=== PATIENT | female | born 1950 | race Caucasian/White ===

== ENCOUNTER 2017-03-08 02:03 | Inpatient (IN) | payer MEDICARE ==
[2017-03-08] VITALS (27 sets, daily range): BP systolic 107–183; BP diastolic 55–83; PULSE 0–78; RESP 15–24; TEMP 96.8–102.2; O2SAT 93–100
[~2017-03-08] VITALS: Ht 162.6 cm; Wt 115.4 kg
[2017-03-08] MEDS: RESP: ALBUTEROL 2.5 MG/IPRATROPIUM 0.5 MG NEB (SCH) INH ×6 (02:15→23:00)
--- NOTE | 2017-03-08 02:27 | PD ---
HPI . Respiratory distress Chief Complaint: Respiratory distress Time Seen by Provider: 02:15 Travel History International Travel<30 days: No Contact w/Intl Traveler<30days: No History of Present Illness HPI Patient presents to us via [facility] status post intubation for respiratory distress. She was brought to us from a hotel room. Very little history is available. She has reportedly been feeling poorly for a couple of days. She became acutely worse tonight and called 911. She reportedly has a history of COPD. PFSH Social History Tobacco Use: Yes Allergies-Medications (Allergen,Severity, Reaction): Coded Allergies: No Known Allergies (Unverified , 03/08/17) Reported Meds & Prescriptions Reported Meds & Active Scripts Active Reported Omeprazole 20 Mg Tab 20 Mg PO DAILY Lisinopril-Hctz 10-12.5 Mg Tab 1 Tab PO DAILY Sertraline (Sertraline HCl) 50 Mg Tab 50 Mg PO DAILY Lorazepam 0.5 Mg Tab 0.5 Mg PO Q8H PRN Gabapentin 300 Mg Cap 300 Mg PO TID Review of Systems ROS Limitations: Intubated Physical Exam Narrative GENERAL: Obese female who is currently intubated. SKIN: Warm and dry. HEAD: Atraumatic. Normocephalic. EYES: Pupils equal and round. ENT: No nasal bleeding or discharge. Mucous membranes pink and moist. NECK: Trachea midline. CARDIOVASCULAR: Regular rate and rhythm. Heart sounds were normal. RESPIRATORY: No accessory muscle use. Breath sounds are diminished. GASTROINTESTINAL: Abdomen soft, non-tender, nondistended. Obese. MUSCULOSKELETAL: No obvious deformities. No edema. NEUROLOGICAL: Patient presented to us sedated and intubated. EMS reports that she was moving all 4 extremities equally. PSYCHIATRIC: Unable to evaluate. Data Data Last Documented VS Vital Signs Date Time Temp Pulse Resp B/P Pulse Ox O2 Delivery O2 Flow Rate FiO2 03/08/17 03:56 70 18 183/83 99 Ventilator 100 03/08/17 02:34 96.8 Orders Complete Blood Count With Diff (03/08/17 02:16) Comprehensive Metabolic Panel (03/08/17 02:16) B-Type Natriuretic Peptide (03/08/17 02:16) D-Dimer (03/08/17 02:16) Act Partial Throm Time (Ptt) (03/08/17 02:16) Prothrombin Time / Inr (Pt) (03/08/17 02:16) Magnesium (Mg) (03/08/17 02:16) Ckmb (Isoenzyme) Profile (03/08/17 02:16) Troponin I (03/08/17 02:16) Arterial Blood Gas (Abg) (03/08/17 02:45) Urinalysis - C+S If Indicated (03/08/17 02:16) Iv Access Insert/Monitor (03/08/17 02:16) Electrocardiogram (03/08/17 02:16) Ecg Monitoring (03/08/17 02:16) Oximetry (03/08/17 02:16) Oxygen Administration (03/08/17 02:16) Chest, Single Ap (03/08/17 02:16) Urinary Catheter Insert/Apply (03/08/17 02:16) Sodium Chloride 0.9% Flush (Ns Flush) (03/08/17 02:30) Methylprednisolone So Succ Inj (Solumedr (03/08/17 02:30) Albuterol-Ipratropium Neb (Duoneb Neb) (03/08/17 02:30) Propofol 1000 Mg/100 Ml Inj (Diprivan 10 (03/08/17 02:30) Restraints Non-Violent JAZLYN.Q3H (03/08/17 02:16) Resp Request For Service (03/08/17 ) Drug Screen, Random Urine (03/08/17 02:49) Ct Pulmonary Angiogram (03/08/17 03:59) Iohexol 350 Inj (Omnipaque 350 Inj) (03/08/17 04:29) Admit Order (Ed Use Only) (03/08/17 04:34) Labs Laboratory Tests Test 03/08/17 03/08/17 03/08/17 02:20 02:30 02:45 Urine Color YELLOW Urine Turbidity CLEAR Urine pH 5.0 Urine Specific [place] 1.012 Urine Protein NEG mg/dL Urine Glucose (UA) NEG mg/dL Urine Ketones NEG mg/dL Urine Occult Blood NEG Urine Nitrite NEG Urine Bilirubin NEG Urine Urobilinogen LESS THAN 2.0 MG/DL Urine Leukocyte Esterase NEG Urine RBC LESS THAN 1 /hpf Urine WBC 1 /hpf Urine Squamous Epithelial <1 /hpf Cells Microscopic Urinalysis Comment CULT NOT INDICATED Urine Opiates Screen NEG Urine Barbiturates Screen NEG Urine Amphetamines Screen NEG Urine Benzodiazepines Screen NEG Urine Cocaine Screen NEG Urine Cannabinoids Screen NEG White Blood Count 5.4 TH/MM3 Red Blood Count 4.02 MIL/MM3 Hemoglobin 12.7 GM/DL Hematocrit 37.7 % Mean Corpuscular Volume 93.9 FL Mean Corpuscular Hemoglobin 31.5 PG Mean Corpuscular Hemoglobin 33.5 % Concent Red Cell Distribution Width 15.1 % Platelet Count 146 TH/MM3 Mean Platelet Volume 8.3 FL Neutrophils (%) (Auto) 83.0 % Lymphocytes (%) (Auto) 10.6 % Monocytes (%) (Auto) 5.2 % Eosinophils (%) (Auto) 0.9 % Basophils (%) (Auto) 0.3 % Neutrophils # (Auto) 4.5 TH/MM3 Lymphocytes # (Auto) 0.6 TH/MM3 Monocytes # (Auto) 0.3 TH/MM3 Eosinophils # (Auto) 0.1 TH/MM3 Basophils # (Auto) 0.0 TH/MM3 CBC Comment DIFF FINAL Differential Comment Prothrombin Time 10.9 SEC Prothromb Time International 1.0 RATIO Ratio Activated Partial 20.5 SEC Thromboplast Time D-Dimer Quantitative (PE/DVT) 1.64 MG/L FEU Sodium Level 141 MEQ/L Potassium Level 3.1 MEQ/L Chloride Level 106 MEQ/L Carbon Dioxide Level 26.5 MEQ/L Anion Gap 9 MEQ/L Blood Urea Nitrogen 20 MG/DL Creatinine 1.00 MG/DL Estimat Glomerular Filtration 48 ML/MIN Rate Random Glucose 155 MG/DL Calcium Level 8.3 MG/DL Magnesium Level 1.9 MG/DL Total Bilirubin 0.2 MG/DL Aspartate Amino Transf 18 U/L (AST/SGOT) Alanine Aminotransferase 20 U/L (ALT/SGPT) Alkaline Phosphatase 73 U/L Total Creatine Kinase 66 U/L Troponin I LESS THAN 0.02 NG/ML B-Type Natriuretic Peptide 19 PG/ML Total Protein 7.0 GM/DL Albumin 3.4 GM/DL Blood Gas Puncture Site RT RADIAL Blood Gas Patient Temperature 98.6 Blood Gas HCO3 26 mmol/L Blood Gas Base Excess -0.1 mmol/L Blood Gas Oxygen Saturation 88 % Arterial Blood pH 7.29 Arterial Blood Partial 55 mmHg Pressure CO2 Arterial Blood Partial 68 mmHG Pressure O2 Arterial Blood Oxygen Content 15.2 Vol % Arterial Blood 3.5 % Carboxyhemoglobin Arterial Blood Methemoglobin 0.5 % Blood Gas Hemoglobin 12.4 G/DL Oxygen Delivery Device VENTILATOR Blood Gas Inspired Oxygen 100 % MDM Medical Decision Making Medical Screen Exam Complete: Yes Emergency Medical Condition: Yes Interpretation(s) EKG shows a sinus rhythm. No ST segment elevation or depression. She has an intraventricular conduction delay. Differential Diagnosis Differential diagnosis of dyspnea includes but is not limited to congestive heart failure, pneumonia, wheezing, pneumothorax, pulmonary embolism Narrative Course Patient presented to us that his post intubation by EMS. They report a history of COPD. No further history was obtainable. Her family is now here and available for interview. They report a history of COPD and lymphoma. They state that she's had a cold for the last couple days. They state that they are here in town for a early left her nebulizer machine at home. She did use another person's nebulizer machine yesterday took some [id number] Mucinex. However, her symptoms worsen rather than improve. She developed nausea, vomiting and diarrhea shortly prior to presentation. She became acutely worse from respiratory standpoint. They state that she became very disoriented. EMS was then called. They state that she does not use oxygen at home. CBC & BMP Diagram 03/08/17 02:30 Last Impressions Chest X-Ray 03/08/17 0216 Signed Impressions: Service Date/Time: Wednesday, March 08, 2017 02:24 - CONCLUSION: 1. Endotracheal tube in the right mainstem bronchus. This should be retracted 3-4 cm. Stepan Albarado MD The chest x-ray was independently viewed by me. The ET tube is being adjusted by respiratory therapy. Blood gas was done about a half an hour after her arrival. pH 7.29, pCO2 55, pO2 68. D-dimer is 1.64. CT for PE has subsequently been ordered. UA is negative. Tox screen is negative. Critical Care Narrative Aggregate critical care time was 45 minutes. Time to perform other separately billable procedures was not included in the critical care time. My time did not include minutes spent treating any other patients simultaneously or on activities that did not directly contribute to the patient's treatment. The services I provided to this patient were to treat and/or prevent clinically significant deterioration due to respiratory distress/failure I provided critical care services requiring my management, as noted below: Chart data review, documentation time, medication orders and management, vital sign assessments/reviewing monitor data, ordering and reviewing lab tests, ordering and interpreting/reviewing x-rays and diagnostic studies, care of the patient and discussion of the patient with the admitting physicians Physician Communication Physician Communication Dr. Espino will admit Diagnosis Primary Impression: Respiratory failure Qualified Code: J96.02 - Acute respiratory failure with hypercapnia Admitting Information Admitting Physician Requests: Admit Condition: Montse Howard MD Mar 08, 2017 02:27
[2017-03-08] MEDS ORDERED: PROPOFOL 1000 MG/100 ML BTL IV PRN (02:30)
[2017-03-08] MEDS ORDERED: SODIUM CHLORIDE 0.9% FLUSH 10 ML FLUSH IVF PRN (02:30)
[2017-03-08] MEDS ORDERED: methylPREDNISolone SOD SUCC 125 MG/2 ML VIAL IVP ONE (02:30)
[2017-03-08] MEDS ORDERED: OMEP20TA PO (02:43)
[2017-03-08] MEDS ORDERED: LISI10TA PO (02:43)
[2017-03-08] MEDS ORDERED: GABA300C5 PO (02:43)
[2017-03-08] MEDS ORDERED: SERT-132 PO (02:43)
[2017-03-08] MEDS ORDERED: LORA-373 PO (02:43)
[2017-03-08 02:51] LABS: AUTOMATED NEUTROPHIL # 4.5 TH/MM3 (1.8-7.7); BASOPHIL % 0.3 % (0.0-2.0); EOSINOPHIL # 0.1 TH/MM3 (0-0.4); EOSINOPHIL % 0.9 % (0.0-4.0); HEMATOCRIT 37.7 % (35.0-46.0); HEMO FLAGS DIFF FINAL; LYMPH % 10.6 % (9.0-44.0); LYMPHOCYTE # 0.6 TH/MM3 (1.0-4.8); MEAN CELL VOLUME 93.9 FL (80.0-100.0); MEAN CORPUSCULAR HEMOGLOBIN 31.5 PG (27.0-34.0); MEAN CORPUSCULAR HGB CONC 33.5 % (32.0-36.0); MONO % 5.2 % (0.0-8.0); PLATELET COUNT 146 TH/MM3 (150-450); RED BLOOD COUNT 4.02 MIL/MM3 (4.00-5.30); RED CELL DISTRIBUTION WIDTH 15.1 % (11.6-17.2); WHITE BLOOD COUNT 5.4 TH/MM3 (4.0-11.0)
[2017-03-08 02:54] LABS: BLOOD GAS BASE EXCESS -0.1 mmol/L (-2-2); BLOOD GAS CARBOXYHEMOGLOBIN 3.5 % (0-4); BLOOD GAS HCO3 26 mmol/L (22-26); BLOOD GAS METHEMOGLOBIN 0.5 % (0-2); BLOOD GAS O2 HGB SATURATION 88 % (90-100); BLOOD GAS OXYGEN CONTENT 15.2 Vol % (12.0-20.0); BLOOD GAS PCO2 55 mmHg (38-42); BLOOD GAS PO2 68 mmHG (61-120); BLOOD GAS TOTAL HGB 12.4 G/DL (12.0-16.0); CRITICAL VALUE YES; DRAW SITE RT RADIAL; FIO2 100 %; NUMBER OF ARTERIAL PUNCTURES 1; OXYGEN DEVICE VENTILATOR; STAT YES; TEMP CORR TO 98.6; ULNAR PULSE PRESENT
[2017-03-08 02:57] LABS: BLOOD, URINE NEG (NEG); COMMENT (UR) CULT NOT INDICATED; CULTURE IF INDICATED CULT NOT INDICATED; GLUCOSE,URINE NEG (NEG); KETONE, URINE NEG (NEG); NITRITE,URINE NEG (NEG); SQUAMOUS EPITHELIAL CELL URINE <1 /hpf (0-5); URINE COLOR YELLOW (YELLW/STRAW)
[2017-03-08 03:08] LABS: ALT (GPT) 20 U/L (10-53); ANION GAP 9 MEQ/L (5-15); AST (GOT) 18 U/L (15-37); BICARBONATE 26.5 MEQ/L (21.0-32.0); BLOOD UREA NITROGEN 20 MG/DL (7-18); CHLORIDE 106 MEQ/L (98-107); GLOMERULAR FILTRATION RATE 48 ML/MIN (>89); MAGNESIUM 1.9 MG/DL (1.5-2.5); POTASSIUM 3.1 MEQ/L (3.5-5.1); SODIUM (NA) 141 MEQ/L (136-145)
--- NOTE | 2017-03-08 03:11 | RADRPT ---
EXAM DATE/TIME: 03/08/2017 02:24 [facility] COMPARISON: No previous studies available for comparison. INDICATIONS : E-T tube placement. MEDICAL HISTORY : None. SURGICAL HISTORY : None. ENCOUNTER: Initial ACUITY: 1 day PAIN SCORE: Non-responsive. LOCATION: Bilateral chest FINDINGS: The cardiac silhouette is enlarged in transverse diameter. Endotracheal tube is in the right mainstem bronchus and should be pulled back 3-4 cm. There is subsegmental atelectasis in the left base. There is no evidence of pneumothorax. CONCLUSION: 1. Endotracheal tube in the right mainstem bronchus. This should be retracted 3-4 cm. Stepan Albarado MD on March 08, 2017 at 3:08 Board Certified Radiologist. This report was verified electronically.
[2017-03-08 03:13] LABS: ALKALINE PHOSPHATASE 73 U/L (45-117); TOTAL BILIRUBIN ADULT 0.2 MG/DL (0.2-1.0)
[2017-03-08 03:16] LABS: AMPHETAMINE, URINE NEG (NEG); BARBITURATES, URINE NEG (NEG); COCAINE, URINE NEG (NEG)
[2017-03-08 03:16] LABS: APTT (PATIENT) 20.5 SEC (24.3-30.1); PROTHROMBIN TIME - PATIENT 10.9 SEC (9.8-11.6)
[2017-03-08 03:23] LABS: CREATINE KINASE 66 U/L (26-192)
[2017-03-08] MEDS ORDERED: IOHEXOL 350 MG/ML 10 ML VIAL (for RAD DIAG) IV ONE (04:29)
--- NOTE | 2017-03-08 04:41 | HHI.HP ---
[facility] Service Critical Care Medicine Primary Care Physician Unknown Admission Diagnosis respiratory failure Diagnosis: Chief Complaint: shortness of breath Travel History International Travel<30 Days: No Contact w/Intl Traveler <30 Da: No Traveled to Known Affected Are: No History of Present Illness This is a 69-year-old female who is traveling from [place] for her brother 's which is planned for tomorrow. She has a history of COPD which is relatively well-controlled at baseline. She still smokes daily. Her family reports that even before leaving for [place], she had significantly increased shortness of breath and sputum production. The family noted that it was very difficult for her to ambulate through the airport due to her dyspnea. She is been here for approximately 2 days with worsening shortness of breath and dyspnea. She is been using a family members nebulizer treatments. She has not seeked medical attention for this. In the middle night tonight she apparently awoke complaining of acute shortness of breath. She vomited 1. EMS was called and found her in severe respiratory distress and intubated her. The family states that she has not complained of chest pain, fever, chills. Until the single time that she vomited before calling 911, there were no complaints of nausea, vomiting, diarrhea. Unfortunately, the patient is intubated, sedated, and cannot provide any additional history. Critical-care medicine is consulted to evaluate and her acute hypoxic hypercarbic respiratory failure. Review of Systems ROS Limitations: Clinical Condition, Intubated, Altered Mental Status, Unresponsive Past Family Social History Allergies: Coded Allergies: No Known Allergies (Unverified , 03/08/17) Past Medical History per the patient's family, they know she has COPD and some type of lymphoma, but they do not know anything else about the patient's past medical history. Past Surgical History Patient's family does not know anything about her past surgical history. Due to the patient's clinical condition she cannot provide additional information. Reported Medications Per the patient's family, her home medications include: Omeprazole 20 Mg Tab 20 Mg PO DAILY Lisinopril-Hctz 10-12.5 Mg Tab 1 Tab PO DAILY Sertraline (Sertraline HCl) 50 Mg Tab 50 Mg PO DAILY Lorazepam 0.5 Mg Tab 0.5 Mg PO Q8H PRN Gabapentin 300 Mg Cap 300 Mg PO TID copd exacerbation Active Ordered Medications See MAR Family History unobtainable secondary to the clinical condition of the patient. Social History per the patient's family, she smokes daily. drinks 1-2 drinks/year. Physical Exam Vital Signs Vital Signs Date Time Temp Pulse Resp B/P Pulse Ox O2 Delivery O2 Flow Rate FiO2 03/08/17 03:56 70 18 183/83 99 Ventilator 100 03/08/17 03:03 60 15 111/55 97 Ventilator 100 03/08/17 02:58 59 15 95 Ventilator 100 03/08/17 02:48 99 100 03/08/17 02:38 99 Ventilator 100 03/08/17 02:38 99 Ventilator 100 03/08/17 02:34 96.8 69 24 123/58 99 03/08/17 02:10 96 100 03/08/17 02:05 100 Physical Exam GENERAL: Obese middle-aged female, lying in bed, intubated, sedated, critically ill HEENT: Normocephalic. Atraumatic. Pupils equal, round, reactive, conjugate. Mucous membranes are moist. NECK: Obese neck prevents accurate assessment of JVD. Trachea is midline. CHEST: Equal chest rise. Positive extra wheeze. ACV 15/500/5/80% CARDIOVASCULAR: Normal rate, regular rhythm. No appreciable murmurs. ABDOMEN: Obese, soft, nontender, nondistended. No guarding. MUSCULOSKELETAL: no Peripheral edema. Distal pulses 2+ NEUROLOGICAL: RASS -3. Withdrawals all 4 extremities. Does not follow commands. Intubated and sedated. Laboratory Laboratory Tests Test 03/08/17 03/08/17 03/08/17 02:20 02:30 02:45 Urine Color YELLOW Urine Turbidity CLEAR Urine pH 5.0 Urine Specific Gordon 1.012 Urine Protein NEG Urine Glucose (UA) NEG Urine Ketones NEG Urine Occult Blood NEG Urine Nitrite NEG Urine Bilirubin NEG Urine Urobilinogen LESS THAN 2.0 Urine Leukocyte Esterase NEG Urine RBC LESS THAN 1 Urine WBC 1 Urine Squamous Epithelial <1 Cells Microscopic Urinalysis Comment CULT NOT INDICATED Urine Opiates Screen NEG Urine Barbiturates Screen NEG Urine Amphetamines Screen NEG Urine Benzodiazepines Screen NEG Urine Cocaine Screen NEG Urine Cannabinoids Screen NEG White Blood Count 5.4 Red Blood Count 4.02 Hemoglobin 12.7 Hematocrit 37.7 Mean Corpuscular Volume 93.9 Mean Corpuscular Hemoglobin 31.5 Mean Corpuscular Hemoglobin 33.5 Concent Red Cell Distribution Width 15.1 Platelet Count 146 Mean Platelet Volume 8.3 Neutrophils (%) (Auto) 83.0 Lymphocytes (%) (Auto) 10.6 Monocytes (%) (Auto) 5.2 Eosinophils (%) (Auto) 0.9 Basophils (%) (Auto) 0.3 Neutrophils # (Auto) 4.5 Lymphocytes # (Auto) 0.6 Monocytes # (Auto) 0.3 Eosinophils # (Auto) 0.1 Basophils # (Auto) 0.0 CBC Comment DIFF FINAL Differential Comment Prothrombin Time 10.9 Prothromb Time International 1.0 Ratio Activated Partial 20.5 Thromboplast Time D-Dimer Quantitative (PE/DVT) 1.64 Sodium Level 141 Potassium Level 3.1 Chloride Level 106 Carbon Dioxide Level 26.5 Anion Gap 9 Blood Urea Nitrogen 20 Creatinine 1.00 Estimat Glomerular Filtration 48 Rate Random Glucose 155 Calcium Level 8.3 Magnesium Level 1.9 Total Bilirubin 0.2 Aspartate Amino Transf 18 (AST/SGOT) Alanine Aminotransferase 20 (ALT/SGPT) Alkaline Phosphatase 73 Total Creatine Kinase 66 Troponin I LESS THAN 0.02 B-Type Natriuretic Peptide 19 Total Protein 7.0 Albumin 3.4 Blood Gas Puncture Site RT RADIAL Blood Gas Patient Temperature 98.6 Blood Gas HCO3 26 Blood Gas Base Excess -0.1 Blood Gas Oxygen Saturation 88 Arterial Blood pH 7.29 Arterial Blood Partial 55 Pressure CO2 Arterial Blood Partial 68 Pressure O2 Arterial Blood Oxygen Content 15.2 Arterial Blood 3.5 Carboxyhemoglobin Arterial Blood Methemoglobin 0.5 Blood Gas Hemoglobin 12.4 Oxygen Delivery Device VENTILATOR Blood Gas Inspired Oxygen 100 Result Diagram: 03/08/1722903/08/[address] Angiography 03/08/17 0359 Signed Impressions: Service Date/Time: Wednesday, March 08, 2017 04:26 - CONCLUSION: 1. No evidence of pulmonary embolism 2. Mild splenomegaly Stepan Albarado MD Chest X-Ray 03/08/17 0216 Signed Impressions: Service Date/Time: Wednesday, March 08, 2017 02:24 - CONCLUSION: 1. Endotracheal tube in the right mainstem bronchus. This should be retracted 3-4 cm. Stepan Albarado MD Assessment and Plan Assessment and Plan Assessment: This is a 69-year-old female with history of COPD and few days of worsening productive sputum, cough, and likely COPD exacerbation with delay in presentation. She is very critically ill at this time, and her delay in presentation has significantly worsened her overall medical condition. We will work towards treating her COPD exacerbation and covering her empirically with Levaquin given the severity of her exacerbation and the clinical history suggestive of infectious etiology. Plan: 1. Acute hypoxic and Hypercarbic respiratory failure -- secondary to COPD exacerbation -- wean fio2 for goal spo2 > 88% -- abg now and in the AM -- does not meet sbt criteria today given her acute hypoxemia overnight -- vent bundle -- HOB at 30 degrees 2. COPD Exacerbation -- steroids -- levaquin -- nebs q4h and q2h prn -- cxr in the AM -- will test for flu -- sputum culture -- CTA 03/08 negative for PE SQH, SCDs, PPI for prophylaxis. Of note: patient is but still legally to her who is in [place]. Her son who is at bedside states that he thinks he has paperwork to be the medical decision maker but this is in [place] as well. I told the son that unless we had that paperwork, by [place] law, her would still be the legal medical decision maker. The son is going to fly back to [place] after the to attempt to find the appropriate paperwork and provide that to us. Dispo: admit to the ICU. This patient remains critically ill with one or more organ systems which are or may become a threat to life. I have spent in excess of 47 minutes discontinuously in the care and management of this patient. This time is exclusive of procedures, and includes, but is not limited to, evaluation of the patient, review of the medical record, discussions with family, consultants, nursing staff, or respiratory therapy, and documentation in the medical record. Code Status Full Code Discussed Condition With Er physician, bedside RN, sister and son at bedside. Mario Espino MD Mar 08, 2017 04:41
[2017-03-08] MEDS ORDERED: SODIUM PHOSPHATE INJ 30 MMOL in SODIUM CHLOR 0.9% 250 ML INJ 240 ML IV PRN (04:45)
[2017-03-08] MEDS ORDERED: MAGNESIUM SULFATE INJ 4 GM in SODIUM CHLORIDE 0.9% INJ 92 ML IV PRN (04:45)
[2017-03-08] MEDS ORDERED: MAGNESIUM SULFATE INJ 2 GM in SODIUM CHLORIDE 0.9% INJ 96 ML IV PRN (04:45)
[2017-03-08] MEDS ORDERED: POTASSIUM PHOSPHATE INJ 30 MMOL in SODIUM CHLOR 0.9% 250 ML INJ 250 ML IV PRN (04:45)
[2017-03-08] MEDS ORDERED: POTASSIUM CHLOR 20 MEQ PREMIX 100 ML IV PRN (04:45)
[2017-03-08] MEDS ORDERED: MAGNESIUM OXIDE 400 MG TAB PO PRN (04:45)
[2017-03-08] MEDS ORDERED: POTASSIUM CHLOR 40 MEQ PREMIX 100 ML IV PRN ×2 (04:45)
[2017-03-08] MEDS ORDERED: ONDANSETRON HCL 4 MG/2 ML VIAL IV PRN (04:45)
[2017-03-08] MEDS ORDERED: POTASSIUM PHOSPHATE MONOBASIC 500 MG TAB PO PRN (04:45)
[2017-03-08] MEDS ORDERED: DEXTROSE 50% IN WATER 50 ML VIAL(D50) IV PUSH PRN (04:45)
[2017-03-08] MEDS ORDERED: CHLORHEXIDINE GLUCONATE 2 % 1 PACK (2 CLOTHS) TOP PRN (04:45)
[2017-03-08] MEDS ORDERED: MISCELLANEOUS NURSING INFORMATION XX SCH (04:45)
[2017-03-08] MEDS ORDERED: SODIUM CHLORIDE 0.9% FLUSH 10 ML FLUSH IV FLUSH PRN (04:45)
[2017-03-08] MEDS ORDERED: POTASSIUM PHOSPHATE MONOBASIC 500 MG TAB PO/TUBE PRN (04:45)
[2017-03-08] MEDS: fentaNYL DRIP 250 ML ONE ×2 (04:57→05:28)
[2017-03-08] MEDS: SODIUM CHLOR 0.9% 1000 ML INJ 1,000 ML IV SCH ×2 (05:13→16:27)
[2017-03-08] MEDS: POTASSIUM CHLOR 20 MEQ PREMIX 100 ML IV PRN ×2 (05:13→06:47)
--- NOTE | 2017-03-08 05:22 | RADRPT ---
EXAM DATE/TIME: 03/08/2017 04:26 [facility] COMPARISON: No previous studies available for comparison. INDICATIONS : Respiratory failure. IV CONTRAST: 75 cc Omnipaque 350 (iohexol) IV RADIATION DOSE: 23.11 CTDIvol (mGy) MEDICAL HISTORY : Non-responsive. SURGICAL HISTORY : Non-responsive. ENCOUNTER: Initial ACUITY: 1 day PAIN SCALE: Non-responsive LOCATION: chest TECHNIQUE: Volumetric scanning of the chest was performed using a pulmonary embolism protocol MIP images were re constructed. Using automated exposure control and adjustment of the mA and/or kV according to patien t size, radiation dose was kept as low as reasonably achievable to obtain optimal diagnostic quality images. FINDINGS: Examination of the pulmonary vasculature demonstrates good filling of the main, lobar and segmental b ranches. There are no filling defects to suggest pulmonary embolism. Multiplanar reconstructions are also unremarkable. Bibasilar atelectasis is present. No pulmonary nodules are identified. No pleural effusions are ident ified. Examination of the mediastinum demonstrates no abnormally enlarged lymph nodes by CT criteria. No axi llary or hilar abnormalities are identified. Coronary artery calcifications are present. The spleen i s mildly enlarged. CONCLUSION: 1. No evidence of pulmonary embolism 2. Mild splenomegaly Stepan Albarado MD on March 08, 2017 at 5:19 Board Certified Radiologist. This report was verified electronically.
[2017-03-08] MEDS: fentaNYL DRIP 250 ML IV SCH ×2 (05:28→23:03)
[2017-03-08 05:38] LABS: BLOOD GAS CARBOXYHEMOGLOBIN 1.9 % (0-4); BLOOD GAS HCO3 27 mmol/L (22-26); BLOOD GAS METHEMOGLOBIN 0.6 % (0-2); BLOOD GAS O2 HGB SATURATION 95 % (90-100); BLOOD GAS OXYGEN CONTENT 17.3 Vol % (12.0-20.0); BLOOD GAS PCO2 55 mmHg (38-42); BLOOD GAS PO2 105 mmHG (61-120); BLOOD GAS TOTAL HGB 12.9 G/DL (12.0-16.0); CRITICAL VALUE YES; OXYGEN DEVICE VENTILATOR; TEMP CORR TO 98.6
[2017-03-08 05:39] LABS: DRAW SITE RT RADIAL; FIO2 80 %; NUMBER OF ARTERIAL PUNCTURES 1; STAT YES; ULNAR PULSE PRESENT; VENT SETTINGS AC/15/500/PEEP5
[2017-03-08] MEDS: INSULIN NovoLIN REGULAR SUPPLEMENTAL SCALE SQ SCH ×4 (05:45→23:22)
[2017-03-08] MEDS: LEVOFLOXACIN 750 MG PREMIX INJ 150 ML IV SCH (05:52)
[2017-03-08] MEDS: HEPARIN SODIUM - SQ 10,000 UNITS/ML VIAL SQ SCH ×3 (06:14→20:32)
[2017-03-08] MEDS: PROPOFOL 1000 MG/100 ML INJ 100 ML IV SCH ×3 (06:49→23:03)
[2017-03-08] MEDS: CHLORHEXIDINE 0.12% (ORAL KIT) 15 ML CUP MT SCH ×2 (08:00→20:00)
[2017-03-08] MEDS: SODIUM CHLORIDE 0.9% FLUSH 10 ML FLUSH IV FLUSH SCH ×2 (09:00→20:33)
[2017-03-08] MEDS: SERTRALINE HCL 50 MG TAB PO SCH (09:00)
[2017-03-08] MEDS: DOCUSATE SODIUM 50 MG/SENNA 8.6 MG TAB PO SCH ×3 (09:00→21:09)
[2017-03-08] MEDS: methylPREDNISolone SOD SUCC 125 MG/2 ML VIAL IV PUSH SCH ×2 (10:10→20:32)
[2017-03-08] MEDS: PANTOPRAZOLE SODIUM 40 MG VIAL IV SCH (10:10)
--- NOTE | 2017-03-08 14:13 | EKG ---
Date Performed: 03/08/2017 Time Performed: 02:21:44 PTAGE: 89 years EKG: SINUS BRADYCARDIA LOW QRS VOLTAGE IN PRECORDIAL LEADS BORDERLINE ECG NO PREVIOUS TRACING DOCTOR: Sameer Pastor Interpretating Date/Time 03/08/2017 14:12:33
--- NOTE | 2017-03-08 16:32 | HHI.CCPN ---
Subjective Remarks/Hospital Course This is a 69-year-old female who is traveling from [place] for her brother 's which is planned for tomorrow. She has a history of COPD which is relatively well-controlled at baseline. She still smokes daily. Her family reports that even before leaving for [place], she had significantly increased shortness of breath and sputum production. The family noted that it was very difficult for her to ambulate through the airport due to her dyspnea. She is been here for approximately 2 days with worsening shortness of breath and dyspnea. She is been using a family members nebulizer treatments. She has not seeked medical attention for this. In the middle night tonight she apparently awoke complaining of acute shortness of breath. She vomited 1. EMS was called and found her in severe respiratory distress and intubated her. The family states that she has not complained of chest pain, fever, chills. Until the single time that she vomited before calling 911, there were no complaints of nausea, vomiting, diarrhea. Unfortunately, the patient is intubated, sedated, and cannot provide any additional history. Critical-care medicine is consulted to evaluate and her acute hypoxic hypercarbic respiratory failure. 03/07 1600 hrs: A-aO2 gradient still much too high to tolerate extubation. Wheezing has improved. Her relative's is today. Objective Vital Signs Date Time Temp Pulse Resp B/P Pulse Ox O2 Delivery O2 Flow Rate FiO2 03/08/17 16:03 93 60 03/08/17 14:00 58 03/08/17 12:00 97.6 19 131/65 03/08/17 05:33 Ventilator Result Diagram: 03/08/17 0230 03/08/17 0230 Other Results Laboratory Tests Test 03/08/17 03/08/17 02:45 05:29 Blood Gas Puncture Site RT RADIAL RT RADIAL Blood Gas Patient Temperature 98.6 98.6 Blood Gas HCO3 26 mmol/L 27 mmol/L (22-26) (22-26) Blood Gas Base Excess -0.1 mmol/L 1.0 mmol/L (-2-2) (-2-2) Blood Gas Oxygen Saturation 88 % (90-100) 95 % (90-100) Arterial Blood pH 7.29 7.31 (7.380-7.420) (7.380-7.420) Arterial Blood Partial 55 mmHg (38-42) 55 mmHg (38-42) Pressure CO2 Arterial Blood Partial 68 mmHG 105 mmHG Pressure O2 (61-120) (61-120) Arterial Blood Oxygen Content 15.2 Vol % 17.3 Vol % (12.0-20.0) (12.0-20.0) Arterial Blood 3.5 % (0-4) 1.9 % (0-4) Carboxyhemoglobin Arterial Blood Methemoglobin 0.5 % (0-2) 0.6 % (0-2) Blood Gas Hemoglobin 12.4 G/DL 12.9 G/DL (12.0-16.0) (12.0-16.0) Oxygen Delivery Device VENTILATOR VENTILATOR Blood Gas Inspired Oxygen 100 % 80 % Blood Gas Ventilator Setting AC/15/500/PEEP5 Imaging Last Impressions CT Angiography 03/08/17 0352 Signed Impressions: Service Date/Time: Wednesday, March 08, 2017 04:26 - CONCLUSION: 1. No evidence of pulmonary embolism 2. Mild splenomegaly Stepan Albarado MD Chest X-Ray 03/08/17 0216 Signed Impressions: Service Date/Time: Wednesday, March 08, 2017 02:24 - CONCLUSION: 1. Endotracheal tube in the right mainstem bronchus. This should be retracted 3-4 cm. Stepan Albarado MD Objective Remarks GENERAL: Obese middle-aged female, lying in bed, intubated, sedated, critically ill HEENT: Normocephalic. Atraumatic. Pupils equal, round, reactive, conjugate. Mucous membranes are moist. NECK: JVD not accessible. Trachea is midline. Supple. CHEST: Equal chest rise. Positive extra wheeze. ACV 15/500/5/80% CARDIOVASCULAR: Normal rate, regular rhythm. No appreciable murmurs. NL S1S2 ABDOMEN: Obese, soft, nontender, nondistended. No guarding. BS active. MUSCULOSKELETAL: no Peripheral edema. Distal pulses 2+, warm, well perfused. NEUROLOGICAL: Withdrawals all 4 extremities. Does not follow commands. Intubated and sedated. Opens eyes to voice and tracks. A/P Assessment and Plan Assessment: This is a 69-year-old female with history of COPD and few days of worsening productive sputum, cough, and likely COPD exacerbation with delay in presentation. She is very critically ill at this time, and her delay in presentation has significantly worsened her overall medical condition. We will work towards treating her COPD exacerbation and covering her empirically with Levaquin given the severity of her exacerbation and the clinical history suggestive of infectious etiology. Plan: 1. Acute hypoxic and Hypercarbic respiratory failure -- secondary to COPD exacerbation -- wean fio2 for goal spo2 > 88% -- abg now and in the AM -- does not meet sbt criteria today given her acute hypoxemia overnight -- vent bundle -- HOB at 30 degrees 2. COPD Exacerbation -- steroids -- levaquin -- nebs q4h and q2h prn -- cxr in the AM -- will test for flu -- sputum culture -- CTA 03/08 negative for PE SQH, SCDs, PPI for prophylaxis. Of note: patient is but still legally to her who is in [place]. Her son who is at bedside states that he thinks he has paperwork to be the medical decision maker but this is in [place] as well. I told the son that unless we had that paperwork, by [place] law, her would still be the legal medical decision maker. The son is going to fly back to [place] after the to attempt to find the appropriate paperwork and provide that to us. Dispo: Remains in ICU Overall impression: Critically ill with severe bronchospasm and hypoxemia. Unable to wean from ventilator. Numerous pharmacological and ventilator changes required to improved ventilation. Critical care 48 mins Abdias Raza MD Mar 08, 2017 16:32
[2017-03-08] MEDS: ACETAMINOPHEN 325 MG TAB PO PRN (21:08)
[2017-03-09] VITALS (20 sets, daily range): BP systolic 90–114; BP diastolic 52–69; PULSE 72–100; RESP 14–22; TEMP 98.7–99.8; O2SAT 93–96
[2017-03-09] MEDS: PROPOFOL 1000 MG/100 ML INJ 100 ML IV SCH ×3 (00:03→21:24)
[2017-03-09] MEDS: RESP: ALBUTEROL 2.5 MG/IPRATROPIUM 0.5 MG NEB (PRN) INH ×2 (01:46→06:23)
[2017-03-09] MEDS: SODIUM CHLOR 0.9% 1000 ML INJ 1,000 ML IV SCH ×3 (03:22→20:50)
[2017-03-09] MEDS: CHLORHEXIDINE GLUCONATE 2 % 1 PACK (2 CLOTHS) TOP SCH (03:22)
[2017-03-09] MEDS: RESP: ALBUTEROL 2.5 MG/IPRATROPIUM 0.5 MG NEB (SCH) INH ×6 (04:00→23:58)
[2017-03-09 04:15] LABS: HEMATOCRIT 40.8 % (35.0-46.0); MEAN CELL VOLUME 95.6 FL (80.0-100.0); MEAN CORPUSCULAR HEMOGLOBIN 31.3 PG (27.0-34.0); MEAN CORPUSCULAR HGB CONC 32.8 % (32.0-36.0); PLATELET COUNT 183 TH/MM3 (150-450); RED BLOOD COUNT 4.27 MIL/MM3 (4.00-5.30); REVIEW FLAG FINAL; WHITE BLOOD COUNT 12.9 TH/MM3 (4.0-11.0)
[2017-03-09] MEDS: LEVOFLOXACIN 750 MG PREMIX INJ 150 ML IV SCH (04:28)
[2017-03-09 04:45] LABS: BICARBONATE 23.1 MEQ/L (21.0-32.0); POTASSIUM 4.3 MEQ/L (3.5-5.1)
[2017-03-09 05:31] LABS: BLOOD GAS CARBOXYHEMOGLOBIN 0.8 % (0-4); BLOOD GAS HCO3 22 mmol/L (22-26); BLOOD GAS METHEMOGLOBIN 0.9 % (0-2); BLOOD GAS O2 HGB SATURATION 92 % (90-100); BLOOD GAS OXYGEN CONTENT 17.1 Vol % (12.0-20.0); BLOOD GAS PCO2 57 mmHg (38-42); BLOOD GAS PO2 82 mmHg (61-120); BLOOD GAS TOTAL HGB 13.1 G/DL (12.0-16.0); CRITICAL VALUE YES; OXYGEN DEVICE VENTILATOR; TEMP CORR TO 98.6
[2017-03-09] MEDS: INSULIN NovoLIN REGULAR SUPPLEMENTAL SCALE SQ SCH ×3 (05:31→18:00)
[2017-03-09] MEDS: HEPARIN SODIUM - SQ 10,000 UNITS/ML VIAL SQ SCH ×3 (05:31→22:07)
[2017-03-09 05:32] LABS: DRAW SITE LT RADIAL; FIO2 50 %; NUMBER OF ARTERIAL PUNCTURES 1; STAT NO; ULNAR PULSE PRESENT; VENT SETTINGS PRVC/AC
--- NOTE | 2017-03-09 06:39 | RADRPT ---
EXAM DATE/TIME: 03/09/2017 05:09 [facility] COMPARISON: CHEST SINGLE AP, March 08, 2017, 2:24. INDICATIONS : Shortness of breath, possible pulmonary disease. MEDICAL HISTORY : None. SURGICAL HISTORY : None. ENCOUNTER: Subsequent ACUITY: 2 days PAIN SCORE: Non-responsive. LOCATION: Bilateral chest FINDINGS: The cardiac silhouette is enlarged in transverse diameter. Endotracheal tube is at the sravani and cou ld be retracted 2-3 cm. The lungs are free of acute parenchymal opacity. No effusions are identified. CONCLUSION: 1. Endotracheal tube at the sravani. This could be retracted 2-3 cm. Stepan Albarado MD on March 09, 2017 at 6:36 Board Certified Radiologist. This report was verified electronically.
[2017-03-09] MEDS: PANTOPRAZOLE SODIUM 40 MG VIAL IV SCH (09:43)
[2017-03-09] MEDS: SERTRALINE HCL 50 MG TAB PO SCH (09:44)
[2017-03-09] MEDS: DOCUSATE SODIUM 50 MG/SENNA 8.6 MG TAB PO SCH ×2 (09:44→20:25)
[2017-03-09] MEDS: methylPREDNISolone SOD SUCC 125 MG/2 ML VIAL IV PUSH SCH ×2 (09:44→18:38)
[2017-03-09] MEDS: SODIUM CHLORIDE 0.9% FLUSH 10 ML FLUSH IV FLUSH SCH ×2 (09:50→20:20)
[2017-03-09] MEDS: CHLORHEXIDINE 0.12% (ORAL KIT) 15 ML CUP MT SCH ×2 (10:12→20:25)
[2017-03-09] MEDS ORDERED: SODIUM BICARBONATE 8.4% INJ 50 MEQ/50 ML SYR IV PUSH ONE (12:30)
[2017-03-09] MEDS ORDERED: SODIUM CHLORID 0.9% 500 ML INJ 500 ML IV ONE (12:30)
--- NOTE | 2017-03-09 12:44 | HHI.CCPN ---
Subjective Remarks/Hospital Course This is a 69-year-old female who is traveling from [place] for her brother 's which is planned for tomorrow. She has a history of COPD which is relatively well-controlled at baseline. She still smokes daily. Her family reports that even before leaving for [place], she had significantly increased shortness of breath and sputum production. The family noted that it was very difficult for her to ambulate through the airport due to her dyspnea. She is been here for approximately 2 days with worsening shortness of breath and dyspnea. She is been using a family members nebulizer treatments. She has not seeked medical attention for this. In the middle night tonight she apparently awoke complaining of acute shortness of breath. She vomited 1. EMS was called and found her in severe respiratory distress and intubated her. The family states that she has not complained of chest pain, fever, chills. Until the single time that she vomited before calling 911, there were no complaints of nausea, vomiting, diarrhea. Unfortunately, the patient is intubated, sedated, and cannot provide any additional history. Critical-care medicine is consulted to evaluate and her acute hypoxic hypercarbic respiratory failure. 03/07 1600 hrs: A-aO2 gradient still much too high to tolerate extubation. Wheezing has improved. Her relative's is today. 03/08: Remains intubated sedated and ABG shows combined metabolic and resp acidosis. Creat increased to 2. Will attempt fluid challenge. Still has significant Devan wheezing Objective Vital Signs Date Time Temp Pulse Resp B/P Pulse Ox O2 Delivery O2 Flow Rate FiO2 03/09/17 11:59 95 50 03/09/17 10:00 86 03/09/17 08:00 99.1 17 100/55 03/09/17 07:00 Mechanical Ventilator Intake and Output 03/08/17 03/08/17 03/09/17 08:00 16:00 00:00 Intake Total 816 ml 730 ml Output Total 500 ml 250 ml Balance 316 ml 480 ml Result Diagram: 03/09/17 0340 03/09/17 0340 Other Results Laboratory Tests Test 03/09/17 05:25 Blood Gas Puncture Site LT RADIAL Blood Gas Patient Temperature 98.6 Blood Gas HCO3 22 mmol/L (22-26) Blood Gas Base Excess -5.0 mmol/L (-2-2) Blood Gas Oxygen Saturation 92 % (90-100) Arterial Blood pH 7.21 (7.380-7.420) Arterial Blood Partial 57 mmHg (38-42) Pressure CO2 Arterial Blood Partial 82 mmHg Pressure O2 (61-120) Arterial Blood Oxygen Content 17.1 Vol % (12.0-20.0) Arterial Blood 0.8 % (0-4) Carboxyhemoglobin Arterial Blood Methemoglobin 0.9 % (0-2) Blood Gas Hemoglobin 13.1 G/DL (12.0-16.0) Oxygen Delivery Device VENTILATOR Blood Gas Ventilator Setting PRVC/AC Blood Gas Inspired Oxygen 50 % Imaging Last Impressions CT Angiography 03/08/17 0351 Signed Impressions: Service Date/Time: Wednesday, March 08, 2017 04:26 - CONCLUSION: 1. No evidence of pulmonary embolism 2. Mild splenomegaly Stepan Albarado MD Chest X-Ray 03/08/17 0216 Signed Impressions: Service Date/Time: Wednesday, March 08, 2017 02:24 - CONCLUSION: 1. Endotracheal tube in the right mainstem bronchus. This should be retracted 3-4 cm. Stepan Albarado MD Objective Remarks GENERAL: Obese middle-aged female, lying in bed, intubated, sedated, critically ill HEENT: Normocephalic. Atraumatic. Pupils equal, round, reactive, conjugate. Mucous membranes are moist. NECK: JVD not accessible. Trachea is midline. Supple. CHEST: Equal chest rise. Positive expiratory wheeze. ACV 16/600/5/50% CARDIOVASCULAR: Normal rate, regular rhythm. No appreciable murmurs. NL S1S2 ABDOMEN: Obese, soft, nontender, nondistended. No guarding. BS active. MUSCULOSKELETAL: no Peripheral edema. Distal pulses 2+, warm, well perfused. NEUROLOGICAL: Withdrawals all 4 extremities. Follows command by squeezing hands. Intubated and sedated. Opens eyes to voice and tracks. Urinary Catheter: Yes Assessment to: Continue A/P Assessment and Plan Assessment: This is a 69-year-old female with history of COPD and few days of worsening productive sputum, cough, and likely COPD exacerbation with delay in presentation. She is very critically ill at this time, and her delay in presentation has significantly worsened her overall medical condition. We will work towards treating her COPD exacerbation and covering her empirically with Levaquin given the severity of her exacerbation and the clinical history suggestive of infectious etiology. Plan: NEURO: -- Sedation with propofol and fentanyl -- Sedation vacation only after furhter improvement in COPD exac, patient still asynchronous with vent Resp: Acute hypoxic and Hypercarbic respiratory failure COPD Exacerbation -- secondary to COPD exacerbation -- wean fio2 for goal spo2 > 88% -- abg shows combined acidosis, Min ventilation increased. Repeat ABG in 1 hour -- Does not meet sbt criteria today given her hypoxemia and acidosis -- vent bundle -- HOB at 30 degrees -- steroids-increase solumedrol to 60 q6 -- levaquin -- nebs q4h and q2h prn -- cxr in the AM -- sputum culture -- CTA 03/08 negative for PE CVS: -- Monitor HR and BP closeley -- IVF NS at 125 ml per hour and 500 ml bolus GI: -- Start tube feeds with Nepro -- IV Protonix, Colace : Acute kidney injury -- Most likely secodnary to ATN and contrast for PE study -- NS bolus 500 ml and 125 ml per hour ID: -- Continue empiric Levaquin. Follow up cultures HEME -- Monitor cbc, coags ENDO: -- Hyperglycemia stress related PROPH: --SQH, SCDs, PPI for prophylaxis. Of note: patient is but still legally to her who is in [place]. Her son who is at bedside states that he thinks he has paperwork to be the medical decision maker but this is in [place] as well. I told the son that unless we had that paperwork, by [place] law, her would still be the legal medical decision maker. The son is going to fly back to [place] after the to attempt to find the appropriate paperwork and provide that to us. Dispo: Remains in ICU Overall impression: Critically ill with severe bronchospasm and hypoxemia. Unable to wean from ventilator. Numerous pharmacological and ventilator changes required to improved ventilation. Critical care 35 mins Sarah Cruz MD Mar 09, 2017 12:44
[2017-03-09 13:25] LABS: BLOOD GAS BASE EXCESS -2.5 mmol/L (-2-2); BLOOD GAS CARBOXYHEMOGLOBIN 1.1 % (0-4); BLOOD GAS HCO3 23 mmol/L (22-26); BLOOD GAS METHEMOGLOBIN 0.9 % (0-2); BLOOD GAS O2 HGB SATURATION 93 % (90-100); BLOOD GAS OXYGEN CONTENT 16.2 Vol % (12.0-20.0); BLOOD GAS PCO2 44 mmHg (38-42); BLOOD GAS PO2 79 mmHg (61-120); BLOOD GAS TOTAL HGB 12.3 G/DL (12.0-16.0); TEMP CORR TO 98.6
[2017-03-09 13:26] LABS: CRITICAL VALUE NO
[2017-03-09 13:27] LABS: OXYGEN DEVICE VENTILATOR
[2017-03-09 13:28] LABS: DRAW SITE RT RADIAL; FIO2 50 %; NUMBER OF ARTERIAL PUNCTURES 1; STAT NO; ULNAR PULSE PRESENT
[2017-03-09] MEDS: BENEPROTEIN POWDER 1 PACK G-TUBE SCH ×2 (15:58→18:00)
[2017-03-10] VITALS (18 sets, daily range): BP systolic 92–145; BP diastolic 50–89; PULSE 71–96; RESP 16–28; TEMP 98.2–99.1; O2SAT 90–97
[2017-03-10] MEDS: methylPREDNISolone SOD SUCC 125 MG/2 ML VIAL IV PUSH SCH ×4 (01:13→18:02)
[2017-03-10] MEDS: fentaNYL DRIP 250 ML IV SCH (01:14)
[2017-03-10] MEDS: PROPOFOL 1000 MG/100 ML INJ 100 ML IV SCH ×2 (01:16→08:51)
[2017-03-10] MEDS: SODIUM CHLOR 0.9% 1000 ML INJ 1,000 ML IV SCH (01:24)
[2017-03-10] MEDS: RESP: ALBUTEROL 2.5 MG/IPRATROPIUM 0.5 MG NEB (SCH) INH ×6 (02:41→23:42)
[2017-03-10] MEDS: CHLORHEXIDINE GLUCONATE 2 % 1 PACK (2 CLOTHS) TOP SCH (04:00)
[2017-03-10 05:02] LABS: HEMATOCRIT 34.2 % (35.0-46.0); MEAN CORPUSCULAR HEMOGLOBIN 31.8 PG (27.0-34.0); MEAN CORPUSCULAR HGB CONC 33.8 % (32.0-36.0); PLATELET COUNT 171 TH/MM3 (150-450); RED BLOOD COUNT 3.64 MIL/MM3 (4.00-5.30); RED CELL DISTRIBUTION WIDTH 16.1 % (11.6-17.2); REVIEW FLAG FINAL; WHITE BLOOD COUNT 8.6 TH/MM3 (4.0-11.0)
[2017-03-10 05:23] LABS: BICARBONATE 21.7 MEQ/L (21.0-32.0); POTASSIUM 3.6 MEQ/L (3.5-5.1)
[2017-03-10] MEDS: INSULIN NovoLIN REGULAR SUPPLEMENTAL SCALE SQ SCH ×4 (06:00→18:00)
[2017-03-10] MEDS ORDERED: BUMETANIDE INJ 1 MG/4 ML VIAL IV PUSH STA (06:56)
[2017-03-10] MEDS ORDERED: ALBUMIN HUMAN 25% 25 GM/100 ML BAGP IV ONE (07:00)
--- NOTE | 2017-03-10 07:10 | HHI.CCPN ---
Subjective Remarks/Hospital Course This is a 69-year-old female who is traveling from [place] for her brother 's which is planned for tomorrow. She has a history of COPD which is relatively well-controlled at baseline. She still smokes daily. Her family reports that even before leaving for [place], she had significantly increased shortness of breath and sputum production. The family noted that it was very difficult for her to ambulate through the airport due to her dyspnea. She is been here for approximately 2 days with worsening shortness of breath and dyspnea. She is been using a family members nebulizer treatments. She has not seeked medical attention for this. In the middle night tonight she apparently awoke complaining of acute shortness of breath. She vomited 1. EMS was called and found her in severe respiratory distress and intubated her. The family states that she has not complained of chest pain, fever, chills. Until the single time that she vomited before calling 911, there were no complaints of nausea, vomiting, diarrhea. Unfortunately, the patient is intubated, sedated, and cannot provide any additional history. Critical-care medicine is consulted to evaluate and her acute hypoxic hypercarbic respiratory failure. 03/07 1600 hrs: A-aO2 gradient still much too high to tolerate extubation. Wheezing has improved. Her relative's is today. 03/09: Remains intubated sedated and ABG shows combined metabolic and resp acidosis. Creat increased to 2. Will attempt fluid challenge. Still has significant Devan wheezing 03/10: Improved wheezing, but worsening renal function. UO 325 ml. creat 2.4. CXR pending. Patient is oliguric with weight gain. Attempt forced diuresis, consult nephrology Objective Vital Signs Date Time Temp Pulse Resp B/P Pulse Ox O2 Delivery O2 Flow Rate FiO2 03/10/17 04:22 95 50 03/10/17 02:00 72 03/10/17 00:00 99.1 26 92/50 03/09/17 19:00 Mechanical Ventilator Intake and Output 03/09/17 03/09/17 03/10/17 08:00 16:00 00:00 Intake Total 1100 ml 1723 ml 1290 ml Output Total 150 ml 75 ml 250 ml Balance 950 ml 1648 ml 1040 ml Result Diagram: 03/10/17 0430 03/10/17 0430 Other Results Laboratory Tests Test 03/09/17 13:07 Blood Gas Puncture Site RT RADIAL Blood Gas Patient Temperature 98.6 Blood Gas HCO3 23 mmol/L (22-26) Blood Gas Base Excess -2.5 mmol/L (-2-2) Blood Gas Oxygen Saturation 93 % (90-100) Arterial Blood pH 7.33 (7.380-7.420) Arterial Blood Partial 44 mmHg (38-42) Pressure CO2 Arterial Blood Partial 79 mmHg Pressure O2 (61-120) Arterial Blood Oxygen Content 16.2 Vol % (12.0-20.0) Arterial Blood 1.1 % (0-4) Carboxyhemoglobin Arterial Blood Methemoglobin 0.9 % (0-2) Blood Gas Hemoglobin 12.3 G/DL (12.0-16.0) Oxygen Delivery Device VENTILATOR Blood Gas Ventilator Setting Blood Gas Inspired Oxygen 50 % Imaging Last Impressions CT Angiography 03/08/17 0359 Signed Impressions: Service Date/Time: Wednesday, March 08, 2017 04:26 - CONCLUSION: 1. No evidence of pulmonary embolism 2. Mild splenomegaly Stepan Albarado MD Chest X-Ray 03/08/17215 Signed Impressions: Service Date/Time: Wednesday, March 08, 2017 02:24 - CONCLUSION: 1. Endotracheal tube in the right mainstem bronchus. This should be retracted 3-4 cm. Stepan Albarado MD Objective Remarks GENERAL: Obese middle-aged female, lying in bed, intubated, sedated, critically ill HEENT: Normocephalic. Atraumatic. Pupils equal, round, reactive, conjugate. Mucous membranes are moist. NECK: JVD not accessible. Trachea is midline. Supple. CHEST: Equal chest rise. Positive expiratory wheeze, but improved. ACV 16/600/ 5/40% CARDIOVASCULAR: Normal rate, regular rhythm. No appreciable murmurs. NL S1S2 ABDOMEN: Obese, soft, nontender, nondistended. No guarding. BS active. MUSCULOSKELETAL: no Peripheral edema. Distal pulses 2+, warm, well perfused. NEUROLOGICAL: Withdrawals all 4 extremities. Follows command by squeezing hands. Intubated and sedated. Opens eyes to voice and tracks. Urinary Catheter: Yes Assessment to: Continue A/P Assessment and Plan Assessment: This is a 69-year-old female with history of COPD and few days of worsening productive sputum, cough, and likely acute COPD exacerbation with delay in presentation. She is very critically ill at this time, and her delay in presentation has significantly worsened her overall medical condition. We are treating her COPD exacerbation and covering her empirically with Levaquin given the severity of her exacerbation and the clinical history suggestive of infectious etiology. Worsening renal function is concerning. Plan: NEURO: -- Sedation with propofol and fentanyl -- Start daily Sedation vacation Resp: Acute hypoxic and Hypercarbic respiratory failure COPD Exacerbation -- secondary to COPD exacerbation -- wean fio2 for goal spo2 > 88% -- abg shows combined acidosis, Min ventilation increased 03/09. -- Start weaning trials today, may not be ready for extubation due ARF and fluid overload -- vent bundle, HOB at 30 degrees -- solumedrol to 60 q6 -- levaquin -- nebs q4h and q2h prn -- cxr in the AM -- sputum culture neg to date -- CTA 03/08 negative for PE CVS: -- Monitor HR and BP closeley -- IVF NS at 125 ml per hour -DC and start Bumex 2m x1 and 1 mg q12 due to oliguria and fluid overload GI: -- Tube feeds with Nepro -- IV Protonix, Colace : Acute kidney injury -- Most likely secondary to ATN, IV contrast for PE study -- DC IVF and start Bumex 2m x1 and 1 mg q12 due to oliguria and fluid overload -- Nephrology consulted, UA ID: -- Continue empiric Levaquin renally adjusted. Follow up cultures HEME -- Monitor cbc, coags ENDO: -- Hyperglycemia stress related PROPH: --SQH, SCDs, PPI for prophylaxis. Of note: patient is but still legally to her who is in [place]. Her son who is at bedside states that he thinks he has paperwork to be the medical decision maker but this is in [place] as well. I told the son that unless we had that paperwork, by [place] law, her would still be the legal medical decision maker. The son is going to fly back to [place] after the to attempt to find the appropriate paperwork and provide that to us. Dispo: Remains in ICU Overall impression: Critically ill with severe bronchospasm and hypoxemia, now with acute renal failure and fluid overload. Unable to wean from ventilator. Numerous pharmacological and ventilator changes required to improved ventilation. Critical care 35 mins Sarah Cruz MD Mar 10, 2017 07:10
[2017-03-10] MEDS: HEPARIN SODIUM - SQ 10,000 UNITS/ML VIAL SQ SCH ×3 (07:13→21:57)
--- NOTE | 2017-03-10 07:44 | RADRPT ---
EXAM DATE/TIME: 03/10/2017 07:07 [facility] COMPARISON: CHEST SINGLE AP, March 09, 2017, 5:09. INDICATIONS : Short of breath MEDICAL HISTORY : None. SURGICAL HISTORY : None. ENCOUNTER: Subsequent ACUITY: 3 days PAIN SCORE: Non-responsive. LOCATION: Bilateral chest FINDINGS: The support devices remain in place. No pneumothorax. There is some mild atelectasis in the left lung base. Otherwise, the lungs are grossly clear. There is some mild prominence of the pulmonary vascula ture. CONCLUSION: 1. Left lower lung atelectasis. 2. Mild pulmonary venous congestion. Charles Zamora MD on March 10, 2017 at 7:42 Board Certified Radiologist. This report was verified electronically.
[2017-03-10] MEDS: PANTOPRAZOLE SODIUM 40 MG VIAL IV SCH (08:51)
[2017-03-10] MEDS: DOCUSATE SODIUM 50 MG/SENNA 8.6 MG TAB PO SCH ×2 (08:51→20:07)
[2017-03-10] MEDS: SERTRALINE HCL 50 MG TAB PO SCH (08:51)
[2017-03-10] MEDS: BENEPROTEIN POWDER 1 PACK G-TUBE SCH ×3 (08:53→17:49)
[2017-03-10] MEDS: SODIUM CHLORIDE 0.9% FLUSH 10 ML FLUSH IV FLUSH SCH ×2 (08:53→20:08)
[2017-03-10] MEDS: FLUCONAZOLE 100 MG TAB PO SCH (08:54)
[2017-03-10] MEDS: CHLORHEXIDINE 0.12% (ORAL KIT) 15 ML CUP MT SCH ×2 (08:54→19:00)
--- NOTE | 2017-03-10 11:36 | RADRPT ---
EXAM DATE/TIME: 03/10/2017 09:43 [facility] COMPARISON: No previous studies available for comparison. INDICATIONS : Renal failure. MEDICAL HISTORY : Chronic obstructive pulmonary disease. Lymphoma. Substance use. Depression. SURGICAL HISTORY : Appendectomy. Knee replacement. ENCOUNTER: Initial ACUITY: 1 day PAIN SCORE: Nonresponsive. LOCATION: Bilateral flank MEASUREMENTS: RIGHT KIDNEY: 11.4 x 6.2 x 6.8 cm LEFT KIDNEY: 11.7 x 6.1 x 5.8 cm FINDINGS: RIGHT KIDNEY: Renal cortex is normal in thickness and echotexture. No hydronephrosis, stone, or mass. LEFT KIDNEY: Renal cortex is normal in thickness and echotexture. No hydronephrosis, stone, or m ass. BLADDER: Decompressed with a Dimas catheter. CONCLUSION: 1. Urinary bladder decompressed with Dimas catheter. 2. Otherwise negative. Both kidneys are sonographically intact. Blaine Pelayo MD on March 10, 2017 at 11:25 Board Certified Radiologist. This report was verified electronically.
[2017-03-10 12:01] LABS: BLOOD GAS BASE EXCESS -4.2 mmol/L (-2-2); BLOOD GAS CARBOXYHEMOGLOBIN 0.7 % (0-4); BLOOD GAS HCO3 22 mmol/L (22-26); BLOOD GAS METHEMOGLOBIN 0.9 % (0-2); BLOOD GAS O2 HGB SATURATION 96 % (90-100); BLOOD GAS OXYGEN CONTENT 15.4 Vol % (12.0-20.0); BLOOD GAS PCO2 49 mmHg (38-42); BLOOD GAS PO2 111 mmHg (61-120); BLOOD GAS TOTAL HGB 11.3 G/DL (12.0-16.0); TEMP CORR TO 98.6
[2017-03-10 12:02] LABS: CRITICAL VALUE YES; DRAW SITE RT RADIAL; FIO2 50 %; NUMBER OF ARTERIAL PUNCTURES 1; OXYGEN DEVICE VENTILATOR; STAT NO; ULNAR PULSE PRESENT
[2017-03-10] MEDS ORDERED: SODIUM BICARBONATE 8.4% INJ 50 MEQ/50 ML SYR IV PUSH ONE ×2 (12:30→14:00)
[2017-03-10 14:08] LABS: BLOOD GAS BASE EXCESS 1.2 mmol/L (-2-2); BLOOD GAS CARBOXYHEMOGLOBIN 1.1 % (0-4); BLOOD GAS HCO3 26 mmol/L (22-26); BLOOD GAS METHEMOGLOBIN 0.8 % (0-2); BLOOD GAS O2 HGB SATURATION 93 % (90-100); BLOOD GAS OXYGEN CONTENT 14.3 Vol % (12.0-20.0); BLOOD GAS PCO2 47 mmHg (38-42); BLOOD GAS PO2 78 mmHg (61-120); BLOOD GAS TOTAL HGB 10.9 G/DL (12.0-16.0); CRITICAL VALUE NO; DRAW SITE RT RADIAL; FIO2 40 %; NUMBER OF ARTERIAL PUNCTURES 1; OXYGEN DEVICE VENTILATOR; STAT NO; TEMP CORR TO 98.6; ULNAR PULSE PRESENT
[2017-03-10] MEDS ORDERED: BUMETANIDE INJ 1 MG/4 ML VIAL IV PUSH ONE (14:45)
[2017-03-10] MEDS ORDERED: RESP: BUDESONIDE 0.5 MG/2 ML NEB NEB ONE (14:45)
[2017-03-10] MEDS ORDERED: CHLORHEXIDINE GLUCONATE 2 % 1 PACK (2 CLOTHS)(extra cloths) TOPICAL PRN (15:00)
[2017-03-10] MEDS: BUMETANIDE INJ 1 MG/4 ML VIAL IV PUSH SCH (18:00)
[2017-03-10] MEDS: RESP: BUDESONIDE 0.5 MG/2 ML NEB NEB SCH (19:37)
[2017-03-10] MEDS: POTASSIUM CHLORIDE 20 MEQ CONTROLLED RELEASE TAB PO SCH (20:07)
[2017-03-10] MEDS: MUPIROCIN 2% OINT 1 APPLIC/GM SYR NASAL SCH (21:00)
[2017-03-10] MEDS ORDERED: ZOLO100T PO (22:44)
[2017-03-11] VITALS (11 sets, daily range): BP systolic 139–160; BP diastolic 67–96; PULSE 64–88; RESP 18–28; TEMP 97.4–98.6; O2SAT 93–98
[2017-03-11] MEDS: methylPREDNISolone SOD SUCC 125 MG/2 ML VIAL IV PUSH SCH ×4 (00:09→23:07)
[2017-03-11] MEDS: POTASSIUM CHLORIDE 20 MEQ CONTROLLED RELEASE TAB PO SCH ×2 (00:10→04:16)
[2017-03-11] MEDS: BUMETANIDE INJ 1 MG/4 ML VIAL IV PUSH SCH ×2 (00:12→10:05)
[2017-03-11] MEDS: CHLORHEXIDINE GLUCONATE 2 % 1 PACK (2 CLOTHS)(taper/protocol) TOPICAL SCH (04:00)
[2017-03-11 04:23] LABS: AUTOMATED NEUTROPHIL # 7.4 TH/MM3 (1.8-7.7); BASOPHIL % 0.1 % (0.0-2.0); HEMATOCRIT 32.2 % (35.0-46.0); HEMO FLAGS DIFF FINAL; LYMPH % 2.5 % (9.0-44.0); LYMPHOCYTE # 0.2 TH/MM3 (1.0-4.8); MEAN CELL VOLUME 91.8 FL (80.0-100.0); MEAN CORPUSCULAR HEMOGLOBIN 31.7 PG (27.0-34.0); MEAN CORPUSCULAR HGB CONC 34.6 % (32.0-36.0); MONO % 2.6 % (0.0-8.0); NEUT % 94.8 % (16.0-70.0); PLATELET COUNT 172 TH/MM3 (150-450); RED BLOOD COUNT 3.51 MIL/MM3 (4.00-5.30); RED CELL DISTRIBUTION WIDTH 15.8 % (11.6-17.2); WHITE BLOOD COUNT 7.8 TH/MM3 (4.0-11.0)
[2017-03-11 04:57] LABS: ALKALINE PHOSPHATASE 53 U/L (45-117); ALT (GPT) 24 U/L (10-53); ANION GAP 11 MEQ/L (5-15); AST (GOT) 43 U/L (15-37); BLOOD UREA NITROGEN 59 MG/DL (7-18); CHLORIDE 110 MEQ/L (98-107); GLOMERULAR FILTRATION RATE 32 ML/MIN (>89); POTASSIUM 3.5 MEQ/L (3.5-5.1); SODIUM (NA) 148 MEQ/L (136-145); TOTAL BILIRUBIN ADULT 0.2 MG/DL (0.2-1.0)
[2017-03-11] MEDS: INSULIN NovoLIN REGULAR SUPPLEMENTAL SCALE SQ SCH ×2 (06:00)
[2017-03-11] MEDS: HEPARIN SODIUM - SQ 10,000 UNITS/ML VIAL SQ SCH ×3 (06:25→23:10)
[2017-03-11] MEDS: LEVOFLOXACIN 750 MG PREMIX INJ 150 ML IV SCH (06:25)
[2017-03-11] MEDS: RESP: ALBUTEROL 2.5 MG/IPRATROPIUM 0.5 MG NEB (SCH) INH ×5 (06:36→20:44)
--- NOTE | 2017-03-11 07:03 | RADRPT ---
EXAM DATE/TIME: 03/11/2017 06:08 [facility] COMPARISON: CHEST SINGLE AP, March 10, 2017, 7:07. INDICATIONS : Respiratory distress. MEDICAL HISTORY : Chronic obstructive pulmonary disease. Lymphoma. Substance use. SURGICAL HISTORY : None. ENCOUNTER: Subsequent ACUITY: 4 - 6 days PAIN SCORE: Non-responsive. LOCATION: Bilateral chest FINDINGS: The endotracheal tube and NG tube have been removed. There is some right basilar atelectasis. Otherwi se, the lungs are grossly clear. No definite pneumothorax. The heart size is stable. There are no ple ural effusions. The bony structures are stable. CONCLUSION: Bibasilar atelectasis. Charles Zamora MD on March 11, 2017 at 7:01 Board Certified Radiologist. This report was verified electronically.
--- NOTE | 2017-03-11 07:31 | MB ---
cc: RICHY DAVIS MD DATE OF CONSULTATION 03/10/2017 REASON FOR CONSULTATION Elevated BUN and creatinine for evaluation. HISTORY OF PRESENT ILLNESS This is a 69-year-old female who is visiting here from [place], was admitted because of worsening shortness of breath. I was called to see the patient because of elevated BUN and creatinine. The patient had creatinine of 1.0 on admission which has been gradually going up and now it is 2.39. The patient had respiratory failure and she was intubated. She has a history of chronic obstructive pulmonary disease and in the last few days before the admission she was feeling weak and had gradual worsening of shortness of breath and there was no associated chest pain. No nausea or vomiting. In the hospital the patient was found to be in respiratory failure and she was intubated and she had a high CO2 at that time. Her urine output was low this morning and she was given some diuretics and since then she has been passing more urine. Her blood pressure was normal on the higher side except a few readings of lower blood pressure. The systolic was in the 90s and diastolic was in the 50s. PAST MEDICAL HISTORY Chronic obstructive pulmonary disease. History of lymphoma. PAST SURGICAL HISTORY Not known. REVIEW OF SYSTEMS The patient still has shortness of breath but it is better than before. Denies any headache or dizziness. She has cough which is mainly dry. No chest pain, no palpitations. No nausea, vomiting. No abdominal pain. No history of diarrhea. She has history of taking ibuprofen about 900 mg per day for a long time, mainly for her back pain. SOCIAL HISTORY Chronic smoker. Smokes about one pack per day and drinks 1-2 drinks per year. FAMILY HISTORY Noncontributory. ALLERGIES She has no known drug allergies. CURRENT MEDICATIONS 1. Marce-Colace 2 tablets b.i.d. 2. Bumex 1 mg b.i.d. 3. Protonix 40 mg daily. 4. Zoloft 50 mg daily. 5. Diflucan 100 mg daily. 6. DuoNeb nebulizer. 7. Pulmicort 0.5 mg q. 12 hours. 8. Levaquin 750 mg q.48 hours. 9. Prednisone 60 mg q.6 hours. 10. Regular insulin per sliding scale. 11. Potassium chloride 40 mEq q. 4 hours. 12. Fentanyl and propofol as needed. 13. Zofran as needed. PHYSICAL EXAMINATION GENERAL: The patient is awake. She is not in acute distress. VITAL SIGNS: Her last blood pressure is 128/62, temperature is 98.9, oxygen saturation 5 liters nasal cannula, is 97%. HEENT: Pupils equally reacting to light. Nonicteric sclerae, conjunctivae pale. NECK: Supple. JVD is slightly elevated. LUNGS: The patient has bilateral decreased air entry with scattered wheezing. HEART: S1, S2. Regular rhythm. ABDOMEN: Obese, soft, lax. There is no tenderness. EXTREMITIES: She has mild edema. INVESTIGATIONS WBC count 8.6, hemoglobin 11.5, platelet count 171, sodium 144, potassium 3.6, chloride 112, bicarb 21.7, BUN 57, creatinine 2.39, glucose 142, calcium 8.0. INR 1.0. Urinalysis showing that there is no proteinuria. Toxicology screen was negative. MRSA nasal was positive. IMAGING STUDIES The patient has chest x-ray done and it shows left lower lung atelectasis, mild pulmonary condition. Ultrasound of the kidneys was done and it shows both kidneys are normal in size. The bladder is decompressed with the Dimas catheter. CT angiogram of the chest was done on the and it was negative for pulmonary embolism. It shows mild splenomegaly. ASSESSMENT AND PLAN 1. Acute kidney injury. 2. COPD with respiratory failure. 3. Pneumonia. 4. Chronic back pain. The patient has worsening creatinine. She has no proteinuria. Most likely the patient has acute kidney injury because of the contrast nephropathy. Her creatinine was 1 on presentation. She has been nonoliguric and the potassium is on the lower side which indicates some tubular injury. Follow the urine output and the BUN and creatinine, potassium level and replace the potassium as needed. Diuretic as needed. Avoid any nephrotoxins. Thank you for the consultation. I will follow the patient while she is in the hospital. MD KAYLEY Alanis/AYESHA /8:27 PM /7:16 AM
[2017-03-11] MEDS: RESP: BUDESONIDE 0.5 MG/2 ML NEB NEB SCH ×2 (07:51→20:44)
[2017-03-11] MEDS: CHLORHEXIDINE 0.12% (ORAL KIT) 15 ML CUP MT SCH ×2 (08:00→20:00)
--- NOTE | 2017-03-11 08:23 | HHI.CCPN ---
Subjective Remarks/Hospital Course This is a 69-year-old female who is traveling from [place] for her brother 's which is planned for tomorrow. She has a history of COPD which is relatively well-controlled at baseline. She still smokes daily. Her family reports that even before leaving for [place], she had significantly increased shortness of breath and sputum production. The family noted that it was very difficult for her to ambulate through the airport due to her dyspnea. She is been here for approximately 2 days with worsening shortness of breath and dyspnea. She is been using a family members nebulizer treatments. She has not seeked medical attention for this. In the middle night tonight she apparently awoke complaining of acute shortness of breath. She vomited 1. EMS was called and found her in severe respiratory distress and intubated her. The family states that she has not complained of chest pain, fever, chills. Until the single time that she vomited before calling 911, there were no complaints of nausea, vomiting, diarrhea. Unfortunately, the patient is intubated, sedated, and cannot provide any additional history. Critical-care medicine is consulted to evaluate and her acute hypoxic hypercarbic respiratory failure. 03/07 1600 hrs: A-aO2 gradient still much too high to tolerate extubation. Wheezing has improved. Her relative's is today. 03/09: Remains intubated sedated and ABG shows combined metabolic and resp acidosis. Creat increased to 2. Will attempt fluid challenge. Still has significant Devan wheezing 03/10: Improved wheezing, but worsening renal function. UO 325 ml. creat 2.4. CXR pending. Patient is oliguric with weight gain. Attempt forced diuresis, consult nephrology 03/11: Extubated yesterday, tolerating well. UO 2.5 L in 24 hours. INR 2.7 today. Creat improved from 2.4 to 1.4. Sputum cx Haemophilus influenza and staph aureus both sensitive to Levaquin Objective Vital Signs Date Time Temp Pulse Resp B/P Pulse Ox O2 Delivery O2 Flow Rate FiO2 03/11/17 07:52 93 Nasal Cannula 4.00 03/11/17 04:10 40 03/11/17 00:00 98.1 72 28 152/67 Intake and Output 03/10/17 03/10/17 03/11/17 08:00 16:00 00:00 Intake Total 1552 ml 1552 ml Output Total 350 ml 2150 ml 350 ml Balance 1202 ml -2150 ml 1202 ml Result Diagram: 03/11/17 0341 03/11/17 0341 Other Results Laboratory Tests Test 03/10/17 03/10/17 11:50 13:59 Blood Gas Puncture Site RT RADIAL RT RADIAL Blood Gas Patient Temperature 98.6 98.6 Blood Gas HCO3 22 mmol/L 26 mmol/L (22-26) (22-26) Blood Gas Base Excess -4.2 mmol/L 1.2 mmol/L (-2-2) (-2-2) Blood Gas Oxygen Saturation 96 % (90-100) 93 % (90-100) Arterial Blood pH 7.27 7.36 (7.380-7.420) (7.380-7.420) Arterial Blood Partial 49 mmHg (38-42) 47 mmHg (38-42) Pressure CO2 Arterial Blood Partial 111 mmHg 78 mmHg Pressure O2 (61-120) (61-120) Arterial Blood Oxygen Content 15.4 Vol % 14.3 Vol % (12.0-20.0) (12.0-20.0) Arterial Blood 0.7 % (0-4) 1.1 % (0-4) Carboxyhemoglobin Arterial Blood Methemoglobin 0.9 % (0-2) 0.8 % (0-2) Blood Gas Hemoglobin 11.3 G/DL 10.9 G/DL (12.0-16.0) (12.0-16.0) Oxygen Delivery Device VENTILATOR VENTILATOR Blood Gas Ventilator Setting CPAP,PEEP5,PS5 CPAP,PEEP5,PS7 Blood Gas Inspired Oxygen 50 % 40 % Imaging Last Impressions CT Angiography 03/08/17 0359 Signed Impressions: Service Date/Time: Wednesday, March 08, 2017 04:26 - CONCLUSION: 1. No evidence of pulmonary embolism 2. Mild splenomegaly Stepan Albarado MD Chest X-Ray 03/08/17 0216 Signed Impressions: Service Date/Time: Wednesday, March 08, 2017 02:24 - CONCLUSION: 1. Endotracheal tube in the right mainstem bronchus. This should be retracted 3-4 cm. Stepan Albarado MD Objective Remarks GENERAL: Obese middle-aged female, lying in bed, on 4L oxygen HEENT: Normocephalic. Atraumatic. Pupils equal, round, reactive, conjugate. Mucous membranes are moist. NECK: JVD not accessible. Trachea is midline. Supple. CHEST: Equal chest rise. Mild expiratory wheeze CARDIOVASCULAR: Normal rate, regular rhythm. No appreciable murmurs. NL S1S2 ABDOMEN: Obese, soft, nontender, nondistended. No guarding. BS active. MUSCULOSKELETAL: no Peripheral edema. Distal pulses 2+, warm, well perfused. NEUROLOGICAL: Alert awake oriented x3. No FND A/P Assessment and Plan Assessment: This is a 69-year-old female with history of COPD and few days of worsening productive sputum, cough, and likely acute COPD exacerbation with delay in presentation. We are treating her COPD exacerbation and covering her empirically with Levaquin given the severity of her exacerbation and the clinical history suggestive of infectious etiology. Worsening renal function is concerning. Plan: NEURO: -- Minimize sedation Resp: Acute hypoxic and Hypercarbic respiratory failure COPD Exacerbation Probable pneumonia -- COPD exacerbation improving -- wean fio2 for goal spo2 > 88% -- Extubated yesterday tolerating well -- solumedrol to 60 q6 -- levaquin -- nebs q4h and q2h prn. Started on Pulmicort yesterday. Start Spiriva today -- sputum culture MSSA and Haemophilus influenza -- CTA 03/08 negative for PE CVS: -- Monitor HR and BP closeley --Bumex 1 mg q12 until 03/12 GI: -- Start regular diet as renal function is improving -- IV Protonix, Colace : Acute kidney injury -- Most likely secondary to ATN, contrast nephropathy for PE study -- Bumex 1 mg q12 for fluid overload, DC 03/12 and use PRN -- Nephrology consulted, UA. Dr. Lockett ID: Probable pneumonia -- Continue Levaquin renally adjusted. 03/08 sputum culture MSSA and Haemophilus influenza HEME -- Monitor cbc, coags ENDO: -- Hyperglycemia stress related PROPH: --SQH, SCDs, PPI for prophylaxis. Of note: patient is but still legally to her who is in [place]. Her son who is at bedside states that he thinks he has paperwork to be the medical decision maker but this is in [place] as well. I told the son that unless we had that paperwork, by [place] law, her would still be the legal medical decision maker. The son is going to fly back to [place] after the to attempt to find the appropriate paperwork and provide that to us. Dispo: Remains in ICU Overall impression: Critically ill with severe bronchospasm and hypoxemia, now with acute renal failure and fluid overload. Unable to wean from ventilator. Numerous pharmacological and ventilator changes required to improved ventilation. Level PT OOB, start regular diet Sarah Cruz MD Mar 11, 2017 08:23
[2017-03-11] MEDS: TIOTROPIUM BROMIDE 18 MCG INH INH SCH (09:00)
[2017-03-11] MEDS: BENEPROTEIN POWDER 1 PACK G-TUBE SCH ×3 (09:00→18:00)
[2017-03-11] MEDS: DOCUSATE SODIUM 50 MG/SENNA 8.6 MG TAB PO SCH ×2 (09:00→21:00)
[2017-03-11] MEDS: SERTRALINE HCL 50 MG TAB PO SCH (10:04)
[2017-03-11] MEDS: FLUCONAZOLE 100 MG TAB PO SCH (10:05)
[2017-03-11] MEDS: MUPIROCIN 2% OINT 1 APPLIC/GM SYR NASAL SCH ×2 (10:05→23:07)
[2017-03-11] MEDS: PANTOPRAZOLE SODIUM 40 MG VIAL IV SCH (10:05)
[2017-03-11] MEDS: SODIUM CHLORIDE 0.9% FLUSH 10 ML FLUSH IV FLUSH SCH ×2 (10:15→23:12)
[2017-03-11] MEDS: CHLORHEXIDINE GLUCONATE 2 % 1 PACK (2 CLOTHS) TOP SCH (23:13)
[2017-03-12] VITALS (10 sets, daily range): BP systolic 150–183; BP diastolic 60–80; PULSE 58–81; RESP 18–22; TEMP 97.6–98.5; O2SAT 92–98
[2017-03-12] MEDS: CHLORHEXIDINE GLUCONATE 2 % 1 PACK (2 CLOTHS)(taper/protocol) TOPICAL SCH (04:00)
[2017-03-12] MEDS: RESP: ALBUTEROL 2.5 MG/IPRATROPIUM 0.5 MG NEB (SCH) INH ×5 (04:41→21:09)
[2017-03-12] MEDS: HEPARIN SODIUM - SQ 10,000 UNITS/ML VIAL SQ SCH ×3 (07:03→22:32)
[2017-03-12] MEDS: methylPREDNISolone SOD SUCC 125 MG/2 ML VIAL IV PUSH SCH ×3 (07:04→22:32)
[2017-03-12 07:31] LABS: HEMATOCRIT 35.5 % (35.0-46.0); MEAN CELL VOLUME 93.2 FL (80.0-100.0); MEAN CORPUSCULAR HEMOGLOBIN 31.4 PG (27.0-34.0); MEAN CORPUSCULAR HGB CONC 33.7 % (32.0-36.0); PLATELET COUNT 197 TH/MM3 (150-450); RED CELL DISTRIBUTION WIDTH 15.6 % (11.6-17.2); REVIEW FLAG FINAL; WHITE BLOOD COUNT 8.6 TH/MM3 (4.0-11.0)
[2017-03-12 07:48] LABS: BICARBONATE 27.2 MEQ/L (21.0-32.0); POTASSIUM 4.5 MEQ/L (3.5-5.1)
[2017-03-12] MEDS: CHLORHEXIDINE 0.12% (ORAL KIT) 15 ML CUP MT SCH ×2 (08:00→20:00)
[2017-03-12] MEDS: BENEPROTEIN POWDER 1 PACK G-TUBE SCH ×3 (09:00→17:57)
[2017-03-12] MEDS: DOCUSATE SODIUM 50 MG/SENNA 8.6 MG TAB PO SCH ×2 (09:00→21:00)
[2017-03-12] MEDS: RESP: BUDESONIDE 0.5 MG/2 ML NEB NEB SCH ×2 (09:04→21:09)
[2017-03-12] MEDS: PANTOPRAZOLE SODIUM 40 MG VIAL IV SCH (09:05)
[2017-03-12] MEDS: FLUCONAZOLE 100 MG TAB PO SCH (09:06)
[2017-03-12] MEDS: SERTRALINE HCL 50 MG TAB PO SCH (09:06)
[2017-03-12] MEDS: MUPIROCIN 2% OINT 1 APPLIC/GM SYR NASAL SCH ×2 (09:06→22:31)
[2017-03-12] MEDS: BUMETANIDE INJ 1 MG/4 ML VIAL IV PUSH SCH (09:06)
[2017-03-12] MEDS: SODIUM CHLORIDE 0.9% FLUSH 10 ML FLUSH IV FLUSH SCH ×2 (09:07→22:31)
[2017-03-12] MEDS: TIOTROPIUM BROMIDE 18 MCG INH INH SCH (09:57)
--- NOTE | 2017-03-12 11:33 | HHI.NPPN ---
Subjective General Problems: Hypertension Renal Failure: Acute History of Present Illness 69-year-old female who is visiting here from [place], was admitted because of worsening shortness of breath. I was called to see the patient because of elevated BUN and creatinine. Additional Remarks This is a late entry, note for 03/11/17. Patient is alert, feeling better, just moved out of ISC. Review of Systems General Constitutional: Fatigue Respiratory Lungs: SOB Cardiovascular Cardiac: [place] Objective Data Data 03/11/17 03/12/17 19:00 07:00 Intake Total 1052 ml 960 ml Output Total 1300 ml 1000 ml Balance -248 ml -40 ml Intake Oral 952 ml 960 ml IV Total 100 ml Output Urine Total 1300 ml 1000 ml # Bowel Movements 2 0 Vital Signs Date Time Temp Pulse Resp B/P Pulse Ox O2 Delivery O2 Flow Rate FiO2 03/12/17 09:04 94 Nasal Cannula 4.00 03/12/17 08:00 97.7 58 20 169/74 96 03/12/17 04:00 97.6 60 18 173/80 94 03/12/17 00:48 98 40 03/12/17 00:00 98.5 65 18 152/70 96 03/11/17 20:44 96 Nasal Cannula 4.00 03/11/17 20:00 96 Nasal Cannula 4.00 03/11/17 20:00 98.5 68 18 146/68 96 03/11/17 18:35 98.6 67 24 160/73 97 03/11/17 16:00 97.6 64 26 151/72 96 03/11/17 16:00 64 03/11/17 12:00 97.4 65 26 158/74 95 03/11/17 12:00 65 -: 03/12/17 0639 03/12/17 0639 Physical Exam General Appearance: No Acute Distress, Comfortable Eyes Eye Exam: Pupils Equal Throat Throat Exam: Oral Mucosa [place] & Moist Neck Neck Exam: Neck Supple Pulmonary Resp Exam: Breath Sounds Equal, No Distress, Decreased Bases Cardiology CV Exam: Regular, Normal Sinus Rhythm Gastrointestinal/Abdomen GI Exam: Soft, Non-Tender, Bowel Sounds Present Extremeties Extremities Exam: No Edema Neurologic Neuro Exam: Alert, Awake, Oriented Psychiatric Psych Exam: Appropriate Responses Assessment/Plan Assessment Summary: MAX/Acute Renal Failure Problem List: (1) Respiratory failure (2) Acute kidney injury (3) Pneumonia (4) COPD exacerbation Plan Patient has been non oliguric, Creatinine is improving. The BP is stable. Most likely has Contrast Nephropathy. Avoid Nephrotoxins. Continue diuretics. Follow th urine out put and BMP. Problem Qualifiers (1) Respiratory failure: Qualified Code: J96.02 - Acute respiratory failure with hypercapnia Dereck Lockett MD Mar 12, 2017 11:33
--- NOTE | 2017-03-12 16:58 | HHI.PR ---
Subjective Remarks Follow-up for acute respiratory failure due to COPD exacerbation Patient stated that breathing is improving. She still emotional due to the recent of her brother. Patient very anxious to go back home. She stated at home she was on oxygen intermittently. Patient stated that when she was in oxygen her O2 saturation was at 95%. Continues to have a cough. She remains afebrile. Patient stated that she is grieving but denied any suicidal or homicidal ideations. She stated that she is going to take better care of herself. Objective Vitals Vital Signs Date Time Temp Pulse Resp B/P Pulse Ox O2 Delivery O2 Flow Rate FiO2 03/12/17 16:03 94 Nasal Cannula 3.00 03/12/17 09:04 94 Nasal Cannula 4.00 03/12/17 08:00 97.7 58 20 169/74 96 03/12/17 04:00 97.6 60 18 173/80 94 03/12/17 00:48 98 40 03/12/17 00:00 98.5 65 18 152/70 96 03/11/17 20:44 96 Nasal Cannula 4.00 03/11/17 20:00 96 Nasal Cannula 4.00 03/11/17 20:00 98.5 68 18 146/68 96 03/11/17 18:35 98.6 67 24 160/73 97 I/O 03/11/17 03/11/17 03/11/17 03/12/17 03/12/17 03/12/17 07:00 15:00 23:00 07:00 15:00 23:00 Intake Total 400 ml 1052 ml 480 ml 480 ml Output Total 1150 ml 1300 ml 550 ml 450 ml Balance -750 ml -248 ml -70 ml 30 ml Intake Oral 400 ml 952 ml 480 ml 480 ml IV Total 100 ml Output Urine Total 1150 ml 1300 ml 550 ml 450 ml # Bowel Movements 2 0 0 Result Diagram: 03/12/17 0639 03/12/17 0639 Objective Remarks GENERAL: in NAD but is tearful. NECK: Supple, trachea midline. No JVD or lymphadenopathy. CARDIOVASCULAR: Regular rate and rhythm without murmurs, gallops, or rubs. RESPIRATORY: Bilateral diffuse expiratory wheezing. No accessory muscle use. GASTROINTESTINAL: Abdomen soft, non-tender, nondistended. MUSCULOSKELETAL: No cyanosis, or edema. BACK: Nontender without obvious deformity. No CVA tenderness. Medications and IVs Current Medications Sodium Chloride (NS Flush) 2 ml UNSCH PRN IVF FLUSH AFTER USING IV ACCESS; Start 03/08/17 at 02:30 Methylprednisolone Sodium Succinate (SoluMEDROL INJ) 125 mg ONCE ONCE IVP Last administered on 03/08/17 02:56; Start 03/08/17 at 02:30; Stop 03/08/17 at 02:31; Status DC Albuterol/ Ipratropium (Duoneb Neb) 1 ampule Q15M INH Last administered on 03/08 02:15; Start 03/08/17 at 02:30; Stop 03/08/17 at 03:01; Status DC Propofol (Diprivan 1000 Mg/100ml Inj) search Sets for Drip. TITRATE PRN IV agitation Last administered on 03/08/17 02:57; Start 03/08/17 at 02:30; Stop at 04:40; Status DC Iohexol (Omnipaque 350 Inj) 75 ml STK-MED ONCE IV Last administered on 04:29; Start 03/08/17 at 04:29; Stop 03/08/17 at 04:30; Status DC Methylprednisolone Sodium Succinate (SoluMEDROL INJ) 60 mg Q12HR IV PUSH Last administered on 03/09/17 09:44; Start 03/08/17 at 09:00; Stop 03/09/17 at 12:29 ; Status DC Albuterol/ Ipratropium (Duoneb Neb) 1 ampule Q2HR NEB PRN INH WHEEZING Last administered on 03/09/17 06:23; Start 03/08/17 at 04:45 Albuterol/ Ipratropium 1 ampule 1 ampule Q4HR NEB INH Last administered on 07:51; Start 03/08/17 at 08:00; Stop 03/11/17 at 08:22; Status DC Fentanyl Citrate 250 ml @ 0 mls/hr TITRATE IV Last administered on 03/10/17 01 :14; Start 03/08/17 at 04:45; Stop 03/11/17 at 08:14; Status DC Propofol (Diprivan 1000 Mg/100ml Inj) 100 ml @ 0 mls/hr TITRATE IV Last administered on 03/10/17 08:51; Start 03/08/17 at 04:45; Stop 03/11/17 at 08:14 ; Status DC Magnesium Oxide 800 mg 800 mg UNSCH PRN PO For Magnesium 1.2 - 1.6 mg/dL; Start 03/08/17 at 04:45; Stop 03/09/17 at 08:32; Status DC Magnesium Sulfate 4 gm/Sodium Chloride 100 ml @ 50 mls/hr UNSCH PRN IV For Magnesium 0.9 - 1.1 mg/dL; Start 03/08/17 at 04:45; Stop 03/09/17 at 08:32; Status DC Magnesium Sulfate 2 gm/Sodium Chloride 100 ml @ 50 mls/hr UNSCH PRN IV For Magnesium 1.2 - 1.6 mg/dL Last administered on 03/08/17 23:03; Start 03/08/17 at 04:45; Stop 03/09/17 at 08:32; Status DC Potassium Chloride 100 ml @ 50 mls/hr Q2H PRN IV For Potassium 2.8 - 3.2 mEq/ L Last administered on 03/08/17 06:47; Start 03/08/17 at 04:45; Stop 03/09/17 at 08:32; Status DC Potassium Chloride 100 ml @ 50 mls/hr Q2H PRN IV For Potassium 3.3 - 3.5 mEq/L ; Start 03/08/17 at 04:45; Stop 03/09/17 at 08:32; Status DC Potassium Chloride 100 ml @ 50 mls/hr Q2H PRN IV For Potassium 2.8 - 3.2 mEq/L ; Start 03/08/17 at 04:45; Stop 03/09/17 at 08:32; Status DC Potassium Chloride (KCl 40 Meq Premix Inj) 100 ml @ 25 mls/hr UNSCH PRN IV For Potassium 3.3 - 3.5 mEq/L; Start 03/08/17 at 04:45; Stop 03/09/17 at 08:32; Status DC Potassium Phosphate (K-Phos) 2,000 mg Q4H PRN PO For Phosphorus < 2.5 mg/dL; Start 03/08/17 at 04:45; Stop 03/09/17 at 08:32; Status DC Potassium Phosphate 2000 mg 2,000 mg UNSCH PRN PO/TUBE SEE LABEL COMMENTS; Start 03/08/17 at 04:45; Stop 03/09/17 at 08:32; Status DC Potassium Phosphate 30 mmol/ Sodium Chloride 260 ml @ 42 mls/hr UNSCH PRN IV SEE LABEL COMMENTS; Start 03/08/17 at 04:45; Stop 03/09/17 at 08:32; Status DC Sodium Phosphate/ Sodium Chloride (Sodium Phosphate Inj/NS 250 ml Inj) 250 ml @ 42 mls/hr UNSCH PRN IV For Phosphorus < 2.5 mg/dL; Start 03/08/17 at 04:45; Stop 03/09/17 at 08:32; Status DC Chlorhexidine Gluconate (Peridex 0.12% Liq) 15 ml BID@08,20 MT Last administered on 03/10/17 08:54; Start 03/08/17 at 08:00 Dextrose (D50w (Vial) Inj) 25 ml UNSCH PRN IV PUSH HYPOGLYCEMIA-SEE COMMENTS; Start 03/08/17 at 04:45; Stop 03/11/17 at 11:42; Status DC Insulin Human Regular 1 1 Q6HR SQ Last administered on 03/10/17 00:00; Start 03/08/17 at 06:00; Stop 03/11/17 at 11:42; Status DC Sodium Chloride (NS 1000 ml Inj) 1,000 ml @ 125 mls/hr Q8H IV Last administered on 03/10/17 01:24; Start 03/08/17 at 04:32; Stop 03/10/17 at 07:01 ; Status DC Sodium Chloride (NS Flush) 2 ml UNSCH PRN IV FLUSH FLUSH AFTER USING IV ACCESS ; Start 03/08/17 at 04:45 Sodium Chloride (NS Flush) 2 ml BID IV FLUSH Last administered on 03/12/17 09: 07; Start 03/08/17 at 09:00 Acetaminophen (Tylenol) 650 mg Q6H PRN PO PAIN 1-10 AND/OR FEVER >101F Last administered on 03/08/17 21:08; Start 03/08/17 at 04:45 Pantoprazole Sodium (Protonix Inj) 40 mg DAILY IV Last administered on 09:05; Start 03/08/17 at 09:00 Ondansetron HCl (Zofran Inj) 4 mg Q6H PRN IV NAUSEA OR VOMITING; Start at 04:45 Senna/Docusate Sodium (Marce-Colace) 2 tab BID PO Last administered on 20:07; Start 03/08/17 at 09:00 Miscellaneous Information 1 Q361D XX ; Start 03/08/17 at 04:45 Chlorhexidine Gluconate (Chlorhexidine 2% Cloth) 3 pack Taper DAILY@04 TOP Last administered on 03/10/17 04:00; Start 03/09/17 at 04:00; Stop 03/05/18 at 03:59 Chlorhexidine Gluconate (Chlorhexidine 2% Cloth) 3 pack UNSCH PRN TOP HYGIENIC CARE; Start 03/08/17 at 04:45 Sertraline HCl 50 mg 50 mg DAILY PO Last administered on 03/12/17 09:06; Start 03/08/17 at 09:00 Fentanyl Citrate (fentaNYL DRIP) 250 ml @ As Directed STK-MED ONCE .ROUTE ; Start 03/08/17 at 04:57; Stop 03/08/17 at 04:58; Status DC Heparin Sodium (Porcine) 5000 units 5,000 units Q8HR SQ Last administered on 14:07; Start 03/08/17 at 06:00 Levofloxacin/ Dextrose 150 ml @ 100 mls/hr Q24H IV Last administered on 04:28; Start 03/08/17 at 05:30; Stop 03/09/17 at 12:07; Status DC Levofloxacin/ Dextrose (Levaquin 750 Mg Premix Inj) 150 ml @ 100 mls/hr Q48H IV Last administered on 03/11/17 06:25; Start 03/11/17 at 06:00 Methylprednisolone Sodium Succinate 60 mg 60 mg Q6HR IV PUSH Last administered on 03/11/17 06:26; Start 03/09/17 at 18:00; Stop 03/11/17 at 08:22; Status DC Sodium Chloride (NS 500 ml Inj) 500 ml @ 500 mls/hr BOLUS ONCE IV Last administered on 03/09/17 12:48; Start 03/09/17 at 12:30; Stop 03/09/17 at 13:29 ; Status DC Sodium Bicarbonate (Sodium Bicarbonate 8.4% Inj) 50 meq ONCE ONCE IV PUSH Last administered on 03/09/17 12:48; Start 03/09/17 at 12:30; Stop 03/09/17 at 12:32; Status DC Protein (Beneprotein Powder) 1 pack TID G-TUBE Last administered on 03/10/17 08:53; Start 03/09/17 at 13:00 Albumin Human (Albumin 25% Inj) 25 gm ONCE ONCE IV Last administered on 08:52; Start 03/10/17 at 07:00; Stop 03/10/17 at 07:01; Status DC Bumetanide (Bumex Inj) 2 mg ONCE STAT IV PUSH Last administered on 03/10/17 08:51; Start 03/10/17 at 06:56; Stop 03/10/17 at 06:57; Status DC Fluconazole (Diflucan) 100 mg DAILY PO Last administered on 03/12/17 09:06; Start 03/10/17 at 09:00; Stop 03/19/17 at 08:59 Sodium Bicarbonate (Sodium Bicarbonate 8.4% Inj) 50 meq ONCE ONCE IV PUSH Last administered on 03/10/17 13:20; Start 03/10/17 at 12:30; Stop 03/10/17 at 12:31; Status DC Sodium Bicarbonate (Sodium Bicarbonate 8.4% Inj) 50 meq ONCE ONCE IV PUSH Last administered on 03/10/17 13:26; Start 03/10/17 at 14:00; Stop 03/10/17 at 14:01; Status DC Bumetanide (Bumex Inj) 1 mg ONCE ONCE IV PUSH Last administered on 03/10/17 15:01; Start 03/10/17 at 14:45; Stop 03/10/17 at 14:58; Status DC Bumetanide (Bumex Inj) 1 mg BID@ IV PUSH Last administered on 03/12/17 09 :06; Start 03/10/17 at 18:00; Stop 03/12/17 at 17:59 Budesonide (Pulmicort Respule Neb) 0.5 mg ONCE ONCE NEB Last administered on 15:20; Start 03/10/17 at 14:45; Stop 03/10/17 at 14:58; Status DC Budesonide (Pulmicort Respule Neb) 0.5 mg Q12HR NEB NEB Last administered on 09:04; Start 03/10/17 at 20:00 Miscellaneous Information Patient in critical care unit? Ass... Q361D .XX Last administered on 03/10/17 15:00; Start 03/10/17 at 15:00 Mupirocin (Bactroban Nasal 2% Oint) 1 applic BID NASAL Last administered on 09:06; Start 03/10/17 at 21:00 Chlorhexidine Gluconate (Chlorhexidine 2% Cloth) 3 pack DAILY@04 TOPICAL ; Start 03/11/17 at 04:00; Stop 03/15/17 at 04:01 Chlorhexidine Gluconate (Chlorhexidine 2% Cloth) 3 pack UNSCH PRN TOPICAL HYGIENIC CARE; Start 03/10/17 at 15:00; Stop 03/15/17 at 14:57 Potassium Chloride (KCl) 40 meq Q4H PO Last administered on 03/11/17 04:16; Start 03/10/17 at 20:00; Stop 03/11/17 at 04:01; Status DC Tiotropium [place] (Spiriva Inh) 18 mcg DAILY INH Last administered on 09:57; Start 03/11/17 at 09:00 Albuterol/ Ipratropium (Duoneb Neb) 1 ampule Q6HR NEB INH Last administered on 03/12/17 16:03; Start 03/11/17 at 10:00 Methylprednisolone Sodium Succinate (SoluMEDROL INJ) 60 mg Q8HR IV PUSH Last administered on 03/12/17 14:07; Start 03/11/17 at 14:00 A/P Assessment and Plan This is a 69-year-old female with history of COPD who presented with shortness of breathing and cough Acute respiratory failure with hypoxia -Secondary to COPD exacerbation -Status post intubated and extubated on 03/11/17. -Currently doing well on nasal cannula. COPD exacerbation, severe -Patient was put on Solu-Medrol, Levaquin, nebulizer. She was also start Pulmicort and Spiriva. -Continue her current regimen. Community-acquired pneumonia -Chest x-ray shows bibasilar atelectasis. -CTA 03/08 negative for PE --sputum culture MSSA and Haemophilus influenza incidental Levaquin. Continue with Levaquin. Acute kidney failure -Most likely secondary contrast nephropathy for PE study -Bumex 1 mg q12 for fluid overload, DC 03/12 and use PRN -Nephrology consulted, UA. Dr. Lockett -Improving. -Avoid nephrotoxins. -Continue to monitor creatinine and strict ins and outs. DVT prophylaxis -SCDs Discharge Planning Patient will require at least a couple more days of hospitalization due to the severity her COPD. Chloe Franco MD Mar 12, 2017 16:58
--- NOTE | 2017-03-12 19:08 | HHI.NPPN ---
Subjective General Problems: Hypertension Renal Failure: Acute History of Present Illness 69-year-old female who is visiting here from [place], was admitted because of worsening shortness of breath. I was called to see the patient because of elevated BUN and creatinine. Additional Remarks Patient is alert, has lower abd. pain, no nausea, no SOB. Review of Systems General Constitutional: Fatigue Respiratory Lungs: SOB Cardiovascular Cardiac: [place] Objective Data Data 03/11/17 03/12/17 19:00 07:00 Intake Total 1052 ml 960 ml Output Total 1300 ml 1000 ml Balance -248 ml -40 ml Intake Oral 952 ml 960 ml IV Total 100 ml Output Urine Total 1300 ml 1000 ml # Bowel Movements 2 0 Vital Signs Date Time Temp Pulse Resp B/P Pulse Ox O2 Delivery O2 Flow Rate FiO2 03/12/17 16:03 94 Nasal Cannula 3.00 03/12/17 16:00 98.4 81 22 151/79 92 03/12/17 12:00 98.4 65 20 158/73 94 03/12/17 09:04 94 Nasal Cannula 4.00 03/12/17 08:00 Nasal Cannula 3.00 03/12/17 08:00 97.7 58 20 169/74 96 03/12/17 08:00 60 03/12/17 04:00 97.6 60 18 173/80 94 03/12/17 00:48 98 40 03/12/17 00:00 98.5 65 18 152/70 96 03/11/17 20:44 96 Nasal Cannula 4.00 03/11/17 20:00 96 Nasal Cannula 4.00 03/11/17 20:00 98.5 68 18 146/68 96 -: 03/12/17 0639 03/12/17 0639 Physical Exam General Appearance: No Acute Distress, Comfortable Eyes Eye Exam: Pupils Equal Throat Throat Exam: Oral Mucosa [place] & Moist Neck Neck Exam: Neck Supple Pulmonary Resp Exam: Breath Sounds Equal, No Distress, Decreased Bases Cardiology CV Exam: Regular, Normal Sinus Rhythm Gastrointestinal/Abdomen GI Exam: Soft, Non-Tender, Bowel Sounds Present Extremeties Extremities Exam: No Edema Neurologic Neuro Exam: Alert, Awake, Oriented Psychiatric Psych Exam: Appropriate Responses Assessment/Plan Assessment Summary: MAX/Acute Renal Failure Problem List: (1) Respiratory failure (2) Acute kidney injury (3) Pneumonia (4) COPD exacerbation Plan Patient has been non oliguric, Creatinine is improving. The BP is stable. Most likely has Contrast Nephropathy. Avoid Nephrotoxins. Bumex is stopped. Urine out put is good. Problem Qualifiers (1) Respiratory failure: Qualified Code: J96.02 - Acute respiratory failure with hypercapnia Dereck Lockett MD Mar 12, 2017 19:08
[2017-03-12] MEDS: ACETAMINOPHEN 325 MG TAB PO PRN (22:36)
[2017-03-13] VITALS (10 sets, daily range): BP systolic 146–169; BP diastolic 68–79; PULSE 56–86; RESP 16–20; TEMP 96–98.4; O2SAT 95–97
[2017-03-13] MEDS: RESP: ALBUTEROL 2.5 MG/IPRATROPIUM 0.5 MG NEB (SCH) INH ×4 (03:22→21:15)
[2017-03-13] MEDS: CHLORHEXIDINE GLUCONATE 2 % 1 PACK (2 CLOTHS)(taper/protocol) TOPICAL SCH (04:00)
[2017-03-13] MEDS: CHLORHEXIDINE GLUCONATE 2 % 1 PACK (2 CLOTHS) TOP SCH (04:00)
[2017-03-13] MEDS: LEVOFLOXACIN 750 MG PREMIX INJ 150 ML IV SCH (06:25)
[2017-03-13] MEDS: HEPARIN SODIUM - SQ 10,000 UNITS/ML VIAL SQ SCH ×3 (06:25→21:33)
[2017-03-13] MEDS: methylPREDNISolone SOD SUCC 125 MG/2 ML VIAL IV PUSH SCH ×3 (06:25→21:32)
[2017-03-13] MEDS: CHLORHEXIDINE 0.12% (ORAL KIT) 15 ML CUP MT SCH ×2 (08:00→20:00)
[2017-03-13] MEDS: RESP: BUDESONIDE 0.5 MG/2 ML NEB NEB SCH ×2 (08:00→20:00)
--- NOTE | 2017-03-13 08:16 | HHI.PR ---
Subjective Remarks in no acute distress. but still with some sob; now on three liters of oxygen via [place]. d/w the RN; reportedly had some skin reaction with erythema and itching over the site of levaquin extravasation from the previous IV line. Objective Vitals Vital Signs Date Time Temp Pulse Resp B/P Pulse Ox O2 Delivery O2 Flow Rate FiO2 03/13/17 04:00 97.9 56 16 160/75 96 03/13/17 03:25 97 Nasal Cannula 3.00 03/13/17 00:00 Nasal Cannula 3.00 03/13/17 00:00 98.4 63 16 148/68 96 Manual Cuff/Auscultation 03/12/17 22:30 150/60 Automatic Cuff 03/12/17 20:00 98.2 66 18 183/78 93 03/12/17 16:03 94 Nasal Cannula 3.00 03/12/17 16:00 98.4 81 22 151/79 92 03/12/17 12:00 98.4 65 20 158/73 94 03/12/17 09:04 94 Nasal Cannula 4.00 I/O 03/12/17 03/12/17 03/12/17 03/13/17 03/13/17 03/13/17 07:00 15:00 23:00 07:00 15:00 23:00 Intake Total 480 ml 360 ml 480 ml 0 ml Output Total 450 ml 1950 ml 350 ml 225 ml Balance 30 ml -1590 ml 130 ml -225 ml Intake Oral 480 ml 360 ml 480 ml 0 ml Output Urine Total 450 ml 1950 ml 350 ml 225 ml # Bowel Movements 0 2 0 0 Result Diagram: 03/12/1739 03/12/17 0639 Imaging Last Impressions Chest X-Ray 03/11/17 0600 Signed Impressions: Service Date/Time: Saturday, March 11, 2017 06:08 - CONCLUSION: Bibasilar atelectasis. Charles Zamora MD Renal Ultrasound 03/10/17 0000 Signed Impressions: Service Date/Time: Friday, March 10, 2017 09:43 - CONCLUSION: 1. Urinary bladder decompressed with Gambino catheter. 2. Otherwise negative. Both kidneys are sonographically intact. Blaine Pelayo MD CT Angiography 03/08/17 0359 Signed Impressions: Service Date/Time: Wednesday, March 08, 2017 04:26 - CONCLUSION: 1. No evidence of pulmonary embolism 2. Mild splenomegaly Stepan Albarado MD Objective Remarks GENERAL: This is a well-nourished, well-developed patient, in no apparent distress. CARDIOVASCULAR: Regular rate and regular rhythm without murmurs, gallops, or rubs. RESPIRATORY: bilateral mild wheezing GASTROINTESTINAL: Abdomen soft, non-tender, nondistended. Normal, active bowel sounds MUSCULOSKELETAL: Extremities without clubbing, cyanosis, or edema. NEURO: Alert & Oriented x4 to person, place, time, situation. Moves all ext x4 skin; erythema and mild swelling of the left forearm over the site of previous IV line Procedures endotracheal intubation Medications and IVs Current Medications Sodium Chloride (NS Flush) 2 ml UNSCH PRN IVF FLUSH AFTER USING IV ACCESS; Start 03/08/17 at 02:30 Methylprednisolone Sodium Succinate (SoluMEDROL INJ) 125 mg ONCE ONCE IVP Last administered on 03/08/17 02:56; Start 03/08/17 at 02:30; Stop 03/08/17 at 02:31; Status DC Albuterol/ Ipratropium (Duoneb Neb) 1 ampule Q15M INH Last administered on 03/08 02:15; Start 03/08/17 at 02:30; Stop 03/08/17 at 03:01; Status DC Propofol (Diprivan 1000 Mg/100ml Inj) search Sets for Drip. TITRATE PRN IV agitation Last administered on 03/08/17 02:57; Start 03/08/17 at 02:30; Stop at 04:40; Status DC Iohexol (Omnipaque 350 Inj) 75 ml STK-MED ONCE IV Last administered on 04:29; Start 03/08/17 at 04:29; Stop 03/08/17 at 04:30; Status DC Methylprednisolone Sodium Succinate (SoluMEDROL INJ) 60 mg Q12HR IV PUSH Last administered on 03/09/17 09:44; Start 03/08/17 at 09:00; Stop 03/09/17 at 12:29 ; Status DC Albuterol/ Ipratropium (Duoneb Neb) 1 ampule Q2HR NEB PRN INH WHEEZING Last administered on 03/09/17 06:23; Start 03/08/17 at 04:45 Albuterol/ Ipratropium 1 ampule 1 ampule Q4HR NEB INH Last administered on 07:51; Start 03/08/17 at 08:00; Stop 03/11/17 at 08:22; Status DC Fentanyl Citrate 250 ml @ 0 mls/hr TITRATE IV Last administered on 03/10/17 01 :14; Start 03/08/17 at 04:45; Stop 03/11/17 at 08:14; Status DC Propofol (Diprivan 1000 Mg/100ml Inj) 100 ml @ 0 mls/hr TITRATE IV Last administered on 03/10/17 08:51; Start 03/08/17 at 04:45; Stop 03/11/17 at 08:14 ; Status DC Magnesium Oxide 800 mg 800 mg UNSCH PRN PO For Magnesium 1.2 - 1.6 mg/dL; Start 03/08/17 at 04:45; Stop 03/09/17 at 08:32; Status DC Magnesium Sulfate 4 gm/Sodium Chloride 100 ml @ 50 mls/hr UNSCH PRN IV For Magnesium 0.9 - 1.1 mg/dL; Start 03/08/17 at 04:45; Stop 03/09/17 at 08:32; Status DC Magnesium Sulfate 2 gm/Sodium Chloride 100 ml @ 50 mls/hr UNSCH PRN IV For Magnesium 1.2 - 1.6 mg/dL Last administered on 03/08/17 23:03; Start 03/08/17 at 04:45; Stop 03/09/17 at 08:32; Status DC Potassium Chloride 100 ml @ 50 mls/hr Q2H PRN IV For Potassium 2.8 - 3.2 mEq/ L Last administered on 03/08/17 06:47; Start 03/08/17 at 04:45; Stop 03/09/17 at 08:32; Status DC Potassium Chloride 100 ml @ 50 mls/hr Q2H PRN IV For Potassium 3.3 - 3.5 mEq/L ; Start 03/08/17 at 04:45; Stop 03/09/17 at 08:32; Status DC Potassium Chloride 100 ml @ 50 mls/hr Q2H PRN IV For Potassium 2.8 - 3.2 mEq/L ; Start 03/08/17 at 04:45; Stop 03/09/17 at 08:32; Status DC Potassium Chloride (KCl 40 Meq Premix Inj) 100 ml @ 25 mls/hr UNSCH PRN IV For Potassium 3.3 - 3.5 mEq/L; Start 03/08/17 at 04:45; Stop 03/09/17 at 08:32; Status DC Potassium Phosphate (K-Phos) 2,000 mg Q4H PRN PO For Phosphorus < 2.5 mg/dL; Start 03/08/17 at 04:45; Stop 03/09/17 at 08:32; Status DC Potassium Phosphate 2000 mg 2,000 mg UNSCH PRN PO/TUBE SEE LABEL COMMENTS; Start 03/08/17 at 04:45; Stop 03/09/17 at 08:32; Status DC Potassium Phosphate 30 mmol/ Sodium Chloride 260 ml @ 42 mls/hr UNSCH PRN IV SEE LABEL COMMENTS; Start 03/08/17 at 04:45; Stop 03/09/17 at 08:32; Status DC Sodium Phosphate/ Sodium Chloride (Sodium Phosphate Inj/NS 250 ml Inj) 250 ml @ 42 mls/hr UNSCH PRN IV For Phosphorus < 2.5 mg/dL; Start 03/08/17 at 04:45; Stop 03/09/17 at 08:32; Status DC Chlorhexidine Gluconate (Peridex 0.12% Liq) 15 ml BID@08,20 MT Last administered on 03/10/17 08:54; Start 03/08/17 at 08:00 Dextrose (D50w (Vial) Inj) 25 ml UNSCH PRN IV PUSH HYPOGLYCEMIA-SEE COMMENTS; Start 03/08/17 at 04:45; Stop 03/11/17 at 11:42; Status DC Insulin Human Regular 1 1 Q6HR SQ Last administered on 03/10/17 00:00; Start 03/08/17 at 06:00; Stop 03/11/17 at 11:42; Status DC Sodium Chloride (NS 1000 ml Inj) 1,000 ml @ 125 mls/hr Q8H IV Last administered on 03/10/17 01:24; Start 03/08/17 at 04:32; Stop 03/10/17 at 07:01 ; Status DC Sodium Chloride (NS Flush) 2 ml UNSCH PRN IV FLUSH FLUSH AFTER USING IV ACCESS ; Start 03/08/17 at 04:45 Sodium Chloride (NS Flush) 2 ml BID IV FLUSH Last administered on 03/12/17 22: 31; Start 03/08/17 at 09:00 Acetaminophen (Tylenol) 650 mg Q6H PRN PO PAIN 1-10 AND/OR FEVER >101F Last administered on 03/12/17 22:36; Start 03/08/17 at 04:45 Pantoprazole Sodium (Protonix Inj) 40 mg DAILY IV Last administered on 09:05; Start 03/08/17 at 09:00; Stop 03/12/17 at 16:59; Status DC Ondansetron HCl (Zofran Inj) 4 mg Q6H PRN IV NAUSEA OR VOMITING; Start at 04:45 Senna/Docusate Sodium (Marce-Colace) 2 tab BID PO Last administered on 20:07; Start 03/08/17 at 09:00 Miscellaneous Information 1 Q361D XX ; Start 03/08/17 at 04:45 Chlorhexidine Gluconate (Chlorhexidine 2% Cloth) 3 pack Taper DAILY@04 TOP Last administered on 03/13/17 04:00; Start 03/09/17 at 04:00; Stop 03/05/18 at 03:59 Chlorhexidine Gluconate (Chlorhexidine 2% Cloth) 3 pack UNSCH PRN TOP HYGIENIC CARE; Start 03/08/17 at 04:45 Sertraline HCl 50 mg 50 mg DAILY PO Last administered on 03/12/17 09:06; Start 03/08/17 at 09:00 Fentanyl Citrate (fentaNYL DRIP) 250 ml @ As Directed STK-MED ONCE .ROUTE ; Start 03/08/17 at 04:57; Stop 03/08/17 at 04:58; Status DC Heparin Sodium (Porcine) 5000 units 5,000 units Q8HR SQ Last administered on 06:25; Start 03/08/17 at 06:00 Levofloxacin/ Dextrose 150 ml @ 100 mls/hr Q24H IV Last administered on 04:28; Start 03/08/17 at 05:30; Stop 03/09/17 at 12:07; Status DC Levofloxacin/ Dextrose (Levaquin 750 Mg Premix Inj) 150 ml @ 100 mls/hr Q48H IV Last administered on 03/13/17 06:25; Start 03/11/17 at 06:00 Methylprednisolone Sodium Succinate 60 mg 60 mg Q6HR IV PUSH Last administered on 03/11/17 06:26; Start 03/09/17 at 18:00; Stop 03/11/17 at 08:22; Status DC Sodium Chloride (NS 500 ml Inj) 500 ml @ 500 mls/hr BOLUS ONCE IV Last administered on 03/09/17 12:48; Start 03/09/17 at 12:30; Stop 03/09/17 at 13:29 ; Status DC Sodium Bicarbonate (Sodium Bicarbonate 8.4% Inj) 50 meq ONCE ONCE IV PUSH Last administered on 03/09/17 12:48; Start 03/09/17 at 12:30; Stop 03/09/17 at 12:32; Status DC Protein (Beneprotein Powder) 1 pack TID G-TUBE Last administered on 03/10/17 08:53; Start 03/09/17 at 13:00 Albumin Human (Albumin 25% Inj) 25 gm ONCE ONCE IV Last administered on 08:52; Start 03/10/17 at 07:00; Stop 03/10/17 at 07:01; Status DC Bumetanide (Bumex Inj) 2 mg ONCE STAT IV PUSH Last administered on 03/10/17 08:51; Start 03/10/17 at 06:56; Stop 03/10/17 at 06:57; Status DC Fluconazole (Diflucan) 100 mg DAILY PO Last administered on 03/12/17 09:06; Start 03/10/17 at 09:00; Stop 03/19/17 at 08:59 Sodium Bicarbonate (Sodium Bicarbonate 8.4% Inj) 50 meq ONCE ONCE IV PUSH Last administered on 03/10/17 13:20; Start 03/10/17 at 12:30; Stop 03/10/17 at 12:31; Status DC Sodium Bicarbonate (Sodium Bicarbonate 8.4% Inj) 50 meq ONCE ONCE IV PUSH Last administered on 03/10/17 13:26; Start 03/10/17 at 14:00; Stop 03/10/17 at 14:01; Status DC Bumetanide (Bumex Inj) 1 mg ONCE ONCE IV PUSH Last administered on 03/10/17 15:01; Start 03/10/17 at 14:45; Stop 03/10/17 at 14:58; Status DC Bumetanide (Bumex Inj) 1 mg BID@,18 IV PUSH Last administered on 03/12/17 09 :06; Start 03/10/17 at 18:00; Stop 03/12/17 at 17:59; Status DC Budesonide (Pulmicort Respule Neb) 0.5 mg ONCE ONCE NEB Last administered on 15:20; Start 03/10/17 at 14:45; Stop 03/10/17 at 14:58; Status DC Budesonide (Pulmicort Respule Neb) 0.5 mg Q12HR NEB NEB Last administered on 21:09; Start 03/10/17 at 20:00 Miscellaneous Information Patient in critical care unit? Ass... Q361D .XX Last administered on 03/10/17 15:00; Start 03/10/17 at 15:00 Mupirocin (Bactroban Nasal 2% Oint) 1 applic BID NASAL Last administered on 22:31; Start 03/10/17 at 21:00 Chlorhexidine Gluconate (Chlorhexidine 2% Cloth) 3 pack DAILY@04 TOPICAL Last administered on 03/13/17 04:00; Start 03/11/17 at 04:00; Stop 03/15/17 at 04:01 Chlorhexidine Gluconate (Chlorhexidine 2% Cloth) 3 pack UNSCH PRN TOPICAL HYGIENIC CARE; Start 03/10/17 at 15:00; Stop 03/15/17 at 14:57 Potassium Chloride (KCl) 40 meq Q4H PO Last administered on 03/11/17 04:16; Start 03/10/17 at 20:00; Stop 03/11/17 at 04:01; Status DC Tiotropium Elsa (Spiriva Inh) 18 mcg DAILY INH Last administered on 09:57; Start 03/11/17 at 09:00 Albuterol/ Ipratropium (Duoneb Neb) 1 ampule Q6HR NEB INH Last administered on 03/13/17 03:22; Start 03/11/17 at 10:00 Methylprednisolone Sodium Succinate (SoluMEDROL INJ) 60 mg Q8HR IV PUSH Last administered on 03/13/17 06:25; Start 03/11/17 at 14:00 A/P Assessment and Plan A/P Acute on chronic respiratory failure with hypoxia -Secondary to COPD exacerbation -Status post intubated and extubated on 03/11/17. -Currently doing well on nasal cannula. -patient is oxygen dependent. COPD exacerbation, severe -Patient was put on Solu-Medrol, Levaquin, nebulizer. She was also started on Pulmicort and Spiriva. -Continue her current regimen. Community-acquired pneumonia -Chest x-ray shows bibasilar atelectasis. -CTA 03/08 negative for PE --sputum culture MSSA and Haemophilus influenza. Continue with Levaquin. Acute kidney failure-improving. -Most likely secondary to contrast nephropathy for PE study -Bumex 1 mg q12 for fluid overload, DC 03/12 and use PRN -Nephrology consulted. Dr. Lockett -Improving. -Avoid nephrotoxins. -Continue to monitor creatinine and strict ins and outs. hypertension - lisinopril/ HCTZ on hold due to renal insufficiency - will start norvasc and continue to monitor. -adjust the regimen as needed. questionable skin reaction to levaquin extravasation from the previous IV line - IV line has been replaced. - start Benadryl as needed and will monitor PT assessment noted. will dc gambino cath. DVT prophylaxis -Alonzo Jiang MD Mar 13, 2017 08:16
[2017-03-13 08:25] LABS: HEMATOCRIT 34.8 % (35.0-46.0); MEAN CELL VOLUME 91.5 FL (80.0-100.0); MEAN CORPUSCULAR HGB CONC 33.9 % (32.0-36.0); PLATELET COUNT 206 TH/MM3 (150-450); RED BLOOD COUNT 3.81 MIL/MM3 (4.00-5.30); RED CELL DISTRIBUTION WIDTH 15.4 % (11.6-17.2); REVIEW FLAG FINAL; WHITE BLOOD COUNT 7.4 TH/MM3 (4.0-11.0)
[2017-03-13] MEDS ORDERED: diphenhydrAMINE HCL 25 MG CAP PO PRN (08:30)
[2017-03-13] MEDS: amLODIPine BESYLATE 5 MG TAB PO SCH (08:36)
[2017-03-13] MEDS: SERTRALINE HCL 50 MG TAB PO SCH (08:36)
[2017-03-13] MEDS: FLUCONAZOLE 100 MG TAB PO SCH (08:36)
[2017-03-13] MEDS: DOCUSATE SODIUM 50 MG/SENNA 8.6 MG TAB PO SCH ×2 (08:36→21:00)
[2017-03-13] MEDS: BENEPROTEIN POWDER 1 PACK G-TUBE SCH ×3 (09:00→16:11)
[2017-03-13] MEDS: TIOTROPIUM BROMIDE 18 MCG INH INH SCH (09:00)
[2017-03-13 09:02] LABS: BICARBONATE 30.8 MEQ/L (21.0-32.0); POTASSIUM 4.8 MEQ/L (3.5-5.1)
[2017-03-13] MEDS: ACETAMINOPHEN 325 MG TAB PO PRN (17:24)
--- NOTE | 2017-03-13 18:43 | HHI.NPPN ---
Subjective General Problems: Hypertension Renal Failure: Acute History of Present Illness 69-year-old female who is visiting here from [place], was admitted because of worsening shortness of breath. I was called to see the patient because of elevated BUN and creatinine. Additional Remarks Patient is alert, has lower abd. pain, no nausea, no SOB. Review of Systems General Constitutional: Fatigue Respiratory Lungs: SOB Cardiovascular Cardiac: [place] Objective Data Data 03/12/17 03/13/17 19:00 07:00 Intake Total 360 ml 630 ml Output Total 1950 ml 575 ml Balance -1590 ml 55 ml Intake Oral 360 ml 480 ml IV Total 150 ml Output Urine Total 1950 ml 575 ml # Bowel Movements 2 0 Vital Signs Date Time Temp Pulse Resp B/P Pulse Ox O2 Delivery O2 Flow Rate FiO2 03/13/17 16:00 97.5 64 18 146/68 95 03/13/17 12:00 97.9 57 18 169/78 95 03/13/17 08:18 96 Nasal Cannula 3.00 03/13/17 08:00 96.0 61 20 164/74 95 03/13/17 04:00 97.9 56 16 160/75 96 03/13/17 03:25 97 Nasal Cannula 3.00 03/13/17 00:00 Nasal Cannula 3.00 03/13/17 00:00 98.4 63 16 148/68 96 Manual Cuff/Auscultation 03/12/17 22:30 150/60 Automatic Cuff 03/12/17 20:00 98.2 66 18 183/78 93 -: 03/13/17 0746 03/13/17 0745 Physical Exam General Appearance: No Acute Distress, Comfortable Eyes Eye Exam: Pupils Equal Throat Throat Exam: Oral Mucosa [place] & Moist Neck Neck Exam: Neck Supple Pulmonary Resp Exam: Breath Sounds Equal, No Distress, Decreased Bases Cardiology CV Exam: Regular, Normal Sinus Rhythm Gastrointestinal/Abdomen GI Exam: Soft, Non-Tender, Bowel Sounds Present Extremeties Extremities Exam: No Edema Neurologic Neuro Exam: Alert, Awake, Oriented Psychiatric Psych Exam: Appropriate Responses Assessment/Plan Assessment Summary: MAX/Acute Renal Failure Problem List: (1) Respiratory failure (2) Acute kidney injury (3) Pneumonia (4) COPD exacerbation Plan Patient has been non oliguric, Creatinine is improving. The BP is stable. Most likely has Contrast Nephropathy. Avoid Nephrotoxins. Bumex is stopped. Urine out put is good. Problem Qualifiers (1) Respiratory failure: Qualified Code: J96.02 - Acute respiratory failure with hypercapnia Dereck Lockett MD Mar 13, 2017 18:43
[2017-03-13] MEDS: MUPIROCIN 2% OINT 1 APPLIC/GM SYR NASAL SCH (21:00)
[2017-03-13] MEDS: SODIUM CHLORIDE 0.9% FLUSH 10 ML FLUSH IV FLUSH SCH (21:00)
[2017-03-13 21:11] LABS: ANION GAP 10 MEQ/L (5-15); AST (GOT) 25 U/L (15-37); BLOOD UREA NITROGEN 43 MG/DL (7-18); CHLORIDE 104 MEQ/L (98-107); GLOMERULAR FILTRATION RATE 52 ML/MIN (>89); POTASSIUM 4.1 MEQ/L (3.5-5.1); SODIUM (NA) 142 MEQ/L (136-145)
[2017-03-13 21:15] LABS: ALKALINE PHOSPHATASE 59 U/L (45-117); ALT (GPT) 46 U/L (10-53); TOTAL BILIRUBIN ADULT 0.2 MG/DL (0.2-1.0)
[2017-03-13] MEDS: ALPRAZolam 0.25 MG TAB PO PRN (23:05)
[2017-03-14] VITALS (9 sets, daily range): BP systolic 140–169; BP diastolic 66–73; PULSE 53–74; RESP 18–22; TEMP 97.3–98.1; O2SAT 93–97
[2017-03-14] MEDS: GABAPENTIN 300 MG CAP PO SCH ×4 (00:22→17:50)
[2017-03-14] MEDS: RESP: ALBUTEROL 2.5 MG/IPRATROPIUM 0.5 MG NEB (SCH) INH ×3 (03:16→15:55)
[2017-03-14] MEDS: CHLORHEXIDINE GLUCONATE 2 % 1 PACK (2 CLOTHS)(taper/protocol) TOPICAL SCH (04:00)
[2017-03-14 04:54] LABS: HEMATOCRIT 36.9 % (35.0-46.0); MEAN CELL VOLUME 92.6 FL (80.0-100.0); MEAN CORPUSCULAR HEMOGLOBIN 31.3 PG (27.0-34.0); MEAN CORPUSCULAR HGB CONC 33.8 % (32.0-36.0); PLATELET COUNT 213 TH/MM3 (150-450); RED BLOOD COUNT 3.98 MIL/MM3 (4.00-5.30); RED CELL DISTRIBUTION WIDTH 15.1 % (11.6-17.2); REVIEW FLAG FINAL; WHITE BLOOD COUNT 8.2 TH/MM3 (4.0-11.0)
[2017-03-14 05:22] LABS: BICARBONATE 30.7 MEQ/L (21.0-32.0); POTASSIUM 4.2 MEQ/L (3.5-5.1)
[2017-03-14] MEDS: methylPREDNISolone SOD SUCC 125 MG/2 ML VIAL IV PUSH SCH (05:34)
[2017-03-14] MEDS: HEPARIN SODIUM - SQ 10,000 UNITS/ML VIAL SQ SCH ×3 (05:35→21:07)
[2017-03-14] MEDS ORDERED: GABAPENTIN 300 MG CAP PO SCH (09:00)
[2017-03-14] MEDS: RESP: BUDESONIDE 0.5 MG/2 ML NEB NEB SCH ×2 (09:35→19:50)
[2017-03-14] MEDS: DOCUSATE SODIUM 50 MG/SENNA 8.6 MG TAB PO SCH ×2 (09:45→21:00)
[2017-03-14] MEDS: amLODIPine BESYLATE 5 MG TAB PO SCH (09:45)
[2017-03-14] MEDS: SERTRALINE HCL 50 MG TAB PO SCH (09:45)
[2017-03-14] MEDS: FLUCONAZOLE 100 MG TAB PO SCH (09:45)
[2017-03-14] MEDS: TIOTROPIUM BROMIDE 18 MCG INH INH SCH (09:46)
--- NOTE | 2017-03-14 10:56 | HHI.PR ---
Subjective Remarks in no acute distress. has mild wheezing but sob has improved overall. d/w the RN and no acute issues over night. Objective Vitals Vital Signs Date Time Temp Pulse Resp B/P Pulse Ox O2 Delivery O2 Flow Rate FiO2 03/14/17 09:38 96 Nasal Cannula 3.00 03/14/17 08:00 97.7 53 18 169/73 96 03/14/17 04:00 97.5 58 20 162/69 97 03/14/17 00:00 97.3 64 20 153/67 95 03/13/17 23:30 Nasal Cannula 3.00 03/13/17 21:16 96 Nasal Cannula 3.00 03/13/17 20:00 98.4 61 20 166/79 96 03/13/17 20:00 Nasal Cannula 3.00 03/13/17 19:45 57 03/13/17 16:00 97.5 64 18 146/68 95 03/13/17 12:00 97.9 57 18 169/78 95 I/O 03/13/17 03/13/17 03/13/17 03/14/17 03/14/17 03/14/17 07:00 15:00 23:00 07:00 15:00 23:00 Intake Total 150 ml 480 ml 220 ml 360 ml Output Total 225 ml 500 ml Balance -75 ml -20 ml 220 ml 360 ml Intake Oral 0 ml 480 ml 220 ml 360 ml IV Total 150 ml Output Urine Total 225 ml 500 ml # Voids 1 3 2 # Bowel Movements 0 1 0 0 Result Diagram: 03/14/17 0424 03/14/17 0424 Imaging Last Impressions Chest X-Ray 03/11/17 0600 Signed Impressions: Service Date/Time: Saturday, March 11, 2017 06:08 - CONCLUSION: Bibasilar atelectasis. Charles Zamora MD Renal Ultrasound 03/10/17 0000 Signed Impressions: Service Date/Time: Friday, March 10, 2017 09:43 - CONCLUSION: 1. Urinary bladder decompressed with Dimas catheter. 2. Otherwise negative. Both kidneys are sonographically intact. Blaine Pelayo MD CT Angiography 03/08/17 0359 Signed Impressions: Service Date/Time: Wednesday, March 08, 2017 04:26 - CONCLUSION: 1. No evidence of pulmonary embolism 2. Mild splenomegaly Stepan Albarado MD Objective Remarks GENERAL: This is a well-nourished, well-developed patient, in no apparent distress. CARDIOVASCULAR: Regular rate and regular rhythm without murmurs, gallops, or rubs. RESPIRATORY: bilateral mild wheezing GASTROINTESTINAL: Abdomen soft, non-tender, nondistended. Normal, active bowel sounds MUSCULOSKELETAL: Extremities without clubbing, cyanosis, or edema. NEURO: Alert & Oriented x4 to person, place, time, situation. Moves all ext x4 skin; erythema and mild swelling of the left forearm over the site of previous IV line Procedures endotracheal intubation Medications and IVs Current Medications Sodium Chloride (NS Flush) 2 ml UNSCH PRN IVF FLUSH AFTER USING IV ACCESS; Start 03/08/17 at 02:30 Methylprednisolone Sodium Succinate (SoluMEDROL INJ) 125 mg ONCE ONCE IVP Last administered on 03/08/17 02:56; Start 03/08/17 at 02:30; Stop 03/08/17 at 02:31; Status DC Albuterol/ Ipratropium (Duoneb Neb) 1 ampule Q15M INH Last administered on 03/08 02:15; Start 03/08/17 at 02:30; Stop 03/08/17 at 03:01; Status DC Propofol (Diprivan 1000 Mg/100ml Inj) search Sets for Drip. TITRATE PRN IV agitation Last administered on 03/08/17 02:57; Start 03/08/17 at 02:30; Stop at 04:40; Status DC Iohexol (Omnipaque 350 Inj) 75 ml STK-MED ONCE IV Last administered on 04:29; Start 03/08/17 at 04:29; Stop 03/08/17 at 04:30; Status DC Methylprednisolone Sodium Succinate (SoluMEDROL INJ) 60 mg Q12HR IV PUSH Last administered on 03/09/17 09:44; Start 03/08/17 at 09:00; Stop 03/09/17 at 12:29 ; Status DC Albuterol/ Ipratropium (Duoneb Neb) 1 ampule Q2HR NEB PRN INH WHEEZING Last administered on 03/09/17 06:23; Start 03/08/17 at 04:45 Albuterol/ Ipratropium 1 ampule 1 ampule Q4HR NEB INH Last administered on 07:51; Start 03/08/17 at 08:00; Stop 03/11/17 at 08:22; Status DC Fentanyl Citrate 250 ml @ 0 mls/hr TITRATE IV Last administered on 03/10/17 01 :14; Start 03/08/17 at 04:45; Stop 03/11/17 at 08:14; Status DC Propofol (Diprivan 1000 Mg/100ml Inj) 100 ml @ 0 mls/hr TITRATE IV Last administered on 03/10/17 08:51; Start 03/08/17 at 04:45; Stop 03/11/17 at 08:14 ; Status DC Magnesium Oxide 800 mg 800 mg UNSCH PRN PO For Magnesium 1.2 - 1.6 mg/dL; Start 03/08/17 at 04:45; Stop 03/09/17 at 08:32; Status DC Magnesium Sulfate 4 gm/Sodium Chloride 100 ml @ 50 mls/hr UNSCH PRN IV For Magnesium 0.9 - 1.1 mg/dL; Start 03/08/17 at 04:45; Stop 03/09/17 at 08:32; Status DC Magnesium Sulfate 2 gm/Sodium Chloride 100 ml @ 50 mls/hr UNSCH PRN IV For Magnesium 1.2 - 1.6 mg/dL Last administered on 03/08/17 23:03; Start 03/08/17 at 04:45; Stop 03/09/17 at 08:32; Status DC Potassium Chloride 100 ml @ 50 mls/hr Q2H PRN IV For Potassium 2.8 - 3.2 mEq/ L Last administered on 03/08/17 06:47; Start 03/08/17 at 04:45; Stop 03/09/17 at 08:32; Status DC Potassium Chloride 100 ml @ 50 mls/hr Q2H PRN IV For Potassium 3.3 - 3.5 mEq/L ; Start 03/08/17 at 04:45; Stop 03/09/17 at 08:32; Status DC Potassium Chloride 100 ml @ 50 mls/hr Q2H PRN IV For Potassium 2.8 - 3.2 mEq/L ; Start 03/08/17 at 04:45; Stop 03/09/17 at 08:32; Status DC Potassium Chloride (KCl 40 Meq Premix Inj) 100 ml @ 25 mls/hr UNSCH PRN IV For Potassium 3.3 - 3.5 mEq/L; Start 03/08/17 at 04:45; Stop 03/09/17 at 08:32; Status DC Potassium Phosphate (K-Phos) 2,000 mg Q4H PRN PO For Phosphorus < 2.5 mg/dL; Start 03/08/17 at 04:45; Stop 03/09/17 at 08:32; Status DC Potassium Phosphate 2000 mg 2,000 mg UNSCH PRN PO/TUBE SEE LABEL COMMENTS; Start 03/08/17 at 04:45; Stop 03/09/17 at 08:32; Status DC Potassium Phosphate 30 mmol/ Sodium Chloride 260 ml @ 42 mls/hr UNSCH PRN IV SEE LABEL COMMENTS; Start 03/08/17 at 04:45; Stop 03/09/17 at 08:32; Status DC Sodium Phosphate/ Sodium Chloride (Sodium Phosphate Inj/NS 250 ml Inj) 250 ml @ 42 mls/hr UNSCH PRN IV For Phosphorus < 2.5 mg/dL; Start 03/08/17 at 04:45; Stop 03/09/17 at 08:32; Status DC Chlorhexidine Gluconate (Peridex 0.12% Liq) 15 ml BID@08,20 MT Last administered on 03/10/17 08:54; Start 03/08/17 at 08:00 Dextrose (D50w (Vial) Inj) 25 ml UNSCH PRN IV PUSH HYPOGLYCEMIA-SEE COMMENTS; Start 03/08/17 at 04:45; Stop 03/11/17 at 11:42; Status DC Insulin Human Regular 1 1 Q6HR SQ Last administered on 03/10/17 00:00; Start 03/08/17 at 06:00; Stop 03/11/17 at 11:42; Status DC Sodium Chloride (NS 1000 ml Inj) 1,000 ml @ 125 mls/hr Q8H IV Last administered on 03/10/17 01:24; Start 03/08/17 at 04:32; Stop 03/10/17 at 07:01 ; Status DC Sodium Chloride (NS Flush) 2 ml UNSCH PRN IV FLUSH FLUSH AFTER USING IV ACCESS ; Start 03/08/17 at 04:45 Sodium Chloride (NS Flush) 2 ml BID IV FLUSH Last administered on 03/13/17 21: 00; Start 03/08/17 at 09:00 Acetaminophen (Tylenol) 650 mg Q6H PRN PO PAIN 1-10 AND/OR FEVER >101F Last administered on 03/13/17 17:24; Start 03/08/17 at 04:45 Pantoprazole Sodium (Protonix Inj) 40 mg DAILY IV Last administered on 09:05; Start 03/08/17 at 09:00; Stop 03/12/17 at 16:59; Status DC Ondansetron HCl (Zofran Inj) 4 mg Q6H PRN IV NAUSEA OR VOMITING; Start at 04:45 Senna/Docusate Sodium (Marce-Colace) 2 tab BID PO Last administered on 09:45; Start 03/08/17 at 09:00 Miscellaneous Information 1 Q361D XX ; Start 03/08/17 at 04:45; Stop 03/13/17 at 22:48; Status DC Chlorhexidine Gluconate (Chlorhexidine 2% Cloth) 3 pack Taper DAILY@04 TOP Last administered on 03/13/17 04:00; Start 03/09/17 at 04:00; Stop 03/13/17 at 22:48; Status DC Chlorhexidine Gluconate (Chlorhexidine 2% Cloth) 3 pack UNSCH PRN TOP HYGIENIC CARE; Start 03/08/17 at 04:45; Stop 03/13/17 at 22:48; Status DC Sertraline HCl 50 mg 50 mg DAILY PO Last administered on 03/14/17 09:45; Start 03/08/17 at 09:00 Fentanyl Citrate (fentaNYL DRIP) 250 ml @ As Directed STK-MED ONCE .ROUTE ; Start 03/08/17 at 04:57; Stop 03/08/17 at 04:58; Status DC Heparin Sodium (Porcine) 5000 units 5,000 units Q8HR SQ Last administered on 05:35; Start 03/08/17 at 06:00 Levofloxacin/ Dextrose 150 ml @ 100 mls/hr Q24H IV Last administered on 04:28; Start 03/08/17 at 05:30; Stop 03/09/17 at 12:07; Status DC Levofloxacin/ Dextrose (Levaquin 750 Mg Premix Inj) 150 ml @ 100 mls/hr Q48H IV Last administered on 03/13/17 06:25; Start 03/11/17 at 06:00 Methylprednisolone Sodium Succinate 60 mg 60 mg Q6HR IV PUSH Last administered on 03/11/17 06:26; Start 03/09/17 at 18:00; Stop 03/11/17 at 08:22; Status DC Sodium Chloride (NS 500 ml Inj) 500 ml @ 500 mls/hr BOLUS ONCE IV Last administered on 03/09/17 12:48; Start 03/09/17 at 12:30; Stop 03/09/17 at 13:29 ; Status DC Sodium Bicarbonate (Sodium Bicarbonate 8.4% Inj) 50 meq ONCE ONCE IV PUSH Last administered on 03/09/17 12:48; Start 03/09/17 at 12:30; Stop 03/09/17 at 12:32; Status DC Protein (Beneprotein Powder) 1 pack TID G-TUBE Last administered on 03/10/17 08:53; Start 03/09/17 at 13:00 Albumin Human (Albumin 25% Inj) 25 gm ONCE ONCE IV Last administered on 08:52; Start 03/10/17 at 07:00; Stop 03/10/17 at 07:01; Status DC Bumetanide (Bumex Inj) 2 mg ONCE STAT IV PUSH Last administered on 03/10/17 08:51; Start 03/10/17 at 06:56; Stop 03/10/17 at 06:57; Status DC Fluconazole (Diflucan) 100 mg DAILY PO Last administered on 03/14/17 09:45; Start 03/10/17 at 09:00; Stop 03/19/17 at 08:59 Sodium Bicarbonate (Sodium Bicarbonate 8.4% Inj) 50 meq ONCE ONCE IV PUSH Last administered on 03/10/17 13:20; Start 03/10/17 at 12:30; Stop 03/10/17 at 12:31; Status DC Sodium Bicarbonate (Sodium Bicarbonate 8.4% Inj) 50 meq ONCE ONCE IV PUSH Last administered on 03/10/17 13:26; Start 03/10/17 at 14:00; Stop 03/10/17 at 14:01; Status DC Bumetanide (Bumex Inj) 1 mg ONCE ONCE IV PUSH Last administered on 03/10/17 15:01; Start 03/10/17 at 14:45; Stop 03/10/17 at 14:58; Status DC Bumetanide (Bumex Inj) 1 mg BID@,18 IV PUSH Last administered on 03/12/17 09 :06; Start 03/10/17 at 18:00; Stop 03/12/17 at 17:59; Status DC Budesonide (Pulmicort Respule Neb) 0.5 mg ONCE ONCE NEB Last administered on 15:20; Start 03/10/17 at 14:45; Stop 03/10/17 at 14:58; Status DC Budesonide (Pulmicort Respule Neb) 0.5 mg Q12HR NEB NEB Last administered on 09:35; Start 03/10/17 at 20:00 Miscellaneous Information Patient in critical care unit? Ass... Q361D .XX Last administered on 03/10/17 15:00; Start 03/10/17 at 15:00 Mupirocin (Bactroban Nasal 2% Oint) 1 applic BID NASAL Last administered on 21:00; Start 03/10/17 at 21:00 Chlorhexidine Gluconate (Chlorhexidine 2% Cloth) 3 pack DAILY@04 TOPICAL Last administered on 03/14/17 04:00; Start 03/11/17 at 04:00; Stop 03/15/17 at 04:01 Chlorhexidine Gluconate (Chlorhexidine 2% Cloth) 3 pack UNSCH PRN TOPICAL HYGIENIC CARE; Start 03/10/17 at 15:00; Stop 03/15/17 at 14:57 Potassium Chloride (KCl) 40 meq Q4H PO Last administered on 03/11/17 04:16; Start 03/10/17 at 20:00; Stop 03/11/17 at 04:01; Status DC Tiotropium Loami (Spiriva Inh) 18 mcg DAILY INH Last administered on 09:46; Start 03/11/17 at 09:00 Albuterol/ Ipratropium (Duoneb Neb) 1 ampule Q6HR NEB INH Last administered on 03/14/17 09:35; Start 03/11/17 at 10:00 Methylprednisolone Sodium Succinate (SoluMEDROL INJ) 60 mg Q8HR IV PUSH Last administered on 03/14/17 05:34; Start 03/11/17 at 14:00 Diphenhydramine HCl (Benadryl) 25 mg Q6H PRN PO ITCHING Last administered on 08:36; Start 03/13/17 at 08:30 Amlodipine Besylate (Norvasc) 5 mg DAILY PO Last administered on 03/14/17 09: 45; Start 03/13/17 at 09:00 Gabapentin (Neurontin) 300 mg TID PO ; Start 03/14/17 at 09:00; Stop 03/14/17 at 09:00; Status DC Alprazolam (Xanax) 0.25 mg Q8H PRN PO ANXIETY Last administered on 03/13/17 23 :05; Start 03/13/17 at 23:00 Gabapentin (Neurontin) 300 mg TID PO Last administered on 03/14/17 09:45; Start 03/13/17 at 23:00 A/P Assessment and Plan A/P Acute on chronic respiratory failure with hypoxia- improving slowly. -Secondary to COPD exacerbation -Status post intubated and extubated on 03/11/17. -Currently doing well on nasal cannula. -will do walk test. -patient uses oxygen as needed. COPD exacerbation, severe -Patient was put on Solu-Medrol, Levaquin, nebulizer. She was also started on Pulmicort and Spiriva. -Continue her current regimen. Community-acquired pneumonia -Chest x-ray shows bibasilar atelectasis. -CTA 03/08 negative for PE --sputum culture MSSA and Haemophilus influenza. Continue with Levaquin. Acute kidney failure-improving. -Most likely secondary to contrast nephropathy for PE study -Bumex 1 mg q12 for fluid overload, DC 03/12 and use PRN -Nephrology consulted. Dr. Lockett -Improving. -Avoid nephrotoxins. -Continue to monitor creatinine and strict ins and outs. hypertension - lisinopril/ HCTZ on hold due to renal insufficiency - continue norvasc and continue to monitor. -adjust the regimen as needed. questionable skin reaction to levaquin extravasation from the previous IV line - IV line has been replaced. - started Benadryl as needed and will monitor PT assessment noted. DVT prophylaxis -SCDs Alonzo Castillo MD Mar 14, 2017 10:56
[2017-03-14] MEDS: methylPREDNISolone SOD SUCC 40 MG/1 ML VIAL IV PUSH SCH ×2 (13:21→21:07)
[2017-03-14] MEDS: ALPRAZolam 0.25 MG TAB PO PRN ×2 (13:26→21:07)
[2017-03-14] MEDS ORDERED: OXYGENTANK NAS.CANULA (14:19)
[2017-03-14] MEDS: MUPIROCIN 2% OINT 1 APPLIC/GM SYR NASAL SCH (21:00)
[2017-03-14] MEDS: SODIUM CHLORIDE 0.9% FLUSH 10 ML FLUSH IV FLUSH SCH (21:00)
[2017-03-15] VITALS (11 sets, daily range): BP systolic 137–164; BP diastolic 62–94; PULSE 51–61; RESP 17–20; TEMP 97.4–98.7; O2SAT 93–98
[2017-03-15] MEDS: RESP: ALBUTEROL 2.5 MG/IPRATROPIUM 0.5 MG NEB (SCH) INH ×2 (03:46→08:01)
[2017-03-15] MEDS: CHLORHEXIDINE GLUCONATE 2 % 1 PACK (2 CLOTHS)(taper/protocol) TOPICAL SCH (04:00)
[2017-03-15] MEDS: LEVOFLOXACIN 750 MG PREMIX INJ 150 ML IV SCH (05:27)
[2017-03-15] MEDS: HEPARIN SODIUM - SQ 10,000 UNITS/ML VIAL SQ SCH ×3 (05:27→21:22)
[2017-03-15] MEDS: methylPREDNISolone SOD SUCC 40 MG/1 ML VIAL IV PUSH SCH ×2 (05:27→20:20)
[2017-03-15 07:25] LABS: HEMATOCRIT 36.3 % (35.0-46.0); MEAN CORPUSCULAR HEMOGLOBIN 31.8 PG (27.0-34.0); MEAN CORPUSCULAR HGB CONC 34.5 % (32.0-36.0); PLATELET COUNT 192 TH/MM3 (150-450); RED BLOOD COUNT 3.94 MIL/MM3 (4.00-5.30); REVIEW FLAG FINAL; WHITE BLOOD COUNT 9.4 TH/MM3 (4.0-11.0)
[2017-03-15] MEDS: CHLORHEXIDINE 0.12% (ORAL KIT) 15 ML CUP MT SCH ×2 (08:00→20:00)
[2017-03-15] MEDS: RESP: BUDESONIDE 0.5 MG/2 ML NEB NEB SCH ×2 (08:01→20:58)
[2017-03-15 08:10] LABS: BICARBONATE 30.2 MEQ/L (21.0-32.0); POTASSIUM 4.4 MEQ/L (3.5-5.1)
[2017-03-15] MEDS: BENEPROTEIN POWDER 1 PACK G-TUBE SCH ×3 (09:00→17:01)
[2017-03-15] MEDS: DOCUSATE SODIUM 50 MG/SENNA 8.6 MG TAB PO SCH ×2 (09:00→20:19)
[2017-03-15] MEDS: MUPIROCIN 2% OINT 1 APPLIC/GM SYR NASAL SCH ×2 (09:02→20:19)
[2017-03-15] MEDS: amLODIPine BESYLATE 5 MG TAB PO SCH (09:02)
[2017-03-15] MEDS: FLUCONAZOLE 100 MG TAB PO SCH (09:02)
[2017-03-15] MEDS: SERTRALINE HCL 50 MG TAB PO SCH (09:02)
[2017-03-15] MEDS: GABAPENTIN 300 MG CAP PO SCH ×3 (09:02→17:01)
[2017-03-15] MEDS: SODIUM CHLORIDE 0.9% FLUSH 10 ML FLUSH IV FLUSH SCH ×2 (09:03→20:19)
[2017-03-15] MEDS: TIOTROPIUM BROMIDE 18 MCG INH INH SCH (09:05)
--- NOTE | 2017-03-15 12:46 | HHI.PR ---
Subjective Remarks in no acute distress. denies pain. no fever. no new complaints. Objective Vitals Vital Signs Date Time Temp Pulse Resp B/P Pulse Ox O2 Delivery O2 Flow Rate FiO2 03/15/17 08:04 51 03/15/17 08:03 96 Nasal Cannula 3.00 03/15/17 08:00 98.6 54 17 164/76 97 03/15/17 07:45 Nasal Cannula 3.00 03/15/17 04:00 98.7 59 20 148/70 97 03/15/17 03:48 96 Nasal Cannula 3.00 03/15/17 00:00 97.4 57 20 145/62 98 03/14/17 20:19 66 03/14/17 20:00 97.7 59 20 164/69 95 03/14/17 20:00 Nasal Cannula 3.00 03/14/17 19:52 93 Nasal Cannula 3.00 03/14/17 16:00 98.1 69 20 140/66 93 03/14/17 12:44 3.00 I/O 03/14/17 03/14/17 03/14/17 03/15/17 03/15/17 03/15/17 07:00 15:00 23:00 07:00 15:00 23:00 Intake Total 360 ml 720 ml 480 ml 470 ml Output Total 450 ml 800 ml Balance 360 ml 270 ml 480 ml -330 ml Intake Oral 360 ml 720 ml 480 ml 320 ml IV Total 150 ml Output Urine Total 450 ml 800 ml # Voids 2 2 2 # Bowel Movements 0 1 1 1 Result Diagram: 03/15/1722 03/15/17 0622 Imaging Last Impressions Chest X-Ray 03/11/17 06 Signed Impressions: Service Date/Time: Saturday, March 11, 2017 06:08 - CONCLUSION: Bibasilar atelectasis. Charles Zamora MD Renal Ultrasound 03/10/17 0000 Signed Impressions: Service Date/Time: Friday, March 10, 2017 09:43 - CONCLUSION: 1. Urinary bladder decompressed with Dimas catheter. 2. Otherwise negative. Both kidneys are sonographically intact. Blaine Pelayo MD CT Angiography 03/08/17 0359 Signed Impressions: Service Date/Time: Wednesday, March 08, 2017 04:26 - CONCLUSION: 1. No evidence of pulmonary embolism 2. Mild splenomegaly Stepan Albarado MD Objective Remarks GENERAL: This is a well-nourished, well-developed patient, in no apparent distress. CARDIOVASCULAR: Regular rate and regular rhythm without murmurs, gallops, or rubs. RESPIRATORY: bilateral minimal wheezing GASTROINTESTINAL: Abdomen soft, non-tender, nondistended. Normal, active bowel sounds MUSCULOSKELETAL: Extremities without clubbing, cyanosis, or edema. NEURO: Alert & Oriented x4 to person, place, time, situation. Moves all ext x4 skin; erythema and mild swelling of the left forearm over the site of previous IV line-has much improved. Procedures endotracheal intubation Medications and IVs Current Medications Sodium Chloride (NS Flush) 2 ml UNSCH PRN IVF FLUSH AFTER USING IV ACCESS; Start 03/08/17 at 02:30 Methylprednisolone Sodium Succinate (SoluMEDROL INJ) 125 mg ONCE ONCE IVP Last administered on 03/08/17 02:56; Start 03/08/17 at 02:30; Stop 03/08/17 at 02:31; Status DC Albuterol/ Ipratropium (Duoneb Neb) 1 ampule Q15M INH Last administered on 03/08 02:15; Start 03/08/17 at 02:30; Stop 03/08/17 at 03:01; Status DC Propofol (Diprivan 1000 Mg/100ml Inj) search Sets for Drip. TITRATE PRN IV agitation Last administered on 03/08/17 02:57; Start 03/08/17 at 02:30; Stop at 04:40; Status DC Iohexol (Omnipaque 350 Inj) 75 ml STK-MED ONCE IV Last administered on 04:29; Start 03/08/17 at 04:29; Stop 03/08/17 at 04:30; Status DC Methylprednisolone Sodium Succinate (SoluMEDROL INJ) 60 mg Q12HR IV PUSH Last administered on 03/09/17 09:44; Start 03/08/17 at 09:00; Stop 03/09/17 at 12:29 ; Status DC Albuterol/ Ipratropium (Duoneb Neb) 1 ampule Q2HR NEB PRN INH WHEEZING Last administered on 03/09/17 06:23; Start 03/08/17 at 04:45 Albuterol/ Ipratropium 1 ampule 1 ampule Q4HR NEB INH Last administered on 07:51; Start 03/08/17 at 08:00; Stop 03/11/17 at 08:22; Status DC Fentanyl Citrate 250 ml @ 0 mls/hr TITRATE IV Last administered on 03/10/17 01 :14; Start 03/08/17 at 04:45; Stop 03/11/17 at 08:14; Status DC Propofol (Diprivan 1000 Mg/100ml Inj) 100 ml @ 0 mls/hr TITRATE IV Last administered on 03/10/17 08:51; Start 03/08/17 at 04:45; Stop 03/11/17 at 08:14 ; Status DC Magnesium Oxide 800 mg 800 mg UNSCH PRN PO For Magnesium 1.2 - 1.6 mg/dL; Start 03/08/17 at 04:45; Stop 03/09/17 at 08:32; Status DC Magnesium Sulfate 4 gm/Sodium Chloride 100 ml @ 50 mls/hr UNSCH PRN IV For Magnesium 0.9 - 1.1 mg/dL; Start 03/08/17 at 04:45; Stop 03/09/17 at 08:32; Status DC Magnesium Sulfate 2 gm/Sodium Chloride 100 ml @ 50 mls/hr UNSCH PRN IV For Magnesium 1.2 - 1.6 mg/dL Last administered on 03/08/17 23:03; Start 03/08/17 at 04:45; Stop 03/09/17 at 08:32; Status DC Potassium Chloride 100 ml @ 50 mls/hr Q2H PRN IV For Potassium 2.8 - 3.2 mEq/ L Last administered on 03/08/17 06:47; Start 03/08/17 at 04:45; Stop 03/09/17 at 08:32; Status DC Potassium Chloride 100 ml @ 50 mls/hr Q2H PRN IV For Potassium 3.3 - 3.5 mEq/L ; Start 03/08/17 at 04:45; Stop 03/09/17 at 08:32; Status DC Potassium Chloride 100 ml @ 50 mls/hr Q2H PRN IV For Potassium 2.8 - 3.2 mEq/L ; Start 03/08/17 at 04:45; Stop 03/09/17 at 08:32; Status DC Potassium Chloride (KCl 40 Meq Premix Inj) 100 ml @ 25 mls/hr UNSCH PRN IV For Potassium 3.3 - 3.5 mEq/L; Start 03/08/17 at 04:45; Stop 03/09/17 at 08:32; Status DC Potassium Phosphate (K-Phos) 2,000 mg Q4H PRN PO For Phosphorus < 2.5 mg/dL; Start 03/08/17 at 04:45; Stop 03/09/17 at 08:32; Status DC Potassium Phosphate 2000 mg 2,000 mg UNSCH PRN PO/TUBE SEE LABEL COMMENTS; Start 03/08/17 at 04:45; Stop 03/09/17 at 08:32; Status DC Potassium Phosphate 30 mmol/ Sodium Chloride 260 ml @ 42 mls/hr UNSCH PRN IV SEE LABEL COMMENTS; Start 03/08/17 at 04:45; Stop 03/09/17 at 08:32; Status DC Sodium Phosphate/ Sodium Chloride (Sodium Phosphate Inj/NS 250 ml Inj) 250 ml @ 42 mls/hr UNSCH PRN IV For Phosphorus < 2.5 mg/dL; Start 03/08/17 at 04:45; Stop 03/09/17 at 08:32; Status DC Chlorhexidine Gluconate (Peridex 0.12% Liq) 15 ml BID@08,20 MT Last administered on 03/10/17 08:54; Start 03/08/17 at 08:00 Dextrose (D50w (Vial) Inj) 25 ml UNSCH PRN IV PUSH HYPOGLYCEMIA-SEE COMMENTS; Start 03/08/17 at 04:45; Stop 03/11/17 at 11:42; Status DC Insulin Human Regular 1 1 Q6HR SQ Last administered on 03/10/17 00:00; Start 03/08/17 at 06:00; Stop 03/11/17 at 11:42; Status DC Sodium Chloride (NS 1000 ml Inj) 1,000 ml @ 125 mls/hr Q8H IV Last administered on 03/10/17 01:24; Start 03/08/17 at 04:32; Stop 03/10/17 at 07:01 ; Status DC Sodium Chloride (NS Flush) 2 ml UNSCH PRN IV FLUSH FLUSH AFTER USING IV ACCESS ; Start 03/08/17 at 04:45 Sodium Chloride (NS Flush) 2 ml BID IV FLUSH Last administered on 03/15/17 09: 03; Start 03/08/17 at 09:00 Acetaminophen (Tylenol) 650 mg Q6H PRN PO PAIN 1-10 AND/OR FEVER >101F Last administered on 03/13/17 17:24; Start 03/08/17 at 04:45 Pantoprazole Sodium (Protonix Inj) 40 mg DAILY IV Last administered on 09:05; Start 03/08/17 at 09:00; Stop 03/12/17 at 16:59; Status DC Ondansetron HCl (Zofran Inj) 4 mg Q6H PRN IV NAUSEA OR VOMITING; Start at 04:45 Senna/Docusate Sodium (Marce-Colace) 2 tab BID PO Last administered on 09:45; Start 03/08/17 at 09:00 Miscellaneous Information 1 Q361D XX ; Start 03/08/17 at 04:45; Stop 03/13/17 at 22:48; Status DC Chlorhexidine Gluconate (Chlorhexidine 2% Cloth) 3 pack Taper DAILY@04 TOP Last administered on 03/13/17 04:00; Start 03/09/17 at 04:00; Stop 03/13/17 at 22:48; Status DC Chlorhexidine Gluconate (Chlorhexidine 2% Cloth) 3 pack UNSCH PRN TOP HYGIENIC CARE; Start 03/08/17 at 04:45; Stop 03/13/17 at 22:48; Status DC Sertraline HCl 50 mg 50 mg DAILY PO Last administered on 03/15/17 09:02; Start 03/08/17 at 09:00 Fentanyl Citrate (fentaNYL DRIP) 250 ml @ As Directed STK-MED ONCE .ROUTE ; Start 03/08/17 at 04:57; Stop 03/08/17 at 04:58; Status DC Heparin Sodium (Porcine) 5000 units 5,000 units Q8HR SQ Last administered on 05:27; Start 03/08/17 at 06:00 Levofloxacin/ Dextrose 150 ml @ 100 mls/hr Q24H IV Last administered on 04:28; Start 03/08/17 at 05:30; Stop 03/09/17 at 12:07; Status DC Levofloxacin/ Dextrose (Levaquin 750 Mg Premix Inj) 150 ml @ 100 mls/hr Q48H IV Last administered on 03/15/17 05:27; Start 03/11/17 at 06:00 Methylprednisolone Sodium Succinate 60 mg 60 mg Q6HR IV PUSH Last administered on 03/11/17 06:26; Start 03/09/17 at 18:00; Stop 03/11/17 at 08:22; Status DC Sodium Chloride (NS 500 ml Inj) 500 ml @ 500 mls/hr BOLUS ONCE IV Last administered on 03/09/17 12:48; Start 03/09/17 at 12:30; Stop 03/09/17 at 13:29 ; Status DC Sodium Bicarbonate (Sodium Bicarbonate 8.4% Inj) 50 meq ONCE ONCE IV PUSH Last administered on 03/09/17 12:48; Start 03/09/17 at 12:30; Stop 03/09/17 at 12:32; Status DC Protein (Beneprotein Powder) 1 pack TID G-TUBE Last administered on 03/10/17 08:53; Start 03/09/17 at 13:00 Albumin Human (Albumin 25% Inj) 25 gm ONCE ONCE IV Last administered on 08:52; Start 03/10/17 at 07:00; Stop 03/10/17 at 07:01; Status DC Bumetanide (Bumex Inj) 2 mg ONCE STAT IV PUSH Last administered on 03/10/17 08:51; Start 03/10/17 at 06:56; Stop 03/10/17 at 06:57; Status DC Fluconazole (Diflucan) 100 mg DAILY PO Last administered on 03/15/17 09:02; Start 03/10/17 at 09:00; Stop 03/19/17 at 08:59 Sodium Bicarbonate (Sodium Bicarbonate 8.4% Inj) 50 meq ONCE ONCE IV PUSH Last administered on 03/10/17 13:20; Start 03/10/17 at 12:30; Stop 03/10/17 at 12:31; Status DC Sodium Bicarbonate (Sodium Bicarbonate 8.4% Inj) 50 meq ONCE ONCE IV PUSH Last administered on 03/10/17 13:26; Start 03/10/17 at 14:00; Stop 03/10/17 at 14:01; Status DC Bumetanide (Bumex Inj) 1 mg ONCE ONCE IV PUSH Last administered on 03/10/17 15:01; Start 03/10/17 at 14:45; Stop 03/10/17 at 14:58; Status DC Bumetanide (Bumex Inj) 1 mg BID@18 IV PUSH Last administered on 03/12/17 09 :06; Start 03/10/17 at 18:00; Stop 03/12/17 at 17:59; Status DC Budesonide (Pulmicort Respule Neb) 0.5 mg ONCE ONCE NEB Last administered on 15:20; Start 03/10/17 at 14:45; Stop 03/10/17 at 14:58; Status DC Budesonide (Pulmicort Respule Neb) 0.5 mg Q12HR NEB NEB Last administered on 08:01; Start 03/10/17 at 20:00 Miscellaneous Information Patient in critical care unit? Ass... Q361D .XX Last administered on 03/10/17 15:00; Start 03/10/17 at 15:00 Mupirocin (Bactroban Nasal 2% Oint) 1 applic BID NASAL Last administered on 09:02; Start 03/10/17 at 21:00 Chlorhexidine Gluconate (Chlorhexidine 2% Cloth) 3 pack DAILY@04 TOPICAL Last administered on 03/15/17 04:00; Start 03/11/17 at 04:00; Stop 03/15/17 at 04:01 ; Status DC Chlorhexidine Gluconate (Chlorhexidine 2% Cloth) 3 pack UNSCH PRN TOPICAL HYGIENIC CARE; Start 03/10/17 at 15:00; Stop 03/15/17 at 14:57 Potassium Chloride (KCl) 40 meq Q4H PO Last administered on 03/11/17 04:16; Start 03/10/17 at 20:00; Stop 03/11/17 at 04:01; Status DC Tiotropium [place] (Spiriva Inh) 18 mcg DAILY INH Last administered on 09:05; Start 03/11/17 at 09:00 Albuterol/ Ipratropium (Duoneb Neb) 1 ampule Q6HR NEB INH Last administered on 03/15/17 08:01; Start 03/11/17 at 10:00; Stop 03/15/17 at 10:00; Status DC Methylprednisolone Sodium Succinate (SoluMEDROL INJ) 60 mg Q8HR IV PUSH Last administered on 03/14/17 05:34; Start 03/11/17 at 14:00; Stop 03/14/17 at 10:58 ; Status DC Diphenhydramine HCl (Benadryl) 25 mg Q6H PRN PO ITCHING Last administered on 08:36; Start 03/13/17 at 08:30 Amlodipine Besylate (Norvasc) 5 mg DAILY PO Last administered on 03/15/17 09: 02; Start 03/13/17 at 09:00 Gabapentin (Neurontin) 300 mg TID PO ; Start 03/14/17 at 09:00; Stop 03/14/17 at 09:00; Status DC Alprazolam (Xanax) 0.25 mg Q8H PRN PO ANXIETY Last administered on 03/14/17 21 :07; Start 03/13/17 at 23:00 Gabapentin (Neurontin) 300 mg TID PO Last administered on 03/15/17 09:02; Start 03/13/17 at 23:00 Methylprednisolone Sodium Succinate (SoluMEDROL INJ) 40 mg Q8HR IV PUSH Last administered on 03/15/17 05:27; Start 03/14/17 at 14:00 A/P Assessment and Plan A/P Acute on chronic respiratory failure with hypoxia- improving slowly. -Secondary to COPD exacerbation -Status post intubated and extubated on 03/11/17. -Currently doing well on nasal cannula. -walk test with hypoxemia on ambulation -patient uses oxygen as needed. COPD exacerbation, severe -Patient was put on Solu-Medrol, Levaquin, nebulizer. She was also started on Pulmicort and Spiriva. -will continue to taper down IV steroid- will switch to po prednisone soon. Community-acquired pneumonia -Chest x-ray shows bibasilar atelectasis. -CTA 03/08 negative for PE --sputum culture MSSA and Haemophilus influenza. Continue with Levaquin. Acute kidney failure-improving. -Most likely secondary to contrast nephropathy for PE study -Bumex 1 mg q12 for fluid overload, DC 03/12 and use PRN -Nephrology consulted. Dr. Lockett -Improving. -Avoid nephrotoxins. -Continue to monitor creatinine and strict ins and outs. hypertension - lisinopril/ HCTZ on hold due to renal insufficiency - continue norvasc and continue to monitor. -adjust the regimen as needed. questionable skin reaction to levaquin extravasation from the previous IV line- has improved. PT assessment noted. DVT prophylaxis -SCDs Discharge Planning possible dc home within the next 24-48 hrs if stable. needs home oxygen. d/w the case management. Alonzo Castillo MD Mar 15, 2017 12:46
[2017-03-15] MEDS: ALPRAZolam 0.25 MG TAB PO PRN ×2 (13:13→21:22)
--- NOTE | 2017-03-15 13:34 | EKG ---
Date Performed: 03/13/2017 Time Performed: 20:19:06 PTAGE: 66 years EKG: Sinus bradycardia Low QRS voltages in precordial leads Borderline ECG Compared to prior tra cing no significant change PREVIOUS TRACING : 03/08/2017 02.21 DOCTOR: Todd Willard Interpretating Date/Time 03/15/2017 13:32:22
[2017-03-16] VITALS: BP 155/70; PULSE 66; RESP 20; TEMP 97.6; O2SAT 94
[2017-03-16 04:00] VITALS: BP 167/71; PULSE 57; RESP 20; TEMP 97.8; O2SAT 96
[2017-03-16] MEDS: HEPARIN SODIUM - SQ 10,000 UNITS/ML VIAL SQ SCH ×2 (05:32→13:06)
[2017-03-16] MEDS ORDERED: LEVOFLOXACIN 750 MG PREMIX INJ 150 ML IV SCH (06:00)
[2017-03-16] MEDS: RESP: BUDESONIDE 0.5 MG/2 ML NEB NEB SCH (07:41)
[2017-03-16 07:44] VITALS: O2SAT 95
[2017-03-16 08:00] VITALS: BP 135/70; PULSE 54; RESP 20; TEMP 97.7; O2SAT 96
[2017-03-16] MEDS: CHLORHEXIDINE 0.12% (ORAL KIT) 15 ML CUP MT SCH (08:00)
[2017-03-16 08:51] VITALS: PULSE 61
[2017-03-16] MEDS: MUPIROCIN 2% OINT 1 APPLIC/GM SYR NASAL SCH (08:56)
[2017-03-16] MEDS: BENEPROTEIN POWDER 1 PACK G-TUBE SCH ×2 (08:56→13:00)
[2017-03-16] MEDS: DOCUSATE SODIUM 50 MG/SENNA 8.6 MG TAB PO SCH (09:00)
[2017-03-16] MEDS: TIOTROPIUM BROMIDE 18 MCG INH INH SCH (09:01)
[2017-03-16] MEDS: SERTRALINE HCL 50 MG TAB PO SCH (09:02)
[2017-03-16] MEDS: amLODIPine BESYLATE 5 MG TAB PO SCH (09:02)
[2017-03-16] MEDS: FLUCONAZOLE 100 MG TAB PO SCH (09:02)
[2017-03-16] MEDS: GABAPENTIN 300 MG CAP PO SCH ×2 (09:02→13:06)
[2017-03-16] MEDS: methylPREDNISolone SOD SUCC 40 MG/1 ML VIAL IV PUSH SCH (09:02)
[2017-03-16] MEDS: SODIUM CHLORIDE 0.9% FLUSH 10 ML FLUSH IV FLUSH SCH (09:02)
[2017-03-16] MEDS: ALPRAZolam 0.25 MG TAB PO PRN (09:05)
--- NOTE | 2017-03-16 10:26 | HHI.PR ---
Subjective Remarks resting comfortably with no distress. says that had a good night. no fever. no new complaints. d/w the RN and no acute issues over night. Objective Vitals Vital Signs Date Time Temp Pulse Resp B/P Pulse Ox O2 Delivery O2 Flow Rate FiO2 03/16/17 08:00 97.7 54 20 135/70 96 03/16/17 07:44 95 Nasal Cannula 2.00 03/16/17 04:00 97.8 57 20 167/71 96 03/16/17 00:00 97.6 66 20 155/70 94 03/15/17 20:59 94 Nasal Cannula 2.00 03/15/17 20:19 Nasal Cannula 3.00 03/15/17 20:07 61 03/15/17 20:00 97.8 61 20 138/65 96 03/15/17 16:00 98.2 61 18 140/64 94 03/15/17 12:00 97.6 61 18 152/66 93 I/O 03/15/17 03/15/17 03/15/17 03/16/17 03/16/17 03/16/17 07:00 15:00 23:00 07:00 15:00 23:00 Intake Total 470 ml 340 ml 2010 ml Output Total 800 ml 400 ml Balance -330 ml 340 ml 1610 ml Intake Oral 320 ml 340 ml 680 ml IV Total 150 ml 1330 ml Output Urine Total 800 ml 400 ml # Bowel Movements 1 Result Diagram: 03/15/17 0622 03/15/17 0622 Imaging Last Impressions Chest X-Ray 03/11/17 0600 Signed Impressions: Service Date/Time: Saturday, March 11, 2017 06:08 - CONCLUSION: Bibasilar atelectasis. Charles Zamora MD Renal Ultrasound 03/10/17 0000 Signed Impressions: Service Date/Time: Friday, March 10, 2017 09:43 - CONCLUSION: 1. Urinary bladder decompressed with Dimas catheter. 2. Otherwise negative. Both kidneys are sonographically intact. Blaine Pelayo MD CT Angiography 03/08/17 0359 Signed Impressions: Service Date/Time: Wednesday, March 08, 2017 04:26 - CONCLUSION: 1. No evidence of pulmonary embolism 2. Mild splenomegaly Stepan Albarado MD Objective Remarks GENERAL: This is a well-nourished, well-developed patient, in no apparent distress. CARDIOVASCULAR: Regular rate and regular rhythm without murmurs, gallops, or rubs. RESPIRATORY: wheezing has almost resolved. GASTROINTESTINAL: Abdomen soft, non-tender, nondistended. Normal, active bowel sounds MUSCULOSKELETAL: Extremities without clubbing, cyanosis, or edema. NEURO: Alert & Oriented x4 to person, place, time, situation. Moves all ext x4 skin; erythema and mild swelling of the left forearm over the site of previous IV line-has much improved. Procedures endotracheal intubation Medications and IVs Current Medications Sodium Chloride (NS Flush) 2 ml UNSCH PRN IVF FLUSH AFTER USING IV ACCESS; Start 03/08/17 at 02:30; Stop 03/15/17 at 15:10; Status DC Methylprednisolone Sodium Succinate (SoluMEDROL INJ) 125 mg ONCE ONCE IVP Last administered on 03/08/17 02:56; Start 03/08/17 at 02:30; Stop 03/08/17 at 02:31; Status DC Albuterol/ Ipratropium (Duoneb Neb) 1 ampule Q15M INH Last administered on 03/08 02:15; Start 03/08/17 at 02:30; Stop 03/08/17 at 03:01; Status DC Propofol (Diprivan 1000 Mg/100ml Inj) search Sets for Drip. TITRATE PRN IV agitation Last administered on 03/08/17 02:57; Start 03/08/17 at 02:30; Stop at 04:40; Status DC Iohexol (Omnipaque 350 Inj) 75 ml STK-MED ONCE IV Last administered on 04:29; Start 03/08/17 at 04:29; Stop 03/08/17 at 04:30; Status DC Methylprednisolone Sodium Succinate (SoluMEDROL INJ) 60 mg Q12HR IV PUSH Last administered on 03/09/17 09:44; Start 03/08/17 at 09:00; Stop 03/09/17 at 12:29 ; Status DC Albuterol/ Ipratropium (Duoneb Neb) 1 ampule Q2HR NEB PRN INH WHEEZING Last administered on 03/09/17 06:23; Start 03/08/17 at 04:45 Albuterol/ Ipratropium 1 ampule 1 ampule Q4HR NEB INH Last administered on 07:51; Start 03/08/17 at 08:00; Stop 03/11/17 at 08:22; Status DC Fentanyl Citrate 250 ml @ 0 mls/hr TITRATE IV Last administered on 03/10/17 01 :14; Start 03/08/17 at 04:45; Stop 03/11/17 at 08:14; Status DC Propofol (Diprivan 1000 Mg/100ml Inj) 100 ml @ 0 mls/hr TITRATE IV Last administered on 03/10/17 08:51; Start 03/08/17 at 04:45; Stop 03/11/17 at 08:14 ; Status DC Magnesium Oxide 800 mg 800 mg UNSCH PRN PO For Magnesium 1.2 - 1.6 mg/dL; Start 03/08/17 at 04:45; Stop 03/09/17 at 08:32; Status DC Magnesium Sulfate 4 gm/Sodium Chloride 100 ml @ 50 mls/hr UNSCH PRN IV For Magnesium 0.9 - 1.1 mg/dL; Start 03/08/17 at 04:45; Stop 03/09/17 at 08:32; Status DC Magnesium Sulfate 2 gm/Sodium Chloride 100 ml @ 50 mls/hr UNSCH PRN IV For Magnesium 1.2 - 1.6 mg/dL Last administered on 03/08/17 23:03; Start 03/08/17 at 04:45; Stop 03/09/17 at 08:32; Status DC Potassium Chloride 100 ml @ 50 mls/hr Q2H PRN IV For Potassium 2.8 - 3.2 mEq/ L Last administered on 03/08/17 06:47; Start 03/08/17 at 04:45; Stop 03/09/17 at 08:32; Status DC Potassium Chloride 100 ml @ 50 mls/hr Q2H PRN IV For Potassium 3.3 - 3.5 mEq/L ; Start 03/08/17 at 04:45; Stop 03/09/17 at 08:32; Status DC Potassium Chloride 100 ml @ 50 mls/hr Q2H PRN IV For Potassium 2.8 - 3.2 mEq/L ; Start 03/08/17 at 04:45; Stop 03/09/17 at 08:32; Status DC Potassium Chloride (KCl 40 Meq Premix Inj) 100 ml @ 25 mls/hr UNSCH PRN IV For Potassium 3.3 - 3.5 mEq/L; Start 03/08/17 at 04:45; Stop 03/09/17 at 08:32; Status DC Potassium Phosphate (K-Phos) 2,000 mg Q4H PRN PO For Phosphorus < 2.5 mg/dL; Start 03/08/17 at 04:45; Stop 03/09/17 at 08:32; Status DC Potassium Phosphate 2000 mg 2,000 mg UNSCH PRN PO/TUBE SEE LABEL COMMENTS; Start 03/08/17 at 04:45; Stop 03/09/17 at 08:32; Status DC Potassium Phosphate 30 mmol/ Sodium Chloride 260 ml @ 42 mls/hr UNSCH PRN IV SEE LABEL COMMENTS; Start 03/08/17 at 04:45; Stop 03/09/17 at 08:32; Status DC Sodium Phosphate/ Sodium Chloride (Sodium Phosphate Inj/NS 250 ml Inj) 250 ml @ 42 mls/hr UNSCH PRN IV For Phosphorus < 2.5 mg/dL; Start 03/08/17 at 04:45; Stop 03/09/17 at 08:32; Status DC Chlorhexidine Gluconate (Peridex 0.12% Liq) 15 ml BID@08,20 MT Last administered on 03/15/17 20:00; Start 03/08/17 at 08:00 Dextrose (D50w (Vial) Inj) 25 ml UNSCH PRN IV PUSH HYPOGLYCEMIA-SEE COMMENTS; Start 03/08/17 at 04:45; Stop 03/11/17 at 11:42; Status DC Insulin Human Regular 1 1 Q6HR SQ Last administered on 03/10/17 00:00; Start 03/08/17 at 06:00; Stop 03/11/17 at 11:42; Status DC Sodium Chloride (NS 1000 ml Inj) 1,000 ml @ 125 mls/hr Q8H IV Last administered on 03/10/17 01:24; Start 03/08/17 at 04:32; Stop 03/10/17 at 07:01 ; Status DC Sodium Chloride (NS Flush) 2 ml UNSCH PRN IV FLUSH FLUSH AFTER USING IV ACCESS ; Start 03/08/17 at 04:45 Sodium Chloride (NS Flush) 2 ml BID IV FLUSH Last administered on 03/16/17 09: 02; Start 03/08/17 at 09:00 Acetaminophen (Tylenol) 650 mg Q6H PRN PO PAIN 1-10 AND/OR FEVER >101F Last administered on 03/13/17 17:24; Start 03/08/17 at 04:45 Pantoprazole Sodium (Protonix Inj) 40 mg DAILY IV Last administered on 09:05; Start 03/08/17 at 09:00; Stop 03/12/17 at 16:59; Status DC Ondansetron HCl (Zofran Inj) 4 mg Q6H PRN IV NAUSEA OR VOMITING; Start at 04:45 Senna/Docusate Sodium (Marce-Colace) 2 tab BID PO Last administered on 20:19; Start 03/08/17 at 09:00 Miscellaneous Information 1 Q361D XX ; Start 03/08/17 at 04:45; Stop 03/13/17 at 22:48; Status DC Chlorhexidine Gluconate (Chlorhexidine 2% Cloth) 3 pack Taper DAILY@04 TOP Last administered on 03/13/17 04:00; Start 03/09/17 at 04:00; Stop 03/13/17 at 22:48; Status DC Chlorhexidine Gluconate (Chlorhexidine 2% Cloth) 3 pack UNSCH PRN TOP HYGIENIC CARE; Start 03/08/17 at 04:45; Stop 03/13/17 at 22:48; Status DC Sertraline HCl 50 mg 50 mg DAILY PO Last administered on 03/16/17 09:02; Start 03/08/17 at 09:00 Fentanyl Citrate (fentaNYL DRIP) 250 ml @ As Directed STK-MED ONCE .ROUTE ; Start 03/08/17 at 04:57; Stop 03/08/17 at 04:58; Status DC Heparin Sodium (Porcine) 5000 units 5,000 units Q8HR SQ Last administered on 05:32; Start 03/08/17 at 06:00 Levofloxacin/ Dextrose 150 ml @ 100 mls/hr Q24H IV Last administered on 04:28; Start 03/08/17 at 05:30; Stop 03/09/17 at 12:07; Status DC Levofloxacin/ Dextrose (Levaquin 750 Mg Premix Inj) 150 ml @ 100 mls/hr Q48H IV Last administered on 03/15/17 05:27; Start 03/11/17 at 06:00; Stop at 14:56; Status DC Methylprednisolone Sodium Succinate 60 mg 60 mg Q6HR IV PUSH Last administered on 03/11/17 06:26; Start 03/09/17 at 18:00; Stop 03/11/17 at 08:22; Status DC Sodium Chloride (NS 500 ml Inj) 500 ml @ 500 mls/hr BOLUS ONCE IV Last administered on 03/09/17 12:48; Start 03/09/17 at 12:30; Stop 03/09/17 at 13:29 ; Status DC Sodium Bicarbonate (Sodium Bicarbonate 8.4% Inj) 50 meq ONCE ONCE IV PUSH Last administered on 03/09/17 12:48; Start 03/09/17 at 12:30; Stop 03/09/17 at 12:32; Status DC Protein (Beneprotein Powder) 1 pack TID G-TUBE Last administered on 03/10/17 08:53; Start 03/09/17 at 13:00 Albumin Human (Albumin 25% Inj) 25 gm ONCE ONCE IV Last administered on 08:52; Start 03/10/17 at 07:00; Stop 03/10/17 at 07:01; Status DC Bumetanide (Bumex Inj) 2 mg ONCE STAT IV PUSH Last administered on 03/10/17 08:51; Start 03/10/17 at 06:56; Stop 03/10/17 at 06:57; Status DC Fluconazole (Diflucan) 100 mg DAILY PO Last administered on 03/16/17 09:02; Start 03/10/17 at 09:00; Stop 03/19/17 at 08:59 Sodium Bicarbonate (Sodium Bicarbonate 8.4% Inj) 50 meq ONCE ONCE IV PUSH Last administered on 03/10/17 13:20; Start 03/10/17 at 12:30; Stop 03/10/17 at 12:31; Status DC Sodium Bicarbonate (Sodium Bicarbonate 8.4% Inj) 50 meq ONCE ONCE IV PUSH Last administered on 03/10/17 13:26; Start 03/10/17 at 14:00; Stop 03/10/17 at 14:01; Status DC Bumetanide (Bumex Inj) 1 mg ONCE ONCE IV PUSH Last administered on 03/10/17 15:01; Start 03/10/17 at 14:45; Stop 03/10/17 at 14:58; Status DC Bumetanide (Bumex Inj) 1 mg BID@,18 IV PUSH Last administered on 03/12/17 09 :06; Start 03/10/17 at 18:00; Stop 03/12/17 at 17:59; Status DC Budesonide (Pulmicort Respule Neb) 0.5 mg ONCE ONCE NEB Last administered on 15:20; Start 03/10/17 at 14:45; Stop 03/10/17 at 14:58; Status DC Budesonide (Pulmicort Respule Neb) 0.5 mg Q12HR NEB NEB Last administered on 07:41; Start 03/10/17 at 20:00 Miscellaneous Information Patient in critical care unit? Ass... Q361D .XX Last administered on 03/10/17 15:00; Start 03/10/17 at 15:00 Mupirocin (Bactroban Nasal 2% Oint) 1 applic BID NASAL Last administered on 20:19; Start 03/10/17 at 21:00 Chlorhexidine Gluconate (Chlorhexidine 2% Cloth) 3 pack DAILY@04 TOPICAL Last administered on 03/15/17 04:00; Start 03/11/17 at 04:00; Stop 03/15/17 at 04:01 ; Status DC Chlorhexidine Gluconate (Chlorhexidine 2% Cloth) 3 pack UNSCH PRN TOPICAL HYGIENIC CARE; Start 03/10/17 at 15:00; Stop 03/15/17 at 14:57; Status DC Potassium Chloride (KCl) 40 meq Q4H PO Last administered on 03/11/17 04:16; Start 03/10/17 at 20:00; Stop 03/11/17 at 04:01; Status DC Tiotropium [place] (Spiriva Inh) 18 mcg DAILY INH Last administered on 09:01; Start 03/11/17 at 09:00 Albuterol/ Ipratropium (Duoneb Neb) 1 ampule Q6HR NEB INH Last administered on 03/15/17 08:01; Start 03/11/17 at 10:00; Stop 03/15/17 at 10:00; Status DC Methylprednisolone Sodium Succinate (SoluMEDROL INJ) 60 mg Q8HR IV PUSH Last administered on 03/14/17 05:34; Start 03/11/17 at 14:00; Stop 03/14/17 at 10:58 ; Status DC Diphenhydramine HCl (Benadryl) 25 mg Q6H PRN PO ITCHING Last administered on 08:36; Start 03/13/17 at 08:30 Amlodipine Besylate (Norvasc) 5 mg DAILY PO Last administered on 03/16/17 09: 02; Start 03/13/17 at 09:00 Gabapentin (Neurontin) 300 mg TID PO ; Start 03/14/17 at 09:00; Stop 03/14/17 at 09:00; Status DC Alprazolam (Xanax) 0.25 mg Q8H PRN PO ANXIETY Last administered on 03/16/17 09 :05; Start 03/13/17 at 23:00 Gabapentin (Neurontin) 300 mg TID PO Last administered on 03/16/17 09:02; Start 03/13/17 at 23:00 Methylprednisolone Sodium Succinate (SoluMEDROL INJ) 40 mg Q8HR IV PUSH Last administered on 03/15/17 05:27; Start 03/14/17 at 14:00; Stop 03/15/17 at 12:43 ; Status DC Methylprednisolone Sodium Succinate 40 mg 40 mg Q12HR IV PUSH Last administered on 03/16/17 09:02; Start 03/15/17 at 21:00 Levofloxacin/ Dextrose (Levaquin 750 Mg Premix Inj) 150 ml @ 100 mls/hr Q24H IV Last administered on 03/16/17 05:32; Start 03/16/17 at 06:00 A/P Assessment and Plan A/P Acute on chronic respiratory failure with hypoxia- improved. -Secondary to COPD exacerbation -Status post intubated and extubated on 03/11/17. -Currently doing well on nasal cannula. -walk test with hypoxemia on ambulation -patient uses oxygen as needed. COPD exacerbation, severe -Patient was put on Solu-Medrol, Levaquin, nebulizer. She was also started on Pulmicort and Spiriva. - will switch to po prednisone . Community-acquired pneumonia -Chest x-ray shows bibasilar atelectasis. -CTA 03/08 negative for PE --sputum culture MSSA and Haemophilus influenza. Continue with Levaquin. Acute kidney failure-improved. -Most likely secondary to contrast nephropathy for PE study -Bumex 1 mg q12 for fluid overload, DC 03/12 and use PRN -Nephrology consulted. Dr. Lockett -Avoid nephrotoxins. -Continue to monitor creatinine and strict ins and outs. hypertension - lisinopril/ HCTZ on hold due to renal insufficiency - continue norvasc and continue to monitor. -adjust the regimen as needed. questionable skin reaction to levaquin extravasation from the previous IV line- has improved. PT assessment noted. DVT prophylaxis -SCDs Discharge Planning dc home when oxygen is available. f/u by pcp. see med list. d/w the patient and RN. time spent 35 min. Alonzo Castillo MD Mar 16, 2017 10:26
[2017-03-16] MEDS ORDERED: SPIRCAP INH (10:30)
[2017-03-16] MEDS ORDERED: ALBU6.7H INH (10:30)
[2017-03-16] MEDS ORDERED: LEVA500T PO (10:30)
[2017-03-16] MEDS ORDERED: AMLO5 PO (10:30)
[2017-03-16] MEDS ORDERED: PRED5TAB PO (10:30)
--- NOTE | 2017-03-16 10:30 | HHI.DCPOC ---
Discharge Care Plan Diagnosis: (1) COPD exacerbation Your Health Problems Are: Cough Shortness of Breath Goals to Promote Your Health * To prevent worsening of your condition and complications * To maintain your health at the optimal level Directions to Meet Your Goals Take your medications as prescribed Follow your dietary instruction Follow activity as directed Keep your appointments as scheduled Take your immunizations and boosters as scheduled If your symptoms worsen call your PCP, if no PCP go to Urgent Care Center or Emergency Room Smoking is Dangerous to Your Health. Avoid second hand smoke Call the 24-hour hour crisis hotline for domestic abuse at Alonzo Castillo MD Mar 16, 2017 10:30
--- NOTE | 2017-03-16 10:35 | HHI.DS ---
Discharge Summary Admission Date Mar 08, 2017 at 04:35 Discharge Date: Mar 16, 2017 Admitting Diagnosis respiratory failure (1) COPD exacerbation ICD Code: J44.1 Diagnosis: Principal (2) Acute kidney injury ICD Code: N17.9 Diagnosis: Principal (3) Respiratory failure ICD Code: J96.90 Diagnosis: Principal Procedures endotracheal intubation Brief History - From Admission This is a 69-year-old female who is traveling from [place] for her brother 's which is planned for tomorrow. She has a history of COPD which is relatively well-controlled at baseline. She still smokes daily. Her family reports that even before leaving for [place], she had significantly increased shortness of breath and sputum production. The family noted that it was very difficult for her to ambulate through the airport due to her dyspnea. She is been here for approximately 2 days with worsening shortness of breath and dyspnea. She is been using a family members nebulizer treatments. She has not seeked medical attention for this. In the middle night tonight she apparently awoke complaining of acute shortness of breath. She vomited 1. EMS was called and found her in severe respiratory distress and intubated her. The family states that she has not complained of chest pain, fever, chills. Until the single time that she vomited before calling 911, there were no complaints of nausea, vomiting, diarrhea. Unfortunately, the patient is intubated, sedated, and cannot provide any additional history. Critical-care medicine is consulted to evaluate and her acute hypoxic hypercarbic respiratory failure. CBC/BMP: 03/15/17 0622 03/15/17 0622 Significant Findings Laboratory Tests Test 03/13/17 03/14/17 03/15/17 20:40 04:24 06:22 Blood Urea Nitrogen 43 MG/DL (7-18) 41 MG/DL (7-18) 37 MG/DL (7-18) Creatinine 1.05 MG/DL (0.50-1.00) Estimat Glomerular Filtration 52 ML/MIN (>89) 61 ML/MIN (>89) 72 ML/MIN (>89) Rate Random Glucose 155 MG/DL 131 MG/DL 140 MG/DL (74-106) (74-106) (74-106) Troponin I LESS THAN 0.02 NG/ML (0.02-0.05) Albumin 2.5 GM/DL (3.4-5.0) Red Blood Count 3.98 MIL/MM3 3.94 MIL/MM3 (4.00-5.30) (4.00-5.30) Calcium Level 8.2 MG/DL (8.5-10.1) Imaging Last Impressions Chest X-Ray 03/11/17 0600 Signed Impressions: Service Date/Time: Saturday, March 11, 2017 06:08 - CONCLUSION: Bibasilar atelectasis. Charles Zamora MD Renal Ultrasound 03/10/17 0000 Signed Impressions: Service Date/Time: Friday, March 10, 2017 09:43 - CONCLUSION: 1. Urinary bladder decompressed with Dimas catheter. 2. Otherwise negative. Both kidneys are sonographically intact. Blaine Pelayo MD CT Angiography 03/08/17 0359 Signed Impressions: Service Date/Time: Wednesday, March 08, 2017 04:26 - CONCLUSION: 1. No evidence of pulmonary embolism 2. Mild splenomegaly Stepan Albarado MD PE at Discharge GENERAL: This is a well-nourished, well-developed patient, in no apparent distress. CARDIOVASCULAR: Regular rate and regular rhythm without murmurs, gallops, or rubs. RESPIRATORY: wheezing has almost resolved. GASTROINTESTINAL: Abdomen soft, non-tender, nondistended. Normal, active bowel sounds MUSCULOSKELETAL: Extremities without clubbing, cyanosis, or edema. NEURO: Alert & Oriented x4 to person, place, time, situation. Moves all ext x4 skin; erythema and mild swelling of the left forearm over the site of previous IV line-has much improved. Hospital Course Acute on chronic respiratory failure with hypoxia- improved. -Secondary to COPD exacerbation -Status post intubated and extubated on 03/11/17. -Currently doing well on nasal cannula. -walk test with hypoxemia on ambulation -patient uses oxygen as needed. COPD exacerbation, severe -Patient was put on Solu-Medrol, Levaquin, nebulizer. She was also started on Pulmicort and Spiriva. - will switch to po prednisone . Community-acquired pneumonia -Chest x-ray shows bibasilar atelectasis. -CTA 03/08 negative for PE --sputum culture MSSA and Haemophilus influenza. Continue with Levaquin. Acute kidney failure-improved. -Most likely secondary to contrast nephropathy for PE study -Bumex 1 mg q12 for fluid overload, DC 03/12 and use PRN -Nephrology consulted. Dr. Lockett -Avoid nephrotoxins. -Continue to monitor creatinine and strict ins and outs. hypertension - lisinopril/ HCTZ on hold due to renal insufficiency - continue norvasc and continue to monitor. -adjust the regimen as needed. questionable skin reaction to levaquin extravasation from the previous IV line- has improved. PT assessment noted. DVT prophylaxis -SCDs Pt Condition on Discharge: Fair Discharge Disposition: Discharge Home Discharge Time: > 30 minutes Discharge Instructions DIET: Follow Instructions for: Heart Healthy Diet Activities you can perform: Regular-No Restrictions Follow up Referrals: PCP Follow-up New Medications: Albuterol 6.7 GM Inh (Proventil Hfa 6.7 GM Inh) 90 Mcg/Act Aer 2 PUFF INH Q6H PRN SHORTNESS OF BREATH #1 Ref 0 INHALER Levofloxacin (Levaquin) 500 Mg Tab 500 MG PO DAILY Infection Days 3 Ref 0 TAB Oxygen tank (Oxygen tank) 1 Ea Tank 2 LITER [employer] CONTINUOUS Oxygen Concentrator Portable Gaseous 2 L/min via Nasal Cannula Continuous For 99 months HYPOXEMIA PREVENTION #3 CYLINDER Prednisone (Prednisone) 5 Mg Tab 5 MG PO DIRECTED 40 mg po daily for two days then 30 mg po daily for two days then 20 mg po daily for two days then 10 mg po daily for two days then 5 mg po daily for two days then stop. copd Days 10 Ref 0 TAB Amlodipine (Norvasc) 5 Mg Tab 5 MG PO DAILY hypertension Days 30 Ref 0 TAB Tiotropium Inh (Spiriva Handihaler) 18 Mcg Cap 18 MCG INH DAILY copd #1 Ref 0 CAP Continued Medications: Gabapentin (Gabapentin) 300 Mg Cap 300 MG PO TID #90 Ref 0 CAP Lorazepam (Lorazepam) 0.5 Mg Tab 0.5 MG PO Q8H PRN ANXIETY Ref 0 TAB Omeprazole (Omeprazole) 20 Mg Tab 20 MG PO DAILY #30 Ref 0 TAB Sertraline (Sertraline) 50 Mg Tab 50 MG PO DAILY #30 Ref 0 TAB Sertraline (Zoloft) 100 Mg Tab 100 MG PO DAILY #30 Ref 0 TAB Discontinued Medications: Lisinopril-Hctz (Lisinopril-Hctz) 10-12.5 Mg Tab 1 TAB PO DAILY Blood Pressure Management #30 Ref 0 TAB Alonzo Castillo MD Mar 16, 2017 10:35
[2017-03-16 12:00] VITALS: BP 135/65; PULSE 55; RESP 22; TEMP 97.9; O2SAT 97
[2017-03-16] MEDS: ACETAMINOPHEN 325 MG TAB PO PRN (13:06)
[2017-03-17] MEDS ORDERED: methylPREDNISolone SOD SUCC 40 MG/1 ML VIAL IV PUSH SCH (09:00)
== END 2017-03-16 15:35 | disposition home or self-care (01) | DRG 208 ==
LOC: NEPE 02:03 → EDBD 04:35 → NEDA 04:35 → N03A 06:19 → N04B 03-11 18:30 → N04A 03-12 20:48
PROVIDERS: ADMIT Internal Medicine; ATTEND Internal Medicine
PROC: 5A1945Z Respiratory Ventilation, 24-96 Consecutive Hours (ICD-10-PCS; principal; 2017-03-08)
DX: J96.21 Acute and chronic respiratory failure with hypoxia (principal); N17.9 Acute kidney failure, unspecified; J44.1 Chronic obstructive pulmonary disease with (acute) exacerbation; J44.0 Chronic obstructive pulmonary disease with (acute) lower respiratory infection; J18.9 Pneumonia, unspecified organism; E87.4 Mixed disorder of acid-base balance; Z68.41 Body mass index [BMI] 40.0-44.9, adult; E66.9 Obesity, unspecified; N14.1 Nephropathy induced by other drugs, medicaments and biological substances; T50.8X5A Adverse effect of diagnostic agents, initial encounter; T80.89XA Other complications following infusion, transfusion and therapeutic injection, initial encounter; F17.210 Nicotine dependence, cigarettes, uncomplicated; I10 Essential (primary) hypertension; R73.9 Hyperglycemia, unspecified; Z85.72 Personal history of non-Hodgkin lymphomas
CPT/HCPCS: 31500; 36600; 51702; 71010; 71275; 76775; 80048; 80053; 80307; 81001; 82550; 82805; 82948; 83735; 83880; 84132; 84484; 85025; 85027; 85379; 85610; 85730; 86403; 87040; 87070; 87077; 87184; 87185; 87186; 87205; 87641; 93005; 94002; 94003; 94620; 94640; 94664; 94667; 94668; 96365; 96366; 96374; C9113; J1644; J1956; J2920; J2930; J3010; J3475; J3480; J7030; J7040; J7626; P9047; Q9967

== ENCOUNTER 2017-03-17 04:36 | Inpatient (IN) | payer MEDICARE ==
[~2017-03-17] VITALS: Ht 160 cm; Wt 130.9 kg
[2017-03-17] VITALS (22 sets, daily range): BP systolic 70–115; BP diastolic 43–59; PULSE 59–78; RESP 20–35; TEMP 98–98.6; O2SAT 86–98
[~2017-03-17 04:36] MED LIST: ALBU6.7H INH; AMLO5 PO; GABA300C5 PO; LEVA500T PO; LORA-373 PO; OMEP20TA PO; OXYGENTANK NAS.CANULA; PRED5TAB PO; SERT-132 PO; SPIRCAP INH; ZOLO100T PO
[2017-03-17] MEDS ORDERED: SODIUM CHLOR 0.9% 1000 ML INJ 1,000 ML IV ONE ×3 (05:15→06:30)
[2017-03-17 05:31] LABS: AUTOMATED NEUTROPHIL # 16.9 TH/MM3 (1.8-7.7); BASOPHIL % 0.1 % (0.0-2.0); EOSINOPHIL % 0.1 % (0.0-4.0); LYMPHOCYTE # 1.1 TH/MM3 (1.0-4.8); MEAN CELL VOLUME 92.8 FL (80.0-100.0); MEAN CORPUSCULAR HEMOGLOBIN 30.1 PG (27.0-34.0); MEAN CORPUSCULAR HGB CONC 32.5 % (32.0-36.0); MONO % 1.1 % (0.0-8.0); NEUT % 92.7 % (16.0-70.0); PLATELET COUNT 344 TH/MM3 (150-450); RED BLOOD COUNT 5.28 MIL/MM3 (4.00-5.30); RED CELL DISTRIBUTION WIDTH 15.2 % (11.6-17.2); WHITE BLOOD COUNT 18.2 TH/MM3 (4.0-11.0)
[2017-03-17 05:32] LABS: HEMO FLAGS AUTO DIFF
[2017-03-17] MEDS ORDERED: SODIUM CHLORIDE 0.9% FLUSH 10 ML FLUSH IVF PRN (05:45)
[2017-03-17] MEDS ORDERED: fentaNYL CITRATE 250 MCG/5 ML AMP IV PUSH ONE ×2 (05:45→07:30)
[2017-03-17] MEDS ORDERED: ONDANSETRON HCL 4 MG/2 ML VIAL IV PUSH ONE (05:45)
[2017-03-17] MEDS ORDERED: methylPREDNISolone SOD SUCC 125 MG/2 ML VIAL IVP ONE (05:45)
[2017-03-17] MEDS ORDERED: PANTOPRAZOLE SODIUM 40 MG VIAL IV PUSH ONE (05:45)
[2017-03-17 05:48] LABS: ANION GAP 6 MEQ/L (5-15); AST (GOT) 18 U/L (15-37); BICARBONATE 33.3 MEQ/L (21.0-32.0); BLOOD UREA NITROGEN 35 MG/DL (7-18); CHLORIDE 102 MEQ/L (98-107); GLOMERULAR FILTRATION RATE 52 ML/MIN (>89); MAGNESIUM 1.6 MG/DL (1.5-2.5); SODIUM (NA) 141 MEQ/L (136-145)
[2017-03-17 05:52] LABS: ALKALINE PHOSPHATASE 66 U/L (45-117); ALT (GPT) 40 U/L (10-53); TOTAL BILIRUBIN ADULT 0.4 MG/DL (0.2-1.0)
[2017-03-17 06:01] LABS: PLATELET ESTIMATE SMEAR LOW (NORMAL); PLATELET MORPHOLOGY NORMAL (NORMAL); SCAN/DIFF AUTO DIFF CONFIRMED
--- NOTE | 2017-03-17 06:06 | RADRPT ---
EXAM DATE/TIME: 03/17/2017 05:24 [facility] COMPARISON: CHEST SINGLE AP, March 11, 2017, 6:08. INDICATIONS : Shortness of breath. MEDICAL HISTORY : Hypertension. Chronic obstructive pulmonary disease. Emphysema. SURGICAL HISTORY : None. ENCOUNTER: Initial ACUITY: 1 day PAIN SCORE: 0/10 LOCATION: Bilateral chest FINDINGS: There is some parenchymal consolidation the left lung base. The right lung is grossly clear. The hear t size is stable. No definite pleural effusions or pulmonary edema. There is no evidence of pneumotho rax. CONCLUSION: Left lower lung infiltrate. Charles Zamora MD on March 17, 2017 at 6:04 Board Certified Radiologist. This report was verified electronically.
--- NOTE | 2017-03-17 06:06 | PD ---
HPI Chief Complaint: Abnormal Results Time Seen by Provider: 04:38 Travel History International Travel<30 days: No Contact w/Intl Traveler<30days: No Traveled to known affect area: No History of Present Illness HPI The patient is a 66 year old female who presents to the [facility] emergency department with a history of abdominal pain that reportedly is been getting gradually worse since onset in the hospital. The patient was just recently admitted to the hospital on March 08 and discharged yesterday at 4:30 PM after developing a COPD exacerbation with acute hypoxic/hypercarbic respiratory failure requiring intubation. The patient reports that after she was extubated she had central abdominal pain. She reports that she was able to "rub it out", however over time it is getting worse. She reports that she was not able to sleep this evening related to the pain. The patient reports that the pain is now a 10 out of 10 in severity. She reports having nausea but no vomiting. She reports that during her hospitalization which she was having daily soft stools times one, however this evening she had 1 episode of copious amounts of diarrhea. She reports that she last had a nebulizer treatment while she was in the hospital prior to discharge. She did not administer any nebulizer treatments through the evening. She has not gotten her prescriptions filled. She was discharged home on a steroid and Levaquin. The patient denies any known fever since discharge, neck pain, chest pain, worsening shortness of breath, urinary symptoms, or neurologic symptoms. [facility] Past Medical History Narrative Medical The patient's past medical history is significant for COPD with a recent exacerbation and intubation while in the hospital from March 08 through March 16 , history of lymphoma diagnosed 2 years ago confirmed by biopsy of lymph nodes in her abdomen, history of hypertension, anxiety disorder, chronic pain. Arthritis: Yes Anxiety: Yes Depression: Yes Cancer: Yes (lymphoma) COPD: Yes Endocrine: No GERD: Yes Headaches: Yes Hypertension: Yes Psychiatric: Yes Respiratory: Yes Sickle Cell Disease: No : 2 Para: 2 Past Surgical History Narrative Surgical The patient's past surgical history is significant for bilateral knee replacement, benign lumpectomy of the breast, mass resection from the ovary that was benign, cervical spine surgery 2, lymphoma biopsy, , tonsillectomy. AICD: No Appendectomy: Yes Arteriovenous Shunt: No Gynecologic Surgery: Yes (c section x2) Insulin Pump: No Joint Replacement: Yes (knee) Pacemaker: No Other Surgery: Yes Social History Alcohol Use: Yes (socially) Tobacco Use: No (quit when she was admitted on March 08, 2017) Substance Use: No Allergies-Medications (Allergen,Severity, Reaction): Coded Allergies: Bactrim (Verified Allergy, Unknown, Hives, 03/17/17) Hives and Rash Oxycodone (Verified Allergy, Unknown, Rash, 03/17/17) Penicillin (Verified Allergy, Unknown, Rash, 03/17/17) Rocephin (Verified Allergy, Unknown, Rash, 03/17/17) Sulfa (Verified Allergy, Unknown, 03/17/17) *MDRO Multi-Drug Resistant Organism (Verified Adverse Reaction, Unknown, ) MRSA PCR Screen POSITIVE - 03/08/2017 Uncoded Allergies: Codiene (Allergy, Unknown, 03/10/17) Rash Reported Meds & Prescriptions Reported Meds & Active Scripts Active Levaquin (Levofloxacin) 500 Mg Tab 500 Mg PO DAILY 3 Days Proventil Hfa 6.7 GM Inh (Albuterol Sulfate) 90 Mcg/Act Aer 2 Puff INH Q6H PRN Prednisone 5 Mg Tab 5 Mg PO DIRECTED 10 Days 40 mg po daily for two days then 30 mg po daily for two days then 20 mg po daily for two days then 10 mg po daily for two days then 5 mg po daily for two days then stop. Spiriva Handihaler (Tiotropium Inh) 18 Mcg Cap 18 Mcg INH DAILY Norvasc (Amlodipine Besylate) 5 Mg Tab 5 Mg PO DAILY 30 Days Oxygen tank (Oxygen) 1 Ea Tank 2 Liter CHRISTINE.CANULA CONTINUOUS Oxygen Concentrator Portable Gaseous 2 L/min via Nasal Cannula Continuous For 99 months Reported Zoloft (Sertraline HCl) 100 Mg Tab 100 Mg PO DAILY Omeprazole 20 Mg Tab 20 Mg PO DAILY Sertraline (Sertraline HCl) 50 Mg Tab 50 Mg PO DAILY Lorazepam 0.5 Mg Tab 0.5 Mg PO Q8H PRN Gabapentin 300 Mg Cap 300 Mg PO TID Review of Systems Except as stated in HPI: all other systems reviewed are Neg General / Constitutional: No: Fever Eyes: No: Visual changes HENT: No: Headaches Cardiovascular: Positive: Dyspnea on exertion, No: Chest Pain or Discomfort Respiratory: Positive: Cough, Shortness of Breath, Wheezing Gastrointestinal: Positive: Nausea, Diarrhea, Abdominal Pain, Changes in Bowel Habits, Indigestion, No: Vomiting, Hematemesis, Hematochezia, Constipation, Loss of Appetite Genitourinary: No: Dysuria Musculoskeletal: No: Pain Skin: No Rash Neurologic: No: Weakness, Focal Abnormalities, Change in Mentation, Slurred Speech, Sensory Disturbance Psychiatric: No: Depression Endocrine: No: Polydipsia Hematologic/Lymphatic: No: Easy Bruising Physical Exam Narrative General: The patient is a well-developed well-nourished female, uncomfortable appearing on arrival, initial blood pressure systolic in the 100. Head and Neck exam: Head is normocephalic atraumatic. Eyes: EOMI, pupils are equal round and reactive to light. Nose: Midline septum with pink mucous membranes Mouth: Dentition unremarkable. Moist mucus membranes. Posterior oropharynx is not erythematous. No tonsillar hypertrophy. Uvula midline. Airway patent. Neck: No palpable lymphadenopathy. No nuchal rigidity. No thyromegaly. Cardiovascular: Regular rate and rhythm without murmurs, gallops, or rubs. Lungs: Expiratory wheezes audible bilaterally, some accessory muscle use is noted. No paroxysmal abdominal breathing, conversational dyspnea, or tripoding. Abdomen: Soft, diffuse abdominal tenderness on palpation that is demarcated in the bilateral upper quadrants of the abdomen, less so in bilateral lower quadrants of the abdomen. The patient has circular areas of ecchymosis on her abdomen related to Lovenox injections. No rebound or rigidity. The patient has some voluntary guarding of the upper quadrants noted. Extremities: No clubbing, cyanosis, or edema. 2+ pulses in all 4 extremities. No calf tenderness on palpation. Back: No costovertebral angle tenderness to palpation. Neurologic Exam: Grossly nonfocal. Data Data Last Documented VS Vital Signs Date Time Temp Pulse Resp B/P Pulse Ox O2 Delivery O2 Flow Rate FiO2 03/17/17 07:36 96 Nasal Cannula 2.00 03/17/17 07:03 20 03/17/17 06:59 68 115/57 03/17/17 04:38 98.0 Orders Electrocardiogram (03/17/17 05:01) Complete Blood Count With Diff (03/17/17 05:01) Comprehensive Metabolic Panel (03/17/17 05:01) Prothrombin Time / Inr (Pt) (03/17/17 05:01) Act Partial Throm Time (Ptt) (03/17/17 05:01) C-Reactive Protein (Crp) (03/17/17 05:01) Lipase (03/17/17 05:01) Urinalysis - C+S If Indicated (03/17/17 05:01) Magnesium (Mg) (03/17/17 05:01) Enteric Path (Stool) (03/17/17 05:01) C Diff Toxin Pcr (03/17/17 05:01) Chest, Single Ap (03/17/17 05:01) Ct Abd/Pel W Iv Contrast(Rout) (03/17/17 05:01) Iv Access Insert/Monitor (03/17/17 05:01) Ecg Monitoring (03/17/17 05:01) Oximetry (03/17/17 05:01) Stool Wbc (Leukocytes) (03/17/17 05:01) Lactic Acid Sepsis Protocol (03/17/17 05:01) Sodium Chlor 0.9% 1000 Ml Inj (Ns 1000 M (03/17/17 05:15) Fentanyl Inj (Fentanyl Inj) (03/17/17 05:45) Ondansetron Inj (Zofran Inj) (03/17/17 05:45) Pantoprazole Inj (Protonix Inj) (03/17/17 05:45) Methylprednisolone So Succ Inj (Solumedr (03/17/17 05:45) Sodium Chloride 0.9% Flush (Ns Flush) (03/17/17 05:45) Fentanyl Inj (Fentanyl Inj) (03/17/17 05:50) Sodium Chlor 0.9% 1000 Ml Inj (Ns 1000 M (03/17/17 06:15) Sodium Chlor 0.9% 1000 Ml Inj (Ns 1000 M (03/17/17 06:30) Vancomycin Inj (Vancomycin Inj) (03/17/17 06:30) Aztreonam Inj (Azactam Inj) (03/17/17 06:30) Metronidazole 500 Mg Inj (Flagyl 500 Mg (03/17/17 06:30) Iohexol 350 Inj (Omnipaque 350 Inj) (03/17/17 06:33) Fentanyl Inj (Fentanyl Inj) (03/17/17 07:30) Albuterol-Ipratropium Neb (Duoneb Neb) (03/17/17 07:30) Admit Order (Ed Use Only) (03/17/17 07:46) Labs Laboratory Tests Test 03/17/17 03/17/17 03/17/17 05:10 05:15 06:05 White Blood Count 18.2 TH/MM3 Red Blood Count 5.28 MIL/MM3 Hemoglobin 15.9 GM/DL Hematocrit 49.0 % Mean Corpuscular Volume 92.8 FL Mean Corpuscular Hemoglobin 30.1 PG Mean Corpuscular Hemoglobin 32.5 % Concent Red Cell Distribution Width 15.2 % Platelet Count 344 TH/MM3 Mean Platelet Volume 8.7 FL Neutrophils (%) (Auto) 92.7 % Lymphocytes (%) (Auto) 6.0 % Monocytes (%) (Auto) 1.1 % Eosinophils (%) (Auto) 0.1 % Basophils (%) (Auto) 0.1 % Neutrophils # (Auto) 16.9 TH/MM3 Lymphocytes # (Auto) 1.1 TH/MM3 Monocytes # (Auto) 0.2 TH/MM3 Eosinophils # (Auto) 0.0 TH/MM3 Basophils # (Auto) 0.0 TH/MM3 CBC Comment AUTO DIFF Differential Comment AUTO DIFF CONFIRMED Platelet Estimate LOW Platelet Morphology Comment NORMAL Stool C. difficile Toxin (PCR) NEGATIVE Stl C. difficile Toxin PRESUMPTIVE Epiderm 027 NEGATIVE Sodium Level 141 MEQ/L Potassium Level 4.0 MEQ/L Chloride Level 102 MEQ/L Carbon Dioxide Level 33.3 MEQ/L Anion Gap 6 MEQ/L Blood Urea Nitrogen 35 MG/DL Creatinine 1.05 MG/DL Estimat Glomerular Filtration 52 ML/MIN Rate Random Glucose 85 MG/DL Calcium Level 8.5 MG/DL Magnesium Level 1.6 MG/DL Total Bilirubin 0.4 MG/DL Aspartate Amino Transf 18 U/L (AST/SGOT) Alanine Aminotransferase 40 U/L (ALT/SGPT) Alkaline Phosphatase 66 U/L C-Reactive Protein 1.30 MG/DL Total Protein 6.3 GM/DL Albumin 2.7 GM/DL Lipase 155 U/L Lactic Acid Level 2.2 mmol/L Prothrombin Time 11.7 SEC Prothromb Time International 1.1 RATIO Ratio Activated Partial 22.6 SEC Thromboplast Time MDM Medical Decision Making Medical Screen Exam Complete: Yes Emergency Medical Condition: Yes Medical Record Reviewed: Yes Interpretation(s) Last Impressions Chest X-Ray 03/17/17500 Signed Impressions: Service Date/Time: Friday, March 17, 2017 05:24 - CONCLUSION: Left lower lung infiltrate. Charles Zamora MD Abdomen/Pelvis CT 03/17/17500 Signed Impressions: Service Date/Time: Friday, March 17, 2017 06:32 - CONCLUSION: 1. There are several small droplets of free air in the upper abdomen characteristic of free intraperitoneal air. There is also some free fluid seen in the pelvis and adjacent to the liver and spleen. Intestinal perforation is the primary consideration. The location is unknown. 2. Wedge-shaped area of decreased density in the spleen suggestive of a splenic infarct. 3. 2 cm left adrenal mass. This most likely an adrenal adenoma. 4. Tiny 2 mm nonobstructing stone lower pole right kidney. 5. A few nonspecific mildly prominent inguinal lymph nodes are seen bilaterally. Charles Zamora MD Differential Diagnosis Ischemic bowel, versus perforated ulcer, versus acute pancreatitis, versus acute cholecystitis, versus biliary colic, versus colitis Narrative Course During the course of the patients emergency department visit, the patients history, examination, and differential diagnosis were reviewed with the patient. The patient had IV access obtained and blood work sent for analysis. A CT scan of the abdomen and pelvis was ordered. The patient was placed on a ekg monitor with oximetry and blood pressure monitoring. Stool studies were ordered including C. difficile toxin. The patient had an EKG done on arrival that shows a sinus rhythm with a short OR interval, heart rate 66, no acute ST segment elevation or depression, T waves are inverted in V1. The patient was initially provided a 30 mL per KG IV fluid bolus. The patient' s white blood cell count came back elevated at 18,000 with a left shift, the patient was started on Azactam, Flagyl, and vancomycin given her allergy history. The patient was given Zofran for pain and nausea, fentanyl for pain was ordered if the patient's blood pressure would tolerate. The patients laboratory studies were reviewed and remarkable for a white count of 18.2, hemoglobin 15.9, platelets 344 with 92.7 neutrophils, CMP is remarkable for CO2 33.3, BUN 35, creatinine 1.05, lactic acid 2.2, C-reactive protein 1.30, albumin 2.7., PT 11.7, INR 1.1, PTT 22.6. Radiology studies were reviewed and remarkable for a chest x-ray that shows a left lower lobe infiltrate, CT scan of the abdomen and pelvis reveals several small droplets of free air in the upper abdomen characteristic of free intraperitoneal air, some free fluid in the pelvis and adjacent to the liver and spleen, intestinal perforation as a primary consideration, location is unknown. The patient is also noted to have a wedge area of decreased density in the spleen suggestive of a splenic infarct. The patient's case was discussed further with . The patient is seen in consultation by him. The patient's case is discussed with Dr. Cruz, the shelter supervisor who did agree to admit the patient to the intensive care unit. The patients results were discussed with the patient, including the plan of care. I explained that further testing and/ or monitoring is indicated based on the patients history, examination, and/ or laboratory findings. Therefore, I recommended admission for additional evaluation. The patient expressed understanding and was agreeable with this plan. The patient was admitted to the hospital in critical condition and sent to a bed under the care of the shelter supervisor. Critical Care Narrative Aggregate critical care time was 35 minutes. Time to perform other separately billable procedures was not included in the critical care time. My time did not include minutes spent treating any other patients simultaneously or on activities that did not directly contribute to the patient's treatment. The services I provided to this patient were to treat and/or prevent clinically significant deterioration that could result in: Cardiovascular collapse, respiratory failure I provided critical care services requiring my management, as noted below: Chart data review, documentation time, medication orders and management, vital sign assessments/reviewing monitor data, ordering and reviewing lab tests, ordering and interpreting/reviewing x-rays and diagnostic studies, care of the patient and discussion of the patient with the admitting physicians. Sepsis Criteria SIRS Criteria (2 or more): RR > 20 or PaCO2 < 32, WBC > 34495, < 4000 or > 10 % bands Sepsis Criteria (SIRS+source): Infect source susp/known Severe Sepsis (+one): Lactate >2 Criteria Outcome: Meets SIRS criteria, Meets sepsis criteria, Meets severe sepsis criteria Physician Communication Physician Communication The patient's case was discussed with Dr. Quiñonez at 7:10 AM. He will see the patient in consultation. A call was placed out to the shelter supervisor regarding this patient's case. I spoke to Dr. Gonzalez initially. He requested that I call Dr. Cruz who is covering [place] [facility] [place], as he reports that he is covering for the [facility] Cruz then called back and the patient's case was discussed with him. He did agree to admit the patient for further evaluation treatment at this time. Diagnosis Primary Impression: Abdominal pain Admitting Information Admitting Physician Requests: Admit Laure Ribeiro MD Mar 17, 2017 06:06
[2017-03-17 06:29] LABS: APTT (PATIENT) 22.6 SEC (24.3-30.1); INTERNATIONAL NORMALIZED RATIO 1.1 RATIO; PROTHROMBIN TIME - PATIENT 11.7 SEC (9.8-11.6)
[2017-03-17] MEDS ORDERED: AZTREONAM INJ 2,000 MG in SODIUM CHLORIDE 0.9% INJ 100 ML IV SCH (06:30)
[2017-03-17] MEDS ORDERED: VANCOMYCIN INJ 1,000 MG in SODIUM CHLOR 0.9% 250 ML INJ 250 ML IV SCH (06:30)
[2017-03-17] MEDS ORDERED: metroNIDAZOLE 500 MG INJ 100 ML IV SCH (06:30)
[2017-03-17] MEDS ORDERED: IOHEXOL 350 MG/ML 10 ML VIAL (for RAD DIAG) IV ONE (06:33)
--- NOTE | 2017-03-17 06:52 | RADRPT ---
EXAM DATE/TIME: 03/17/2017 06:32 [facility] COMPARISON: No previous studies available for comparison. INDICATIONS : Diffuse abdominal pain. IV CONTRAST: 65 cc Omnipaque 350 (iohexol) IV ORAL CONTRAST: No oral contrast ingested. RADIATION DOSE: 30.87 CTDIvol (mGy) MEDICAL HISTORY : Hypertension. Chronic obstructive pulmonary disease. Gastroesophageal reflux disease.Lymphoma. SURGICAL HISTORY : section. Appendectomy. ENCOUNTER: Initial ACUITY: 1 day PAIN SCALE: 8/10 LOCATION: Bilateral abdomen TECHNIQUE: Volumetric scanning of the abdomen and pelvis was performed. Using automated exposure control and ad justment of the mA and/or kV according to patient size, radiation dose was kept as low as reasonably achievable to obtain optimal diagnostic quality images. FINDINGS: LOWER LUNGS: There is atelectasis in the right middle lobe. Otherwise, the lung bases are clear. LIVER: Homogeneous density without lesion. There is no dilation of the biliary tree. No calcified gallston es. There is a trace of ascites adjacent to the liver. SPLEEN: Wedge-shaped decreased density in the spleen suggestive of an infarct. PANCREAS: Within normal limits. KIDNEYS: Normal in size and shape. There is no mass or hydronephrosis. Questionable tiny 2 mm stone lower shan e right kidney. ADRENAL GLANDS: There is a 2 cm x 1.5 cm left adrenal nodule. The right adrenal gland is unremarkable. VASCULAR: There is no aortic aneurysm. BOWEL/MESENTERY: There are multiple tiny air droplets in the peritoneal cavity in the upper abdomen indicating free in traperitoneal air. There is free fluid in the pelvis as well as a small amount of fluid around the li denise and spleen. No abnormal dilatation of large or small bowel is seen. There is stool in the colon. No definite inflammatory changes are demonstrated. ABDOMINAL WALL: Within normal limits. RETROPERITONEUM: There is no lymphadenopathy. BLADDER: No wall thickening or mass. REPRODUCTIVE: Within normal limits. INGUINAL: A few nonspecific lymph nodes are seen bilaterally. No evidence of inguinal hernia. MUSCULOSKELETAL: Within normal limits for patient age. Primary degenerative changes. CONCLUSION: 1. There are several small droplets of free air in the upper abdomen characteristic of free intraperi toneal air. There is also some free fluid seen in the pelvis and adjacent to the liver and spleen. In testinal perforation is the primary consideration. The location is unknown. 2. Wedge-shaped area of decreased density in the spleen suggestive of a splenic infarct. 3. 2 cm left adrenal mass. This most likely an adrenal adenoma. 4. Tiny 2 mm nonobstructing stone lower pole right kidney. 5. A few nonspecific mildly prominent inguinal lymph nodes are seen bilaterally. Charles Zamora MD on March 17, 2017 at 6:42 Board Certified Radiologist. This report was verified electronically.
[2017-03-17 07:24] LABS: LACTIC ACID GHOST NOT REPORTABLE
[2017-03-17] MEDS ORDERED: RESP: ALBUTEROL 2.5 MG/IPRATROPIUM 0.5 MG NEB (SCH) NEB ONE (07:30)
[2017-03-17] MEDS ORDERED: VANCOMYCIN INJ 1,000 MG in SODIUM CHLOR 0.9% 250 ML INJ 250 ML IV ONE (08:00)
[2017-03-17] MEDS ORDERED: MISCELLANEOUS NURSING INFORMATION XX SCH (08:00)
[2017-03-17] MEDS ORDERED: CHLORHEXIDINE GLUCONATE 2 % 1 PACK (2 CLOTHS) TOP PRN (08:00)
[2017-03-17] MEDS ORDERED: Vancomycin Consult Pharmacy 1 EA OTHER SCH (08:15)
[2017-03-17] MEDS: AZTREONAM INJ 2,000 MG in SODIUM CHLORIDE 0.9% INJ 100 ML IV SCH ×2 (09:05→15:55)
[2017-03-17] MEDS: SODIUM CHLOR 0.9% 1000 ML INJ 1,000 ML IV SCH ×2 (09:06→14:09)
--- NOTE | 2017-03-17 09:21 | HHI.HP ---
HPI Service Critical Care Medicine Primary Care Physician Unknown Admission Diagnosis Bowel Perforation, Sepsis Diagnosis: (1) Severe sepsis Diagnosis: Principal (2) Peritonitis Diagnosis: Principal (3) Perforated viscus Diagnosis: Principal (4) Abdominal pain Diagnosis: Principal (5) COPD exacerbation Diagnosis: Principal (6) Acute kidney injury Diagnosis: Principal (7) Pneumonia Diagnosis: Principal (8) Respiratory failure Chief Complaint: Abdominal pain nausea vomiting Viscus perforation Travel History International Travel<30 Days: No Contact w/Intl Traveler <30 Da: No Traveled to Known Affected Are: No Sepsis Criteria SIRS Criteria (2 or more): RR > 20 or PaCO2 < 32, WBC > 48346, < 4000 or > 10 % bands Sepsis Criteria (SIRS+source): Infect source susp/known Severe Sepsis (+one): Lactate >2 Criteria Outcome: Meets severe sepsis criteria History of Present Illness The patient is a 66 year old female with past medical history significant for COPD, anxiety disorder, chronic pain, hypertension was just recently discharged from hospital after admitted for almost a days for COPD exacerbation with pneumonia from emesis and H. influenzae. Patient was admitted from 03/08/17- . She presented today with a history of abdominal pain that reportedly is been getting gradually worse since onset (started while in the hospital). The patient reports that the pain was 10 out of 10 in severity, in the ER. She was discharged home yesterday on steroid and Levaquin. The patient was given 30 mL per KG IV fluid bolus. WBC count came back elevated at 18,200 with a left shift , the patient was started on Azactam, Flagyl, and vancomycin. CMP is remarkable for CO2 33.3, BUN 35, creatinine 1.05, lactic acid 2.2, Chest x-ray that shows a left lower lobe infiltrate, CT scan of the abdomen and pelvis revealed several small droplets of free air in the upper abdomen characteristic of free intraperitoneal air, some free fluid in the pelvis and adjacent to the liver and spleen, intestinal perforation as a primary consideration, location is unknown. The patient is also noted to have a wedge area of decreased density in the spleen suggestive of a splenic infarct. Critical care medicine was consulted for admission for acute peritonitis and severe sepsis. Additional history shows that patient was taking 800 mg Motrin several times a day for several years. This makes a perforated gastric ulcer possibility according to surgeon Dr. Garcia. Patient will be conservative management with IV hydration and broad-spectrum antibiotics. If any clinical deterioration patient will have to go for OR for laparotomy Review of Systems ROS Limitations: Other (as per HPI) Past Family Social History Allergies: Coded Allergies: Bactrim (Verified Allergy, Unknown, Hives, 03/17/17) Hives and Rash Oxycodone (Verified Allergy, Unknown, Rash, 03/17/17) Penicillin (Verified Allergy, Unknown, Rash, 03/17/17) Rocephin (Verified Allergy, Unknown, Rash, 03/17/17) Sulfa (Verified Allergy, Unknown, 03/17/17) *MDRO Multi-Drug Resistant Organism (Verified Adverse Reaction, Unknown, ) MRSA PCR Screen POSITIVE - 03/08/2017 Uncoded Allergies: Codiene (Allergy, Unknown, 03/10/17) Rash Past Medical History COPD with a recent exacerbation and intubation hospitalized from March 08 through March 16 History of lymphoma diagnosed 2 years ago Hypertension Anxiety disorder Chronic pain Past Surgical History Bilateral knee replacement Benign lumpectomy of the breast Mass resection from the ovary that was benign Cervical spine surgery 2, Biopsy for diagnosis of Lymphoma biopsy Tonsillectomy. Reported Medications Levaquin (Levofloxacin) 500 Mg Tab 500 Mg PO DAILY 3 Days Proventil Hfa 6.7 GM Inh (Albuterol Sulfate) 90 Mcg/Act Aer 2 Puff INH Q6H PRN Prednisone 5 Mg Tab 5 Mg PO DIRECTED 10 Days 40 mg po daily for two days then 30 mg po daily for two days then 20 mg po daily for two days then 10 mg po daily for two days then 5 mg po daily for two days then stop. Spiriva Handihaler (Tiotropium Inh) 18 Mcg Cap 18 Mcg INH DAILY Norvasc (Amlodipine Besylate) 5 Mg Tab 5 Mg PO DAILY 30 Days Oxygen tank (Oxygen) 1 Ea Tank 2 Liter CHRISTINE.CANSanovas CONTINUOUS Oxygen Concentrator Portable Gaseous 2 L/min via Nasal Cannula Continuous For 99 months Zoloft (Sertraline HCl) 100 Mg Tab 100 Mg PO DAILY Omeprazole 20 Mg Tab 20 Mg PO DAILY Sertraline (Sertraline HCl) 50 Mg Tab 50 Mg PO DAILY Lorazepam 0.5 Mg Tab 0.5 Mg PO Q8H PRN Gabapentin 300 Mg Cap 300 Mg PO TID Motrin 800-900 mg TID PRN for several years Active Ordered Medications Reviewed Family History Reviewed and noncontributory to this admission Social History Quit smoking 1 week ago Occasional alcohol Physical Exam Vital Signs Vital Signs Date Time Temp Pulse Resp B/P Pulse Ox O2 Delivery O2 Flow Rate FiO2 03/17/17 08:56 20 03/17/17 07:36 96 Nasal Cannula 2.00 03/17/17 07:03 20 03/17/17 06:59 68 22 115/57 96 Nasal Cannula 3 03/17/17 06:10 65 22 96/50 96 Nasal Cannula 3 03/17/17 06:05 65 20 70/43 96 Nasal Cannula 3 03/17/17 06:00 64 20 81/43 97 Nasal Cannula 3 03/17/17 05:44 64 20 98/50 97 Nasal Cannula 3 03/17/17 05:25 74 22 95/50 96 Nasal Cannula 3 03/17/17 04:55 70 22 102/58 96 Nasal Cannula 3 03/17/17 04:41 66 30 86 Nasal Cannula 2 03/17/17 04:38 98.0 66 35 91/51 86 Physical Exam General: The patient is a well-developed well-nourished female, mild distress from abdominal pain Head and Neck exam: Head is normocephalic atraumatic. Eyes: Pupils are equal round and reactive to light. Nose: Midline septum with dry mucous membranes Mouth: Uvula midline. Airway patent. Neck: No palpable lymphadenopathy. No nuchal rigidity. No thyromegaly. Cardiovascular: Regular rate and rhythm without murmurs, gallops, or rubs. Lungs: Expiratory wheezes bilaterally, some accessory muscle use is noted. Abdomen:Soft, diffuse severe abdominal tenderness on palpation. Multiple;e areas of ecchymosis from Lovenox injections. No guarding, rebound, or rigidity. Extremities: No clubbing, cyanosis, or edema. 2+ pulses in all 4 extremities. No calf tenderness on palpation. Neurologic Exam: Awake oriented. No focal deficits Laboratory Laboratory Tests Test 03/17/17 03/17/17 03/17/17 03/17/17 05:10 05:15 06:05 08:40 White Blood Count 18.2 Red Blood Count 5.28 Hemoglobin 15.9 Hematocrit 49.0 Mean Corpuscular Volume 92.8 Mean Corpuscular Hemoglobin 30.1 Mean Corpuscular Hemoglobin 32.5 Concent Red Cell Distribution Width 15.2 Platelet Count 344 Mean Platelet Volume 8.7 Neutrophils (%) (Auto) 92.7 Lymphocytes (%) (Auto) 6.0 Monocytes (%) (Auto) 1.1 Eosinophils (%) (Auto) 0.1 Basophils (%) (Auto) 0.1 Neutrophils # (Auto) 16.9 Lymphocytes # (Auto) 1.1 Monocytes # (Auto) 0.2 Eosinophils # (Auto) 0.0 Basophils # (Auto) 0.0 CBC Comment AUTO DIFF Differential Comment AUTO DIFF CONFIRMED Platelet Estimate LOW Platelet Morphology Comment NORMAL Sodium Level 141 Potassium Level 4.0 Chloride Level 102 Carbon Dioxide Level 33.3 Anion Gap 6 Blood Urea Nitrogen 35 Creatinine 1.05 Estimat Glomerular Filtration 52 Rate Random Glucose 85 Calcium Level 8.5 Magnesium Level 1.6 Total Bilirubin 0.4 Aspartate Amino Transf 18 (AST/SGOT) Alanine Aminotransferase 40 (ALT/SGPT) Alkaline Phosphatase 66 C-Reactive Protein 1.30 Total Protein 6.3 Albumin 2.7 Lipase 155 Lactic Acid Level 2.2 1.4 Prothrombin Time 11.7 Prothromb Time International 1.1 Ratio Activated Partial 22.6 Thromboplast Time Date/Time Procedure Status Source Growth 03/17/17 05:10 Stool Pus (RICHELLE) Received Stool Stool Pending 03/17/17 05:10 Received Stool Stool Pending Result Diagram: 03/17/17 0510 03/17/17 0510 Imaging Chest x-ray that shows a left lower lobe infiltrate CT scan of the abdomen and pelvis reveals several small droplets of free air in the upper abdomen characteristic of free intraperitoneal air, some free fluid in the pelvis and adjacent to the liver and spleen, intestinal perforation as a primary consideration, location is unknown. The patient is also noted to have a wedge area of decreased density in the spleen suggestive of a splenic infarct. Assessment and Plan Assessment and Plan Assessment: This is a 69-year-old female with history of COPD admitted to [place] 03/08-03/16 initially intubated for acute COPD exacerbation, now presenting with severe sepsis and probable intestinal perforation. She is very critically ill at this time, General surgery had been consulted, Dr. Quiñonez. We are treating her for peritonitis and sepsis from intestinal perforation Plan: NEURO: Anxiety Chronic pain -- Hold antidepressants while nothing by mouth, hold Neurontin -- IV morphine for pain control Resp: Acute COPD Exacerbation HCAP/LLL pneumonia -- Recently admitted for COPD exacerbation, and pneumonia with MSSA and Haemophilus influenza (03/08 to 03/16) -- Wean fio2 for goal spo2 > 88-90% -- Check ABG -- HOB at 30 degrees -- solumedrol 125 mg IV x 1 and 60 q8. Patient was on tapering dose of prednisone -- DuoNebs q4h and q2h prn -- CXR in the AM -- sputum culture repeat CVS: Transient hypotension Lactic acidosis Peritonitis secondary to perforated viscus -- Monitor HR and BP closely -- IVF NS 30 ml per kg bolus and 125 ml per hour -- Trend lactic acid GI: Probable gasrtic perforation with peritonitis Splenic infarct -- Nothing by mouth, IV Protonix 40 mg every 12 -- Gen. surgery consulted Dr. Garcia -- Broad-spectrum antibiotics -- Medical management and ex lap if not improving : Acute kidney insufficiency -- Most likely secondary to dehydration and sepsis -- IVF as above. Dimas for strict I/O ID: Severe sepsis Peritonitis secondary to perforated viscus Left lower lobe pneumonia/HCAP -- Check sputum and blood cultures -- Empirin antibiotics as active Flagyl and vancomycin started 03/17/17 -- Follow-up on cultures HEME -- Monitor cbc, coags -- Acidosis secondary to sepsis ENDO: -- Electrolyte replacement per protocol PROPH: --SCDs, PPI for prophylaxis. Hold off chemical DVT prophylaxis, until surgical plans are defined Overall impression: Critically ill with severe sepsis, intestinal perforation bronchospasm and COPD exacerbation Critical care 80 mins Code Status Full Discussed Condition With Clark Garcia and Dr. Ribeiro Problem Qualifiers (1) Abdominal pain: Qualified Code: R10.9 - Abdominal pain, unspecified location (2) Pneumonia: Qualified Code: J18.9 - Pneumonia due to infectious organism, unspecified laterality, unspecified part of lung Sarah Cruz MD Mar 17, 2017 09:21
[2017-03-17] MEDS: MORPHINE SULFATE 4 MG/ML INJ IV PRN ×3 (10:10→18:59)
[2017-03-17 10:28] LABS: BACTERIA, URINE FEW /hpf; BLOOD, URINE MOD (NEG); GLUCOSE,URINE NEG (NEG); HYALINE CAST, URINE 3 /lpf (RARE); KETONE, URINE NEG (NEG); MUCUS URINE FEW /lpf (OCC); NITRITE,URINE NEG (NEG); URINE COLOR YELLOW (YELLW/STRAW)
[2017-03-17] MEDS ORDERED: methylPREDNISolone SOD SUCC 125 MG/2 ML VIAL IV PUSH ONE (10:30)
[2017-03-17] MEDS: FLUCONAZOLE 400 MG PREMIX BAG 200 ML IV SCH (10:31)
[2017-03-17] MEDS: PANTOPRAZOLE SODIUM 40 MG VIAL IV SCH ×2 (10:31→20:20)
[2017-03-17 10:33] LABS: COMMENT (UR) CULTURE INDICATED; CULTURE IF INDICATED CULTURE INDICATED
[2017-03-17 10:50] LABS: BLOOD GAS BASE EXCESS 0.3 mmol/L (-2-2); BLOOD GAS CARBOXYHEMOGLOBIN 1.4 % (0-4); BLOOD GAS HCO3 25 mmol/L (22-26); BLOOD GAS METHEMOGLOBIN 0.6 % (0-2); BLOOD GAS O2 HGB SATURATION 89 % (90-100); BLOOD GAS OXYGEN CONTENT 15.9 Vol % (12.0-20.0); BLOOD GAS PCO2 46 mmHg (38-42); BLOOD GAS PO2 65 mmHG (61-120); BLOOD GAS TOTAL HGB 12.7 G/DL (12.0-16.0); TEMP CORR TO 98.6
[2017-03-17 10:51] LABS: CRITICAL VALUE YES; DRAW SITE RT RADIAL; LITER FLOW 3 L/M; NUMBER OF ARTERIAL PUNCTURES 1; OXYGEN DEVICE NASAL CANNULA; STAT YES; ULNAR PULSE PRESENT
[2017-03-17 12:59] LABS: C. DIFF EPI 027 PRESUMPTIVE NEGATIVE (NEGATIVE); C. DIFF TOXIN PCR NEGATIVE (NEGATIVE)
[2017-03-17] MEDS: methylPREDNISolone SOD SUCC 125 MG/2 ML VIAL IV PUSH SCH ×2 (14:08→20:20)
[2017-03-17] MEDS: metroNIDAZOLE 500 MG INJ 100 ML IV SCH ×2 (14:09→23:34)
--- NOTE | 2017-03-17 14:23 | EKG ---
Date Performed: 03/17/2017 Time Performed: 04:45:25 PTAGE: 66 years EKG: Sinus rhythm WITH SHORT SC INTERVAL POSSIBLE LEFT ATRIAL ENLARGEMENT PATTERN CONSISTENT WITH PULMONARY DISEASE PO SSIBLE RIGHT VENTRICULAR HYPERTROPHY Compared to prior tracing no significant change ABNORMAL ECG PREVIOUS TRACING : 03/13/2017 20.19 DOCTOR: Mike Delatorre Interpretating Date/Time 03/17/2017 14:21:41
[2017-03-17] MEDS ORDERED: DEXTROSE 50% IN WATER 50 ML VIAL(D50) IV PUSH PRN (15:15)
[2017-03-17] MEDS ORDERED: GLUCAGON 1 MG/ML VIAL OTHER PRN (15:15)
[2017-03-17] MEDS ORDERED: LOW DOSE INSULIN NOVOLOG SUPPLEMENTAL SCALE SQ SCH (16:00)
[2017-03-17] MEDS: RESP: ALBUTEROL 2.5 MG/IPRATROPIUM 0.5 MG NEB (SCH) NEB ×2 (16:00→21:36)
--- NOTE | 2017-03-17 17:52 | PD.CONS ---
cc: Ever Garcia MD [facility] Service CONSULTATION NOTE FOR SURGICAL ATTENDING, DR. EVER GARCIA General Surgery Consult Requested By Dr. Ribeiro Reason for Consult Abdominal pain; Free air visualized on CT scan Primary Care Physician Unknown History of Present Illness This is a 66-year-old female with a past medical history of COPD and hypertension. The patient was discharged from [facility] yesterday after an admission for exacerbation of COPD with intubation and mechanical ventilation. The patient states she's had abdominal pain "for a while" but if she "rubbed on her belly" it relieved the pain. She went home and had salad with potatoes for dinner. She also had a handful of M&Ms. Other people in the household had the same meal with no adverse effects. Around midnight she developed severe onset of abdominal pain. Rates the pain 10 out of 10. She does not get relief from "rubbing her belly". She was brought back to the emergency room for evaluation of increased and intensified abdominal pain. A CT scan was completed and showed small droplets of free air in the upper abdomen and pelvis. The CT scan also shows a wedge-shaped area of decreased density in the spleen which is suggestive of a splenic infarction. A General Surgery consultation has been requested for evaluation of abdominal pain with severe onset and CT scan results. On interview of the patient she admits to taking 900 mg several times daily for severe arthritis. Review of Systems Constitutional: DENIES: Chills, Dizziness Endocrine: DENIES: Polydipsia, Polyuria, Polyphagia Eyes: DENIES: Blurred vision, Diplopia Ears, nose, mouth, throat: DENIES: Tinnitus, Vertigo Respiratory: COMPLAINS OF: Cough, Wheezing, Shortness of breath Cardiovascular: DENIES: Chest pain, Palpitations, Syncope Gastrointestinal: COMPLAINS OF: Abdominal pain, Nausea Genitourinary: DENIES: Urinary frequency, Urinary incontinence Musculoskeletal: DENIES: Joint pain Integumentary: DENIES: Abnormal pigmentation Hematologic/lymphatic: DENIES: Bruising Immunologic/allergic: DENIES: Eczema Neurologic: DENIES: Abnormal gait Psychiatric: DENIES: Confusion, Mood changes, Depression Past Family Social History Past Medical History Hypertension COPD Severe arthritis Past Surgical History Possible laparoscopic appendectomy Tonsillectomy Reported Medications See chart Allergies: Coded Allergies: Bactrim (Verified Allergy, Unknown, Hives, 03/17/17) Hives and Rash Oxycodone (Verified Allergy, Unknown, Rash, 03/17/17) Penicillin (Verified Allergy, Unknown, Rash, 03/17/17) Rocephin (Verified Allergy, Unknown, Rash, 03/17/17) Sulfa (Verified Allergy, Unknown, 03/17/17) *MDRO Multi-Drug Resistant Organism (Verified Adverse Reaction, Unknown, ) MRSA PCR Screen POSITIVE - 03/08/2017 Uncoded Allergies: Codiene (Allergy, Unknown, 03/10/17) Rash Active Ordered Medications Current Medications Medications (Trade) Dose Ordered Sig/Laura Route Start Time Stop Time Status Last Admin Sodium Chloride 2 ml 2 ml UNSCH PRN IVF 03/17/17 05:45 (NS 1000 ml Inj) 1,000 ml @ 150 mls/hr Q6H40M IV 03/17/17 08:00 03/17/17 14:09 (Morphine Inj) 2 mg Q2H PRN IV 03/17/17 08:00 03/17/17 14:45 (Protonix Inj) 40 mg Q12H IV 03/17/17 09:00 03/17/17 10:31 Miscellaneous Information 1 Q361D XX 03/17/17 08:00 (Chlorhexidine 2% Cloth) 3 pack Taper DAILY@04 TOP 03/18/17 04:00 03/14/18 03:59 Chlorhexidine Gluconate 3 pack 3 pack UNSCH PRN TOP 03/17/17 08:00 Aztreonam 2000 mg/ Sodium Chloride 100 ml @ 200 mls/hr Q8H IV 03/17/17 08:00 03/17/17 15:55 Metronidazole 100 ml @ 100 mls/hr Q8H IV 03/17/17 15:00 03/17/17 14:09 Fluconazole/ Sodium Chloride 200 ml @ 100 mls/hr Q24H IV 03/17/17 09:00 03/17/17 10:31 (Vancomycin Consult Pharmacy) ml @ 0 mls/hr UNSCH OTHER 03/17/17 08:15 (Spiriva Inh) 18 mcg DAILY INH 03/18/17 09:00 Methylprednisolone Sodium Succinate 60 mg 60 mg Q8HR IV PUSH 03/17/17 14:00 03/17/17 14:08 (Vancomycin Inj/ NS 500 ml Inj) 515 ml @ 257.5 mls/ hr Q24H IV 03/18/17 00:00 Miscellaneous Information SPECIFIC LAB TO BE KOBI... ONCE ONCE .XX 03/20/17 23:45 03/20/17 23:46 (D50w (Vial) Inj) 25 ml UNSCH PRN IV PUSH 03/17/17 15:15 (Glucagon Inj) 1 mg UNSCH PRN OTHER 03/17/17 15:15 (NovoLOG SUPPLEMENTAL SCALE) 1 Q6HR SQ 03/17/17 18:00 Family History Noncontributory Social History Positive tobacco use prior to admission last week; last cigarette on March 08 Denies EtOH use Denies illicit drug use Physical Exam Vital Signs Vital Signs Date Time Temp Pulse Resp B/P Pulse Ox O2 Delivery O2 Flow Rate FiO2 03/17/17 16:00 62 4/24/17 16:00 98.6 64 25 102/54 91 03/17/17 14:00 66 03/17/17 13:30 89 Nasal Cannula 4.00 03/17/17 13:25 65 03/17/17 13:00 98.0 62 23 108/52 90 03/17/17 13:00 68 24 105/59 93 3 03/17/17 11:00 69 22 110/52 97 Nasal Cannula 3 03/17/17 10:56 89 Nasal Cannula 4.00 03/17/17 10:19 20 03/17/17 10:00 78 22 102/59 98 Nasal Cannula 3 03/17/17 09:00 74 24 112/55 98 Nasal Cannula 3 03/17/17 08:56 20 03/17/17 08:00 98.3 76 24 115/57 98 Nasal Cannula 3 03/17/17 07:36 96 Nasal Cannula 2.00 03/17/17 07:03 20 03/17/17 06:59 68 22 115/57 96 Nasal Cannula 3 03/17/17 06:10 65 22 96/50 96 Nasal Cannula 3 03/17/17 06:05 65 20 70/43 96 Nasal Cannula 3 03/17/17 06:00 64 20 81/43 97 Nasal Cannula 3 03/17/17 05:44 64 20 98/50 97 Nasal Cannula 3 03/17/17 05:25 74 22 95/50 96 Nasal Cannula 3 03/17/17 04:55 70 22 102/58 96 Nasal Cannula 3 03/17/17 04:41 66 30 86 Nasal Cannula 2 03/17/17 04:38 98.0 66 35 91/51 86 Physical Exam GENERAL: white female resting in bed with shortness of breath. SKIN: Warm and dry. HEAD: Atraumatic. Normocephalic. EYES: Pupils equal and round. No scleral icterus. No injection or drainage. ENT: No nasal bleeding or discharge. Mucous membranes pink and moist. NECK: Trachea midline. CARDIOVASCULAR: Regular rate and rhythm. RESPIRATORY: . Wheezing bilaterally. GASTROINTESTINAL: Abdomen distended; overall tender with and without palpation; multiple bruises on abdomen from Lovenox ; multiple healed scars on lower abdomen. MUSCULOSKELETAL: Extremities without clubbing, cyanosis, or edema. No obvious deformities. NEUROLOGICAL: Awake and alert. No obvious cranial nerve deficits. Motor grossly within normal limits. Five out of 5 muscle strength in the arms and legs. Normal speech. PSYCHIATRIC: Appropriate mood and affect; insight and judgment normal. Laboratory Laboratory Tests Test 03/17/17 03/17/17 03/17/17 03/17/17 05:10 05:15 06:05 08:40 White Blood Count 18.2 Red Blood Count 5.28 Hemoglobin 15.9 Hematocrit 49.0 Mean Corpuscular Volume 92.8 Mean Corpuscular Hemoglobin 30.1 Mean Corpuscular Hemoglobin 32.5 Concent Red Cell Distribution Width 15.2 Platelet Count 344 Mean Platelet Volume 8.7 Neutrophils (%) (Auto) 92.7 Lymphocytes (%) (Auto) 6.0 Monocytes (%) (Auto) 1.1 Eosinophils (%) (Auto) 0.1 Basophils (%) (Auto) 0.1 Neutrophils # (Auto) 16.9 Lymphocytes # (Auto) 1.1 Monocytes # (Auto) 0.2 Eosinophils # (Auto) 0.0 Basophils # (Auto) 0.0 CBC Comment AUTO DIFF Differential Comment AUTO DIFF CONFIRMED Platelet Estimate LOW Platelet Morphology Comment NORMAL Stool C. difficile Toxin (PCR) NEGATIVE Stl C. difficile Toxin PRESUMPTIVE Epiderm 027 NEGATIVE Sodium Level 141 Potassium Level 4.0 Chloride Level 102 Carbon Dioxide Level 33.3 Anion Gap 6 Blood Urea Nitrogen 35 Creatinine 1.05 Estimat Glomerular Filtration 52 Rate Random Glucose 85 Calcium Level 8.5 Magnesium Level 1.6 Total Bilirubin 0.4 Aspartate Amino Transf 18 (AST/SGOT) Alanine Aminotransferase 40 (ALT/SGPT) Alkaline Phosphatase 66 C-Reactive Protein 1.30 Total Protein 6.3 Albumin 2.7 Lipase 155 Lactic Acid Level 2.2 1.4 Prothrombin Time 11.7 Prothromb Time International 1.1 Ratio Activated Partial 22.6 Thromboplast Time Test 03/17/17 03/17/17 10:00 10:40 Urine Color YELLOW Urine Turbidity HAZY Urine pH 6.0 Urine Specific [place] GREATER THAN 1.050 Urine Protein 30 Urine Glucose (UA) NEG Urine Ketones NEG Urine Occult Blood MOD Urine Nitrite NEG Urine Bilirubin NEG Urine Urobilinogen LESS THAN 2.0 Urine Leukocyte Esterase MOD Urine RBC 156 Urine WBC 61 Urine WBC Clumps RARE Urine Bacteria FEW Urine Hyaline Casts 3 Urine Mucus FEW Microscopic Urinalysis Comment CULTURE INDICATED Blood Gas Puncture Site RT RADIAL Blood Gas Patient Temperature 98.6 Blood Gas HCO3 25 Blood Gas Base Excess 0.3 Blood Gas Oxygen Saturation 89 Arterial Blood pH 7.36 Arterial Blood Partial 46 Pressure CO2 Arterial Blood Partial 65 Pressure O2 Arterial Blood Oxygen Content 15.9 Arterial Blood 1.4 Carboxyhemoglobin Arterial Blood Methemoglobin 0.6 Blood Gas Hemoglobin 12.7 Oxygen Delivery Device NASAL CANNULA Blood Gas Liter Flow 3 Date/Time Procedure Status Source Growth 03/17/17 10:55 Aerobic Blood Culture Received Blood Peripheral Pending 03/17/17 10:55 Anaerobic Blood Culture Received Blood Peripheral Pending 03/17/17 10:00 Urine Culture Received Urine Clean Catch Pending 03/17/17 05:10 Stool Pus (RICHELLE) Received Stool Stool Pending 03/17/17 05:10 Received Stool Stool Pending Result Diagram: 03/17/17 0503/17/17509 Imaging Last 48 hours Impressions Chest X-Ray 03/17/17 0501 Signed Impressions: Service Date/Time: Friday, March 17, 2017 05:24 - CONCLUSION: Left lower lung infiltrate. Charles Zamora MD Abdomen/Pelvis CT 03/17/171 Signed Impressions: Service Date/Time: Friday, March 17, 2017 06:32 - CONCLUSION: 1. There are several small droplets of free air in the upper abdomen characteristic of free intraperitoneal air. There is also some free fluid seen in the pelvis and adjacent to the liver and spleen. Intestinal perforation is the primary consideration. The location is unknown. 2. Wedge-shaped area of decreased density in the spleen suggestive of a splenic infarct. 3. 2 cm left adrenal mass. This most likely an adrenal adenoma. 4. Tiny 2 mm nonobstructing stone lower pole right kidney. 5. A few nonspecific mildly prominent inguinal lymph nodes are seen bilaterally. Charles Zamora MD Assessment and Plan Problem List: (1) Elevated WBC count (2) Abdominal pain (3) Perforated ulcer (4) Ibuprofen adverse reaction (5) Peritonitis (6) Pneumonia (7) COPD exacerbation (8) Acute kidney injury (9) Respiratory failure Assessment and Plan 66-year-old female with abdominal pain; CT scan shows intraperitoneal air -NPO -Insert NG tube to low intermittent wall suction -Continue antibiotics-vancomycin, Flagyl, Diflucan -Continue IV fluids -Continue nebulizer treatments -KUB in the morning -Labs in the morning -Will follow exam, lab and imaging in the morning -Will attempt nonoperative treatment at this time as patient is not optimized for surgery due to respiratory status -Discussed with Dr. Garcia and Dr. Cruz of [facility] Code Status full Discussed Condition With Patient son Dr. Jose Cruz Attending Statement CONSULTATION NOTE FOR SURGICAL ATTENDING, DR. EVER GARCIA Patient seen in the emergency room Patient's son at bedside Patient says since being admitted to the hospital and IV fluids antibiotics she feels a little better Her breathing is improved Her abdominal pain is improved Discussed with Dr. Cruz civil engineering design draftsperson Plan admission NG tube antibiotics including antifungals reassess during the admission Patient was not too excited about undergoing surgical intervention she's trying to get back home. She and her son were in agreement with the approach of nonoperative therapy first and maximal medical therapy I agree with above assessment and plan. The exam, history, and the medical decision-making described in the above note were completed with the assistance of the mid-level provider. I reviewed and agree with the findings presented. I attest that I had a [id number] encounter with the patient on the same day, and personally performed and documented my assessment and findings in the medical record. The following services were provided during this hospital visit: Chart data review, vital sign assessments/reviewing monitor data Review of consultations notes if present. Medication orders/review and/or management Ordering and/or reviewing lab tests Ordering and/or interpreting/reviewing x-rays and/or diagnostic studies Care of the patient and discussion of the patient with the care team Documentation time To help prompt me to consider important information that might be impacting today's encounter and assessment, information from prior notes written by myself or my colleagues may have been "brought forward/copy and pasted" into today's note. Problem Qualifiers (1) Abdominal pain: Qualified Code: R10.9 - Abdominal pain, unspecified location (2) Pneumonia: Qualified Code: J18.9 - Pneumonia due to infectious organism, unspecified laterality, unspecified part of lung Rose Gray Mar 17, 2017 17:52 Ever Garcia MD Mar 18, 2017 10:39
[2017-03-17] MEDS: LOW DOSE INSULIN NOVOLOG SUPPLEMENTAL SCALE SQ SCH (18:00)
[2017-03-18] VITALS (14 sets, daily range): BP systolic 116–137; BP diastolic 56–66; PULSE 54–69; RESP 16–35; TEMP 97.6–98.4; O2SAT 91–99
[2017-03-18] MEDS: AZTREONAM INJ 2,000 MG in SODIUM CHLORIDE 0.9% INJ 100 ML IV SCH ×3 (00:16→16:46)
[2017-03-18] MEDS: VANCOMYCIN INJ 1,500 MG in SODIUM CHLORID 0.9% 500 ML INJ 500 ML IV SCH (00:30)
[2017-03-18] MEDS: SODIUM CHLOR 0.9% 1000 ML INJ 1,000 ML IV SCH ×4 (01:01→13:19)
[2017-03-18] MEDS: RESP: ALBUTEROL 2.5 MG/IPRATROPIUM 0.5 MG NEB (SCH) NEB ×4 (03:30→19:26)
[2017-03-18] MEDS: CHLORHEXIDINE GLUCONATE 2 % 1 PACK (2 CLOTHS) TOP SCH (04:07)
[2017-03-18 04:19] LABS: AUTOMATED NEUTROPHIL # 14.1 TH/MM3 (1.8-7.7); BASOPHIL % 0.3 % (0.0-2.0); HEMATOCRIT 35.9 % (35.0-46.0); HEMO FLAGS DIFF FINAL; LYMPH % 1.3 % (9.0-44.0); LYMPHOCYTE # 0.2 TH/MM3 (1.0-4.8); MEAN CELL VOLUME 94.6 FL (80.0-100.0); MEAN CORPUSCULAR HEMOGLOBIN 30.4 PG (27.0-34.0); MEAN CORPUSCULAR HGB CONC 32.1 % (32.0-36.0); MONO % 1.5 % (0.0-8.0); NEUT % 96.9 % (16.0-70.0); PLATELET COUNT 142 TH/MM3 (150-450); RED BLOOD COUNT 3.79 MIL/MM3 (4.00-5.30); RED CELL DISTRIBUTION WIDTH 15.9 % (11.6-17.2); WHITE BLOOD COUNT 14.5 TH/MM3 (4.0-11.0)
[2017-03-18] MEDS: MORPHINE SULFATE 4 MG/ML INJ IV PRN ×6 (04:28→21:07)
[2017-03-18 05:03] LABS: CALCIUM-PROTEIN CORRECTED 8.1 MG/DL (8.5-10.1); MAGNESIUM 1.8 MG/DL (1.5-2.5); POTASSIUM 4.5 MEQ/L (3.5-5.1); TOTAL BILIRUBIN ADULT 0.3 MG/DL (0.2-1.0)
[2017-03-18] MEDS: LOW DOSE INSULIN NOVOLOG SUPPLEMENTAL SCALE SQ SCH ×4 (05:19→18:00)
--- NOTE | 2017-03-18 06:08 | RADRPT ---
EXAM DATE/TIME: 03/18/2017 03:57 [facility] COMPARISON: CT ABDOMEN & PELVIS W CONTRAST, March 17, 2017, 6:32. INDICATIONS : Distention. MEDICAL HISTORY : Gastroesophageal reflux disease. Lymphoma. SURGICAL HISTORY : section. Appendectomy. ENCOUNTER: Subsequent ACUITY: 2 days PAIN SCORE: Non-responsive. LOCATION: abdomen, all quadrants. FINDINGS: Supine view of the abdomen was performed. There is an NG tube in the stomach. There is no significant dilatation of large or small bowel. There is some stool in the colon. There are degenerative changes of the lumbar spine and pelvis.. CONCLUSION: NG tube in the stomach. No significant dilatation of large or small bowel. Charles Zamora MD on March 18, 2017 at 6:03 Board Certified Radiologist. This report was verified electronically.
[2017-03-18] MEDS: methylPREDNISolone SOD SUCC 125 MG/2 ML VIAL IV PUSH SCH ×3 (06:09→20:58)
[2017-03-18] MEDS: metroNIDAZOLE 500 MG INJ 100 ML IV SCH ×3 (06:09→22:25)
[2017-03-18] MEDS: FLUCONAZOLE 400 MG PREMIX BAG 200 ML IV SCH (08:42)
[2017-03-18] MEDS: PANTOPRAZOLE SODIUM 40 MG VIAL IV SCH ×2 (08:44→20:57)
[2017-03-18] MEDS: TIOTROPIUM BROMIDE 18 MCG INH INH SCH (08:44)
--- NOTE | 2017-03-18 10:35 | HHI.CCPN ---
Subjective Remarks/Hospital Course The patient is a 66 year old female with past medical history significant for COPD, anxiety disorder, chronic pain, hypertension was just recently discharged from hospital after admitted for almost a days for COPD exacerbation with pneumonia from emesis and H. influenzae. Patient was admitted from 03/08/17- . She presented today with a history of abdominal pain that reportedly is been getting gradually worse since onset (started while in the hospital). The patient reports that the pain was 10 out of 10 in severity, in the ER. She was discharged home yesterday on steroid and Levaquin. The patient was given 30 mL per KG IV fluid bolus. WBC count came back elevated at 18,200 with a left shift , the patient was started on Azactam, Flagyl, and vancomycin. CMP is remarkable for CO2 33.3, BUN 35, creatinine 1.05, lactic acid 2.2, Chest x-ray that shows a left lower lobe infiltrate, CT scan of the abdomen and pelvis revealed several small droplets of free air in the upper abdomen characteristic of free intraperitoneal air, some free fluid in the pelvis and adjacent to the liver and spleen, intestinal perforation as a primary consideration, location is unknown. The patient is also noted to have a wedge area of decreased density in the spleen suggestive of a splenic infarct. Critical care medicine was consulted for admission for acute peritonitis and severe sepsis. Additional history shows that patient was taking 800 mg Motrin several times a day for several years. This makes a perforated gastric ulcer possibility according to surgeon Dr. Garcia. Patient will be conservative management with IV hydration and broad-spectrum antibiotics. If any clinical deterioration patient will have to go for OR for laparotomy 03/18/17: Clinically improving, some improvement in abdominal pain. KUB no free air. WBC 18.2 --> 14.5. Lactic acid has normalized. LLL infiltrate improved Objective Vital Signs Date Time Temp Pulse Resp B/P Pulse Ox O2 Delivery O2 Flow Rate FiO2 03/18/17 10:00 62 03/18/17 08:00 98.0 16 117/61 94 03/18/17 07:00 Nasal Cannula 5.00 40 Intake and Output 03/17/17 03/17/17 03/18/17 08:00 16:00 00:00 Intake Total 409 ml 778 ml Output Total 200 ml 700 ml Balance 209 ml 78 ml Result Diagram: 03/18/17 0323 03/18/17 0323 Other Results Microbiology Date/Time Procedure Status Source Growth 03/17/17 05:10 - Final Complete Stool Stool NO ENTERIC PATHOGENS DETECTED BY PCR... 03/17/17 05:10 Stool Pus (RICHELLE) - Final Complete Stool Stool NO WBC'S SEEN Laboratory Tests Test 03/17/17 10:40 Blood Gas Puncture Site RT RADIAL Blood Gas Patient Temperature 98.6 Blood Gas HCO3 25 mmol/L (22-26) Blood Gas Base Excess 0.3 mmol/L (-2-2) Blood Gas Oxygen Saturation 89 % (90-100) Arterial Blood pH 7.36 (7.380-7.420) Arterial Blood Partial 46 mmHg (38-42) Pressure CO2 Arterial Blood Partial 65 mmHG Pressure O2 (61-120) Arterial Blood Oxygen Content 15.9 Vol % (12.0-20.0) Arterial Blood 1.4 % (0-4) Carboxyhemoglobin Arterial Blood Methemoglobin 0.6 % (0-2) Blood Gas Hemoglobin 12.7 G/DL (12.0-16.0) Oxygen Delivery Device NASAL CANNULA Blood Gas Liter Flow 3 L/M Imaging Chest x-ray that shows a left lower lobe infiltrate CT scan of the abdomen and pelvis reveals several small droplets of free air in the upper abdomen characteristic of free intraperitoneal air, some free fluid in the pelvis and adjacent to the liver and spleen, intestinal perforation as a primary consideration, location is unknown. The patient is also noted to have a wedge area of decreased density in the spleen suggestive of a splenic infarct. Objective Remarks General: The patient is a well-developed well-nourished female, mild distress from abdominal pain Head and Neck exam: Head is normocephalic atraumatic. Eyes: Pupils are equal round and reactive to light. Nose: Midline septum with dry mucous membranes Mouth: Uvula midline. Airway patent. Neck: No palpable lymphadenopathy. No nuchal rigidity. No thyromegaly. Cardiovascular: Regular rate and rhythm without murmurs, gallops, or rubs. Lungs: Mild Expiratory wheezes bilaterally, some accessory muscle use is noted. Abdomen: Soft, diffuse severe abdominal tenderness on palpation. Multiple areas of ecchymosis from Lovenox injections. No guarding, rebound, or rigidity. Extremities: No clubbing, cyanosis, or edema. 2+ pulses in all 4 extremities. No calf tenderness on palpation. Neurologic Exam: Awake oriented. No focal deficits Urinary Catheter: Yes Assessment to: Continue A/P Assessment and Plan Assessment: This is a 69-year-old female with history of COPD admitted to [facility] 03/08-03/16 initially intubated for acute COPD exacerbation, now presenting with severe sepsis and probable intestinal perforation. She is very critically ill at this time, General surgery had been consulted, Dr. Garcia. Currently on broad-spectrum antibiotics and IV fluids for peritonitis from perforated viscus probably stomach Plan: NEURO: Anxiety Chronic pain -- Hold antidepressants while nothing by mouth, also hold Neurontin -- IV morphine for pain control Resp: Acute COPD Exacerbation HCAP/LLL pneumonia -- Recently admitted for COPD exacerbation, and pneumonia with MSSA and Haemophilus influenza (Admitted from 03/08 to 03/16) -- Wean FiO2 for goal spo2 > 88-90% -- HOB at 30 degrees -- solumedrol 125 mg IV x 1 03/17/17 and 60 q8 change to q12. Patient was on tapering dose of prednisone -- DuoNebs q4h and q2h prn -- CXR in the AM-no free air, improving LLL infiltrate CVS: Transient hypotension Lactic acidosis Peritonitis secondary to perforated viscus -- Monitor HR and BP closely -- IVF NS 30 ml per kg bolus on 03/17 and 125 ml per hour -- Trend lactic acid-normalized GI: Probable gastric perforation with peritonitis Splenic infarct -- Nothing by mouth, IV Protonix 40 mg every 12 -- Gen. surgery Dr. Garcia -- Broad-spectrum antibiotics -- Medical management and ex lap if not improving -- KUB today no free air. -- F/U CT of the abdomen pelvis defer timing Dr. Garcia : Acute kidney insufficiency -- Most likely secondary to dehydration and sepsis -- IVF as above. Dimas for strict I/O ID: Severe sepsis Peritonitis secondary to perforated viscus Left lower lobe pneumonia/HCAP -- F/U sputum and blood cultures -- Empiric antibiotics Azactam Flagyl and vancomycin started 03/17/17 -- Follow-up on cultures HEME -- Monitor cbc, coags -- Leukocytosis secondary to sepsis ENDO: -- Electrolyte replacement per protocol PROPH: --SCDs, PPI for prophylaxis. Start heparin 5000 units subcutaneous every 8 Overall impression: Critically ill with severe sepsis, intestinal perforation bronchospasm and COPD exacerbation Level 3 Sarah Cruz MD Mar 18, 2017 10:35
--- NOTE | 2017-03-18 10:42 | RADRPT ---
EXAM DATE/TIME: 03/18/2017 09:58 [facility] COMPARISON: CT ABDOMEN & PELVIS W CONTRAST, March 17, 2017, 6:32. CHEST SINGLE AP, March 17, 2017, 5:24. INDICATIONS : Free air on CT scan. MEDICAL HISTORY : None. SURGICAL HISTORY : None. ENCOUNTER: Subsequent ACUITY: 1 week PAIN SCORE: 7/10 LOCATION: Bilateral chest FINDINGS: Portable AP view of the chest demonstrates a normal size cardiac silhouette. Nasogastric tube courses beyond the GE junction. The lungs are underinflated and likely atelectasis at the bases. No pleural effusion or pneumothorax is identified. Bones and soft tissues demonstrate no acute finding. Clips ov erlie the right axilla and cervical spine hardware is present. No free air is visualized beneath the hemidiaphragms. CONCLUSION: 1. No free air is visualized beneath the hemidiaphragms on this semi-upright image. 2. Lungs are underinflated with subsegmental atelectasis at the lung bases. Otherwise, no acute findi ng is seen. Anthony Anderson MD on March 18, 2017 at 10:36 Board Certified Radiologist. This report was verified electronically.
--- NOTE | 2017-03-18 11:11 | HHI.PR ---
Subjective Subjective Notes DAILY PROGRESS NOTE FOR SURGICAL ATTENDING, DR. EVER GARCIA Patient states she feels better Breathing better Less abdominal pain Wants to know when she can eat Objective Vitals/I&O Vital Signs Date Time Temp Pulse Resp B/P Pulse Ox O2 Delivery O2 Flow Rate FiO2 03/18/17 10:55 95 Nasal Cannula 4.00 03/18/17 10:00 62 03/18/17 08:00 98.0 16 117/61 03/18/17 07:00 40 Labs Laboratory Tests Test 03/18/17 03:23 White Blood Count 14.5 Red Blood Count 3.79 Hemoglobin 11.5 Hematocrit 35.9 Mean Corpuscular Volume 94.6 Mean Corpuscular Hemoglobin 30.4 Mean Corpuscular Hemoglobin 32.1 Concent Red Cell Distribution Width 15.9 Platelet Count 142 Mean Platelet Volume 7.6 Neutrophils (%) (Auto) 96.9 Lymphocytes (%) (Auto) 1.3 Monocytes (%) (Auto) 1.5 Eosinophils (%) (Auto) 0.0 Basophils (%) (Auto) 0.3 Neutrophils # (Auto) 14.1 Lymphocytes # (Auto) 0.2 Monocytes # (Auto) 0.2 Eosinophils # (Auto) 0.0 Basophils # (Auto) 0.0 CBC Comment DIFF FINAL Differential Comment Sodium Level 143 Potassium Level 4.5 Chloride Level 109 Carbon Dioxide Level 27.0 Anion Gap 7 Blood Urea Nitrogen 39 Creatinine 1.06 Estimat Glomerular Filtration 52 Rate Random Glucose 126 Calcium Level 7.2 Protein Corrected Calcium 8.1 Magnesium Level 1.8 Total Bilirubin 0.3 Aspartate Amino Transf 41 (AST/SGOT) Alanine Aminotransferase 45 (ALT/SGPT) Alkaline Phosphatase 49 Total Protein 5.4 Albumin 2.0 Date/Time Procedure Status Source Growth 03/17/17 10:55 Aerobic Blood Culture Received Blood Peripheral Pending 03/17/17 10:55 Anaerobic Blood Culture Received Blood Peripheral Pending 03/17/17 10:00 Urine Culture Received Urine Clean Catch Pending 03/17/17 05:10 Stool Pus (RICHELLE) - Final Complete Stool Stool NO WBC'S SEEN 03/17/17 05:10 - Final Complete Stool Stool NO ENTERIC PATHOGENS DETECTED BY PCR... Radiology Last Impressions Abdomen X-Ray 03/18/17 0600 Signed Impressions: Service Date/Time: Saturday, March 18, 2017 03:57 - CONCLUSION: NG tube in the stomach. No significant dilatation of large or small bowel. Charles Zamora MD Chest X-Ray 03/18/17 0000 Signed Impressions: Service Date/Time: Saturday, March 18, 2017 09:58 - CONCLUSION: 1. No free air is visualized beneath the hemidiaphragms on this semi-upright image. 2. Lungs are underinflated with subsegmental atelectasis at the lung bases. Otherwise, no acute finding is seen. Anthony Anderson MD Abdomen/Pelvis CT 03/17/17 0501 Signed Impressions: Service Date/Time: Friday, March 17, 2017 06:32 - CONCLUSION: 1. There are several small droplets of free air in the upper abdomen characteristic of free intraperitoneal air. There is also some free fluid seen in the pelvis and adjacent to the liver and spleen. Intestinal perforation is the primary consideration. The location is unknown. 2. Wedge-shaped area of decreased density in the spleen suggestive of a splenic infarct. 3. 2 cm left adrenal mass. This most likely an adrenal adenoma. 4. Tiny 2 mm nonobstructing stone lower pole right kidney. 5. A few nonspecific mildly prominent inguinal lymph nodes are seen bilaterally. Charles Zamora MD Cardiovascular: Regular Lungs: Upper airway course sound, Wheezes (improved getting breathing treatments) Abdomen: Other (mild soreness Much less than yesterday appears localized to the right upper quadrant) Extremities: Perfused, SCD's on Narrative Exam Good urinary output A/P Problem List: (1) Elevated WBC count (2) Abdominal pain (3) Perforated ulcer (4) Ibuprofen adverse reaction (5) Peritonitis (6) Pneumonia (7) COPD exacerbation (8) Acute kidney injury (9) Respiratory failure Assessment and Plan 66 yo female who was recently admitted to the hospital for exacerbation of COPD. She then re-presented to the emergency room with abdominal pain and some free air thought to be a perforated ulcer from ibuprofen use and her steroids. Appears to be in progress with maximal medical therapy. Good urinary output Better breathing Decreased white count Improved clinical exam Continue antibiotics and antifungals Allow ice chips No free air seen on recent chest x-ray We'll get upper GI tomorrow depending on clinical condition Discussed with Dr. Cruz Attending Statement PROGRESS NOTE FOR SURGICAL ATTENDING, DR. EVER GARCIA I attest that I had a [id number] encounter with the patient on the same day, and personally performed and documented my assessment and findings in the medical record. The following services were provided during this hospital visit: Chart data review, vital sign assessments/reviewing monitor data Review of consultations notes if present. Medication orders/review and/or management Ordering and/or reviewing lab tests Ordering and/or interpreting/reviewing x-rays and/or diagnostic studies Care of the patient and discussion of the patient with the care team Documentation time To help prompt me to consider important information that might be impacting today's encounter and assessment, information from prior notes written by myself or my colleagues may have been "brought forward/copy and pasted" into today's note. Problem Qualifiers (1) Elevated WBC count: Qualified Code: D72.825 - Bandemia (2) Abdominal pain: Qualified Code: R10.12 - Left upper quadrant pain (3) Ibuprofen adverse reaction: Qualified Code: T39.315D - Ibuprofen adverse reaction, subsequent encounter (4) Pneumonia: Qualified Code: J18.1 - Pneumonia of left lower lobe due to infectious organism (5) Respiratory failure: Qualified Code: J96.11 - Chronic respiratory failure with hypoxia Ever Garcia MD Mar 18, 2017 11:11
[2017-03-18] MEDS: HEPARIN SODIUM - SQ 10,000 UNITS/ML VIAL SQ SCH ×2 (14:00→20:58)
[2017-03-19] VITALS (14 sets, daily range): BP systolic 134–170; BP diastolic 61–74; PULSE 55–87; RESP 13–21; TEMP 97.4–98.8; O2SAT 90–99
[2017-03-19] MEDS: AZTREONAM INJ 2,000 MG in SODIUM CHLORIDE 0.9% INJ 100 ML IV SCH ×3 (00:07→15:26)
[2017-03-19] MEDS: SODIUM CHLOR 0.9% 1000 ML INJ 1,000 ML IV SCH ×3 (00:12→20:25)
[2017-03-19] MEDS: VANCOMYCIN INJ 1,500 MG in SODIUM CHLORID 0.9% 500 ML INJ 500 ML IV SCH (00:43)
[2017-03-19] MEDS: MORPHINE SULFATE 4 MG/ML INJ IV PRN ×4 (03:53→21:08)
[2017-03-19] MEDS: RESP: ALBUTEROL 2.5 MG/IPRATROPIUM 0.5 MG NEB (SCH) NEB ×4 (04:01→20:12)
[2017-03-19] MEDS: CHLORHEXIDINE GLUCONATE 2 % 1 PACK (2 CLOTHS) TOP SCH (04:12)
[2017-03-19] MEDS: methylPREDNISolone SOD SUCC 125 MG/2 ML VIAL IV PUSH SCH ×2 (05:53→20:24)
[2017-03-19] MEDS: HEPARIN SODIUM - SQ 10,000 UNITS/ML VIAL SQ SCH ×3 (05:54→21:07)
[2017-03-19] MEDS: LOW DOSE INSULIN NOVOLOG SUPPLEMENTAL SCALE SQ SCH ×5 (06:00→20:30)
[2017-03-19] MEDS ORDERED: CHLORHEXIDINE GLUCONATE 2 % 1 PACK (2 CLOTHS)(extra cloths) TOPICAL PRN (07:45)
[2017-03-19] MEDS: FLUCONAZOLE 400 MG PREMIX BAG 200 ML IV SCH (08:31)
[2017-03-19] MEDS: metroNIDAZOLE 500 MG INJ 100 ML IV SCH ×3 (08:31→22:42)
[2017-03-19] MEDS: PANTOPRAZOLE SODIUM 40 MG VIAL IV SCH ×2 (08:32→20:24)
[2017-03-19] MEDS ORDERED: MUPIROCIN 2% OINT 1 APPLIC/GM SYR NASAL SCH (09:00)
[2017-03-19] MEDS: TIOTROPIUM BROMIDE 18 MCG INH INH SCH (09:38)
--- NOTE | 2017-03-19 10:26 | HHI.CCPN ---
Subjective Remarks/Hospital Course The patient is a 66 year old female with past medical history significant for COPD, anxiety disorder, chronic pain, hypertension was just recently discharged from hospital after admitted for almost a days for COPD exacerbation with pneumonia from emesis and H. influenzae. Patient was admitted from 03/08/17- . She presented today with a history of abdominal pain that reportedly is been getting gradually worse since onset (started while in the hospital). The patient reports that the pain was 10 out of 10 in severity, in the ER. She was discharged home yesterday on steroid and Levaquin. The patient was given 30 mL per KG IV fluid bolus. WBC count came back elevated at 18,200 with a left shift , the patient was started on Azactam, Flagyl, and vancomycin. CMP is remarkable for CO2 33.3, BUN 35, creatinine 1.05, lactic acid 2.2, Chest x-ray that shows a left lower lobe infiltrate, CT scan of the abdomen and pelvis revealed several small droplets of free air in the upper abdomen characteristic of free intraperitoneal air, some free fluid in the pelvis and adjacent to the liver and spleen, intestinal perforation as a primary consideration, location is unknown. The patient is also noted to have a wedge area of decreased density in the spleen suggestive of a splenic infarct. Critical care medicine was consulted for admission for acute peritonitis and severe sepsis. Additional history shows that patient was taking 800 mg Motrin several times a day for several years. This makes a perforated gastric ulcer possibility according to surgeon Dr. Garcia. Patient will be conservative management with IV hydration and broad-spectrum antibiotics. If any clinical deterioration patient will have to go for OR for laparotomy 03/18/17: Clinically improving, some improvement in abdominal pain. KUB no free air. WBC 18.2 --> 14.5. Lactic acid has normalized. LLL infiltrate improved 03/19/17: Continues to improve clinically. UGI series ordered by general surgery. Continue conservative management. Now on NRB, but saturation may be low due to poor probe contact. D/W RT and will wean O2 down. Objective Vital Signs Date Time Temp Pulse Resp B/P Pulse Ox O2 Delivery O2 Flow Rate FiO2 03/19/17 07:51 93 Nasal Cannula 4.00 03/19/17 06:00 64 03/19/17 04:00 97.4 21 134/61 03/18/17 07:00 40 Intake and Output 03/18/17 03/18/17 03/19/17 08:00 16:00 00:00 Intake Total 1547 ml 1050 ml 1952 ml Output Total 475 ml 550 ml 900 ml Balance 1072 ml 500 ml 1052 ml Result Diagram: 03/18/17 0323 03/18/17 0323 Other Results Microbiology Date/Time Procedure Status Source Growth 03/17/17 05:10 - Final Complete Stool Stool NO ENTERIC PATHOGENS DETECTED BY PCR... 03/17/17 05:10 Stool Pus (RICHELLE) - Final Complete Stool Stool NO WBC'S SEEN 03/17/17 10:00 Urine Culture - Final Complete Urine Clean Catch NO GROWTH IN 48 HOURS. Imaging Chest x-ray that shows a left lower lobe infiltrate CT scan of the abdomen and pelvis reveals several small droplets of free air in the upper abdomen characteristic of free intraperitoneal air, some free fluid in the pelvis and adjacent to the liver and spleen, intestinal perforation as a primary consideration, location is unknown. The patient is also noted to have a wedge area of decreased density in the spleen suggestive of a splenic infarct. Objective Remarks General: The patient is a well-developed well-nourished female, mild distress from abdominal pain Head and Neck exam: Head is normocephalic atraumatic. Eyes: Pupils are equal round and reactive to light. Nose: Midline septum with dry mucous membranes Mouth: Uvula midline. Airway patent. Neck: No palpable lymphadenopathy. No nuchal rigidity. No thyromegaly. Cardiovascular: Regular rate and rhythm without murmurs, gallops, or rubs. Lungs: Mild Expiratory wheezes bilaterally, some accessory muscle use is noted. Abdomen: Diffuse abdominal tenderness on palpation. Multiple areas of ecchymosis from Lovenox injections. No guarding, rebound, or rigidity. Extremities: No clubbing, cyanosis, or edema. 2+ pulses in all 4 extremities. No calf tenderness on palpation. Neurologic Exam: Awake oriented. No focal deficits Urinary Catheter: Yes Assessment to: Continue A/P Assessment and Plan Assessment: This is a 69-year-old female with history of COPD admitted to [place] 03/08-03/16 initially intubated for acute COPD exacerbation, now presenting with severe sepsis and probable viscus perforation. General surgery Dr. Garcia. Currently on broad-spectrum antibiotics and IV fluids for peritonitis from perforated viscus probably stomach Plan: NEURO: Anxiety Chronic pain -- Hold antidepressants while nothing by mouth, also hold Neurontin -- IV morphine for pain control Resp: Acute COPD Exacerbation HCAP/LLL pneumonia -- Recently admitted for COPD exacerbation, and pneumonia with MSSA and Haemophilus influenza (Admitted from 03/08 to 03/16) -- Wean FiO2 for goal spo2 > 88-90% -- HOB at 30 degrees -- solumedrol 60 q12. Patient was on tapering dose of prednisone -- DuoNebs q4h and q2h prn -- CXR in the AM-no free air, improving LLL infiltrate, repeat today CVS: Transient hypotension Lactic acidosis Peritonitis secondary to perforated viscus -- Monitor HR and BP closely -- IVF NS 30 ml per kg bolus on 03/17 and 125 ml per hour. reduce IVF to 50 ml per hour -- Trend lactic acid-normalized GI: Probable gastric perforation with peritonitis Splenic infarct -- Nothing by mouth, IV Protonix 40 mg every 12 -- UGI series ordered by general surgery -- Gen. surgery Dr. Garcia -- Broad-spectrum antibiotics -- Medical management and ex lap if not improving -- KUB today no free air. UGI series ordered for today 03/19/17 -- F/U CT of the abdomen pelvis defer timing Dr. Garcia : Acute kidney insufficiency -- Most likely secondary to dehydration and sepsis -- IVF as above. Dimas for strict I/O ID: Severe sepsis Peritonitis secondary to perforated viscus Left lower lobe pneumonia/HCAP -- F/U sputum and blood cultures -- Empiric antibiotics Azactam Flagyl and vancomycin started 03/17/17 -- Follow-up on cultures -- Clinically improving HEME -- Monitor cbc, coags -- Leukocytosis secondary to sepsis ENDO: -- Electrolyte replacement per protocol PROPH: --SCDs, PPI for prophylaxis. Heparin 5000 units subcutaneous every 8 Overall impression: Critically ill with severe sepsis, intestinal perforation bronchospasm and COPD exacerbation Level 2 Sarah Cruz MD Mar 19, 2017 10:26
--- NOTE | 2017-03-19 12:22 | RADRPT ---
EXAM DATE/TIME: 03/19/2017 11:38 [facility] COMPARISON: CHEST SINGLE AP, March 18, 2017, 9:58. INDICATIONS : Respiratory disease. Evaluate lung status. MEDICAL HISTORY : Hypertension. Chronic obstructive pulmonary disease. Gastroesophageal reflux disease.Lymphoma. SURGICAL HISTORY : section. Appendectomy ENCOUNTER: Subsequent ACUITY: 4 - 6 days PAIN SCORE: 0/10 LOCATION: Bilateral chest FINDINGS: The lungs are under aerated with mild compensated cardiomegaly. There is no overt congestive failure , pneumothorax or infiltrate. CONCLUSION: Underated without significant failure or infiltrate. Amador Macario MD FACR on March 19, 2017 at 12:20 Board Certified Radiologist. This report was verified electronically.
--- NOTE | 2017-03-19 12:30 | HHI.PR ---
Subjective Subjective Notes DAILY PROGRESS NOTE FOR SURGICAL ATTENDING, DR. EVER GARCIA Resting in bed Pain about the same as yesterday Objective Vitals/I&O Vital Signs Date Time Temp Pulse Resp B/P Pulse Ox O2 Delivery O2 Flow Rate FiO2 03/19/17 12:00 60 03/19/17 08:00 96 Nasal Cannula 4.00 03/19/17 08:00 98.1 14 166/72 03/18/17 07:00 40 Labs Date/Time Procedure Status Source Growth 03/17/17 10:55 Aerobic Blood Culture - Preliminary Resulted Blood Peripheral NO GROWTH IN 2 DAYS 03/17/17 10:55 Anaerobic Blood Culture - Preliminary Resulted Blood Peripheral NO GROWTH IN 2 DAYS 03/17/17 10:00 Urine Culture - Final Complete Urine Clean Catch NO GROWTH IN 48 HOURS. 03/17/17 05:10 Stool Pus (RICHELLE) - Final Complete Stool Stool NO WBC'S SEEN 03/17/17 05:10 - Final Complete Stool Stool NO ENTERIC PATHOGENS DETECTED BY PCR... Radiology Last Impressions Upper GI Series 03/19/17 0000 Signed Impressions: Service Date/Time: Sunday, March 19, 2017 11:40 - CONCLUSION: Limited upper GI series demonstrating no definite perforation. Luiz Guzman MD Chest X-Ray 03/19/17 0000 Signed Impressions: Service Date/Time: Sunday, March 19, 2017 11:38 - CONCLUSION: Underated without significant failure or infiltrate. Amador Macario MD FACR Abdomen X-Ray 03/18/17 0600 Signed Impressions: Service Date/Time: Saturday, March 18, 2017 03:57 - CONCLUSION: NG tube in the stomach. No significant dilatation of large or small bowel. Charles Zamora MD Abdomen/Pelvis CT 03/17/17 0501 Signed Impressions: Service Date/Time: Friday, March 17, 2017 06:32 - CONCLUSION: 1. There are several small droplets of free air in the upper abdomen characteristic of free intraperitoneal air. There is also some free fluid seen in the pelvis and adjacent to the liver and spleen. Intestinal perforation is the primary consideration. The location is unknown. 2. Wedge-shaped area of decreased density in the spleen suggestive of a splenic infarct. 3. 2 cm left adrenal mass. This most likely an adrenal adenoma. 4. Tiny 2 mm nonobstructing stone lower pole right kidney. 5. A few nonspecific mildly prominent inguinal lymph nodes are seen bilaterally. Charles Zamora MD Cardiovascular: Regular Lungs: Clear Abdomen: Other (Abdomen tender with palpation; distended but improved from yesterday's exam ) Extremities: No edema A/P Problem List: (1) Pneumonia (2) Ibuprofen adverse reaction (3) Elevated WBC count (4) Abdominal pain (5) Perforated ulcer (6) Peritonitis (7) COPD exacerbation (8) Acute kidney injury (9) Respiratory failure Assessment and Plan 66 year old female with COPD and free air visualized on CT scan -Labs pending -Upper GI today -Pulmonary status appears to be improving -NGT to LIWS -Will await results of Upper GI for further management -Continue non op treatment at this time NOTE FOR SURGICAL ATTENDING, DR. EVER GARCIA Patient seen in the intensive care unit Discussed with Dr. Cruz the hoist cylinder loader Reviewed images with Dr. Irving Hernandez the radiologist Abdominal pain improved Respiratory status improved. Kidney function improved Overall I think she is making progress We'll start by mouth intake as the upper GIs does not show any the extravasation at this point Continue antibiotic therapy I agree with above assessment and plan. The exam, history, and the medical decision-making described in the above note were completed with the assistance of the mid-level provider. I reviewed and agree with the findings presented. I attest that I had a [id number] encounter with the patient on the same day, and personally performed and documented my assessment and findings in the medical record. The following services were provided during this hospital visit: Chart data review, vital sign assessments/reviewing monitor data Review of consultations notes if present. Medication orders/review and/or management Ordering and/or reviewing lab tests Ordering and/or interpreting/reviewing x-rays and/or diagnostic studies Care of the patient and discussion of the patient with the care team Documentation time To help prompt me to consider important information that might be impacting today's encounter and assessment, information from prior notes written by myself or my colleagues may have been "brought forward/copy and pasted" into today's note. Problem Qualifiers (1) Pneumonia: Qualified Code: J18.1 - Pneumonia of left lower lobe due to infectious organism (2) Ibuprofen adverse reaction: Qualified Code: T39.315D - Ibuprofen adverse reaction, subsequent encounter (3) Elevated WBC count: Qualified Code: D72.825 - Bandemia (4) Abdominal pain: Qualified Code: R10.12 - Left upper quadrant pain (5) Respiratory failure: Qualified Code: J96.11 - Chronic respiratory failure with hypoxia Rose Gray Mar 19, 2017 12:30 Ever Garcia MD Mar 19, 2017 15:30
[2017-03-19 13:09] LABS: BASOPHIL # 0.1 TH/MM3 (0-0.2); BASOPHIL % 0.7 % (0.0-2.0); HEMATOCRIT 32.5 % (35.0-46.0); HEMO FLAGS DIFF FINAL; LYMPHOCYTE # 0.1 TH/MM3 (1.0-4.8); MEAN CELL VOLUME 92.7 FL (80.0-100.0); MEAN CORPUSCULAR HGB CONC 33.4 % (32.0-36.0); MONO % 1.5 % (0.0-8.0); NEUT % 96.8 % (16.0-70.0); PLATELET COUNT 170 TH/MM3 (150-450); RED BLOOD COUNT 3.51 MIL/MM3 (4.00-5.30); RED CELL DISTRIBUTION WIDTH 15.5 % (11.6-17.2); WHITE BLOOD COUNT 12.4 TH/MM3 (4.0-11.0)
[2017-03-19 13:28] LABS: ANION GAP 4 MEQ/L (5-15); AST (GOT) 25 U/L (15-37); BICARBONATE 27.7 MEQ/L (21.0-32.0); BLOOD UREA NITROGEN 33 MG/DL (7-18); CHLORIDE 114 MEQ/L (98-107); GLOMERULAR FILTRATION RATE 72 ML/MIN (>89); POTASSIUM 3.7 MEQ/L (3.5-5.1); SODIUM (NA) 146 MEQ/L (136-145)
[2017-03-19 13:31] LABS: ALKALINE PHOSPHATASE 55 U/L (45-117); ALT (GPT) 36 U/L (10-53); TOTAL BILIRUBIN ADULT 0.2 MG/DL (0.2-1.0)
--- NOTE | 2017-03-19 13:34 | RADRPT ---
EXAM DATE/TIME: 03/19/2017 11:40 [facility] COMPARISON: CT ABDOMEN & PELVIS W CONTRAST, March 17, 2017, 6:32. INDICATIONS : <Abdominal pain. Small collections of free air on abdomen CT. Evaluate for perforat ion.>> FLUORO TIME: 1.8 minutes IMAGE COUNT: 12 CONTRAST: 1. MD Chua MEDICAL HISTORY : Hypertension. Chronic obstructive pulmonary disease. Gastroesophageal re flux disease. Lymphoma. SURGICAL HISTORY : section. Appendectomy. ENCOUNTER: Subsequent ACUITY: 3 days PAIN SCORE: 5/10 LOCATION: Abdomen, upper quadrant. FINDINGS: A limited Gastrografin upper GI series was performed through the indwelling nasogastric tube. The sto mach is normal in size and shape with no evidence of obstruction or perforation. The C-sweep was well visualized and is unremarkable in appearance. The proximal small bowel appears unremarkable. Note is made that the contrast becomes more dilute in the small bowel limiting visualization. One hour delayed films were obtained and demonstrate contrast throughout the small bowel and in the p roximal colon. No definite leakage was identified. CONCLUSION: Limited upper GI series demonstrating no definite perforation. Luiz Guzman MD on March 19, 2017 at 13:28 Board Certified Radiologist. This report was verified electronically.
[2017-03-19] MEDS ORDERED: FUROSEMIDE 20 MG/2 ML VIAL IV PUSH ONE (14:30)
[2017-03-19] MEDS ORDERED: MORPHINE SULFATE 4 MG/ML INJ IV PUSH ONE (14:30)
[2017-03-19] MEDS: hydrALAZINE HCL 20 MG/ML VIAL IV PUSH PRN (17:37)
[2017-03-20] VITALS (11 sets, daily range): BP systolic 135–168; BP diastolic 54–76; PULSE 58–71; RESP 13–18; TEMP 97.3–98.1; O2SAT 93–96
[2017-03-20] MEDS: AZTREONAM INJ 2,000 MG in SODIUM CHLORIDE 0.9% INJ 100 ML IV SCH ×4 (00:34→23:30)
[2017-03-20] MEDS: VANCOMYCIN INJ 1,500 MG in SODIUM CHLORID 0.9% 500 ML INJ 500 ML IV SCH (01:06)
[2017-03-20] MEDS: hydrALAZINE HCL 20 MG/ML VIAL IV PUSH PRN ×4 (01:07→22:19)
[2017-03-20] MEDS: CHLORHEXIDINE GLUCONATE 2 % 1 PACK (2 CLOTHS) TOP SCH (03:32)
[2017-03-20] MEDS: RESP: ALBUTEROL 2.5 MG/IPRATROPIUM 0.5 MG NEB (SCH) NEB ×4 (03:57→21:02)
[2017-03-20] MEDS ORDERED: CHLORHEXIDINE GLUCONATE 2 % 1 PACK (2 CLOTHS)(taper/protocol) TOPICAL SCH (04:00)
[2017-03-20] MEDS: LOW DOSE INSULIN NOVOLOG SUPPLEMENTAL SCALE SQ SCH ×4 (04:58→17:50)
[2017-03-20] MEDS: HEPARIN SODIUM - SQ 10,000 UNITS/ML VIAL SQ SCH ×2 (05:11→14:26)
[2017-03-20] MEDS: MORPHINE SULFATE 4 MG/ML INJ IV PRN ×5 (05:13→20:55)
[2017-03-20] MEDS: metroNIDAZOLE 500 MG INJ 100 ML IV SCH ×3 (06:40→22:19)
[2017-03-20] MEDS: PANTOPRAZOLE SODIUM 40 MG VIAL IV SCH ×2 (08:15→20:28)
[2017-03-20] MEDS: methylPREDNISolone SOD SUCC 125 MG/2 ML VIAL IV PUSH SCH ×2 (08:15→20:28)
--- NOTE | 2017-03-20 09:18 | HHI.CCPN ---
Subjective Remarks/Hospital Course The patient is a 66 year old female with past medical history significant for COPD, anxiety disorder, chronic pain, hypertension was just recently discharged from hospital after admitted for almost a days for COPD exacerbation with pneumonia from emesis and H. influenzae. Patient was admitted from 03/08/17- . She presented today with a history of abdominal pain that reportedly is been getting gradually worse since onset (started while in the hospital). The patient reports that the pain was 10 out of 10 in severity, in the ER. She was discharged home yesterday on steroid and Levaquin. The patient was given 30 mL per KG IV fluid bolus. WBC count came back elevated at 18,200 with a left shift , the patient was started on Azactam, Flagyl, and vancomycin. CMP is remarkable for CO2 33.3, BUN 35, creatinine 1.05, lactic acid 2.2, Chest x-ray that shows a left lower lobe infiltrate, CT scan of the abdomen and pelvis revealed several small droplets of free air in the upper abdomen characteristic of free intraperitoneal air, some free fluid in the pelvis and adjacent to the liver and spleen, intestinal perforation as a primary consideration, location is unknown. The patient is also noted to have a wedge area of decreased density in the spleen suggestive of a splenic infarct. Critical care medicine was consulted for admission for acute peritonitis and severe sepsis. Additional history shows that patient was taking 800 mg Motrin several times a day for several years. This makes a perforated gastric ulcer possibility according to surgeon Dr. Garcia. Patient will be conservative management with IV hydration and broad-spectrum antibiotics. If any clinical deterioration patient will have to go for OR for laparotomy 03/18/17: Clinically improving, some improvement in abdominal pain. KUB no free air. WBC 18.2 --> 14.5. Lactic acid has normalized. LLL infiltrate improved 03/19/17: Continues to improve clinically. UGI series ordered by general surgery. Continue conservative management. Now on NRB, but saturation may be low due to poor probe contact. D/W RT and will wean O2 down. 03/20/17: Patient complaining of acute onset pain of left shoulder posteriorly, and right parotid region. Also increasing shortness of breath. Right parotid gland is swollen and tender. CT pulmonary angiogram with CT abdomen pelvis and CT of the neck ordered stat. Patient getting morphine for pain Objective Vital Signs Date Time Temp Pulse Resp B/P Pulse Ox O2 Delivery O2 Flow Rate FiO2 03/20/17 08:14 95 Nasal Cannula 4.50 03/20/17 06:00 62 03/20/17 05:18 16 03/20/17 04:00 98.1 140/60 03/18/17 07:00 40 Intake and Output 03/19/17 03/19/17 03/20/17 08:00 16:00 00:00 Intake Total 1310 ml 873 ml 757 ml Output Total 750 ml 675 ml 2500 ml Balance 560 ml 198 ml -1743 ml Result Diagram: 03/19/17 1241 03/20/17 0404 Other Results Microbiology Date/Time Procedure Status Source Growth 03/17/17 10:00 Urine Culture - Final Complete Urine Clean Catch NO GROWTH IN 48 HOURS. Imaging Chest x-ray that shows a left lower lobe infiltrate CT scan of the abdomen and pelvis reveals several small droplets of free air in the upper abdomen characteristic of free intraperitoneal air, some free fluid in the pelvis and adjacent to the liver and spleen, intestinal perforation as a primary consideration, location is unknown. The patient is also noted to have a wedge area of decreased density in the spleen suggestive of a splenic infarct. Objective Remarks General: The patient is a well-developed well-nourished female, moderate to severe distress from L shoulder pain, and R parotid tenderness Head and Neck exam: Head is normocephalic atraumatic. R parotid gland is swollen and tender Eyes: Pupils are equal round and reactive to light. Nose: Midline septum with dry mucous membranes Mouth: Uvula midline. Airway patent. Neck: No palpable lymphadenopathy. No nuchal rigidity. No thyromegaly. Chest: L posterior shoulder pain and tenderness Cardiovascular: Regular rate and rhythm without murmurs, gallops, or rubs. Lungs: Mild Expiratory wheezes bilaterally, some accessory muscle use is noted. Abdomen: Diffuse abdominal tenderness on palpation. Multiple areas of ecchymosis from Lovenox injections. No guarding, rebound, or rigidity. Extremities: No clubbing, cyanosis, or edema. 2+ pulses in all 4 extremities. No calf tenderness on palpation. Neurologic Exam: Awake oriented. No focal deficits. moderate to severe distress due to pain A/P Assessment and Plan Assessment: This is a 69-year-old female with history of COPD admitted to [facility] 03/08-03/16 initially intubated for acute COPD exacerbation, now presenting with severe sepsis and probable viscus perforation. General surgery Dr. Garcia. Currently on broad-spectrum antibiotics and IV fluids for peritonitis from perforated viscus probably stomach Plan: NEURO/HEENT: Anxiety Chronic pain Acute parotitis -- Hold antidepressants while nothing by mouth, also hold Neurontin -- IV morphine for pain control -- Acute tender parotid swelling started 03/20/17. ENT consult, stat neck CT. Continue broad spectrum ABX Vanc, cefepime and Flagyl Resp: Acute COPD Exacerbation HCAP/LLL pneumonia -- Recently admitted for COPD exacerbation, and pneumonia with MSSA and Haemophilus influenza (Admitted from 03/08 to 03/16) -- Wean FiO2 for goal spo2 > 88-90% -- HOB at 30 degrees -- solumedrol 60 q12. Patient was on tapering dose of prednisone -- DuoNebs q4h and q2h prn -- CXR in the AM-no free air, improving LLL infiltrate, repeat today -- Ct pulmonary angiogram ordered today due to acute onset left shoulder pain, with shortness of breath CVS: Transient hypotension Lactic acidosis Peritonitis secondary to perforated viscus -- Monitor HR and BP closely -- IVF NS 50 ml per hour -- Trend lactic acid-normalized GI: Probable gastric perforation with peritonitis Splenic infarct -- Keep Nothing by mouth, IV Protonix 40 mg every 12 -- UGI series ordered by general surgery. -- Gen. surgery Dr. Garcia -- Broad-spectrum antibiotics -- Medical management and ex lap if not improving -- UGI series 03/19/17-no evidence of perforation -- Stat CT abd pelvis today due to L shoulder pain ? radiating pain from diaphragmatic irritation : Acute kidney insufficiency -- Most likely secondary to dehydration and sepsis -- IVF as above. Dimas for strict I/O ID: Severe sepsis Peritonitis secondary to perforated viscus Left lower lobe pneumonia/HCAP Probable acute parotitis -- F/U urine and blood cultures negative to date -- Empiric antibiotics Azactam Flagyl and vancomycin started 03/17/17 -- Clinically improving HEME -- Monitor CBC, coags -- Leukocytosis secondary to sepsis ENDO: -- Electrolyte replacement per protocol PROPH: --SCDs, PPI for prophylaxis. Heparin 5000 units subcutaneous every 8 Overall impression: Critically ill with severe sepsis, intestinal perforation bronchospasm and COPD exacerbation, now with acute bronchitis and acute left shoulder pain and ? worsening peritonitis CCT 45 Sarah Cruz MD Mar 20, 2017 09:18
[2017-03-20] MEDS: FLUCONAZOLE 400 MG PREMIX BAG 200 ML IV SCH (10:00)
[2017-03-20 10:07] LABS: AUTOMATED NEUTROPHIL # 8.5 TH/MM3 (1.8-7.7); BASOPHIL % 0.2 % (0.0-2.0); HEMATOCRIT 32.1 % (35.0-46.0); HEMO FLAGS DIFF FINAL; LYMPHOCYTE # 0.1 TH/MM3 (1.0-4.8); MEAN CELL VOLUME 92.8 FL (80.0-100.0); MEAN CORPUSCULAR HEMOGLOBIN 31.1 PG (27.0-34.0); MEAN CORPUSCULAR HGB CONC 33.5 % (32.0-36.0); MONO % 1.4 % (0.0-8.0); NEUT % 97.4 % (16.0-70.0); PLATELET COUNT 175 TH/MM3 (150-450); RED BLOOD COUNT 3.46 MIL/MM3 (4.00-5.30); RED CELL DISTRIBUTION WIDTH 15.7 % (11.6-17.2); WHITE BLOOD COUNT 8.7 TH/MM3 (4.0-11.0)
--- NOTE | 2017-03-20 10:12 | RADRPT ---
EXAM DATE/TIME: 03/20/2017 09:50 [facility] COMPARISON: CT PULMONARY ANGIOGRAM, March 08, 2017, 4:26. INDICATIONS : Shortness of breath IV CONTRAST: 98 cc Omnipaque 350 (iohexol) IV ; Cumulative dose for multiple exams. RADIATION DOSE: 35.24 CTDIvol (mGy) MEDICAL HISTORY : Hypertension. Chronic obstructive pulmonary disease. Lymphoma. SURGICAL HISTORY : Appendectomy. section. ENCOUNTER: Initial ACUITY: 1 day PAIN SCALE: 3/10 LOCATION: Bilateral chest TECHNIQUE: Volumetric scanning of the chest was performed using a pulmonary embolism protocol MIP images were re constructed. Using automated exposure control and adjustment of the mA and/or kV according to patien t size, radiation dose was kept as low as reasonably achievable to obtain optimal diagnostic quality images. FINDINGS: PULMONARY ARTERIES: No filling defects are seen in the pulmonary arteries through the segmental level. LUNGS: There is no pneumothorax . There are new patchy groundglass opacities in the upper lobes, right middl e lobe and lingula. Patchy opacity in the right lower lobe as well. No concerning pulmonary nodule is visualized. PLEURAE: Normal bilateral effusions. MEDIASTINUM: There is good visualization of the great vessels of the middle mediastinum. No evidence of mediastin al or hilar adenopathy/mass. MUSCULOSKELETAL: Within normal limits for patient age. MISCELLANEOUS: There is a new low density mass in the upper central spleen measuring up to 6 x 5 cm. This was not pr esent on the prior study of 03/08/2017. CONCLUSION: 1. New low-density mass in the upper central spleen not present 12 days ago. Differential diagnosis i ncludes an area of infarction or hematoma. 2. New patchy groundglass opacities in both lungs which may be infectious or inflammatory. 3. Minimal effusions. 4. No evidence of pulmonary emboli. Luiz Guzman MD on March 20, 2017 at 10:05 Board Certified Radiologist. This report was verified electronically.
[2017-03-20] MEDS ORDERED: IOHEXOL 350 MG/ML 10 ML VIAL (for RAD DIAG) IV ONE (10:16)
--- NOTE | 2017-03-20 10:29 | RADRPT ---
EXAM DATE/TIME: 03/20/2017 09:53 [facility] COMPARISON: CT ABDOMEN & PELVIS W CONTRAST, March 17, 2017, 6:32. INDICATIONS : Abdominal pain; free air and splenic infarct. IV CONTRAST: 98 cc Omnipaque 350 (iohexol) IV ; Cumulative dose for multiple exams. ORAL CONTRAST: No oral contrast ingested. RADIATION DOSE: 24.85 CTDIvol (mGy) MEDICAL HISTORY : Hypertension. Chronic obstructive pulmonary disease. Lymphoma. SURGICAL HISTORY : Appendectomy. section. ENCOUNTER: Initial ACUITY: 1 day PAIN SCALE: 4/10 LOCATION: Bilateral abdomen TECHNIQUE: Volumetric scanning of the abdomen and pelvis was performed. Using automated exposure control and ad justment of the mA and/or kV according to patient size, radiation dose was kept as low as reasonably achievable to obtain optimal diagnostic quality images. FINDINGS: LOWER LUNGS: There are small bilateral pleural effusions with mild consolidation in the lung bases. LIVER: Homogeneous density without lesion. There is no dilation of the biliary tree. No calcified gallston es. SPLEEN: The central splenic infarct is more conspicuous and decreased in attenuation. PANCREAS: Within normal limits. KIDNEYS: Normal in size and shape. There is no mass, stone or hydronephrosis. ADRENAL GLANDS: Within normal limits. VASCULAR: There is no aortic aneurysm. BOWEL/MESENTERY: There is an interval increase in the amount of free air present especially in the anterior upper abdo men. Nasogastric tube is now noted with the tip in the mid stomach. Contrast is noted throughout the majority of the colon with no extravasated contrast identified. There are multiple diverticuli. There are multiple loops of nondilated air-containing small bowel with multiple small air-fluid levels. ABDOMINAL WALL: Within normal limits. Edema is noted in the subcutaneous fat lateral abdominal wall. RETROPERITONEUM: There is no lymphadenopathy. BLADDER: A Dimas catheter is now noted in the bladder which is decompressed. REPRODUCTIVE: Within normal limits. INGUINAL: There is no lymphadenopathy or hernia. MUSCULOSKELETAL: Within normal limits for patient age. CONCLUSION: 1. Interval increase in free air greatest in the upper anterior abdomen. A nonspecific bowel gas jerry vlad remains with oral contrast in the colon. There is no extravasated contrast. 2. Nonspecific bowel gas pattern most consistent with an ileus. 3. The splenic infarct is more conspicuous than on the prior study. 4. Minimal effusions are now noted. Luiz Guzman MD on March 20, 2017 at 10:21 Board Certified Radiologist. This report was verified electronically.
[2017-03-20 10:30] LABS: BICARBONATE 26.1 MEQ/L (21.0-32.0); CALCIUM-PROTEIN CORRECTED 8.3 MG/DL (8.5-10.1); MAGNESIUM 1.9 MG/DL (1.5-2.5); POTASSIUM 3.1 MEQ/L (3.5-5.1); TOTAL BILIRUBIN ADULT 0.2 MG/DL (0.2-1.0)
--- NOTE | 2017-03-20 11:10 | RADRPT ---
EXAM DATE/TIME: 03/20/2017 09:57 [facility] COMPARISON: No previous studies available for comparison. INDICATIONS : right parotid swelling RADIATION DOSE: 20.06 CTDIvol (mGy) MEDICAL HISTORY : Hypertension. Chronic obstructive pulmonary disease. Lymphoma. SURGICAL HISTORY : Appendectomy. section. ENCOUNTER: Initial ACUITY: 1 day PAIN SCORE: 4/10 LOCATION: Right facial TECHNIQUE: Volumetric scanning of the neck was performed. Using automated exposure control and adjustment of th e mA and/or kV according to patient size, radiation dose was kept as low as reasonably achievable to obtain optimal diagnostic quality images. FINDINGS: Examination of the skull base demonstrates no evidence of deep infiltrating mucosal lesion. The oroph arynx, hypopharynx, glottic and subglottic airway demonstrate no abnormality. There is benign-appeari ng mucosal disease in the left maxillary sinus. In the right parotid gland there is a 2.3 x 1.7 cm ma ss which is not well-defined by this examination. This may reflect pleomorphic adenoma or more aggres sive malignant processes. MRI with contrast is recommended for further evaluation if clinically indic ated. Note is made of sebaceous cyst in the submental space measuring 2 cm which should be of no clin ical significance. No abnormally enlarged lymph nodes are identified. There is patchy low disease in both upper lobes ch aracteristic of edema or pneumonia. The thyroid gland demonstrates no abnormality. Coronary artery ca lcifications are present. CONCLUSION: 1. Possible 2 cm mass in the superficial lobe of the right parotid in detail. MRI with contrast is re commended for further evaluation if clinically indicated. Stepan Albarado MD on March 20, 2017 at 11:04 Board Certified Radiologist. This report was verified electronically.
[2017-03-20] MEDS: LORazepam 2 MG/ML VIAL IV PUSH PRN ×2 (11:55→22:32)
[2017-03-20] MEDS: SODIUM CHLOR 0.9% 1000 ML INJ 1,000 ML IV SCH (13:48)
--- NOTE | 2017-03-20 14:10 | HHI.PR ---
Subjective Subjective Notes DAILY PROGRESS NOTE FOR SURGICAL ATTENDING, DR. EVER GARCIA Patient examined about 0900 Dr. Cruz and CATE Nava on bedside Patient c/o severe LEFT shoulder pain Objective Vitals/I&O Vital Signs Date Time Temp Pulse Resp B/P Pulse Ox O2 Delivery O2 Flow Rate FiO2 03/20/17 12:00 98.1 58 18 168/71 93 03/20/17 08:14 Nasal Cannula 4.50 03/18/17 07:00 40 Labs Laboratory Tests Test 03/20/17 03/20/17 04:04 09:31 Creatinine 0.68 0.76 Estimat Glomerular Filtration 87 76 Rate White Blood Count 8.7 Red Blood Count 3.46 Hemoglobin 10.7 Hematocrit 32.1 Mean Corpuscular Volume 92.8 Mean Corpuscular Hemoglobin 31.1 Mean Corpuscular Hemoglobin 33.5 Concent Red Cell Distribution Width 15.7 Platelet Count 175 Mean Platelet Volume 8.1 Neutrophils (%) (Auto) 97.4 Lymphocytes (%) (Auto) 1.0 Monocytes (%) (Auto) 1.4 Eosinophils (%) (Auto) 0.0 Basophils (%) (Auto) 0.2 Neutrophils # (Auto) 8.5 Lymphocytes # (Auto) 0.1 Monocytes # (Auto) 0.1 Eosinophils # (Auto) 0.0 Basophils # (Auto) 0.0 CBC Comment DIFF FINAL Differential Comment Sodium Level 145 Potassium Level 3.1 Chloride Level 112 Carbon Dioxide Level 26.1 Anion Gap 7 Blood Urea Nitrogen 33 Random Glucose 142 Lactic Acid Level 2.3 Calcium Level 7.4 Protein Corrected Calcium 8.3 Magnesium Level 1.9 Total Bilirubin 0.2 Aspartate Amino Transf 19 (AST/SGOT) Alanine Aminotransferase 32 (ALT/SGPT) Alkaline Phosphatase 52 Total Protein 5.5 Albumin 2.1 Lipase 86 Date/Time Procedure Status Source Growth 03/17/17 10:55 Aerobic Blood Culture - Preliminary Resulted Blood Peripheral NO GROWTH IN 3 DAYS 03/17/17 10:55 Anaerobic Blood Culture - Preliminary Resulted Blood Peripheral NO GROWTH IN 3 DAYS 03/17/17 10:00 Urine Culture - Final Complete Urine Clean Catch NO GROWTH IN 48 HOURS. 03/17/17 05:10 Stool Pus (RICHELLE) - Final Complete Stool Stool NO WBC'S SEEN 03/17/17 05:10 - Final Complete Stool Stool NO ENTERIC PATHOGENS DETECTED BY PCR... Radiology Last Impressions Neck CT 03/20/17 0000 Signed Impressions: Service Date/Time: February 09:57 - CONCLUSION: 1. Possible 2 cm mass in the superficial lobe of the right parotid in detail. MRI with contrast is recommended for further evaluation if clinically indicated. Stepan Albarado MD CT Angiography 03/20/17 0000 Signed Impressions: Service Date/Time: February 09:50 - CONCLUSION: 1. New low-density mass in the upper central spleen not present 12 days ago. Differential diagnosis includes an area of infarction or hematoma. 2. New patchy groundglass opacities in both lungs which may be infectious or inflammatory. 3. Minimal effusions. 4. No evidence of pulmonary emboli. Luiz Guzman MD Abdomen/Pelvis CT 03/20/17 0000 Signed Impressions: Service Date/Time: February 09:53 - CONCLUSION: 1. Interval increase in free air greatest in the upper anterior abdomen. A nonspecific bowel gas pattern remains with oral contrast in the colon. There is no extravasated contrast. 2. Nonspecific bowel gas pattern most consistent with an ileus. 3. The splenic infarct is more conspicuous than on the prior study. 4. Minimal effusions are now noted. Luiz Guzman MD Upper GI Series 03/19/17 0000 Signed Impressions: Service Date/Time: Sunday, March 19, 2017 11:40 - CONCLUSION: Limited upper GI series demonstrating no definite perforation. Luiz Guzman MD Chest X-Ray 03/19/17 0000 Signed Impressions: Service Date/Time: Sunday, March 19, 2017 11:38 - CONCLUSION: Underated without significant failure or infiltrate. Amador Macario MD FACR Abdomen X-Ray 03/18/17 0600 Signed Impressions: Service Date/Time: Saturday, March 18, 2017 03:57 - CONCLUSION: NG tube in the stomach. No significant dilatation of large or small bowel. Charles Zamora MD Cardiovascular: Regular Lungs: Clear Abdomen: Other (abdomen mildly distended; epigastric tenderness; LEFT shoulder pain; multiple healing bruises ) Extremities: No edema Narrative Exam Mild soreness in the abdomen much less than the last few days Bruising from Lovenox shots A/P Problem List: (1) Perforated ulcer (2) Acute parotitis (3) Splenic infarction (4) Ibuprofen adverse reaction (5) Abdominal pain (6) COPD exacerbation (7) Pneumonia (8) H/O parotitis Assessment and Plan 66 year old female with COPD and free air visualized on CT scan -Repeat CT abd/pelvis shows increase in free air and splenic infarct Upper GI showed no leak or extravasation -CT neck shows RIGHT parotiditis which is acute -WBC improved -PICC and TPN -Repeat labs in the AM -Pulmonary status appears to be improving -Continue NGT to LIWS -Continue non op treatment at this time -Discussed with Dr. Cruz about plan Attending Statement NOTE FOR SURGICAL ATTENDING, DR. EVER GARCIA Patient seen about 1:30 PM I have discussed the case with Mrs. Saige Gray earlier this morning and with Dr. Cruz She says she feels a lot better but still having some mild abdominal discomfort Her jaw pain is much improved since earlier this morning She's had problems with prostatitis in the past. She has a history of lymphoma in the past was told that she had on lymph node enlargement by her spleen. She has a increased changes on her spleen from her splenic infarct. Clinically she is much improved from Friday with a normal white count and normal renal function good urinary output respiratory status improved abdominal pain improved I suspect her shoulder pain was a result of the splenic infarct Since having her CT scan her swelling in her neck is improved Discussed with Dr. Cruz I feel comfortable and so does the patient about continuing nonoperative therapy for suspected perforated ulcer because of her improved clinical condition Will need parental nutrition I agree with above assessment and plan. The exam, history, and the medical decision-making described in the above note were completed with the assistance of the mid-level provider. I reviewed and agree with the findings presented. I attest that I had a [id number] encounter with the patient on the same day, and personally performed and documented my assessment and findings in the medical record. The following services were provided during this hospital visit: Chart data review, vital sign assessments/reviewing monitor data Review of consultations notes if present. Medication orders/review and/or management Ordering and/or reviewing lab tests Ordering and/or interpreting/reviewing x-rays and/or diagnostic studies Care of the patient and discussion of the patient with the care team Documentation time To help prompt me to consider important information that might be impacting today's encounter and assessment, information from prior notes written by myself or my colleagues may have been "brought forward/copy and pasted" into today's note. Problem Qualifiers (1) Ibuprofen adverse reaction: Qualified Code: T39.315D - Ibuprofen adverse reaction, subsequent encounter (2) Abdominal pain: Qualified Code: R10.12 - Left upper quadrant pain (3) Pneumonia: Qualified Code: J18.1 - Pneumonia of left lower lobe due to infectious organism Rose Gray Mar 20, 2017 14:10 Ever Garcia MD Mar 20, 2017 14:43
[2017-03-20] MEDS ORDERED: SODIUM CHLORIDE 0.9% FLUSH 10 ML FLUSH IV FLUSH PRN (17:45)
--- NOTE | 2017-03-20 18:04 | RADRPT ---
EXAM DATE/TIME: 03/20/2017 17:24 [facility] COMPARISON: CHEST SINGLE AP, March 19, 2017, 11:38. INDICATIONS : Evaluate for PICC line placement. MEDICAL HISTORY : Hypertension. Chronic obstructive pulmonary disease. Lymphoma. SURGICAL HISTORY : Appendectomy. section. ENCOUNTER: Subsequent ACUITY: 1 day PAIN SCORE: 0/10 LOCATION: Bilateral chest FINDINGS: A single view of the chest demonstrates the lungs to be symmetrically aerated without evidence of mas s, infiltrate or effusion. The cardiomediastinal contours are unremarkable. Osseous structures are intact. There is been interval placement of a right-sided PICC line with tip projected over the super ior vena cava. There is no pneumothorax. Nasogastric tube is seen coursing through the esophagus into the stomach. The patient is status post lower cervical fusion with screw-plate fixation device. CONCLUSION: 1. Interval placement of right-sided PICC line. 2. No acute cardiopulmonary disease. Luiz Guzman MD on March 20, 2017 at 18:02 Board Certified Radiologist. This report was verified electronically.
[2017-03-20] MEDS: FAT EMULSION 20% INJ 250 ML (Daily over 8 hours) IV-CENTRAL SCH (20:27)
[2017-03-20] MEDS: ENOXAPARIN SODIUM 40 MG/0.4 ML SYRINGE SQ SCH (20:27)
[2017-03-20] MEDS: CLINIMIX E 4.25/25 2000 mL- >42 mls/hr IV-CENTRAL SCH ×3 (20:32)
[2017-03-20] MEDS ORDERED: PHARMACY ORDERED LAB ONE (23:45)
[2017-03-21] VITALS (14 sets, daily range): BP systolic 137–176; BP diastolic 63–93; PULSE 55–71; RESP 13–22; TEMP 97.7–98; O2SAT 92–95
[2017-03-21] MEDS: VANCOMYCIN INJ 1,500 MG in SODIUM CHLORID 0.9% 500 ML INJ 500 ML IV SCH (00:06)
[2017-03-21 00:20] LABS: ALKALINE PHOSPHATASE 54 U/L (45-117); ALT (GPT) 31 U/L (10-53); ANION GAP 9 MEQ/L (5-15); AST (GOT) 21 U/L (15-37); BICARBONATE 26.3 MEQ/L (21.0-32.0); BLOOD UREA NITROGEN 33 MG/DL (7-18); CHLORIDE 110 MEQ/L (98-107); GLOMERULAR FILTRATION RATE 87 ML/MIN (>89); POTASSIUM 3.1 MEQ/L (3.5-5.1); SODIUM (NA) 145 MEQ/L (136-145); TOTAL BILIRUBIN ADULT 0.3 MG/DL (0.2-1.0); VANCOMYCIN TROUGH 7.3 MCG/ML (5.0-10.0)
[2017-03-21] MEDS: LOW DOSE INSULIN NOVOLOG SUPPLEMENTAL SCALE SQ SCH ×4 (01:04→17:12)
[2017-03-21] MEDS: MORPHINE SULFATE 4 MG/ML INJ IV PRN ×5 (01:04→16:35)
[2017-03-21] MEDS: RESP: ALBUTEROL 2.5 MG/IPRATROPIUM 0.5 MG NEB (SCH) NEB ×2 (03:01→09:17)
[2017-03-21] MEDS: LABETALOL HCL 100 MG/20 ML VIAL IV PUSH PRN ×4 (03:53→23:52)
[2017-03-21] MEDS: CHLORHEXIDINE GLUCONATE 2 % 1 PACK (2 CLOTHS) TOP SCH (04:25)
[2017-03-21] MEDS: hydrALAZINE HCL 20 MG/ML VIAL IV PUSH PRN ×2 (05:07→22:17)
--- NOTE | 2017-03-21 05:08 | RADRPT ---
EXAM DATE/TIME: 03/21/2017 03:08 [facility] COMPARISON: CHEST SINGLE AP, March 20, 2017, 17:24. INDICATIONS : Shortness of breath. MEDICAL HISTORY : Hypertension. Chronic obstructive pulmonary disease. Lymphoma. SURGICAL HISTORY : None. ENCOUNTER: Subsequent ACUITY: 4 - 6 days PAIN SCORE: Non-responsive. LOCATION: Bilateral chest FINDINGS: Mild bibasilar atelectasis noted, slightly worse. Probably a small left pleural effusion developing a s well. No pneumothorax. Heart size stable, upper limits of normal. There is a nasogastric tube coursing into the stomach. Right arm PICC with tip in the superior vena c kelli again noted. CONCLUSION: Small left pleural effusion and mild bibasilar atelectasis worsening/developing. Anthony Hernadez MD on March 21, 2017 at 5:05 Board Certified Radiologist. This report was verified electronically.
[2017-03-21] MEDS: metroNIDAZOLE 500 MG INJ 100 ML IV SCH ×3 (06:07→22:18)
[2017-03-21 06:11] LABS: AUTOMATED NEUTROPHIL # 6.9 TH/MM3 (1.8-7.7); BASOPHIL % 0.1 % (0.0-2.0); HEMATOCRIT 34.3 % (35.0-46.0); HEMO FLAGS DIFF FINAL; LYMPH % 1.3 % (9.0-44.0); LYMPHOCYTE # 0.1 TH/MM3 (1.0-4.8); MEAN CELL VOLUME 93.7 FL (80.0-100.0); MEAN CORPUSCULAR HEMOGLOBIN 30.3 PG (27.0-34.0); MEAN CORPUSCULAR HGB CONC 32.4 % (32.0-36.0); MONO % 3.6 % (0.0-8.0); PLATELET COUNT 197 TH/MM3 (150-450); RED BLOOD COUNT 3.66 MIL/MM3 (4.00-5.30); RED CELL DISTRIBUTION WIDTH 15.6 % (11.6-17.2); WHITE BLOOD COUNT 7.2 TH/MM3 (4.0-11.0)
[2017-03-21 06:25] LABS: POTASSIUM 3.1 MEQ/L (3.5-5.1)
--- NOTE | 2017-03-21 07:53 | MB ---
cc: PUJA SCHULTZ DATE OF CONSULTATION 03/20/2017 REASON FOR CONSULTATION History of low grade lymphoma with splenic infarct. PATIENT PROFILE The patient is 66-year white female. She is . She has two children both daughters. She was born in [place]. She lives in [place]. She came to this area for her brother's . She has been disabled since 2000 due to injury to the C5 and C6 area from herniated disks and has requires surgery on two occasions. She has smoked a pack of cigarettes per day for 50 years. She does not drink alcohol. HISTORY OF PRESENT ILLNESS The patient presented to the emergency room at [facility] on 03/08/2017 in respiratory distress after intubation. She has a history of COPD and a longstanding history of tobacco use. At the time of her presentation, she had a CT angiogram. There was no evidence of a PE. There were no enlarged lymph nodes in the mediastinum, chest, or axillary area. She did have mild splenomegaly. She was treated for pneumonia and an exacerbation of COPD and discharged from the hospital on March 16 with the understanding that she had a an exacerbation of COPD associated with pneumonia. She was treated with steroids and antibiotics in the hospital. She was readmitted to the hospital on the following day with abdominal pain. On 03/17/2017, a diagnosis of bowel perforation and sepsis was made, She had a CT scan of the abdomen and pelvis on 03/17 which showed several small droplets of free air in the upper abdomen characteristic of free intraperitoneal air. There was fluid seen in the pelvis as wll as adjacent to the liver and spleen. Intestinal perforation was a primary consideration. There was a wedge-shaped area of decreased density in the spleen suggestive of a splenic infarct. There was a 2 cm left adrenal mass felt to be an adrenal adenoma. There were a few nonspecific mildly prominent inguinal lymph nodes seen bilaterally. She has been managed conservatively. She has an NG tube. She is receiving antibiotics. Today she had increased pain. She had pain in the neck, pain in the shoulder area and a significant increase in the abdominal pain. The CT scan from today 03/20/2017 shows an interval increase in free air greatest in the upper anterior abdomen. There is a nonspecific bowel gas pattern consistent with an ileus. The splenic infarct is more conspicuous than on the prior study. A CT angiogram was likewise done on 03/20/2017 and this shows a low density mass in the upper central spleen which was not present on the film from 12 days ago. There were new patchy ground-glass opacities in both lungs felt to likely be infectious or inflammatory. There was no evidence of a pulmonary embolus. The patient indicates that approximately two years ago she was diagnosed with lymphoma. She states that she had a biopsy of a lymph node in the right axillary area and in the left neck or supraclavicular area. This showed a low grade lymphoma as per her history. She has not required any treatment and specifically she has received no chemotherapy or radiation. She was told that she had stage II disease and that observation was appropriate. LABORATORY STUDIES Hemoglobin 10.7, white count 8700, platelets 175,000 with 97% neutrophils. PT on 03/17 is 11.7, PTT is 22. BUN is 33, creatinine is 0.76, albumin is 2.1. Liver function tests are normal. Lactic acid is 2.3. PAST SURGICAL HISTORY 1. Cervical disk surgery x2 in [id number] with titanium placement to stabilize neck. 2. The patient's as two artificial knees. 3. 4. Cyst removed from ovaries. 5. Breast biopsy benign. 6. Approximately two years ago removal of lymph node from either the left neck of left supraclavicular area and a lymph node from the right axilla revealing a low grade lymphoma. She remembers being told that she had stage IIA disease. She has been undergoing observation. PAST MEDICAL HISTORY 1. Neuropathy with pain in the left leg. 2. Low grade lymphoma, stage II 3. COPD 4. Probable bowel perforation presently 5. Obesity 6. Osteoarthritis 7. Hypertension 8. Acid reflux 9. Depression 10. Anxiety CURRENT MEDICATIONS 1. Azactam 2. Flagyl 3. Diflucan 4. Protonix 5. Solu-Medrol 6. Vancomycin 7. Albuterol 8. Subcu heparin 5000 units q.8 h 9. TPN ALLERGIES BACTRIM, CODEINE, OXYCODEONE, PENICILLIN, ROCEPHIN AND SULFA. FAMILY HISTORY Noncontributory REVIEW OF SYSTEMS Notable for the recent events. There is no change in vision or hearing. She has no chest pain. She has pain in the shoulder. She has abdominal pain and distension. No melena or hematochezia, no dysuria or frequency. She has a Dimas catheter. PHYSICAL EXAM Physical exam reveals an acutely ill-appearing female. VITAL SIGNS: Blood pressure is 140/80, respiratory rate is 18, pulse 80, afebrile, O2 sat is 94%. HEAD: Normocephalic. EYES: Sclera and conjunctiva normal. EARS, NOSE, AND THROAT: Oropharynx unremarkable. I cannot detect any adenopathy with examination of the cervical, supraclavicular, axillary or inguinal areas. She is markedly obese and it difficult to examine these areas. HEART: Regular rhythm. LUNGS: A few rales at the bases. ABDOMEN: Extremely obese, distended upper abdominal with tenderness. EXTREMITIES: Trace edema. MUSCULOSKELETAL: No bone pain. NEUROLOGIC: No focal weakness. PSYCHIATRIC: She is frightened and she wants to know whether she is going to survive the hospitalization. ASSESSMENT - PROBLEMS #1 The patient has a history of a low grade lymphoma which according to her is stage II with disease identified in the left neck and right axilla. I believe that this does not play any immediate role in her current problem. Her spleen was noted to be enlarged. It is possible that lymphoma involves the spleen, but this would not in itself be problematic. Her CT scan of the thorax, abdomen and pelvis does not show any significant adenopathy or mass involving stomach or bowel. PROBLEM #2 She has an infarction in the spleen. I suspect that this is due to the fact that she is very he ill with peritonitis which may have worsened. She is receiving subcu heparin 5000 units q.8 h. This is reasonable prophylaxis, but in looking through her records, it appears that the infarct may have occurred when she was on the subcu heparin. She is clearly hypercoagulable because of her obesity, illness and bedridden state. At this point, I feel would be prudent to increase the anticoagulation. Will order lovenex 40 mg sub cut every 12 hours and stop the subcut heparin. If she develops infarcts in any other area or DVT, then she should be fully anticoagulated. The major question will be does she require surgery or can she be managed medically. Unfortunately, her current CT scan is worrisome for possible ongoing perforation/peritonitis. This question as to whether surgery is required belongs with the surgeon and other members of her team. MD JASON Maldonado/BRADLEY /7:37 PM /7:26 AM WENDY
[2017-03-21] MEDS: TIOTROPIUM BROMIDE 18 MCG INH INH SCH (09:00)
[2017-03-21] MEDS: SODIUM CHLORIDE 0.9% FLUSH 10 ML FLUSH IV FLUSH SCH (09:00)
[2017-03-21] MEDS: FLUCONAZOLE 400 MG PREMIX BAG 200 ML IV SCH (09:21)
[2017-03-21] MEDS: AZTREONAM INJ 2,000 MG in SODIUM CHLORIDE 0.9% INJ 100 ML IV SCH ×2 (09:21→16:23)
[2017-03-21] MEDS: PANTOPRAZOLE SODIUM 40 MG VIAL IV SCH ×2 (09:21→21:04)
[2017-03-21] MEDS: POTASSIUM CHLOR 20 MEQ PREMIX 100 ML IV SCH ×2 (09:21→09:23)
[2017-03-21] MEDS: ENOXAPARIN SODIUM 40 MG/0.4 ML SYRINGE SQ SCH ×2 (09:21→21:04)
[2017-03-21] MEDS: methylPREDNISolone SOD SUCC 125 MG/2 ML VIAL IV PUSH SCH (09:22)
[2017-03-21] MEDS: SODIUM CHLOR 0.9% 1000 ML INJ 1,000 ML IV SCH ×2 (09:25→10:23)
[2017-03-21] MEDS: LORazepam 2 MG/ML VIAL IV PUSH PRN ×2 (12:16→22:17)
--- NOTE | 2017-03-21 12:31 | HHI.CCPN ---
Subjective Remarks/Hospital Course The patient is a 66 year old female with past medical history significant for COPD, anxiety disorder, chronic pain, hypertension was just recently discharged from hospital after admitted for almost a days for COPD exacerbation with pneumonia from emesis and H. influenzae. Patient was admitted from 03/08/17- . She presented today with a history of abdominal pain that reportedly is been getting gradually worse since onset (started while in the hospital). The patient reports that the pain was 10 out of 10 in severity, in the ER. She was discharged home yesterday on steroid and Levaquin. The patient was given 30 mL per KG IV fluid bolus. WBC count came back elevated at 18,200 with a left shift , the patient was started on Azactam, Flagyl, and vancomycin. CMP is remarkable for CO2 33.3, BUN 35, creatinine 1.05, lactic acid 2.2, Chest x-ray that shows a left lower lobe infiltrate, CT scan of the abdomen and pelvis revealed several small droplets of free air in the upper abdomen characteristic of free intraperitoneal air, some free fluid in the pelvis and adjacent to the liver and spleen, intestinal perforation as a primary consideration, location is unknown. The patient is also noted to have a wedge area of decreased density in the spleen suggestive of a splenic infarct. Critical care medicine was consulted for admission for acute peritonitis and severe sepsis. Additional history shows that patient was taking 800 mg Motrin several times a day for several years. This makes a perforated gastric ulcer possibility according to surgeon Dr. Garcia. Patient will be conservative management with IV hydration and broad-spectrum antibiotics. If any clinical deterioration patient will have to go for OR for laparotomy 03/18/17: Clinically improving, some improvement in abdominal pain. KUB no free air. WBC 18.2 --> 14.5. Lactic acid has normalized. LLL infiltrate improved 03/19/17: Continues to improve clinically. UGI series ordered by general surgery. Continue conservative management. Now on NRB, but saturation may be low due to poor probe contact. D/W RT and will wean O2 down. 03/20/17: Patient complaining of acute onset pain of left shoulder posteriorly, and right parotid region. Also increasing shortness of breath. Right parotid gland is swollen and tender. CT pulmonary angiogram with CT abdomen pelvis and CT of the neck ordered stat. Patient getting morphine for pain 03/21/17: C/o persistent left shoulder and upper chest pain. On examination patient has mild subcutaneous emphysema extending from the left upper chest to the left shoulder. Abdominal exam has not changed. Dr. Garcia to re evaluate today, new finding of s/q emphysema L upper chest discussed with Dr. Garcia. Air most likely tracking up from intra abdominal free air Objective Vital Signs Date Time Temp Pulse Resp B/P Pulse Ox O2 Delivery O2 Flow Rate FiO2 03/21/17 09:19 95 Nasal Cannula 4.00 03/21/17 06:00 61 03/21/17 04:00 97.7 19 150/67 03/18/17 07:00 40 Intake and Output 03/20/17 03/20/17 03/21/17 08:00 16:00 00:00 Intake Total 1087 ml 1019 ml 485 ml Output Total 450 ml 475 ml 550 ml Balance 637 ml 544 ml -65 ml Result Diagram: 03/21/17 0515 03/21/17 0515 Imaging Chest x-ray that shows a left lower lobe infiltrate CT scan of the abdomen and pelvis reveals several small droplets of free air in the upper abdomen characteristic of free intraperitoneal air, some free fluid in the pelvis and adjacent to the liver and spleen, intestinal perforation as a primary consideration, location is unknown. The patient is also noted to have a wedge area of decreased density in the spleen suggestive of a splenic infarct. Objective Remarks General: The patient is a well-developed well-nourished female, moderate distress from L upper chest and shoulder pain. Head and Neck exam: Head is normocephalic atraumatic. R parotid gland is swollen and tender Eyes: Pupils are equal round and reactive to light. ENT: Right parotid gland is tender swollen. Neck: No palpable lymphadenopathy. No nuchal rigidity. No thyromegaly. Chest: L posterior shoulder pain and tenderness Cardiovascular: Regular rate and rhythm without murmurs, gallops, or rubs. Left upper chest, L shoulder with subcutaneous emphysema Lungs: Mild Expiratory wheezes bilaterally, some accessory muscle use is noted. Abdomen: Diffuse abdominal tenderness on palpation. Multiple areas of ecchymosis from Lovenox injections. No guarding, rebound, or rigidity. Extremities: No clubbing, cyanosis, or edema. 2+ pulses in all 4 extremities. No calf tenderness on palpation. Neurologic Exam: Awake oriented. No focal deficits. moderate to severe distress due to pain A/P Assessment and Plan Assessment: This is a 69-year-old female with history of COPD admitted to [facility] 03/08-03/16 initially intubated for acute COPD exacerbation, now presenting with severe sepsis and probable viscus perforation. General surgery Dr. Garcia. Currently on broad-spectrum antibiotics and IV fluids for peritonitis from perforated viscus probably stomach Plan: NEURO/HEENT: Anxiety Chronic pain Acute parotitis -- IV morphine for pain control -- Acute tender parotid swelling started 03/20/17. ENT consulted, neck CT- probable mass, clinically acute parotitis. Continue broad spectrum ABX Vanc, cefepime and Flagyl -- Hold antidepressants while nothing by mouth, also hold Neurontin Resp: Acute COPD Exacerbation HCAP/LLL pneumonia L upper chest s/q emphysema -- Recently admitted for COPD exacerbation, and pneumonia with MSSA and Haemophilus influenza (Admitted from 03/08 to 03/16) -- Wean FiO2 for goal spo2 > 88-90% -- HOB at 30 degrees -- Solu-Medrol 60 [id number] to 40 mg IV q12. Patient was on tapering dose of prednisone -- DuoNebs q4h and q2h prn. CXR in the AM-no free air, improving LLL infiltrate , repeat today -- CT pulmonary angiogram ordered today due to acute onset left shoulder pain, with shortness of breath-No PE, +ve splenic infarct CVS: Transient hypotension Lactic acidosis Peritonitis secondary to perforated viscus -- Monitor HR and BP closely -- IVF NS 50 ml per hour -- Trend lactic acid GI: Probable visceral perforation with peritonitis Splenic infarct L upper chest s/q emphysema probably air tracking from abdomen -- Keep Nothing by mouth, IV Protonix 40 mg every 12. TPN -- Gen. surgery Dr. Garcia following -- Broad-spectrum antibiotics -- Medical management and ex lap if not improving -- UGI series 03/19/17-no evidence of perforation -- Stat CT abd pelvis 03/20, increasing free air. Exam today with s/q air L upper chest concerning for worsening perforation -- D/W Dr. Garcia again today 03/21/17. : Acute kidney insufficiency -- Most likely secondary to peritonitis and sepsis -- IVF as above. Dimas for strict I/O ID: Severe sepsis Peritonitis secondary to perforated viscus Left lower lobe pneumonia/HCAP Probable acute parotitis -- F/U urine and blood cultures negative to date -- Empiric antibiotics Azactam Flagyl and vancomycin started 03/17/17 HEME -- Monitor CBC, coags -- Leukocytosis secondary to sepsis ENDO: -- Electrolyte replacement per protocol PROPH: --SCDs, PPI for prophylaxis. Heparin 5000 units subcutaneous every 8 Overall impression: Critically ill with severe sepsis, visceral perforation bronchospasm and COPD exacerbation, now with acute bronchitis and acute left shoulder pain and worsening intra abdominal free air Level 3 Sarah Cruz MD Mar 21, 2017 12:31 Sarah Curz MD Mar 21, 2017 12:31
[2017-03-21 13:38] LABS: BACTERIA, URINE RARE /hpf; BLOOD, URINE LARGE (NEG); COMMENT (UR) CATH-CULTURE IND; CULTURE IF INDICATED CATH CULTURE IND; GLUCOSE,URINE NEG (NEG); KETONE, URINE NEG (NEG); NITRITE,URINE NEG (NEG)
[2017-03-21 13:41] LABS: URINE COLOR RED (YELLW/STRAW)
--- NOTE | 2017-03-21 13:41 | HHI.PR ---
Subjective Subjective Notes DAILY PROGRESS NOTE FOR SURGICAL ATTENDING, DR. EVER GARCIA Resting in bed States on episode of LEFT shoulder pain Wants ice chips Objective Vitals/I&O Vital Signs Date Time Temp Pulse Resp B/P Pulse Ox O2 Delivery O2 Flow Rate FiO2 03/21/17 09:19 95 Nasal Cannula 4.00 03/21/17 06:00 61 03/21/17 04:00 97.7 19 150/67 03/18/17 07:00 40 Labs Laboratory Tests Test 03/20/17 03/21/17 03/21/17 23:45 05:15 12:30 Sodium Level 145 146 Potassium Level 3.1 3.1 Chloride Level 110 112 Carbon Dioxide Level 26.3 27.0 Anion Gap 9 7 Blood Urea Nitrogen 33 34 Creatinine 0.68 0.73 Estimat Glomerular Filtration 87 80 Rate Random Glucose 197 183 Calcium Level 7.9 8.0 Magnesium Level 2.0 Total Bilirubin 0.3 Aspartate Amino Transf 21 (AST/SGOT) Alanine Aminotransferase 31 (ALT/SGPT) Alkaline Phosphatase 54 Total Protein 5.8 Albumin 2.1 Vancomycin Level Trough 7.3 White Blood Count 7.2 Red Blood Count 3.66 Hemoglobin 11.1 Hematocrit 34.3 Mean Corpuscular Volume 93.7 Mean Corpuscular Hemoglobin 30.3 Mean Corpuscular Hemoglobin 32.4 Concent Red Cell Distribution Width 15.6 Platelet Count 197 Mean Platelet Volume 8.0 Neutrophils (%) (Auto) 95.0 Lymphocytes (%) (Auto) 1.3 Monocytes (%) (Auto) 3.6 Eosinophils (%) (Auto) 0.0 Basophils (%) (Auto) 0.1 Neutrophils # (Auto) 6.9 Lymphocytes # (Auto) 0.1 Monocytes # (Auto) 0.3 Eosinophils # (Auto) 0.0 Basophils # (Auto) 0.0 CBC Comment DIFF FINAL Differential Comment Lactic Acid Level 1.8 Date/Time Procedure Status Source Growth 03/17/17 10:55 Aerobic Blood Culture - Preliminary Resulted Blood Peripheral NO GROWTH IN 4 DAYS 03/17/17 10:55 Anaerobic Blood Culture - Preliminary Resulted Blood Peripheral NO GROWTH IN 4 DAYS 03/17/17 10:00 Urine Culture - Final Complete Urine Clean Catch NO GROWTH IN 48 HOURS. 03/17/17 05:10 Stool Pus (RICHELLE) - Final Complete Stool Stool NO WBC'S SEEN 03/17/17 05:10 - Final Complete Stool Stool NO ENTERIC PATHOGENS DETECTED BY PCR... Radiology Last Impressions Chest X-Ray 03/21/17 0600 Signed Impressions: Service Date/Time: Tuesday, March 21, 2017 03:08 - CONCLUSION: Small left pleural effusion and mild bibasilar atelectasis worsening/developing. Anthony Hernadez MD Neck CT 03/20/17 0000 Signed Impressions: Service Date/Time: February 09:57 - CONCLUSION: 1. Possible 2 cm mass in the superficial lobe of the right parotid in detail. MRI with contrast is recommended for further evaluation if clinically indicated. Stepan Albarado MD CT Angiography 03/20/17 0000 Signed Impressions: Service Date/Time: February 09:50 - CONCLUSION: 1. New low-density mass in the upper central spleen not present 12 days ago. Differential diagnosis includes an area of infarction or hematoma. 2. New patchy groundglass opacities in both lungs which may be infectious or inflammatory. 3. Minimal effusions. 4. No evidence of pulmonary emboli. Luiz Guzman MD Abdomen/Pelvis CT 03/20/17 0000 Signed Impressions: Service Date/Time: February 09:53 - CONCLUSION: 1. Interval increase in free air greatest in the upper anterior abdomen. A nonspecific bowel gas pattern remains with oral contrast in the colon. There is no extravasated contrast. 2. Nonspecific bowel gas pattern most consistent with an ileus. 3. The splenic infarct is more conspicuous than on the prior study. 4. Minimal effusions are now noted. Luiz Guzman MD Upper GI Series 03/19/17 0000 Signed Impressions: Service Date/Time: Sunday, March 19, 2017 11:40 - CONCLUSION: Limited upper GI series demonstrating no definite perforation. Liuz Guzman MD Abdomen X-Ray 03/18/17 0600 Signed Impressions: Service Date/Time: Saturday, March 18, 2017 03:57 - CONCLUSION: NG tube in the stomach. No significant dilatation of large or small bowel. Charles Zamora MD Cardiovascular: Regular, Other (right shoulder pain) Lungs: Clear Abdomen: Other (abdomen mildly distended; RUQ and LUQ tenderness with paplation ; brusing noted ) Extremities: No edema A/P Problem List: (1) Perforated ulcer (2) Acute parotitis (3) Splenic infarction (4) Ibuprofen adverse reaction (5) Abdominal pain (6) COPD exacerbation (7) Pneumonia (8) H/O parotitis Assessment and Plan 66 year old female with COPD and free air visualized on CT scan -KUB and CXR today -Repeat CT abd/pelvis from yesterday shows increase in free air and splenic infarct -CT neck on 03/20 shows RIGHT parotiditis -WBC continues to trend down -PICC and TPN -Replace K -Pulmonary status appears to be improving -Continue NGT to LIWS; okay for a few ice chips -Continue non op treatment at this time -Dr. Garcia discussed with Dr. Cruz about plan Attending Statement NOTE FOR SURGICAL ATTENDING, DR. EVER GARCIA Patient seen in the intensive care unit and examined States her pain in her left shoulder is improved Pain in her right parotid improved Mild abdominal discomfort No shortness of breath or nausea at this point Discussed with Dr. Cruz Overall I believe she continues to improve no signs of an acute abdomen at this point Overall clinical improvement continue maximal medical therapy I agree with above assessment and plan. The exam, history, and the medical decision-making described in the above note were completed with the assistance of the mid-level provider. I reviewed and agree with the findings presented. I attest that I had a [id number] encounter with the patient on the same day, and personally performed and documented my assessment and findings in the medical record. The following services were provided during this hospital visit: Chart data review, vital sign assessments/reviewing monitor data Review of consultations notes if present. Medication orders/review and/or management Ordering and/or reviewing lab tests Ordering and/or interpreting/reviewing x-rays and/or diagnostic studies Care of the patient and discussion of the patient with the care team Documentation time To help prompt me to consider important information that might be impacting today's encounter and assessment, information from prior notes written by myself or my colleagues may have been "brought forward/copy and pasted" into today's note. Problem Qualifiers (1) Ibuprofen adverse reaction: Qualified Code: T39.315D - Ibuprofen adverse reaction, subsequent encounter (2) Abdominal pain: Qualified Code: R10.12 - Left upper quadrant pain (3) Pneumonia: Qualified Code: J18.1 - Pneumonia of left lower lobe due to infectious organism Rose Gray Mar 21, 2017 13:41 Ever Garcia MD Mar 21, 2017 14:21
--- NOTE | 2017-03-21 14:19 | RADRPT ---
EXAM DATE/TIME: 03/21/2017 13:10 [facility] COMPARISON: CHEST SINGLE AP, March 21, 2017, 3:08. INDICATIONS : Patient has had abdomen pain and shoulder pain since this morning. MEDICAL HISTORY : Hypertension. Chronic obstructive pulmonary disease. Lymphoma. SURGICAL HISTORY : Appendectomy. section. ENCOUNTER: Subsequent ACUITY: 2 weeks PAIN SCORE: 10/10 LOCATION: Bilateral Chest FINDINGS: A single view of the chest demonstrates the lungs to be symmetrically aerated without evidence of mas s, infiltrate or effusion. The right-sided PICC line remains in place. The cardiomediastinal contour s are unremarkable. Osseous structures are intact. The patient is status post lower cervical fusion. There are benign electrocardiogram leads. There is mild atelectasis or scarring at the left lung bas e. A nasogastric tube is seen coursing through the esophagus into the stomach. CONCLUSION: 1. Mild atelectasis and/or scarring at the left lung base. 2. No acute cardiopulmonary disease. Luiz Guzman MD on March 21, 2017 at 14:17 Board Certified Radiologist. This report was verified electronically.
--- NOTE | 2017-03-21 15:32 | RADRPT ---
EXAM DATE/TIME: 03/21/2017 13:14 [facility] COMPARISON: CT ABDOMEN & PELVIS W CONTRAST, March 20, 2017, 9:53. INDICATIONS : Patient has had abdomen pain and shoulder pain since this morning. Increasing free air. MEDICAL HISTORY : Hypertension. Chronic obstructive pulmonary disease. Lymphoma. SURGICAL HISTORY : Appendectomy. section. ENCOUNTER: Subsequent ACUITY: 2 weeks PAIN SCORE: 8/10 LOCATION: Bilateral abdomen. FINDINGS: 2 AP supine views of the abdomen were obtained as well as an erect view of the upper abdomen. This de monstrates a nonspecific bowel gas pattern. The bowel loops are poorly defined with residual contrast noted in multiple bowel loops. There are several air-containing areas of dilated bowel in the upper central abdomen. There is a large amount of free air in the upper abdomen. The erect film demonstrate s placement of a nasogastric tube projected over the stomach. The lung bases appear clear. CONCLUSION: 1. Large amount of free air in the upper abdomen. 2. Nonspecific bowel gas pattern. 3. Placement of nasogastric tube. Luiz Guzman MD on March 21, 2017 at 15:26 Board Certified Radiologist. This report was verified electronically.
[2017-03-21] MEDS: FAT EMULSION 20% INJ 250 ML (Daily over 8 hours) IV-CENTRAL SCH (21:03)
[2017-03-21] MEDS: CLINIMIX E 4.25/25 2000 mL- >42 mls/hr IV-CENTRAL SCH ×3 (21:03)
[2017-03-21] MEDS: methylPREDNISolone SOD SUCC 40 MG/1 ML VIAL IV SCH (21:04)
[2017-03-21 21:11] LABS: MEAN CORPUSCULAR HGB CONC 36.2 % (32.0-36.0)
[2017-03-21] MEDS: VANCOMYCIN INJ 2,500 MG in SODIUM CHLORID 0.9% 500 ML INJ 500 ML IV SCH (23:52)
[2017-03-22] VITALS (12 sets, daily range): BP systolic 146–178; BP diastolic 67–92; PULSE 50–64; RESP 14–21; TEMP 97.7–98.6; O2SAT 90–97
[2017-03-22] MEDS: MORPHINE SULFATE 4 MG/ML INJ IV PRN ×4 (02:52→21:50)
[2017-03-22] MEDS: CHLORHEXIDINE GLUCONATE 2 % 1 PACK (2 CLOTHS) TOP SCH (03:30)
[2017-03-22 04:53] LABS: AUTOMATED NEUTROPHIL # 8.2 TH/MM3 (1.8-7.7); BASOPHIL # 0.1 TH/MM3 (0-0.2); BASOPHIL % 0.9 % (0.0-2.0); HEMATOCRIT 32.8 % (35.0-46.0); LYMPH % 1.7 % (9.0-44.0); LYMPHOCYTE # 0.1 TH/MM3 (1.0-4.8); MEAN CELL VOLUME 95.1 FL (80.0-100.0); MEAN CORPUSCULAR HEMOGLOBIN 34.4 PG (27.0-34.0); MONO % 3.2 % (0.0-8.0); NEUT % 94.2 % (16.0-70.0); PLATELET COUNT 197 TH/MM3 (150-450); RED BLOOD COUNT 3.45 MIL/MM3 (4.00-5.30); RED CELL DISTRIBUTION WIDTH 16.6 % (11.6-17.2); WHITE BLOOD COUNT 8.7 TH/MM3 (4.0-11.0)
[2017-03-22 04:58] LABS: HEMO FLAGS AUTO DIFF
[2017-03-22 05:38] LABS: ALT (GPT) 26 U/L (10-53); AST (GOT) 30 U/L (15-37); TOTAL BILIRUBIN ADULT 0.4 MG/DL (0.2-1.0)
[2017-03-22 05:53] LABS: ALKALINE PHOSPHATASE 47 U/L (45-117); ANION GAP 9 MEQ/L (5-15); BICARBONATE 24.2 MEQ/L (21.0-32.0); BLOOD UREA NITROGEN 35 MG/DL (7-18); CHLORIDE 108 MEQ/L (98-107); GLOMERULAR FILTRATION RATE 81 ML/MIN (>89); MAGNESIUM 2.2 MG/DL (1.5-2.5); POTASSIUM 4.6 MEQ/L (3.5-5.1); SODIUM (NA) 141 MEQ/L (136-145)
[2017-03-22] MEDS: SODIUM CHLOR 0.9% 1000 ML INJ 1,000 ML IV SCH (05:54)
[2017-03-22 06:00] LABS: SCAN/DIFF AUTO DIFF CONFIRMED
[2017-03-22] MEDS: LOW DOSE INSULIN NOVOLOG SUPPLEMENTAL SCALE SQ SCH ×5 (06:00→23:31)
--- NOTE | 2017-03-22 06:29 | RADRPT ---
EXAM DATE/TIME: 03/22/2017 04:27 [facility] COMPARISON: CHEST SINGLE AP, March 21, 2017, 13:10. INDICATIONS : Shortness of breath, possible pulmonary disease. MEDICAL HISTORY : Hypertension. Chronic obstructive pulmonary disease. Lymphoma. SURGICAL HISTORY : Appendectomy. section. ENCOUNTER: Subsequent ACUITY: 2 weeks PAIN SCORE: Non-responsive. LOCATION: Bilateral chest FINDINGS: There is minimal bibasilar atelectasis, slightly improved. No large effusion. No pneumothorax. Heart size stable, within normal limits. Right arm PICC with tip in the superior vena cava unchanged. CONCLUSION: Minimal bibasilar atelectasis. Anthony Hernadez MD on March 22, 2017 at 6:27 Board Certified Radiologist. This report was verified electronically.
[2017-03-22] MEDS: AZTREONAM INJ 2,000 MG in SODIUM CHLORIDE 0.9% INJ 100 ML IV SCH ×5 (07:54→23:08)
[2017-03-22] MEDS: ENOXAPARIN SODIUM 40 MG/0.4 ML SYRINGE SQ SCH ×2 (07:54→20:07)
[2017-03-22] MEDS: PANTOPRAZOLE SODIUM 40 MG VIAL IV SCH ×2 (07:54→20:06)
[2017-03-22] MEDS: FLUCONAZOLE 400 MG PREMIX BAG 200 ML IV SCH (07:55)
[2017-03-22] MEDS: metroNIDAZOLE 500 MG INJ 100 ML IV SCH ×3 (07:55→21:15)
[2017-03-22] MEDS: methylPREDNISolone SOD SUCC 40 MG/1 ML VIAL IV SCH ×2 (07:55→20:06)
[2017-03-22] MEDS: TIOTROPIUM BROMIDE 18 MCG INH INH SCH (07:56)
[2017-03-22] MEDS: SODIUM CHLORIDE 0.9% FLUSH 10 ML FLUSH IV FLUSH SCH (07:56)
[2017-03-22] MEDS: hydrALAZINE HCL 20 MG/ML VIAL IV PUSH PRN ×2 (08:23→21:15)
--- NOTE | 2017-03-22 09:12 | HHI.CCPN ---
Subjective Remarks/Hospital Course The patient is a 66 year old female with past medical history significant for COPD, anxiety disorder, chronic pain, hypertension was just recently discharged from hospital after admitted for almost a days for COPD exacerbation with pneumonia from emesis and H. influenzae. Patient was admitted from 03/08/17- . She presented today with a history of abdominal pain that reportedly is been getting gradually worse since onset (started while in the hospital). The patient reports that the pain was 10 out of 10 in severity, in the ER. She was discharged home yesterday on steroid and Levaquin. The patient was given 30 mL per KG IV fluid bolus. WBC count came back elevated at 18,200 with a left shift , the patient was started on Azactam, Flagyl, and vancomycin. CMP is remarkable for CO2 33.3, BUN 35, creatinine 1.05, lactic acid 2.2, Chest x-ray that shows a left lower lobe infiltrate, CT scan of the abdomen and pelvis revealed several small droplets of free air in the upper abdomen characteristic of free intraperitoneal air, some free fluid in the pelvis and adjacent to the liver and spleen, intestinal perforation as a primary consideration, location is unknown. The patient is also noted to have a wedge area of decreased density in the spleen suggestive of a splenic infarct. Critical care medicine was consulted for admission for acute peritonitis and severe sepsis. Additional history shows that patient was taking 800 mg Motrin several times a day for several years. This makes a perforated gastric ulcer possibility according to surgeon Dr. Garcia. Patient will be conservative management with IV hydration and broad-spectrum antibiotics. If any clinical deterioration patient will have to go for OR for laparotomy 03/18/17: Clinically improving, some improvement in abdominal pain. KUB no free air. WBC 18.2 --> 14.5. Lactic acid has normalized. LLL infiltrate improved 03/19/17: Continues to improve clinically. UGI series ordered by general surgery. Continue conservative management. Now on NRB, but saturation may be low due to poor probe contact. D/W RT and will wean O2 down. 03/20/17: Patient complaining of acute onset pain of left shoulder posteriorly, and right parotid region. Also increasing shortness of breath. Right parotid gland is swollen and tender. CT pulmonary angiogram with CT abdomen pelvis and CT of the neck ordered stat. Patient getting morphine for pain 03/21/17: C/o persistent left shoulder and upper chest pain. On examination patient has mild subcutaneous emphysema extending from the left upper chest to the left shoulder. Abdominal exam has not changed. Dr. Garcia to re evaluate today, new finding of s/q emphysema L upper chest discussed with Dr. Garcia. Air most likely tracking up from intra abdominal free air 03/22/17: Continues to be critically ill, large amount of free air on KUB yesterday. I did not feel subcutaneous emphysema left upper chest today. Patient anxious about prognosis. WBC normal. UO 1.4 L in 24 hours Objective Vital Signs Date Time Temp Pulse Resp B/P Pulse Ox O2 Delivery O2 Flow Rate FiO2 03/22/17 06:00 50 03/22/17 04:00 98.6 19 156/92 93 03/21/17 20:38 Nasal Cannula 3.00 03/18/17 07:00 40 Intake and Output 03/21/17 03/21/17 03/22/17 08:00 16:00 00:00 Intake Total 1804 ml 1728 ml 1145 ml Output Total 600 ml 575 ml 500 ml Balance 1204 ml 1153 ml 645 ml Result Diagram: 03/22/17 0400 03/22/17 0400 Imaging Chest x-ray that shows a left lower lobe infiltrate CT scan of the abdomen and pelvis reveals several small droplets of free air in the upper abdomen characteristic of free intraperitoneal air, some free fluid in the pelvis and adjacent to the liver and spleen, intestinal perforation as a primary consideration, location is unknown. The patient is also noted to have a wedge area of decreased density in the spleen suggestive of a splenic infarct. Objective Remarks General: The patient is a well-developed well-nourished female, moderate distress Head and Neck exam: Head is normocephalic atraumatic. R parotid gland swelling improved Eyes: Pupils are equal round and reactive to light. ENT: Right parotid gland mildly swollen Neck: No palpable lymphadenopathy. No nuchal rigidity. No thyromegaly. Chest: L posterior shoulder pain and tenderness, no crepitus today Cardiovascular: Regular rate and rhythm without murmurs, gallops, or rubs. Left upper chest, L shoulder with subcutaneous emphysema Lungs: Mild Expiratory wheezes bilaterally,no accessory muscle use is noted. Abdomen: Diffuse abdominal tenderness on palpation. Multiple areas of ecchymosis from Lovenox injections. No guarding, rebound, or rigidity. Extremities: No clubbing, cyanosis, or edema. 2+ pulses in all 4 extremities. No calf tenderness on palpation. Neurologic Exam: Awake oriented. No focal deficits. moderate to severe distress due to pain A/P Assessment and Plan Assessment: This is a 69-year-old female with history of COPD admitted to [facility] 03/08-03/16 initially intubated for acute COPD exacerbation, now presenting with severe sepsis and probable viscus perforation. General surgery Dr. Garcia. Currently on broad-spectrum antibiotics and IV fluids for peritonitis from perforated viscus probably stomach Plan: NEURO/HEENT: Anxiety Chronic pain Acute parotitis -- IV morphine for pain control -- Acute tender parotid swelling started 03/20/17. ENT consulted, neck CT- probable mass, clinically acute parotitis. -- Continue broad spectrum ABX Vanc, Azactam and Flagyl -- Hold antidepressants while nothing by mouth, also hold Neurontin Resp: Acute COPD Exacerbation HCAP/LLL pneumonia L upper chest s/q emphysema -- Recently admitted for COPD exacerbation, and pneumonia with MSSA and Haemophilus influenza (Admitted from 03/08 to 03/16) -- Wean FiO2 for goal spo2 > 88-90% -- HOB at 30 degrees -- Solu-Medrol 40 mg IV q12. Patient was on tapering dose of prednisone -- DuoNebs q4h and q2h prn. -- CT pulmonary angiogram ordered today due to acute onset left shoulder pain, with shortness of breath-No PE, +ve splenic infarct CVS: Transient hypotension Lactic acidosis Peritonitis secondary to perforated viscus -- Monitor HR and BP closely -- IVF NS 50 ml per hour -- Trend lactic acid GI: Probable visceral/gastric perforation with peritonitis Splenic infarct L upper chest s/q emphysema probably air tracking from abdomen -- Keep Nothing by mouth, IV Protonix 40 mg every 12. TPN per GS -- Gen. surgery Dr. Garcia following -- Broad-spectrum antibiotics -- Medical management and ex lap if not improving -- UGI series 03/19/17-no evidence of perforation -- CT abd pelvis 03/20, increasing free air. KUB shows free air 0n 03/21, 03/22 -- D/W Dr. Garcia 03/21/17. : Acute kidney insufficiency -- Most likely secondary to peritonitis and sepsis -- IVF as above. [place] for strict I/O ID: Severe sepsis Peritonitis secondary to perforated viscus Left lower lobe pneumonia/HCAP Probable acute parotitis -- F/U urine and blood cultures negative to date -- Empiric antibiotics Azactam Flagyl and vancomycin started 03/17/17 HEME -- Monitor CBC, coags -- Leukocytosis secondary to sepsis ENDO: -- Electrolyte replacement per protocol PROPH: --SCDs, PPI for prophylaxis. Heparin 5000 units subcutaneous every 8 Overall impression: Critically ill with severe sepsis, visceral perforation bronchospasm and COPD exacerbation, now with acute bronchitis and acute left shoulder pain and worsening intra abdominal free air Level 3 Sarah Cruz MD Mar 22, 2017 09:12 Sarah Cruz MD Mar 22, 2017 09:12
--- NOTE | 2017-03-22 09:19 | RADRPT ---
EXAM DATE/TIME: 03/22/2017 08:52 [facility] COMPARISON: No previous studies available for comparison. INDICATIONS : Abdomen pain. Evaluate for abdominal free air. MEDICAL HISTORY : Lymphoma SURGICAL HISTORY : Appendectomy. section. ENCOUNTER: Subsequent ACUITY: 2 days PAIN SCORE: 10/10 LOCATION: Abdomen FINDINGS: Portable supine abdominal radiographs are obtained and demonstrate a nonobstructive bowel gas pattern . NG tube in place. There is lucency overlying the central abdomen concerning for free intraperitonea l air. A decubitus view of the abdomen or upright radiographs of the helpful. CONCLUSION: Findings suspect for free air however upright radiograph fetus B. is suggested. Dexter Small MD on March 22, 2017 at 9:16 Board Certified Radiologist. This report was verified electronically.
[2017-03-22] MEDS: RESP: ALBUTEROL 2.5 MG/IPRATROPIUM 0.5 MG NEB (PRN) NEB ×3 (10:06→22:50)
[2017-03-22] MEDS ORDERED: HYDROmorphone HCL PF 2 MG/ML VIAL IV ONE (11:45)
[2017-03-22] MEDS ORDERED: GADODIAMIDE PF 287 MG/ML 20 ML VIAL (for RAD MRI) IV ONE (16:58)
--- NOTE | 2017-03-22 17:46 | RADRPT ---
EXAM DATE/TIME: 03/22/2017 16:10 [facility] COMPARISON: No previous studies available for comparison. INDICATIONS : Left shoulder pain MEDICAL HISTORY : Hypertension. Chronic obstructive pulmonary disease. SURGICAL HISTORY : Total knee replacement, left. Total knee replacement, right. Fusion, cervical. ENCOUNTER: Initial ACUITY: 1 day PAIN SCORE: 5/10 LOCATION: Left Shoulder TECHNIQUE: Multiplanar, multisequence MRI examination was performed without contrast. FINDINGS: Slight hypertrophic changes are seen in the AC joint indenting the subacromial fat plane to a sl ight degree. Slight degenerative changes present in the glenohumeral joint. There is no evidence for rotator cuff tear. Tiny joint effusion is seen. CONCLUSION: Chronic degenerative changes without definite tear. Maninder Lozano MD on March 22, 2017 at 17:42 Board Certified Radiologist. This report was verified electronically.
--- NOTE | 2017-03-22 17:50 | RADRPT ---
EXAM DATE/TIME: 03/22/2017 16:31 [facility] COMPARISON: No previous studies available for comparison. INDICATIONS : Mass CONTRAST: 20 cc Omniscan (gadodiamide) IV MEDICAL HISTORY : Chronic obstructive pulmonary disease. Hypertension. SURGICAL HISTORY : Total knee replacement, left. Total knee replacement, right. Fusion, cervical. ENCOUNTER: Initial ACUITY: 1 day PAIN SCORE: 0/10 LOCATION: neck TECHNIQUE: Multisequence, multiplanar MRI examination was performed. FINDINGS: There is degenerative spondylosis of the patient's cervical spine not adequately characterized. In the right shoulder area there is subcutaneous edema most likely corresponds the palpable lump with out mass or loculated fluid collections. There is a cystic mass in the submental location without any abnormal enhancement measuring 1.8 cm in size most likely benign and should be correlated clinically . There is opacification of bilateral mastoid air cells and left maxillary sinus chronic in nature. CONCLUSION: Nondiscript subcutaneous edema in the right shoulder and lower neck junction with benign-appearing cy stic mass in submental location. Maninder Lozano MD on March 22, 2017 at 17:44 Board Certified Radiologist. This report was verified electronically.
[2017-03-22] MEDS: LORazepam 2 MG/ML VIAL IV PUSH PRN (18:26)
[2017-03-22] MEDS: FAT EMULSION 20% INJ 250 ML (Daily over 8 hours) IV-CENTRAL SCH (20:06)
[2017-03-22] MEDS: CLINIMIX E 4.25/25 2000 mL- >42 mls/hr IV-CENTRAL SCH ×3 (20:07)
--- NOTE | 2017-03-22 21:11 | HHI.PR ---
Subjective Subjective Notes feels better today, only c/o is left shoulder pain Objective Vitals/I&O Vital Signs Date Time Temp Pulse Resp B/P Pulse Ox O2 Delivery O2 Flow Rate FiO2 03/22/17 18:00 62 03/22/17 12:00 98.0 14 169/74 90 03/22/17 10:07 Nasal Cannula 2.00 03/18/17 07:00 40 Labs Laboratory Tests Test 03/22/17 04:00 White Blood Count 8.7 Red Blood Count 3.45 Hemoglobin 11.9 Hematocrit 32.8 Mean Corpuscular Volume 95.1 Mean Corpuscular Hemoglobin 34.4 Mean Corpuscular Hemoglobin 36.2 Concent Red Cell Distribution Width 16.6 Platelet Count 197 Mean Platelet Volume 8.1 Neutrophils (%) (Auto) 94.2 Lymphocytes (%) (Auto) 1.7 Monocytes (%) (Auto) 3.2 Eosinophils (%) (Auto) 0.0 Basophils (%) (Auto) 0.9 Neutrophils # (Auto) 8.2 Lymphocytes # (Auto) 0.1 Monocytes # (Auto) 0.3 Eosinophils # (Auto) 0.0 Basophils # (Auto) 0.1 CBC Comment AUTO DIFF Differential Comment AUTO DIFF CONFIRMED Sodium Level 141 Potassium Level 4.6 Chloride Level 108 Carbon Dioxide Level 24.2 Anion Gap 9 Blood Urea Nitrogen 35 Creatinine 0.72 Estimat Glomerular Filtration 81 Rate Random Glucose 397 Calcium Level 7.5 Protein Corrected Calcium Magnesium Level 2.2 Total Bilirubin 0.4 Aspartate Amino Transf 30 (AST/SGOT) Alanine Aminotransferase 26 (ALT/SGPT) Alkaline Phosphatase 47 Total Protein 5.2 Albumin 1.9 Date/Time Procedure Status Source Growth 03/21/17 12:11 Urine Culture - Preliminary Resulted Urine Catheterized Urine NO GROWTH IN 24 HOURS. Radiology Last Impressions Chest X-Ray 03/21/17 0600 Signed Impressions: Service Date/Time: Tuesday, March 21, 2017 03:08 - CONCLUSION: Small left pleural effusion and mild bibasilar atelectasis worsening/developing. Anthony Hernadez MD Neck CT 03/20/17 0000 Signed Impressions: Service Date/Time: February 09:57 - CONCLUSION: 1. Possible 2 cm mass in the superficial lobe of the right parotid in detail. MRI with contrast is recommended for further evaluation if clinically indicated. Stepan Albarado MD CT Angiography 03/20/17 0000 Signed Impressions: Service Date/Time: February 09:50 - CONCLUSION: 1. New low-density mass in the upper central spleen not present 12 days ago. Differential diagnosis includes an area of infarction or hematoma. 2. New patchy groundglass opacities in both lungs which may be infectious or inflammatory. 3. Minimal effusions. 4. No evidence of pulmonary emboli. Luiz Guzman MD Abdomen/Pelvis CT 03/20/17 0000 Signed Impressions: Service Date/Time: February 09:53 - CONCLUSION: 1. Interval increase in free air greatest in the upper anterior abdomen. A nonspecific bowel gas pattern remains with oral contrast in the colon. There is no extravasated contrast. 2. Nonspecific bowel gas pattern most consistent with an ileus. 3. The splenic infarct is more conspicuous than on the prior study. 4. Minimal effusions are now noted. Luiz Guzman MD Upper GI Series 03/19/17 0000 Signed Impressions: Service Date/Time: Sunday, March 19, 2017 11:40 - CONCLUSION: Limited upper GI series demonstrating no definite perforation. Luiz Guzman MD Abdomen X-Ray 03/18/17 0600 Signed Impressions: Service Date/Time: Saturday, March 18, 2017 03:57 - CONCLUSION: NG tube in the stomach. No significant dilatation of large or small bowel. Charles Zamora MD Abdomen: Non-distended, Non-tender A/P Problem List: (1) Perforated ulcer (2) Acute parotitis (3) Splenic infarction (4) Ibuprofen adverse reaction (5) Abdominal pain (6) COPD exacerbation (7) Pneumonia (8) H/O parotitis Assessment and Plan 66yo female with perforated ulcer, nonoperative management, stable. left shoulder pain 2/2 splenic infarct. abdominal exam benign. continue non- operative management,follow closely.d/w patient. Problem Qualifiers (1) Ibuprofen adverse reaction: Qualified Code: T39.315D - Ibuprofen adverse reaction, subsequent encounter (2) Abdominal pain: Qualified Code: R10.12 - Left upper quadrant pain (3) Pneumonia: Qualified Code: J18.1 - Pneumonia of left lower lobe due to infectious organism Joseph Foster MD Mar 22, 2017 21:11
[2017-03-22] MEDS: VANCOMYCIN INJ 2,500 MG in SODIUM CHLORID 0.9% 500 ML INJ 500 ML IV SCH (22:58)
[2017-03-23] VITALS (13 sets, daily range): BP systolic 122–164; BP diastolic 64–100; PULSE 60–68; RESP 17–25; TEMP 97.7–98.6; O2SAT 90–96
[2017-03-23] MEDS: CHLORHEXIDINE GLUCONATE 2 % 1 PACK (2 CLOTHS) TOP SCH (04:00)
[2017-03-23] MEDS: LABETALOL HCL 100 MG/20 ML VIAL IV PUSH PRN (05:52)
[2017-03-23 05:57] LABS: AUTOMATED NEUTROPHIL # 9.6 TH/MM3 (1.8-7.7); EOSINOPHIL % 0.1 % (0.0-4.0); HEMATOCRIT 33.2 % (35.0-46.0); HEMO FLAGS DIFF FINAL; LYMPH % 1.6 % (9.0-44.0); LYMPHOCYTE # 0.2 TH/MM3 (1.0-4.8); MEAN CORPUSCULAR HGB CONC 33.8 % (32.0-36.0); MONO % 3.1 % (0.0-8.0); NEUT % 95.2 % (16.0-70.0); PLATELET COUNT 179 TH/MM3 (150-450); RED BLOOD COUNT 3.61 MIL/MM3 (4.00-5.30); RED CELL DISTRIBUTION WIDTH 15.9 % (11.6-17.2); WHITE BLOOD COUNT 10.1 TH/MM3 (4.0-11.0)
--- NOTE | 2017-03-23 06:05 | RADRPT ---
EXAM DATE/TIME: 03/23/2017 04:43 [facility] COMPARISON: CHEST SINGLE AP, March 22, 2017, 4:27. ABDOMEN DECUBITUS LEFT, March 23, 2017, 4:48. ABDOMEN KUB ON LY, March 22, 2017, 8:52. INDICATIONS : Possible free air as seen on previous abdominal film. MEDICAL HISTORY : Lymphoma. SURGICAL HISTORY : Appendectomy. section. ENCOUNTER: Subsequent ACUITY: 2 weeks PAIN SCORE: Non-responsive. LOCATION: Bilateral chest FINDINGS: Trace bibasilar atelectasis. No pleural effusion seen. No pneumothorax. Heart size stable, upper limits of normal. Nasogastric tube has its tip in the stomach. Free intraperitoneal air is seen under each hemidiaphragm. There is a right arm PICC with tip at the atriocaval junction. CONCLUSION: 1. Mild bibasilar atelectasis slightly improved. 2. Nasogastric tube and right arm PICC line again noted. 3. Free intraperitoneal air. Anthony Hernadez MD on March 23, 2017 at 6:02 Board Certified Radiologist. This report was verified electronically.
--- NOTE | 2017-03-23 06:08 | RADRPT ---
EXAM DATE/TIME: 03/23/2017 04:48 [facility] COMPARISON: No previous studies available for comparison. INDICATIONS : Possible free air as seen on previous abdominal film. MEDICAL HISTORY : Lymphoma. SURGICAL HISTORY : Appendectomy. section. ENCOUNTER: Subsequent ACUITY: 2 weeks PAIN SCORE: Non-responsive. LOCATION: Right upper abdomen FINDINGS: Large amount of intraperitoneal air is present. Nonobstructive bowel gas pattern. CONCLUSION: Free intraperitoneal air. Anthony Hernadez MD on March 23, 2017 at 6:05 Board Certified Radiologist. This report was verified electronically.
[2017-03-23] MEDS: metroNIDAZOLE 500 MG INJ 100 ML IV SCH ×3 (06:19→22:19)
[2017-03-23] MEDS: LOW DOSE INSULIN NOVOLOG SUPPLEMENTAL SCALE SQ SCH ×3 (06:19→18:57)
[2017-03-23 06:30] LABS: ALKALINE PHOSPHATASE 52 U/L (45-117); ALT (GPT) 29 U/L (10-53); ANION GAP 7 MEQ/L (5-15); AST (GOT) 21 U/L (15-37); BICARBONATE 26.9 MEQ/L (21.0-32.0); BLOOD UREA NITROGEN 27 MG/DL (7-18); CHLORIDE 109 MEQ/L (98-107); GLOMERULAR FILTRATION RATE 104 ML/MIN (>89); POTASSIUM 3.6 MEQ/L (3.5-5.1); SODIUM (NA) 143 MEQ/L (136-145); TOTAL BILIRUBIN ADULT 0.3 MG/DL (0.2-1.0)
[2017-03-23] MEDS ORDERED: ETOMIDATE 20 MG/10 ML VIAL ONE (07:49)
[2017-03-23] MEDS: FLUCONAZOLE 400 MG PREMIX BAG 200 ML IV SCH (10:20)
[2017-03-23] MEDS: methylPREDNISolone SOD SUCC 40 MG/1 ML VIAL IV SCH ×2 (10:20→20:51)
[2017-03-23] MEDS: PANTOPRAZOLE SODIUM 40 MG VIAL IV SCH ×2 (10:20→20:51)
[2017-03-23] MEDS: TIOTROPIUM BROMIDE 18 MCG INH INH SCH (10:21)
[2017-03-23] MEDS: SODIUM CHLORIDE 0.9% FLUSH 10 ML FLUSH IV FLUSH SCH (10:21)
[2017-03-23] MEDS: AZTREONAM INJ 2,000 MG in SODIUM CHLORIDE 0.9% INJ 100 ML IV SCH ×2 (10:25→16:09)
[2017-03-23] MEDS: SODIUM CHLOR 0.9% 1000 ML INJ 1,000 ML IV SCH ×2 (10:26→22:19)
[2017-03-23] MEDS: ENOXAPARIN SODIUM 40 MG/0.4 ML SYRINGE SQ SCH ×2 (10:26→20:52)
[2017-03-23] MEDS: MORPHINE SULFATE 4 MG/ML INJ IV PRN ×4 (11:25→20:52)
--- NOTE | 2017-03-23 13:23 | HHI.CCPN ---
Subjective Remarks/Hospital Course The patient is a 66 year old female with past medical history significant for COPD, anxiety disorder, chronic pain, hypertension was just recently discharged from hospital after admitted for almost a days for COPD exacerbation with pneumonia from emesis and H. influenzae. Patient was admitted from 03/08/17- . She presented today with a history of abdominal pain that reportedly is been getting gradually worse since onset (started while in the hospital). The patient reports that the pain was 10 out of 10 in severity, in the ER. She was discharged home yesterday on steroid and Levaquin. The patient was given 30 mL per KG IV fluid bolus. WBC count came back elevated at 18,200 with a left shift , the patient was started on Azactam, Flagyl, and vancomycin. CMP is remarkable for CO2 33.3, BUN 35, creatinine 1.05, lactic acid 2.2, Chest x-ray that shows a left lower lobe infiltrate, CT scan of the abdomen and pelvis revealed several small droplets of free air in the upper abdomen characteristic of free intraperitoneal air, some free fluid in the pelvis and adjacent to the liver and spleen, intestinal perforation as a primary consideration, location is unknown. The patient is also noted to have a wedge area of decreased density in the spleen suggestive of a splenic infarct. Critical care medicine was consulted for admission for acute peritonitis and severe sepsis. Additional history shows that patient was taking 800 mg Motrin several times a day for several years. This makes a perforated gastric ulcer possibility according to surgeon Dr. Garcia. Patient will be conservative management with IV hydration and broad-spectrum antibiotics. If any clinical deterioration patient will have to go for OR for laparotomy 03/18/17: Clinically improving, some improvement in abdominal pain. KUB no free air. WBC 18.2 --> 14.5. Lactic acid has normalized. LLL infiltrate improved 03/19/17: Continues to improve clinically. UGI series ordered by general surgery. Continue conservative management. Now on NRB, but saturation may be low due to poor probe contact. D/W RT and will wean O2 down. 03/20/17: Patient complaining of acute onset pain of left shoulder posteriorly, and right parotid region. Also increasing shortness of breath. Right parotid gland is swollen and tender. CT pulmonary angiogram with CT abdomen pelvis and CT of the neck ordered stat. Patient getting morphine for pain 03/21/17: C/o persistent left shoulder and upper chest pain. On examination patient has mild subcutaneous emphysema extending from the left upper chest to the left shoulder. Abdominal exam has not changed. Dr. Garcia to re evaluate today, new finding of s/q emphysema L upper chest discussed with Dr. Garcia. Air most likely tracking up from intra abdominal free air 03/22/17: Continues to be critically ill, large amount of free air on KUB yesterday. I did not feel subcutaneous emphysema left upper chest today. Patient anxious about prognosis. WBC normal. UO 1.4 L in 24 hours 03/23: Continues to have abdominal pain, stable. hemodynamically stable. KUB with continued free air. Per Dr. Saul, continue conservative management Objective Vital Signs Date Time Temp Pulse Resp B/P Pulse Ox O2 Delivery O2 Flow Rate FiO2 03/23/17 06:00 64 03/23/17 04:00 98.1 20 156/100 90 03/22/17 22:50 Nasal Cannula 2.00 Intake and Output 03/22/17 03/22/17 03/23/17 08:00 16:00 00:00 Intake Total 1708 ml 1354 ml 1464 ml Output Total 600 ml 950 ml 1800 ml Balance 1108 ml 404 ml -336 ml Result Diagram: 03/23/17 0525 03/23/17 0525 Other Results Microbiology Date/Time Procedure Status Source Growth 03/21/17 12:11 Urine Culture - Final Complete Urine Catheterized Urine NO GROWTH IN 48 HOURS. Imaging Chest x-ray that shows a left lower lobe infiltrate CT scan of the abdomen and pelvis reveals several small droplets of free air in the upper abdomen characteristic of free intraperitoneal air, some free fluid in the pelvis and adjacent to the liver and spleen, intestinal perforation as a primary consideration, location is unknown. The patient is also noted to have a wedge area of decreased density in the spleen suggestive of a splenic infarct. Objective Remarks General: The patient is a well-developed well-nourished female, moderate distress Head and Neck exam: Head is normocephalic atraumatic. R parotid gland swelling improved Eyes: Pupils are equal round and reactive to light. ENT: Right parotid gland mildly swollen Neck: No palpable lymphadenopathy. No nuchal rigidity. No thyromegaly. Chest: L posterior shoulder pain and tenderness, no crepitus Cardiovascular: Regular rate and rhythm without murmurs, gallops, or rubs. Left upper chest, L shoulder tenderness Lungs: Mild Expiratory wheezes bilaterally,no accessory muscle use is noted. Abdomen: Diffuse upper abdominal tenderness on palpation. Multiple areas of ecchymosis from Lovenox injections. No guarding, rebound, or rigidity. Extremities: No clubbing, cyanosis, or edema. 2+ pulses in all 4 extremities. No calf tenderness on palpation. Neurologic Exam: Awake oriented. No focal deficits. moderate to severe distress due to pain Urinary Catheter: Yes Assessment to: Continue A/P Assessment and Plan Assessment: This is a 69-year-old female with history of COPD admitted to [facility] 03/08-03/16 initially intubated for acute COPD exacerbation, now presenting with severe sepsis and probable viscus perforation. General surgery Dr. Garcia. Currently on broad-spectrum antibiotics and IV fluids for peritonitis from perforated viscus probably stomach Plan: NEURO/HEENT: Anxiety Chronic pain Acute parotitis -- IV morphine for pain control -- Acute tender parotid swelling started 03/20/17. ENT consulted, neck CT- probable mass, clinically acute parotitis. -- Continue broad spectrum ABX Vanc, Azactam and Flagyl -- Hold antidepressants while nothing by mouth, also hold Neurontin Resp: Acute COPD Exacerbation HCAP/LLL pneumonia L upper chest and shoulder pain -- Recently admitted for COPD exacerbation, and pneumonia with MSSA and Haemophilus influenza (Admitted from 03/08 to 03/16) -- Wean FiO2 for goal spo2 > 88-90% -- HOB at 30 degrees -- Solu-Medrol 40 mg IV q12. Patient was on tapering dose of prednisone -- DuoNebs q4h and q2h prn. -- MRi L shoulder show arthritic changes. pain most likely form splenic infarct CVS: Transient hypotension, now hypertensive Lactic acidosis Peritonitis secondary to perforated viscus -- Monitor HR and BP closely -- IVF NS 50 ml per hour -- Trend lactic acid -- IV Labetalol, hydralazine PRN GI: Probable visceral/gastric perforation with peritonitis Splenic infarct L upper chest s/q emphysema probably air tracking from abdomen -- Keep Nothing by mouth, IV Protonix 40 mg every 12. TPN per GS -- Gen. surgery Dr. Garcia following. D/W Dr. saul today -03/23, continue conservative medical management -- Broad-spectrum antibiotics -- Medical management and ex lap if not improving -- UGI series 03/19/17-no evidence of perforation -- CT abd pelvis 03/20, increasing free air. KUB shows free air 0n 03/21, 03/22, -- D/W Dr. Garcia 03/21/17. : Acute kidney insufficiency -- Most likely secondary to peritonitis and sepsis -- IVF as above. [place] for strict I/O ID: Severe sepsis Peritonitis secondary to perforated viscus Left lower lobe pneumonia/HCAP Probable acute parotitis -- F/U urine and blood cultures negative to date -- Empiric antibiotics Azactam Flagyl and vancomycin started 03/17/17 HEME -- Monitor CBC, coags -- Leukocytosis secondary to sepsis, now resolved ENDO: -- Electrolyte replacement per protocol PROPH: --SCDs, PPI for prophylaxis. Heparin 5000 units subcutaneous every 8 Overall impression: Critically ill with severe sepsis, visceral perforation bronchospasm and COPD exacerbation, now with acute bronchitis and acute left shoulder pain and worsening intra abdominal free air Level 3 Sarah Cruz MD Mar 23, 2017 13:23
--- NOTE | 2017-03-23 13:31 | HHI.PR ---
Subjective Subjective Notes More painful this afternoon than yesterday, but only received one dose of morphine since yesterday; no pain meds overnight untill 11 AM today. Objective Vitals/I&O Vital Signs Date Time Temp Pulse Resp B/P Pulse Ox O2 Delivery O2 Flow Rate FiO2 03/23/17 06:00 64 03/23/17 04:00 98.1 20 156/100 90 03/22/17 22:50 Nasal Cannula 2.00 Labs Laboratory Tests Test 03/23/17 05:25 White Blood Count 10.1 Red Blood Count 3.61 Hemoglobin 11.2 Hematocrit 33.2 Mean Corpuscular Volume 92.0 Mean Corpuscular Hemoglobin 31.0 Mean Corpuscular Hemoglobin 33.8 Concent Red Cell Distribution Width 15.9 Platelet Count 179 Mean Platelet Volume 7.8 Neutrophils (%) (Auto) 95.2 Lymphocytes (%) (Auto) 1.6 Monocytes (%) (Auto) 3.1 Eosinophils (%) (Auto) 0.1 Basophils (%) (Auto) 0.0 Neutrophils # (Auto) 9.6 Lymphocytes # (Auto) 0.2 Monocytes # (Auto) 0.3 Eosinophils # (Auto) 0.0 Basophils # (Auto) 0.0 CBC Comment DIFF FINAL Differential Comment Sodium Level 143 Potassium Level 3.6 Chloride Level 109 Carbon Dioxide Level 26.9 Anion Gap 7 Blood Urea Nitrogen 27 Creatinine 0.58 Estimat Glomerular Filtration 104 Rate Random Glucose 177 Calcium Level 7.7 Magnesium Level 2.0 Total Bilirubin 0.3 Aspartate Amino Transf 21 (AST/SGOT) Alanine Aminotransferase 29 (ALT/SGPT) Alkaline Phosphatase 52 Total Protein 5.1 Albumin 1.9 Date/Time Procedure Status Source Growth 03/21/17 12:11 Urine Culture - Final Complete Urine Catheterized Urine NO GROWTH IN 48 HOURS. Radiology Last Impressions Chest X-Ray 03/21/17 0600 Signed Impressions: Service Date/Time: Tuesday, March 21, 2017 03:08 - CONCLUSION: Small left pleural effusion and mild bibasilar atelectasis worsening/developing. Anthony Hernadez MD Neck CT 03/20/17 0000 Signed Impressions: Service Date/Time: February 09:57 - CONCLUSION: 1. Possible 2 cm mass in the superficial lobe of the right parotid in detail. MRI with contrast is recommended for further evaluation if clinically indicated. Stepan Albarado MD CT Angiography 03/20/17 0000 Signed Impressions: Service Date/Time: February 09:50 - CONCLUSION: 1. New low-density mass in the upper central spleen not present 12 days ago. Differential diagnosis includes an area of infarction or hematoma. 2. New patchy groundglass opacities in both lungs which may be infectious or inflammatory. 3. Minimal effusions. 4. No evidence of pulmonary emboli. Luiz Guzman MD Abdomen/Pelvis CT 03/20/17 0000 Signed Impressions: Service Date/Time: February 09:53 - CONCLUSION: 1. Interval increase in free air greatest in the upper anterior abdomen. A nonspecific bowel gas pattern remains with oral contrast in the colon. There is no extravasated contrast. 2. Nonspecific bowel gas pattern most consistent with an ileus. 3. The splenic infarct is more conspicuous than on the prior study. 4. Minimal effusions are now noted. Luiz Guzman MD Upper GI Series 03/19/17 0000 Signed Impressions: Service Date/Time: Sunday, March 19, 2017 11:40 - CONCLUSION: Limited upper GI series demonstrating no definite perforation. Luiz Guzman MD Abdomen X-Ray 03/18/17 0600 Signed Impressions: Service Date/Time: Saturday, March 18, 2017 03:57 - CONCLUSION: NG tube in the stomach. No significant dilatation of large or small bowel. Charles Zamora MD Cardiovascular: Regular Lungs: Clear Abdomen: Other (Diffusely mildly tender with some guarding) A/P Problem List: (1) Perforated ulcer (2) Acute parotitis (3) Splenic infarction (4) Ibuprofen adverse reaction (5) Abdominal pain (6) COPD exacerbation (7) Pneumonia (8) H/O parotitis Assessment and Plan Problem List: (1) Perforated ulcer (2) Acute parotitis (3) Splenic infarction (4) Ibuprofen adverse reaction (5) Abdominal pain (6) COPD exacerbation (7) Pneumonia (8) H/O parotitis Assessment and Plan 66yo female with perforated ulcer, more painful today, but not using much pain med. KUB with large amount free air on lateral decubitus view WBC's still in normal range No fevers or signs sepsis. nonoperative management for now. left shoulder pain splenic infarct. continue non-operative management,follow closely.d/w patient and Dr. Cruz, rn geriatric. Will need to consider operative intervention if she deteriorates further. Problem Qualifiers (1) Ibuprofen adverse reaction: Qualified Code: T39.315D - Ibuprofen adverse reaction, subsequent encounter (2) Abdominal pain: Qualified Code: R10.12 - Left upper quadrant pain (3) Pneumonia: Qualified Code: J18.1 - Pneumonia of left lower lobe due to infectious organism Luiz Saul MD Mar 23, 2017 13:31
[2017-03-23] MEDS: FAT EMULSION 20% INJ 250 ML (Daily over 8 hours) IV-CENTRAL SCH (20:53)
[2017-03-23] MEDS: CLINIMIX E 4.25/25 2000 mL- >42 mls/hr IV-CENTRAL SCH ×3 (21:09)
[2017-03-23] MEDS: RESP: ALBUTEROL 2.5 MG/IPRATROPIUM 0.5 MG NEB (PRN) NEB (21:24)
[2017-03-23] MEDS ORDERED: PHARMACY ORDERED LAB ONE (23:45)
[2017-03-24] VITALS (13 sets, daily range): BP systolic 152–177; BP diastolic 68–95; PULSE 62–78; RESP 17–31; TEMP 98–98.7; O2SAT 91–94
[2017-03-24] MEDS: AZTREONAM INJ 2,000 MG in SODIUM CHLORIDE 0.9% INJ 100 ML IV SCH ×3 (00:54→14:58)
[2017-03-24] MEDS: MORPHINE SULFATE 4 MG/ML INJ IV PRN ×5 (00:54→21:55)
[2017-03-24] MEDS: LOW DOSE INSULIN NOVOLOG SUPPLEMENTAL SCALE SQ SCH ×4 (00:55→17:06)
[2017-03-24] MEDS: hydrALAZINE HCL 20 MG/ML VIAL IV PUSH PRN (01:12)
[2017-03-24] MEDS: VANCOMYCIN INJ 2,500 MG in SODIUM CHLORID 0.9% 500 ML INJ 500 ML IV SCH (01:34)
[2017-03-24] MEDS: LORazepam 2 MG/ML VIAL IV PUSH PRN (03:26)
[2017-03-24] MEDS: CHLORHEXIDINE GLUCONATE 2 % 1 PACK (2 CLOTHS) TOP SCH (03:27)
[2017-03-24] MEDS: metroNIDAZOLE 500 MG INJ 100 ML IV SCH ×3 (06:48→21:55)
[2017-03-24] MEDS: SODIUM CHLORIDE 0.9% FLUSH 10 ML FLUSH IV FLUSH SCH (07:44)
[2017-03-24] MEDS: PANTOPRAZOLE SODIUM 40 MG VIAL IV SCH ×2 (08:53→20:46)
[2017-03-24] MEDS: methylPREDNISolone SOD SUCC 40 MG/1 ML VIAL IV SCH ×2 (08:53→20:47)
[2017-03-24] MEDS: TIOTROPIUM BROMIDE 18 MCG INH INH SCH (08:54)
[2017-03-24] MEDS: ENOXAPARIN SODIUM 40 MG/0.4 ML SYRINGE SQ SCH ×2 (08:54→20:46)
[2017-03-24] MEDS: FLUCONAZOLE 400 MG PREMIX BAG 200 ML IV SCH (08:54)
--- NOTE | 2017-03-24 09:08 | HHI.PR ---
Subjective Subjective Notes DAILY PROGRESS NOTE FOR SURGICAL ATTENDING, DR. EVER GARCIA Reports pain has been better controlled over the weekend; LEFT shoulder pain almost completely resolved Hungry Objective Vitals/I&O Vital Signs Date Time Temp Pulse Resp B/P Pulse Ox O2 Delivery O2 Flow Rate FiO2 03/24/17 07:00 94 Nasal Cannula 5.00 Humidified 03/24/17 06:00 76 03/24/17 04:00 98.1 20 171/74 Labs Laboratory Tests Test 03/20/17 03/21/17 03/21/17 03/22/17 09:31 12:11 12:30 04:00 Lipase 86 U/L Urine Color RED Urine Turbidity HAZY Urine pH 6.0 Urine Specific [place] 1.027 Urine Protein 30 mg/dL Urine Glucose (UA) NEG mg/dL Urine Ketones NEG mg/dL Urine Occult Blood LARGE Urine Nitrite NEG Urine Bilirubin NEG Urine Urobilinogen LESS THAN 2.0 MG/DL Urine Leukocyte Esterase SMALL Urine RBC /hpf Urine WBC 56 /hpf Urine Bacteria RARE /hpf Microscopic Urinalysis Comment CATH-CULTURE IND Lactic Acid Level 1.8 mmol/L Protein Corrected Calcium MG/DL Test 03/23/17 03/24/17 05:25 00:30 White Blood Count 10.1 TH/MM3 Red Blood Count 3.61 MIL/MM3 Hemoglobin 11.2 GM/DL Hematocrit 33.2 % Mean Corpuscular Volume 92.0 FL Mean Corpuscular Hemoglobin 31.0 PG Mean Corpuscular Hemoglobin 33.8 % Concent Red Cell Distribution Width 15.9 % Platelet Count 179 TH/MM3 Mean Platelet Volume 7.8 FL Neutrophils (%) (Auto) 95.2 % Lymphocytes (%) (Auto) 1.6 % Monocytes (%) (Auto) 3.1 % Eosinophils (%) (Auto) 0.1 % Basophils (%) (Auto) 0.0 % Neutrophils # (Auto) 9.6 TH/MM3 Lymphocytes # (Auto) 0.2 TH/MM3 Monocytes # (Auto) 0.3 TH/MM3 Eosinophils # (Auto) 0.0 TH/MM3 Basophils # (Auto) 0.0 TH/MM3 CBC Comment DIFF FINAL Differential Comment Sodium Level 143 MEQ/L Potassium Level 3.6 MEQ/L Chloride Level 109 MEQ/L Carbon Dioxide Level 26.9 MEQ/L Anion Gap 7 MEQ/L Blood Urea Nitrogen 27 MG/DL Creatinine 0.58 MG/DL Estimat Glomerular Filtration 104 ML/MIN Rate Random Glucose 177 MG/DL Calcium Level 7.7 MG/DL Magnesium Level 2.0 MG/DL Total Bilirubin 0.3 MG/DL Aspartate Amino Transf 21 U/L (AST/SGOT) Alanine Aminotransferase 29 U/L (ALT/SGPT) Alkaline Phosphatase 52 U/L Total Protein 5.1 GM/DL Albumin 1.9 GM/DL Vancomycin Level Trough 5.8 MCG/ML Laboratory Tests Test 03/24/17 00:30 Vancomycin Level Trough 5.8 Date/Time Procedure Status Source Growth 03/21/17 12:11 Urine Culture - Final Complete Urine Catheterized Urine NO GROWTH IN 48 HOURS. Radiology Last Impressions Abdomen X-Ray 03/23/17 0321 Signed Impressions: Service Date/Time: Thursday, March 23, 2017 04:48 - CONCLUSION: Free intraperitoneal air. Anthony Hernadez MD Chest X-Ray 03/23/17 0000 Signed Impressions: Service Date/Time: Thursday, March 23, 2017 04:43 - CONCLUSION: 1. Mild bibasilar atelectasis slightly improved. 2. Nasogastric tube and right arm PICC line again noted. 3. Free intraperitoneal air. Anthony Hernadez MD Soft Tissue MRI 03/22/17 Signed Impressions: Service Date/Time: Wednesday, March 22, 2017 16:31 - CONCLUSION: Nondiscript subcutaneous edema in the right shoulder and lower neck junction with benign-appearing cystic mass in submental location. Maninder Lozano MD Shoulder MRI 03/22/17 Signed Impressions: Service Date/Time: Wednesday, March 22, 2017 16:10 - CONCLUSION: Chronic degenerative changes without definite tear. Maninder Lozano MD Neck CT 03/20/17 Signed Impressions: Service Date/Time: February 09:57 - CONCLUSION: 1. Possible 2 cm mass in the superficial lobe of the right parotid in detail. MRI with contrast is recommended for further evaluation if clinically indicated. Stepan Albarado MD CT Angiography 03/20/17 Signed Impressions: Service Date/Time: February 09:50 - CONCLUSION: 1. New low-density mass in the upper central spleen not present 12 days ago. Differential diagnosis includes an area of infarction or hematoma. 2. New patchy groundglass opacities in both lungs which may be infectious or inflammatory. 3. Minimal effusions. 4. No evidence of pulmonary emboli. Luiz Guzman MD Abdomen/Pelvis CT 03/20/17 Signed Impressions: Service Date/Time: February 09:53 - CONCLUSION: 1. Interval increase in free air greatest in the upper anterior abdomen. A nonspecific bowel gas pattern remains with oral contrast in the colon. There is no extravasated contrast. 2. Nonspecific bowel gas pattern most consistent with an ileus. 3. The splenic infarct is more conspicuous than on the prior study. 4. Minimal effusions are now noted. Luiz Guzman MD Upper GI Series 03/19/17 Signed Impressions: Service Date/Time: Sunday, March 19, 2017 11:40 - CONCLUSION: Limited upper GI series demonstrating no definite perforation. Luiz Guzman MD Cardiovascular: Regular Lungs: Clear Abdomen: Other (epigastric pain with palpation; abdomen soft ) Extremities: No edema, SCD's on A/P Problem List: (1) Perforated ulcer (2) Acute parotitis (3) Splenic infarction (4) Ibuprofen adverse reaction (5) Abdominal pain (6) COPD exacerbation (7) Pneumonia (8) H/O parotitis Assessment and Plan 66 year old female with COPD and free air visualized on CT scan -WBC remains normal -VSS -Repeat CT abd/pelvis shows increase in free air and splenic infarct---continue non operative treatment UGI shows no leak -Continue PICC and TPN -Replace K -Pulmonary status appears to be improving -Continue NGT to LIWS; okay for a few ice chips -Continue non op treatment at this time -Discussed with Dr. Garcia and Dr. Cruz Attending Statement NOTE FOR SURGICAL ATTENDING, DR. EVER GARCIA feels better pain resolving less severe wants to drink some fluids abd slight soreness start some po I agree with above assessment and plan. The exam, history, and the medical decision-making described in the above note were completed with the assistance of the mid-level provider. I reviewed and agree with the findings presented. I attest that I had a [id number] encounter with the patient on the same day, and personally performed and documented my assessment and findings in the medical record. The following services were provided during this hospital visit: Chart data review, vital sign assessments/reviewing monitor data Review of consultations notes if present. Medication orders/review and/or management Ordering and/or reviewing lab tests Ordering and/or interpreting/reviewing x-rays and/or diagnostic studies Care of the patient and discussion of the patient with the care team Documentation time To help prompt me to consider important information that might be impacting today's encounter and assessment, information from prior notes written by myself or my colleagues may have been "brought forward/copy and pasted" into today's note. Problem Qualifiers (1) Ibuprofen adverse reaction: Qualified Code: T39.315D - Ibuprofen adverse reaction, subsequent encounter (2) Abdominal pain: Qualified Code: R10.12 - Left upper quadrant pain (3) Pneumonia: Qualified Code: J18.1 - Pneumonia of left lower lobe due to infectious organism Rose Gray March 24, 2017 09:08 Ever Garcia MD March 24, 2017 10:10
[2017-03-24] MEDS: RESP: ALBUTEROL 2.5 MG/IPRATROPIUM 0.5 MG NEB (PRN) NEB (09:18)
--- NOTE | 2017-03-24 11:35 | HHI.CCPN ---
Subjective Remarks/Hospital Course The patient is a 66 year old female with past medical history significant for COPD, anxiety disorder, chronic pain, hypertension was just recently discharged from hospital after admitted for almost a days for COPD exacerbation with pneumonia from emesis and H. influenzae. Patient was admitted from 03/08/17- . She presented today with a history of abdominal pain that reportedly is been getting gradually worse since onset (started while in the hospital). The patient reports that the pain was 10 out of 10 in severity, in the ER. She was discharged home yesterday on steroid and Levaquin. The patient was given 30 mL per KG IV fluid bolus. WBC count came back elevated at 18,200 with a left shift , the patient was started on Azactam, Flagyl, and vancomycin. CMP is remarkable for CO2 33.3, BUN 35, creatinine 1.05, lactic acid 2.2, Chest x-ray that shows a left lower lobe infiltrate, CT scan of the abdomen and pelvis revealed several small droplets of free air in the upper abdomen characteristic of free intraperitoneal air, some free fluid in the pelvis and adjacent to the liver and spleen, intestinal perforation as a primary consideration, location is unknown. The patient is also noted to have a wedge area of decreased density in the spleen suggestive of a splenic infarct. Critical care medicine was consulted for admission for acute peritonitis and severe sepsis. Additional history shows that patient was taking 800 mg Motrin several times a day for several years. This makes a perforated gastric ulcer possibility according to surgeon Dr. Garcia. Patient will be conservative management with IV hydration and broad-spectrum antibiotics. If any clinical deterioration patient will have to go for OR for laparotomy 03/18/17: Clinically improving, some improvement in abdominal pain. KUB no free air. WBC 18.2 --> 14.5. Lactic acid has normalized. LLL infiltrate improved 03/19/17: Continues to improve clinically. UGI series ordered by general surgery. Continue conservative management. Now on NRB, but saturation may be low due to poor probe contact. D/W RT and will wean O2 down. 03/20/17: Patient complaining of acute onset pain of left shoulder posteriorly, and right parotid region. Also increasing shortness of breath. Right parotid gland is swollen and tender. CT pulmonary angiogram with CT abdomen pelvis and CT of the neck ordered stat. Patient getting morphine for pain 03/21/17: C/o persistent left shoulder and upper chest pain. On examination patient has mild subcutaneous emphysema extending from the left upper chest to the left shoulder. Abdominal exam has not changed. Dr. Garcia to re evaluate today, new finding of s/q emphysema L upper chest discussed with Dr. Garcia. Air most likely tracking up from intra abdominal free air 03/22/17: Continues to be critically ill, large amount of free air on KUB yesterday. I did not feel subcutaneous emphysema left upper chest today. Patient anxious about prognosis. WBC normal. UO 1.4 L in 24 hours 03/23: Continues to have abdominal pain, stable. hemodynamically stable. KUB with continued free air. Per Dr. Saul, continue conservative management 03/24: Abdominal pain slightly improved, hemodynamically stable. Continuing conservative management per Dr. Garcia. On TPN starting clear liquid diet today. Objective Vital Signs Date Time Temp Pulse Resp B/P Pulse Ox O2 Delivery O2 Flow Rate FiO2 03/24/17 10:00 70 03/24/17 09:18 93 Nasal Cannula 4.00 03/24/17 08:00 98.3 20 173/95 Intake and Output 03/23/17 03/23/17 03/24/17 08:00 16:00 00:00 Intake Total 1758 ml 1129 ml 934 ml Output Total 1000 ml 750 ml 925 ml Balance 758 ml 379 ml 9 ml Result Diagram: 03/23/17 0525 03/23/17 0525 Other Results Microbiology Date/Time Procedure Status Source Growth 03/21/17 12:11 Urine Culture - Final Complete Urine Catheterized Urine NO GROWTH IN 48 HOURS. Imaging Chest x-ray that shows a left lower lobe infiltrate CT scan of the abdomen and pelvis reveals several small droplets of free air in the upper abdomen characteristic of free intraperitoneal air, some free fluid in the pelvis and adjacent to the liver and spleen, intestinal perforation as a primary consideration, location is unknown. The patient is also noted to have a wedge area of decreased density in the spleen suggestive of a splenic infarct. Objective Remarks General: The patient is a well-developed well-nourished female, mild distress Head and Neck exam: Head is normocephalic atraumatic. R parotid gland swelling improved Eyes: Pupils are equal round and reactive to light. ENT: Right parotid gland mildly swollen Neck: No palpable lymphadenopathy. No nuchal rigidity. Chest: L posterior shoulder pain and tenderness, no crepitus Cardiovascular: Regular rate and rhythm without murmurs, gallops, or rubs. Left upper chest, L shoulder tenderness (now improved) Lungs: Mild Expiratory wheezes bilaterally,no accessory muscle use is noted. Abdomen: Diffuse upper abdominal tenderness on palpation. Multiple areas of ecchymosis from Lovenox injections. No guarding, rebound, or rigidity. Extremities: No clubbing, cyanosis, or edema. 2+ pulses in all 4 extremities. No calf tenderness on palpation. Neurologic: Awake oriented. No focal deficits. Mild distress due to pain A/P Assessment and Plan Assessment: This is a 69-year-old female with history of COPD admitted to [facility] 03/08-03/16 initially intubated for acute COPD exacerbation, now presenting with severe sepsis and probable viscus perforation. General surgery Dr. Garcia. Currently on broad-spectrum antibiotics and IV fluids for peritonitis from perforated viscus probably stomach Plan: NEURO/HEENT: Anxiety Chronic pain Acute parotitis -- IV morphine for pain control -- Acute parotitis. clinically improving -- Continue broad spectrum ABX Vanc, Azactam and Flagyl -- Hold antidepressants while nothing by mouth, also hold Neurontin Resp: Acute COPD Exacerbation HCAP/LLL pneumonia L upper chest and shoulder pain -- Recently admitted for COPD exacerbation, and pneumonia with MSSA and Haemophilus influenza (Admitted from 03/08 to 03/16) -- Wean FiO2 for goal spo2 > 88-90%, HOB at 30 degrees -- Solu-Medrol 40 mg IV q12. Patient was on tapering dose of prednisone -- DuoNebs q4h and q2h prn. -- MRI L shoulder show arthritic changes. L upper chest and shoulder pain most likely form splenic infarct CVS: Transient hypotension, now hypertensive Lactic acidosis Peritonitis secondary to perforated viscus -- Monitor HR and BP closely -- Continue IV TPN -- IV Labetalol, hydralazine PRN GI: Probable visceral/gastric perforation with peritonitis Splenic infarct L upper chest s/q emphysema probably air tracking from abdomen -- Start clear liquid diet today, IV Protonix 40 mg every 12. TPN per -- Gen. surgery Dr. Garcia following. D/W Dr. saul 03/23, Dr. Garcia 03/24- continue conservative medical management -- Broad-spectrum antibiotics, ex lap if not improving -- UGI series 03/19/17-no evidence of perforation -- CT abd pelvis 03/20, increasing free air. KUB shows free air n 03/21, 03/22, : Acute kidney insufficiency -- Most likely secondary to peritonitis and sepsis -- IVF with TPN as above. Dim[place] for strict I/O ID: Severe sepsis Peritonitis secondary to perforated viscus Left lower lobe pneumonia/HCAP Probable acute parotitis -- F/U urine and blood cultures negative to date -- Empiric antibiotics Azactam Flagyl and vancomycin started 03/17/17 HEME -- Leukocytosis secondary to sepsis, now resolved ENDO: -- Electrolyte replacement per protocol PROPH: --SCDs, PPI for prophylaxis. Heparin 5000 units subcutaneous every 8 Overall impression: Critically ill with severe sepsis, visceral perforation bronchospasm and COPD exacerbation, now with acute bronchitis and acute left shoulder pain and worsening intra abdominal free air Level 2 Sarah Cruz MD March 24, 2017 11:35
[2017-03-24] MEDS: VANCOMYCIN 1,500 MG/NS 500 ML IV SCH ×2 (12:03)
[2017-03-24] MEDS: FAT EMULSION 20% INJ 250 ML (Daily over 8 hours) IV-CENTRAL SCH (20:45)
[2017-03-24] MEDS: CLINIMIX E 4.25/25 2000 mL- >42 mls/hr IV-CENTRAL SCH ×3 (20:45)
[2017-03-25] VITALS (14 sets, daily range): BP systolic 154–177; BP diastolic 67–86; PULSE 58–81; RESP 12–32; TEMP 97.9–98.6; O2SAT 92–98
[2017-03-25] MEDS: LOW DOSE INSULIN NOVOLOG SUPPLEMENTAL SCALE SQ SCH ×4 (00:33→17:34)
[2017-03-25] MEDS: AZTREONAM INJ 2,000 MG in SODIUM CHLORIDE 0.9% INJ 100 ML IV SCH ×3 (00:34→16:00)
[2017-03-25] MEDS: VANCOMYCIN 1,500 MG/NS 500 ML IV SCH ×4 (01:29→12:49)
[2017-03-25] MEDS: CHLORHEXIDINE GLUCONATE 2 % 1 PACK (2 CLOTHS) TOP SCH (04:04)
[2017-03-25] MEDS: MORPHINE SULFATE 4 MG/ML INJ IV PRN ×4 (04:07→20:06)
[2017-03-25] MEDS: metroNIDAZOLE 500 MG INJ 100 ML IV SCH ×3 (07:26→23:36)
[2017-03-25] MEDS: ENOXAPARIN SODIUM 40 MG/0.4 ML SYRINGE SQ SCH ×2 (08:02→20:06)
[2017-03-25] MEDS: methylPREDNISolone SOD SUCC 40 MG/1 ML VIAL IV SCH ×2 (08:03→20:06)
[2017-03-25] MEDS: PANTOPRAZOLE SODIUM 40 MG VIAL IV SCH ×2 (08:03→20:06)
[2017-03-25] MEDS: FLUCONAZOLE 400 MG PREMIX BAG 200 ML IV SCH (08:03)
[2017-03-25] MEDS: SODIUM CHLORIDE 0.9% FLUSH 10 ML FLUSH IV FLUSH SCH (08:04)
[2017-03-25 08:05] LABS: ALKALINE PHOSPHATASE 49 U/L (45-117); AST (GOT) 14 U/L (15-37); BICARBONATE 25.4 MEQ/L (21.0-32.0); CHLORIDE 100 MEQ/L (98-107); TOTAL BILIRUBIN ADULT 0.3 MG/DL (0.2-1.0)
[2017-03-25 08:09] LABS: BLOOD UREA NITROGEN 23 MG/DL (7-18)
[2017-03-25 08:11] LABS: GLOMERULAR FILTRATION RATE 121 ML/MIN (>89)
[2017-03-25 08:13] LABS: ALT (GPT) 29 U/L (10-53)
[2017-03-25 08:14] LABS: ANION GAP 17 MEQ/L (5-15); POTASSIUM 3.7 MEQ/L (3.5-5.1); SODIUM (NA) 142 MEQ/L (136-145)
[2017-03-25 08:23] LABS: BASOPHIL % 0.1 % (0.0-2.0); EOSINOPHIL % 0.1 % (0.0-4.0); HEMATOCRIT 31.6 % (35.0-46.0); HEMO FLAGS DIFF FINAL; LYMPH % 1.5 % (9.0-44.0); LYMPHOCYTE # 0.1 TH/MM3 (1.0-4.8); MEAN CELL VOLUME 92.2 FL (80.0-100.0); MEAN CORPUSCULAR HEMOGLOBIN 31.3 PG (27.0-34.0); MONO % 1.7 % (0.0-8.0); NEUT % 96.6 % (16.0-70.0); PLATELET COUNT 146 TH/MM3 (150-450); RED BLOOD COUNT 3.43 MIL/MM3 (4.00-5.30); RED CELL DISTRIBUTION WIDTH 15.7 % (11.6-17.2); WHITE BLOOD COUNT 8.3 TH/MM3 (4.0-11.0)
[2017-03-25] MEDS: TIOTROPIUM BROMIDE 18 MCG INH INH SCH (09:28)
--- NOTE | 2017-03-25 11:16 | HHI.PR ---
Subjective Subjective Notes DAILY PROGRESS NOTE FOR SURGICAL ATTENDING, DR. EVER GARCIA Working with PT---getting up to the chair although she does not want to she is encouraged by all in the room to be more mobile Reports pain is better Wondering if her son can send her a package with a new phone desk sergeant Objective Vitals/I&O Vital Signs Date Time Temp Pulse Resp B/P Pulse Ox O2 Delivery O2 Flow Rate FiO2 03/25/17 08:00 98.4 69 12 167/77 96 03/25/17 07:00 Nasal Cannula 5.00 Humidified Labs Laboratory Tests Test 03/24/17 03/25/17 03/25/17 03/25/17 13:00 05:45 07:15 07:30 Magnesium Level 2.6 White Blood Count 8.3 Red Blood Count 3.43 Hemoglobin 10.7 Hematocrit 31.6 Mean Corpuscular Volume 92.2 Mean Corpuscular Hemoglobin 31.3 Mean Corpuscular Hemoglobin 34.0 Concent Red Cell Distribution Width 15.7 Platelet Count 146 Mean Platelet Volume 8.2 Neutrophils (%) (Auto) 96.6 Lymphocytes (%) (Auto) 1.5 Monocytes (%) (Auto) 1.7 Eosinophils (%) (Auto) 0.1 Basophils (%) (Auto) 0.1 Neutrophils # (Auto) 8.0 Lymphocytes # (Auto) 0.1 Monocytes # (Auto) 0.1 Eosinophils # (Auto) 0.0 Basophils # (Auto) 0.0 CBC Comment DIFF FINAL Differential Comment Sodium Level 142 Potassium Level 3.7 Chloride Level 100 Carbon Dioxide Level 25.4 Anion Gap 17 Blood Urea Nitrogen 23 Creatinine 0.51 Estimat Glomerular Filtration 121 Rate Random Glucose 165 Calcium Level 7.7 Total Bilirubin 0.3 Aspartate Amino Transf 14 (AST/SGOT) Alanine Aminotransferase 29 (ALT/SGPT) Alkaline Phosphatase 49 Total Protein 4.8 Albumin 1.9 Date/Time Procedure Status Source Growth 03/21/17 12:11 Urine Culture - Final Complete Urine Catheterized Urine NO GROWTH IN 48 HOURS. Radiology Last Impressions Abdomen X-Ray 03/23/17 0321 Signed Impressions: Service Date/Time: Thursday, March 23, 2017 04:48 - CONCLUSION: Free intraperitoneal air. Anthony Hernadez MD Chest X-Ray 03/23/17 0000 Signed Impressions: Service Date/Time: Thursday, March 23, 2017 04:43 - CONCLUSION: 1. Mild bibasilar atelectasis slightly improved. 2. Nasogastric tube and right arm PICC line again noted. 3. Free intraperitoneal air. Anthony Hernadez MD Soft Tissue MRI 03/22/17 0000 Signed Impressions: Service Date/Time: Wednesday, March 22, 2017 16:31 - CONCLUSION: Nondiscript subcutaneous edema in the right shoulder and lower neck junction with benign-appearing cystic mass in submental location. Maninder Lozano MD Shoulder MRI 03/22/17 0000 Signed Impressions: Service Date/Time: Wednesday, March 22, 2017 16:10 - CONCLUSION: Chronic degenerative changes without definite tear. Maninder Lozano MD Neck CT 03/20/17 0000 Signed Impressions: Service Date/Time: February 09:57 - CONCLUSION: 1. Possible 2 cm mass in the superficial lobe of the right parotid in detail. MRI with contrast is recommended for further evaluation if clinically indicated. Stepan Albarado MD CT Angiography 03/20/17 0000 Signed Impressions: Service Date/Time: February 09:50 - CONCLUSION: 1. New low-density mass in the upper central spleen not present 12 days ago. Differential diagnosis includes an area of infarction or hematoma. 2. New patchy groundglass opacities in both lungs which may be infectious or inflammatory. 3. Minimal effusions. 4. No evidence of pulmonary emboli. Luiz Guzman MD Abdomen/Pelvis CT 03/20/17 0000 Signed Impressions: Service Date/Time: February 09:53 - CONCLUSION: 1. Interval increase in free air greatest in the upper anterior abdomen. A nonspecific bowel gas pattern remains with oral contrast in the colon. There is no extravasated contrast. 2. Nonspecific bowel gas pattern most consistent with an ileus. 3. The splenic infarct is more conspicuous than on the prior study. 4. Minimal effusions are now noted. Luiz Guzman MD Upper GI Series 03/19/17 0000 Signed Impressions: Service Date/Time: Sunday, March 19, 2017 11:40 - CONCLUSION: Limited upper GI series demonstrating no definite perforation. Luiz Guzman MD Cardiovascular: Regular Lungs: Clear Abdomen: Other (pain localized in RUQ/epigastric/LUQ; abdomen mildly distended ) Extremities: No edema A/P Problem List: (1) Perforated ulcer (2) Acute parotitis (3) Splenic infarction (4) Ibuprofen adverse reaction (5) Abdominal pain (6) COPD exacerbation (7) Pneumonia (8) H/O parotitis Assessment and Plan 66 year old female with COPD and free air visualized on CT scan -WBC remains normal -VSS -Repeat CT abd/pelvis shows increase in free air and splenic infarct---continue non operative treatment -Continue PICC and TPN -Pulmonary status appears to be improving -Clamp NGT; Tolerating clear liquids -Continue non op treatment at this time -Discussed with Dr. Garcia -CATE Coronel at bedside -Updated son Amador by phone Attending Statement NOTE FOR SURGICAL ATTENDING, DR. EVER GARCIA says she feel even better today now that she can drink something abd softer some left shoulder pain good UOP had bowel movement cont medical treatment I agree with above assessment and plan. The exam, history, and the medical decision-making described in the above note were completed with the assistance of the mid-level provider. I reviewed and agree with the findings presented. I attest that I had a [id number] encounter with the patient on the same day, and personally performed and documented my assessment and findings in the medical record. The following services were provided during this hospital visit: Chart data review, vital sign assessments/reviewing monitor data Review of consultations notes if present. Medication orders/review and/or management Ordering and/or reviewing lab tests Ordering and/or interpreting/reviewing x-rays and/or diagnostic studies Care of the patient and discussion of the patient with the care team Documentation time To help prompt me to consider important information that might be impacting today's encounter and assessment, information from prior notes written by myself or my colleagues may have been "brought forward/copy and pasted" into today's note. Problem Qualifiers (1) Ibuprofen adverse reaction: Qualified Code: T39.315D - Ibuprofen adverse reaction, subsequent encounter (2) Abdominal pain: Qualified Code: R10.12 - Left upper quadrant pain (3) Pneumonia: Qualified Code: J18.1 - Pneumonia of left lower lobe due to infectious organism Rose Gray March 25, 2017 11:15 Ever Garcia MD March 25, 2017 12:10
--- NOTE | 2017-03-25 15:33 | HHI.CCPN ---
Subjective Remarks/Hospital Course The patient is a 66 year old female with past medical history significant for COPD, anxiety disorder, chronic pain, hypertension was just recently discharged from hospital after admitted for almost a days for COPD exacerbation with pneumonia from emesis and H. influenzae. Patient was admitted from 03/08/17- . She presented today with a history of abdominal pain that reportedly is been getting gradually worse since onset (started while in the hospital). The patient reports that the pain was 10 out of 10 in severity, in the ER. She was discharged home yesterday on steroid and Levaquin. The patient was given 30 mL per KG IV fluid bolus. WBC count came back elevated at 18,200 with a left shift , the patient was started on Azactam, Flagyl, and vancomycin. CMP is remarkable for CO2 33.3, BUN 35, creatinine 1.05, lactic acid 2.2, Chest x-ray that shows a left lower lobe infiltrate, CT scan of the abdomen and pelvis revealed several small droplets of free air in the upper abdomen characteristic of free intraperitoneal air, some free fluid in the pelvis and adjacent to the liver and spleen, intestinal perforation as a primary consideration, location is unknown. The patient is also noted to have a wedge area of decreased density in the spleen suggestive of a splenic infarct. Critical care medicine was consulted for admission for acute peritonitis and severe sepsis. Additional history shows that patient was taking 800 mg Motrin several times a day for several years. This makes a perforated gastric ulcer possibility according to surgeon Dr. Garcia. Patient will be conservative management with IV hydration and broad-spectrum antibiotics. If any clinical deterioration patient will have to go for OR for laparotomy 03/18/17: Clinically improving, some improvement in abdominal pain. KUB no free air. WBC 18.2 --> 14.5. Lactic acid has normalized. LLL infiltrate improved 03/19/17: Continues to improve clinically. UGI series ordered by general surgery. Continue conservative management. Now on NRB, but saturation may be low due to poor probe contact. D/W RT and will wean O2 down. 03/20/17: Patient complaining of acute onset pain of left shoulder posteriorly, and right parotid region. Also increasing shortness of breath. Right parotid gland is swollen and tender. CT pulmonary angiogram with CT abdomen pelvis and CT of the neck ordered stat. Patient getting morphine for pain 03/21/17: C/o persistent left shoulder and upper chest pain. On examination patient has mild subcutaneous emphysema extending from the left upper chest to the left shoulder. Abdominal exam has not changed. Dr. Garcia to re evaluate today, new finding of s/q emphysema L upper chest discussed with Dr. Garcia. Air most likely tracking up from intra abdominal free air 03/22/17: Continues to be critically ill, large amount of free air on KUB yesterday. I did not feel subcutaneous emphysema left upper chest today. Patient anxious about prognosis. WBC normal. UO 1.4 L in 24 hours 03/23: Continues to have abdominal pain, stable. hemodynamically stable. KUB with continued free air. Per Dr. Saul, continue conservative management 03/24: Abdominal pain slightly improved, hemodynamically stable. Continuing conservative management per Dr. Garcia. On TPN starting clear liquid diet today. 03/25: Tolerating clear liquid diet. Gen surgery advancing diet. Sitting up in chair. Overall improving clinically Objective Vital Signs Date Time Temp Pulse Resp B/P Pulse Ox O2 Delivery O2 Flow Rate FiO2 03/25/17 14:00 79 03/25/17 12:33 97 Nasal Cannula 3.00 03/25/17 12:00 97.9 21 156/81 Intake and Output 03/24/17 03/24/17 03/25/17 08:00 16:00 00:00 Intake Total 1819 ml 1820 ml 1485 ml Output Total 875 ml 775 ml 800 ml Balance 944 ml 1045 ml 685 ml Result Diagram: 03/25/17 0730 03/25/17 0715 Imaging Chest x-ray that shows a left lower lobe infiltrate CT scan of the abdomen and pelvis reveals several small droplets of free air in the upper abdomen characteristic of free intraperitoneal air, some free fluid in the pelvis and adjacent to the liver and spleen, intestinal perforation as a primary consideration, location is unknown. The patient is also noted to have a wedge area of decreased density in the spleen suggestive of a splenic infarct. Objective Remarks General: The patient is a well-developed well-nourished female, mild distress Head and Neck exam: Head is normocephalic atraumatic. Eyes: Pupils are equal round and reactive to light. ENT: Right parotid gland mildly swollen Neck: No palpable lymphadenopathy. No nuchal rigidity. Chest: L posterior shoulder pain and tenderness, no crepitus Cardiovascular: Regular rate and rhythm without murmurs, gallops, or rubs. Left upper chest, L shoulder tenderness (now improved) Lungs: No Expiratory wheezes today,no accessory muscle use is noted. Abdomen: Diffuse upper abdominal tenderness on palpation. Multiple areas of ecchymosis from Lovenox injections. No guarding, rebound, or rigidity. Extremities: No clubbing, cyanosis, or edema. 2+ pulses in all 4 extremities. No calf tenderness on palpation. Neurologic: Awake oriented. No focal deficits. Mild distress due to pain Urinary Catheter: Yes Assessment to: Continue A/P Assessment and Plan Assessment: This is a 69-year-old female with history of COPD admitted to [place] 03/08-03/16 initially intubated for acute COPD exacerbation, now presenting with severe sepsis and probable gastric perforation. General surgery Dr. Garcia. Currently on broad-spectrum antibiotics and IV fluids for peritonitis from perforated viscus probably stomach Plan: NEURO/HEENT: Anxiety Chronic pain Acute parotitis -- IV morphine for pain control -- Acute parotitis. clinically improving -- Hold antidepressants while nothing by mouth, also hold Neurontin Resp: Acute COPD Exacerbation HCAP/LLL pneumonia L upper chest and shoulder pain secondary to splenic infarct -- Recently admitted for COPD exacerbation, and pneumonia with MSSA and Haemophilus influenza (Admitted from 03/08 to 03/16) -- Wean FiO2 for goal spo2 > 88-90%, HOB at 30 degrees -- Solu-Medrol 40 mg IV q12. Patient was on tapering dose of prednisone -- DuoNebs q4h and q2h prn. -- MRI L shoulder show arthritic changes. L upper chest and shoulder pain most likely from splenic infarct CVS: Transient hypotension, now hypertensive Lactic acidosis Peritonitis secondary to perforated viscus -- Monitor HR and BP closely -- Continue IV TPN -- IV Labetalol, hydralazine PRN GI: Probable visceral/gastric perforation with peritonitis Splenic infarct L upper chest s/q emphysema probably air tracking from abdomen -- Tolerating clear liquid diet today, advance per general surgery. IV Protonix 40 mg every 12. TPN per GS -- Gen. surgery Dr. Garcia following. D/W Dr. Saul 03/23, Dr. Garcia 03/24- continue conservative medical management -- Broad-spectrum antibiotics, -- Continue broad spectrum Azactam and Flagyl. DC vanc 03/25/17. Ex lap if not improving -- UGI series 03/19/17-no evidence of perforation -- CT abd pelvis 03/20, increasing free air. KUB shows free air n 03/21, 03/22, : Acute kidney insufficiency -- Most likely secondary to peritonitis and sepsis -- IVF with TPN as above. Dimas for strict I/O ID: Severe sepsis Peritonitis secondary to perforated viscus Left lower lobe pneumonia/HCAP Probable acute parotitis -- F/U urine and blood cultures negative to date -- Empiric antibiotics Azactam Flagyl and vancomycin started 03/17/17, DC Vanc today 03/25 HEME -- Leukocytosis secondary to sepsis, now resolved ENDO: -- Electrolyte replacement per protocol PROPH: --SCDs, PPI for prophylaxis. Heparin 5000 units subcutaneous every [address] Garcia requests ICU care another 24 hours and re assess for transfer 03/26/17 Sarah Cruz MD March 25, 2017 15:33
[2017-03-25] MEDS: FAT EMULSION 20% INJ 250 ML (Daily over 8 hours) IV-CENTRAL SCH (20:05)
[2017-03-25] MEDS: CLINIMIX E 4.25/25 2000 mL- >42 mls/hr IV-CENTRAL SCH ×3 (20:05)
[2017-03-25] MEDS: hydrALAZINE HCL 20 MG/ML VIAL IV PUSH PRN (21:07)
[2017-03-26] VITALS (9 sets, daily range): BP systolic 133–162; BP diastolic 59–77; PULSE 68–86; RESP 14–21; TEMP 96.7–98.5; O2SAT 95–100
[2017-03-26] MEDS: AZTREONAM INJ 2,000 MG in SODIUM CHLORIDE 0.9% INJ 100 ML IV SCH ×3 (00:37→16:00)
[2017-03-26] MEDS: MORPHINE SULFATE 4 MG/ML INJ IV PRN ×3 (01:11→18:08)
[2017-03-26] MEDS: CHLORHEXIDINE GLUCONATE 2 % 1 PACK (2 CLOTHS) TOP SCH (04:06)
[2017-03-26 04:18] LABS: AUTOMATED NEUTROPHIL # 8.1 TH/MM3 (1.8-7.7); BASOPHIL % 0.3 % (0.0-2.0); EOSINOPHIL % 0.2 % (0.0-4.0); HEMATOCRIT 33.2 % (35.0-46.0); HEMO FLAGS DIFF FINAL; LYMPHOCYTE # 0.1 TH/MM3 (1.0-4.8); MEAN CELL VOLUME 92.8 FL (80.0-100.0); MEAN CORPUSCULAR HEMOGLOBIN 30.6 PG (27.0-34.0); MONO % 1.4 % (0.0-8.0); NEUT % 97.1 % (16.0-70.0); PLATELET COUNT 144 TH/MM3 (150-450); RED BLOOD COUNT 3.58 MIL/MM3 (4.00-5.30); RED CELL DISTRIBUTION WIDTH 15.7 % (11.6-17.2); WHITE BLOOD COUNT 8.3 TH/MM3 (4.0-11.0)
[2017-03-26 04:34] LABS: ALKALINE PHOSPHATASE 60 U/L (45-117); ALT (GPT) 32 U/L (10-53); ANION GAP 7 MEQ/L (5-15); AST (GOT) 16 U/L (15-37); BICARBONATE 30.4 MEQ/L (21.0-32.0); BLOOD UREA NITROGEN 20 MG/DL (7-18); CHLORIDE 107 MEQ/L (98-107); GLOMERULAR FILTRATION RATE 121 ML/MIN (>89); POTASSIUM 3.8 MEQ/L (3.5-5.1); SODIUM (NA) 144 MEQ/L (136-145); TOTAL BILIRUBIN ADULT 0.2 MG/DL (0.2-1.0)
[2017-03-26] MEDS: LOW DOSE INSULIN NOVOLOG SUPPLEMENTAL SCALE SQ SCH ×4 (05:44→18:00)
[2017-03-26] MEDS: metroNIDAZOLE 500 MG INJ 100 ML IV SCH ×2 (05:45→16:51)
[2017-03-26] MEDS: TIOTROPIUM BROMIDE 18 MCG INH INH SCH (09:00)
--- NOTE | 2017-03-26 09:34 | HHI.CCPN ---
Subjective Remarks/Hospital Course The patient is a 66 year old female with past medical history significant for COPD, anxiety disorder, chronic pain, hypertension was just recently discharged from hospital after admitted for almost a days for COPD exacerbation with pneumonia from emesis and H. influenzae. Patient was admitted from 03/08/17- . She presented today with a history of abdominal pain that reportedly is been getting gradually worse since onset (started while in the hospital). The patient reports that the pain was 10 out of 10 in severity, in the ER. She was discharged home yesterday on steroid and Levaquin. The patient was given 30 mL per KG IV fluid bolus. WBC count came back elevated at 18,200 with a left shift , the patient was started on Azactam, Flagyl, and vancomycin. CMP is remarkable for CO2 33.3, BUN 35, creatinine 1.05, lactic acid 2.2, Chest x-ray that shows a left lower lobe infiltrate, CT scan of the abdomen and pelvis revealed several small droplets of free air in the upper abdomen characteristic of free intraperitoneal air, some free fluid in the pelvis and adjacent to the liver and spleen, intestinal perforation as a primary consideration, location is unknown. The patient is also noted to have a wedge area of decreased density in the spleen suggestive of a splenic infarct. Critical care medicine was consulted for admission for acute peritonitis and severe sepsis. Additional history shows that patient was taking 800 mg Motrin several times a day for several years. This makes a perforated gastric ulcer possibility according to surgeon Dr. Garcia. Patient will be conservative management with IV hydration and broad-spectrum antibiotics. If any clinical deterioration patient will have to go for OR for laparotomy 03/18/17: Clinically improving, some improvement in abdominal pain. KUB no free air. WBC 18.2 --> 14.5. Lactic acid has normalized. LLL infiltrate improved 03/19/17: Continues to improve clinically. UGI series ordered by general surgery. Continue conservative management. Now on NRB, but saturation may be low due to poor probe contact. D/W RT and will wean O2 down. 03/20/17: Patient complaining of acute onset pain of left shoulder posteriorly, and right parotid region. Also increasing shortness of breath. Right parotid gland is swollen and tender. CT pulmonary angiogram with CT abdomen pelvis and CT of the neck ordered stat. Patient getting morphine for pain 03/21/17: C/o persistent left shoulder and upper chest pain. On examination patient has mild subcutaneous emphysema extending from the left upper chest to the left shoulder. Abdominal exam has not changed. Dr. Garcia to re evaluate today, new finding of s/q emphysema L upper chest discussed with Dr. Garcia. Air most likely tracking up from intra abdominal free air 03/22/17: Continues to be critically ill, large amount of free air on KUB yesterday. I did not feel subcutaneous emphysema left upper chest today. Patient anxious about prognosis. WBC normal. UO 1.4 L in 24 hours 03/23: Continues to have abdominal pain, stable. hemodynamically stable. KUB with continued free air. Per Dr. Saul, continue conservative management 03/24: Abdominal pain slightly improved, hemodynamically stable. Continuing conservative management per Dr. Garcia. On TPN starting clear liquid diet today. 03/25: Tolerating clear liquid diet. Gen surgery advancing diet. Sitting up in chair. Overall improving clinically 03/26: Spontaneous appearance of free abdominal air. Resolution after abx, NG suction, mechanical ventilation. Objective Vital Signs Date Time Temp Pulse Resp B/P Pulse Ox O2 Delivery O2 Flow Rate FiO2 03/26/17 07:00 99 Nasal Cannula 3.00 03/26/17 06:00 76 03/26/17 04:00 98.4 14 133/59 Intake and Output 03/25/17 03/25/17 03/26/17 08:00 16:00 00:00 Intake Total 1835 ml 1443 ml 1483 ml Output Total 1050 ml 1075 ml 1400 ml Balance 785 ml 368 ml 83 ml Result Diagram: 03/26/17 0400 03/26/17 0400 Imaging Chest x-ray that shows a left lower lobe infiltrate CT scan of the abdomen and pelvis reveals several small droplets of free air in the upper abdomen characteristic of free intraperitoneal air, some free fluid in the pelvis and adjacent to the liver and spleen, intestinal perforation as a primary consideration, location is unknown. The patient is also noted to have a wedge area of decreased density in the spleen suggestive of a splenic infarct. Objective Remarks General: The patient is a well-developed well-nourished female, mild distress Head and Neck exam: Head is normocephalic atraumatic. Eyes: Pupils are equal round and reactive to light. ENT: Right parotid gland mildly swollen Neck: No palpable lymphadenopathy. No nuchal rigidity. Airway widely patent. Chest: L posterior shoulder pain and tenderness, no crepitus Cardiovascular: Regular rate and rhythm without murmurs, gallops, or rubs. Left upper chest, L shoulder tenderness (now improved) Lungs: No Expiratory wheezes today,no accessory muscle use is noted. Abdomen: Minimal upper abdominal tenderness on palpation. Multiple areas of ecchymosis from Lovenox injections. No guarding, rebound, or rigidity. BS active. Extremities: No clubbing, cyanosis, or edema. 2+ pulses in all 4 extremities. No calf tenderness on palpation. Neurologic: Awake oriented. No focal deficits. A/P Assessment and Plan Assessment: This is a 69-year-old female with history of COPD admitted to [place] 03/08-03/16 initially intubated for acute COPD exacerbation, now presenting with severe sepsis and probable gastric perforation. General surgery Dr. Garcia. Currently on broad-spectrum antibiotics and IV fluids for peritonitis from perforated viscus probably stomach Plan: NEURO/HEENT: Anxiety Chronic pain Acute parotitis -- IV morphine for pain control -- Acute parotitis. clinically improving -- Hold antidepressants while nothing by mouth, also hold Neurontin Resp: Acute COPD Exacerbation HCAP/LLL pneumonia L upper chest and shoulder pain secondary to splenic infarct -- Recently admitted for COPD exacerbation, and pneumonia with MSSA and Haemophilus influenza (Admitted from 03/08 to 03/16) -- Wean FiO2 for goal spo2 > 88-90%, HOB at 30 degrees -- Solu-Medrol 40 mg IV q12. Patient was on tapering dose of prednisone -- DuoNebs q4h and q2h prn. -- MRI L shoulder show arthritic changes. L upper chest and shoulder pain most likely from splenic infarct CVS: Transient hypotension, now hypertensive Lactic acidosis Peritonitis secondary to perforated viscus -- Monitor HR and BP closely -- Continue IV TPN -- IV Labetalol, hydralazine PRN GI: Probable visceral/gastric perforation with peritonitis Splenic infarct L upper chest s/q emphysema probably air tracking from abdomen -- Tolerating clear liquid diet today, advance per general surgery. IV Protonix 40 mg every 12. TPN per GS -- Gen. surgery Dr. Garcia following. D/W Dr. Saul 03/23, Dr. Garcia 03/24- continue conservative medical management -- Broad-spectrum antibiotics, -- Continue broad spectrum Azactam and Flagyl. DC vanc 03/25/17. Ex lap if not improving -- UGI series 03/19/17-no evidence of perforation -- CT abd pelvis 03/20, increasing free air. KUB shows free air n 03/21, 03/22, : Acute kidney insufficiency -- Most likely secondary to peritonitis and sepsis -- IVF with TPN as above. Dimas for strict I/O ID: Severe sepsis Peritonitis secondary to perforated viscus Left lower lobe pneumonia/HCAP Probable acute parotitis -- F/U urine and blood cultures negative to date -- Empiric antibiotics Azactam Flagyl and vancomycin started 03/17/17, DC Vanc today 03/25 HEME -- Leukocytosis secondary to sepsis, now resolved ENDO: -- Electrolyte replacement per protocol PROPH: --SCDs, PPI for prophylaxis. Heparin 5000 units subcutaneous every 8 Overall impression: Much improved respiratory status. Abdomen appears benign now. Abdias Raza MD March 26, 2017 09:34
[2017-03-26] MEDS: ENOXAPARIN SODIUM 40 MG/0.4 ML SYRINGE SQ SCH ×2 (09:40→20:07)
[2017-03-26] MEDS: FLUCONAZOLE 400 MG PREMIX BAG 200 ML IV SCH (09:40)
[2017-03-26] MEDS: SODIUM CHLORIDE 0.9% FLUSH 10 ML FLUSH IV FLUSH SCH (09:41)
[2017-03-26] MEDS: PANTOPRAZOLE SODIUM 40 MG VIAL IV SCH ×2 (09:41→20:07)
[2017-03-26] MEDS: methylPREDNISolone SOD SUCC 40 MG/1 ML VIAL IV SCH ×2 (09:41→20:07)
--- NOTE | 2017-03-26 11:50 | HHI.PR ---
Subjective Subjective Notes DAILY PROGRESS NOTE FOR SURGICAL ATTENDING, DR. EVER GARCIA Resting in bed Slept better last night Pain getting better everyday Agrees to get up to the chair again today Objective Vitals/I&O Vital Signs Date Time Temp Pulse Resp B/P Pulse Ox O2 Delivery O2 Flow Rate FiO2 03/26/17 11:18 100 Nasal Cannula 3.00 03/26/17 08:00 98.5 71 19 149/67 Labs Laboratory Tests Test 03/26/17 04:00 White Blood Count 8.3 Red Blood Count 3.58 Hemoglobin 11.0 Hematocrit 33.2 Mean Corpuscular Volume 92.8 Mean Corpuscular Hemoglobin 30.6 Mean Corpuscular Hemoglobin 33.0 Concent Red Cell Distribution Width 15.7 Platelet Count 144 Mean Platelet Volume 7.7 Neutrophils (%) (Auto) 97.1 Lymphocytes (%) (Auto) 1.0 Monocytes (%) (Auto) 1.4 Eosinophils (%) (Auto) 0.2 Basophils (%) (Auto) 0.3 Neutrophils # (Auto) 8.1 Lymphocytes # (Auto) 0.1 Monocytes # (Auto) 0.1 Eosinophils # (Auto) 0.0 Basophils # (Auto) 0.0 CBC Comment DIFF FINAL Differential Comment Sodium Level 144 Potassium Level 3.8 Chloride Level 107 Carbon Dioxide Level 30.4 Anion Gap 7 Blood Urea Nitrogen 20 Creatinine 0.51 Estimat Glomerular Filtration 121 Rate Random Glucose 196 Calcium Level 7.6 Magnesium Level 2.0 Total Bilirubin 0.2 Aspartate Amino Transf 16 (AST/SGOT) Alanine Aminotransferase 32 (ALT/SGPT) Alkaline Phosphatase 60 Total Protein 5.1 Albumin 1.9 Date/Time Procedure Status Source Growth 03/21/17 12:11 Urine Culture - Final Complete Urine Catheterized Urine NO GROWTH IN 48 HOURS. Radiology Last Impressions Abdomen X-Ray 03/23/17 0321 Signed Impressions: Service Date/Time: Thursday, March 23, 2017 04:48 - CONCLUSION: Free intraperitoneal air. Anthony Hernadez MD Chest X-Ray 03/23/17 0000 Signed Impressions: Service Date/Time: Thursday, March 23, 2017 04:43 - CONCLUSION: 1. Mild bibasilar atelectasis slightly improved. 2. Nasogastric tube and right arm PICC line again noted. 3. Free intraperitoneal air. Anthony Hernadez MD Soft Tissue MRI 03/22/17 0000 Signed Impressions: Service Date/Time: Wednesday, March 22, 2017 16:31 - CONCLUSION: Nondiscript subcutaneous edema in the right shoulder and lower neck junction with benign-appearing cystic mass in submental location. Maninder Lozano MD Shoulder MRI 03/22/17 0000 Signed Impressions: Service Date/Time: Wednesday, March 22, 2017 16:10 - CONCLUSION: Chronic degenerative changes without definite tear. Maninder Lozano MD Neck CT 03/20/17 0000 Signed Impressions: Service Date/Time: February 09:57 - CONCLUSION: 1. Possible 2 cm mass in the superficial lobe of the right parotid in detail. MRI with contrast is recommended for further evaluation if clinically indicated. Stepan Albarado MD CT Angiography 03/20/17 0000 Signed Impressions: Service Date/Time: February 09:50 - CONCLUSION: 1. New low-density mass in the upper central spleen not present 12 days ago. Differential diagnosis includes an area of infarction or hematoma. 2. New patchy groundglass opacities in both lungs which may be infectious or inflammatory. 3. Minimal effusions. 4. No evidence of pulmonary emboli. Luiz Guzman MD Abdomen/Pelvis CT 03/20/17 0000 Signed Impressions: Service Date/Time: February 09:53 - CONCLUSION: 1. Interval increase in free air greatest in the upper anterior abdomen. A nonspecific bowel gas pattern remains with oral contrast in the colon. There is no extravasated contrast. 2. Nonspecific bowel gas pattern most consistent with an ileus. 3. The splenic infarct is more conspicuous than on the prior study. 4. Minimal effusions are now noted. Luiz Guzman MD Upper GI Series 03/19/17 0000 Signed Impressions: Service Date/Time: Sunday, March 19, 2017 11:40 - CONCLUSION: Limited upper GI series demonstrating no definite perforation. Luiz Guzman MD Cardiovascular: Regular Lungs: Clear Abdomen: Other (mildly distended; minimal pain with palpation good bowel sounds ) Extremities: No edema A/P Problem List: (1) Perforated ulcer (2) Acute parotitis (3) Splenic infarction (4) Ibuprofen adverse reaction (5) Abdominal pain (6) COPD exacerbation (7) Pneumonia (8) H/O parotitis Assessment and Plan 66 year old female with COPD and free air visualized on CT scan -WBC remains normal -VSS -Repeat CT abd/pelvis shows increase in free air and splenic infarct---continue non operative treatment -Continue PICC and TPN -Pulmonary status appears to be improving -Clamp NGT; Start Fulls -Continue non op treatment at this time -Discussed with Dr. Garcia -CATE Patel at bedside -Okay to transfer to the med surg floor from GS standpoint Attending Statement NOTE FOR SURGICAL ATTENDING, DR. EVER GARCIA I agree with above assessment and plan. The exam, history, and the medical decision-making described in the above note were completed with the assistance of the mid-level provider. I reviewed and agree with the findings presented. Continues to improve on a daily basis We'll plan to pull NG tube out in a.m. if continues to improve I attest that I had a [id number] encounter with the patient on the same day, and personally performed and documented my assessment and findings in the medical record. The following services were provided during this hospital visit: Chart data review, vital sign assessments/reviewing monitor data Review of consultations notes if present. Medication orders/review and/or management Ordering and/or reviewing lab tests Ordering and/or interpreting/reviewing x-rays and/or diagnostic studies Care of the patient and discussion of the patient with the care team Documentation time To help prompt me to consider important information that might be impacting today's encounter and assessment, information from prior notes written by myself or my colleagues may have been "brought forward/copy and pasted" into today's note. Problem Qualifiers (1) Ibuprofen adverse reaction: Qualified Code: T39.315D - Ibuprofen adverse reaction, subsequent encounter (2) Abdominal pain: Qualified Code: R10.12 - Left upper quadrant pain (3) Pneumonia: Qualified Code: J18.1 - Pneumonia of left lower lobe due to infectious organism Rose GrayP March 26, 2017 11:50 Ever Garcia MD March 27, 2017 14:45
[2017-03-26] MEDS ORDERED: oxyCODONE/ACETAMINOPHEN 7.5 MG/325 MG TAB PO PRN (12:15)
[2017-03-26] MEDS ORDERED: PHARMACY ORDERED LAB ONE (12:45)
[2017-03-26] MEDS: CLINIMIX E 4.25/25 2000 mL- >42 mls/hr IV-CENTRAL SCH ×3 (20:06)
[2017-03-26] MEDS: FAT EMULSION 20% INJ 250 ML (Daily over 8 hours) IV-CENTRAL SCH (20:06)
[2017-03-27] VITALS (7 sets, daily range): BP systolic 160–184; BP diastolic 72–91; PULSE 69–80; RESP 17–22; TEMP 96.2–97.7; O2SAT 95–97
[2017-03-27] MEDS: AZTREONAM INJ 2,000 MG in SODIUM CHLORIDE 0.9% INJ 100 ML IV SCH ×4 (00:08→23:30)
[2017-03-27] MEDS: metroNIDAZOLE 500 MG INJ 100 ML IV SCH ×4 (00:08→22:02)
[2017-03-27] MEDS: LORazepam 2 MG/ML VIAL IV PUSH PRN ×3 (00:09→17:25)
[2017-03-27] MEDS: MORPHINE SULFATE 4 MG/ML INJ IV PRN ×4 (00:10→23:43)
[2017-03-27] MEDS: LOW DOSE INSULIN NOVOLOG SUPPLEMENTAL SCALE SQ SCH ×5 (01:24→23:30)
[2017-03-27] MEDS: CHLORHEXIDINE GLUCONATE 2 % 1 PACK (2 CLOTHS) TOP SCH (01:25)
[2017-03-27] MEDS: ENOXAPARIN SODIUM 40 MG/0.4 ML SYRINGE SQ SCH ×2 (08:00→19:49)
--- NOTE | 2017-03-27 08:28 | HHI.PR ---
Subjective Remarks in no acute distress. afebrile. says that the abdominal pain is getting better. no nausea or vomiting. NG tube in place. d/w the RN. Objective Vitals Vital Signs Date Time Temp Pulse Resp B/P Pulse Ox O2 Delivery O2 Flow Rate FiO2 03/27/17 08:00 97.7 80 18 176/76 95 03/27/17 04:00 96.8 80 20 160/77 96 03/27/17 00:31 95 Nasal Cannula 3.00 03/27/17 00:00 96.8 73 22 184/84 95 03/26/17 20:00 Nasal Cannula 3.00 03/26/17 20:00 96.7 73 20 162/77 96 03/26/17 16:00 96.7 86 17 147/61 95 03/26/17 12:00 86 03/26/17 12:00 98.2 86 20 133/71 96 03/26/17 11:18 100 Nasal Cannula 3.00 I/O 03/26/17 03/26/17 03/26/17 03/27/17 03/27/17 03/27/17 07:00 15:00 23:00 07:00 15:00 23:00 Intake Total 1275 ml 1364 ml 320 ml 240 ml Output Total 1350 ml 1000 ml 600 ml 1000 ml Balance -75 ml 364 ml -280 ml -760 ml Intake Oral 180 ml 286 ml 320 ml 240 ml IV Total 240 ml 441 ml TPN/PPN 655 ml 637 ml Lipid 200 ml Output Urine Total 1350 ml 1000 ml 600 ml 1000 ml # Bowel Movements 1 1 0 1 Result Diagram: 03/26/17 0400 03/26/17 0400 Imaging Last Impressions Abdomen X-Ray 03/23/17 0321 Signed Impressions: Service Date/Time: Thursday, March 23, 2017 04:48 - CONCLUSION: Free intraperitoneal air. Anthony Hernadez MD Chest X-Ray 03/23/17 0000 Signed Impressions: Service Date/Time: Thursday, March 23, 2017 04:43 - CONCLUSION: 1. Mild bibasilar atelectasis slightly improved. 2. Nasogastric tube and right arm PICC line again noted. 3. Free intraperitoneal air. Anthony Hernadez MD Soft Tissue MRI 03/22/17 0000 Signed Impressions: Service Date/Time: Wednesday, March 22, 2017 16:31 - CONCLUSION: Nondiscript subcutaneous edema in the right shoulder and lower neck junction with benign-appearing cystic mass in submental location. Maninder Lozano MD Shoulder MRI 03/22/17 Signed Impressions: Service Date/Time: Wednesday, March 22, 2017 16:10 - CONCLUSION: Chronic degenerative changes without definite tear. Maninder Lozano MD Neck CT 03/20/17 Signed Impressions: Service Date/Time: February 09:57 - CONCLUSION: 1. Possible 2 cm mass in the superficial lobe of the right parotid in detail. MRI with contrast is recommended for further evaluation if clinically indicated. Stepan Albarado MD CT Angiography 03/20/17 Signed Impressions: Service Date/Time: February 09:50 - CONCLUSION: 1. New low-density mass in the upper central spleen not present 12 days ago. Differential diagnosis includes an area of infarction or hematoma. 2. New patchy groundglass opacities in both lungs which may be infectious or inflammatory. 3. Minimal effusions. 4. No evidence of pulmonary emboli. Luiz Guzman MD Abdomen/Pelvis CT 03/20/17 Signed Impressions: Service Date/Time: February 09:53 - CONCLUSION: 1. Interval increase in free air greatest in the upper anterior abdomen. A nonspecific bowel gas pattern remains with oral contrast in the colon. There is no extravasated contrast. 2. Nonspecific bowel gas pattern most consistent with an ileus. 3. The splenic infarct is more conspicuous than on the prior study. 4. Minimal effusions are now noted. Luiz Guzman MD Upper GI Series 03/19/17 Signed Impressions: Service Date/Time: Sunday, March 19, 2017 11:40 - CONCLUSION: Limited upper GI series demonstrating no definite perforation. Luiz Guzman MD Objective Remarks GENERAL: obese female, in no apparent distress with NG tube in place. CARDIOVASCULAR: Regular rate and regular rhythm without murmurs, gallops, or rubs. RESPIRATORY: Clear to auscultation. Breath sounds equal bilaterally. No wheezes , rales, or rhonchi. GASTROINTESTINAL: Abdomen soft, mild generalized tenderness, nondistended. Normal, active bowel sounds MUSCULOSKELETAL: Extremities without clubbing, cyanosis, or edema. NEURO: Alert & Oriented x4 to person, place, time, situation. Moves all ext x4 Procedures PICC line insertion Medications and IVs Current Medications Sodium Chloride (NS 1000 ml Inj) 1,000 ml @ 1,000 mls/hr Q1H ONCE IV Last administered on 03/17/17 05:33; Start 03/17/17 at 05:15; Stop 03/17/17 at 06:14 ; Status DC Fentanyl Citrate (fentaNYL INJ) 25 mcg ONCE ONCE IV PUSH Last administered on 03/17/17 06:03; Start 03/17/17 at 05:45; Stop 03/17/17 at 05:46; Status DC Ondansetron HCl (Zofran Inj) 4 mg ONCE ONCE IV PUSH Last administered on 06:02; Start 03/17/17 at 05:45; Stop 03/17/17 at 05:46; Status DC Pantoprazole Sodium (Protonix Inj) 40 mg ONCE ONCE IV PUSH Last administered on 03/17/17 06:03; Start 03/17/17 at 05:45; Stop 03/17/17 at 05:46; Status DC Sodium Chloride (NS Flush) 2 ml UNSCH PRN IVF FLUSH AFTER USING IV ACCESS; Start 03/17/17 at 05:45 Methylprednisolone Sodium Succinate (SoluMEDROL INJ) 125 mg ONCE ONCE IVP Last administered on 03/17/17 06:03; Start 03/17/17 at 05:45; Stop 03/17/17 at 05:46; Status DC Fentanyl Citrate 100 mcg 100 mcg STK-MED ONCE .ROUTE ; Start 03/17/17 at 05:50; Stop 03/17/17 at 05:51; Status DC Sodium Chloride 1,000 ml @ 1,000 mls/hr Q1H ONCE IV Last administered on 06:31; Start 03/17/17 at 06:15; Stop 03/17/17 at 07:14; Status DC Sodium Chloride 1,000 ml @ 1,000 mls/hr Q1H ONCE IV Last administered on 06:57; Start 03/17/17 at 06:30; Stop 03/17/17 at 07:29; Status DC Vancomycin HCl 1000 mg/Sodium Chloride 250 ml @ 250 mls/hr Q12H IV Last administered on 03/17/17 08:16; Start 03/17/17 at 06:30; Stop 03/17/17 at 10:52 ; Status DC Aztreonam 2000 mg/ Sodium Chloride 100 ml @ 200 mls/hr Q8H IV ; Start 03/17/17 at 06:30; Stop 03/17/17 at 08:15; Status DC Metronidazole (Flagyl 500 Mg Inj) 100 ml @ 100 mls/hr Q8H IV Last administered on 03/17/17 06:57; Start 03/17/17 at 06:30; Stop 03/17/17 at 08:19 ; Status DC Iohexol (Omnipaque 350 Inj) 65 ml STK-MED ONCE IV Last administered on 06:33; Start 03/17/17 at 06:33; Stop 03/17/17 at 06:34; Status DC Fentanyl Citrate (fentaNYL INJ) 50 mcg ONCE ONCE IV PUSH Last administered on 03/17/17 07:59; Start 03/17/17 at 07:30; Stop 03/17/17 at 07:31; Status DC Albuterol/ Ipratropium 1 ampule 1 ampule ONCE ONCE NEB Last administered on 09:25; Start 03/17/17 at 07:30; Stop 03/17/17 at 07:31; Status DC Sodium Chloride (NS 1000 ml Inj) 1,000 ml @ 50 mls/hr Q20H IV Last administered on 03/23/17 22:19; Start 03/17/17 at 08:00; Stop 03/24/17 at 11:39 ; Status DC Morphine Sulfate (Morphine Inj) 2 mg Q2H PRN IV PAIN SCALE 6 TO 10 Last administered on 03/19/17 12:30; Start 03/17/17 at 08:00; Stop 03/19/17 at 14:22 ; Status DC Pantoprazole Sodium (Protonix Inj) 40 mg Q12H IV Last administered on 03/26/17 20:07; Start 03/17/17 at 09:00 Miscellaneous Information 1 Q361D XX ; Start 03/17/17 at 08:00 Chlorhexidine Gluconate (Chlorhexidine 2% Cloth) Taper DAILY@04 TOP Last administered on 03/26/17 04:06; Start 03/18/17 at 04:00; Stop 03/14/18 at 03:59 Chlorhexidine Gluconate 3 pack 3 pack UNSCH PRN TOP HYGIENIC CARE; Start at 08:00 Aztreonam 2000 mg/ Sodium Chloride 100 ml @ 200 mls/hr Q8H IV Last administered on 03/27/17 00:08; Start 03/17/17 at 08:00 Metronidazole 100 ml @ 100 mls/hr Q8H IV Last administered on 03/27/17 05:48; Start 03/17/17 at 15:00 Vancomycin HCl 1000 mg/Sodium Chloride 250 ml @ 250 mls/hr ONCE ONCE IV ; Start 03/17/17 at 08:00; Stop 03/17/17 at 08:59; Status UNV Fluconazole/ Sodium Chloride 200 ml @ 100 mls/hr Q24H IV Last administered on 03/26/17 09:40; Start 03/17/17 at 09:00 Pharmacy Profile Note (Vancomycin Consult Pharmacy) ml @ 0 mls/hr UNSCH OTHER ; Start 03/17/17 at 08:15; Stop 03/25/17 at 15:27; Status DC Albuterol/ Ipratropium (Duoneb Neb) 1 ampule Q6HR NEB NEB Last administered on 03/21/17 09:17; Start 03/17/17 at 10:00; Stop 03/21/17 at 10:00; Status DC Albuterol/ Ipratropium (Duoneb Neb) 1 ampule Q2HR NEB PRN NEB SHORTNESS OF BREATH Last administered on 03/24/17 09:18; Start 03/17/17 at 09:15 Tiotropium [place] (Spiriva Inh) 18 mcg DAILY INH Last administered on 09:28; Start 03/18/17 at 09:00 Methylprednisolone Sodium Succinate (SoluMEDROL INJ) 125 mg ONCE ONCE IV PUSH Last administered on 03/17/17 10:31; Start 03/17/17 at 10:30; Stop 03/17/17 at 10:31; Status DC Methylprednisolone Sodium Succinate 60 mg 60 mg Q8HR IV PUSH Last administered on 03/19/17 05:53; Start 03/17/17 at 14:00; Stop 03/19/17 at 11:12; Status DC Vancomycin HCl/ Sodium Chloride (Vancomycin Inj/ NS 500 ml Inj) 515 ml @ 257.5 mls/ hr Q24H IV Last administered on 03/21/17 00:06; Start 03/18/17 at 00:00; Stop 03/21/17 at 11:26; Status DC Miscellaneous Information SPECIFIC LAB TO BE KOBI... ONCE ONCE .XX Last administered on 03/20/17 23:45; Start 03/20/17 at 23:45; Stop 03/20/17 at 23:46 ; Status DC Dextrose (D50w (Vial) Inj) 25 ml UNSCH PRN IV PUSH HYPOGLYCEMIA - SEE COMMENTS ; Start 03/17/17 at 15:15 Glucagon (Glucagon Inj) 1 mg UNSCH PRN OTHER HYPOGLYCEMIA-SEE COMMENTS; Start 03/17/17 at 15:15 Insulin Aspart (NovoLOG SUPPLEMENTAL SCALE) 1 ACHS SLIDING SCALE SQ ; Start at 16:00; Stop 03/17/17 at 16:07; Status DC Insulin Aspart (NovoLOG SUPPLEMENTAL SCALE) 1 Q6HR SQ Last administered on 05:49; Start 03/17/17 at 18:00 Heparin Sodium (Porcine) (Heparin Inj) 5,000 units Q8HR SQ Last administered on 03/20/17 14:26; Start 03/18/17 at 14:00; Stop 03/20/17 at 19:54; Status DC Miscellaneous Information Patient in critical care unit? Ass... Q361D .XX ; Start 03/19/17 at 07:45; Status Cancel Mupirocin (Bactroban Nasal 2% Oint) 1 applic BID NASAL ; Start 03/19/17 at 09:00 ; Status Cancel Chlorhexidine Gluconate (Chlorhexidine 2% Cloth) 3 pack DAILY@04 TOPICAL ; Start 03/20/17 at 04:00; Stop 03/24/17 at 04:01; Status Cancel Chlorhexidine Gluconate (Chlorhexidine 2% Cloth) 3 pack UNSCH PRN TOPICAL HYGIENIC CARE; Start 03/19/17 at 07:45; Stop 03/24/17 at 07:43; Status Cancel Methylprednisolone Sodium Succinate (SoluMEDROL INJ) 60 mg Q12HR IV PUSH Last administered on 03/21/17 09:22; Start 03/19/17 at 21:00; Stop 03/21/17 at 16:20 ; Status DC Morphine Sulfate (Morphine Inj) 4 mg Q2H PRN IV PAIN SCALE 6 TO 10 Last administered on 03/27/17 00:10; Start 03/19/17 at 16:00 Morphine Sulfate (Morphine Inj) 4 mg ONCE ONCE IV PUSH Last administered on 14:38; Start 03/19/17 at 14:30; Stop 03/19/17 at 14:31; Status DC Furosemide (Lasix Inj) 20 mg ONCE ONCE IV PUSH Last administered on 03/19/17 14:39; Start 03/19/17 at 14:30; Stop 03/19/17 at 14:31; Status DC Hydralazine HCl (Apresoline Inj) 20 mg Q4H PRN IV PUSH KEEP SBP < 170 Last administered on 03/25/17 21:07; Start 03/19/17 at 17:00 Iohexol (Omnipaque 350 Inj) 98 ml STK-MED ONCE IV Last administered on 10:16; Start 03/20/17 at 10:16; Stop 03/20/17 at 10:17; Status DC Lorazepam 0.5 mg 0.5 mg Q4H PRN IV PUSH anxiety Last administered on 03/27/17 05:53; Start 03/20/17 at 12:00 Multivitamins 10 ml/Folic Acid 1 mg/Amino Acids/ Electrolytes/ Dextrose 2,010.2 ml @ 83 mls/hr Q24H IV-CENTRAL Last administered on 03/26/17 20:06; Start at 20:00 Fat Emulsion Intravenous (Liposyn Iii 20% Inj) 250 ml @ 31.25 mls/ hr Q24H IV- CENTRAL Last administered on 03/26/17 20:06; Start 03/20/17 at 20:00 Sodium Chloride (NS Flush) See Protocol DAILY IV FLUSH Last administered on 03/26 09:41; Start 03/21/17 at 09:00 Sodium Chloride (NS Flush) See Protocol UNSCH PRN IV FLUSH SEE PROTOCOL TABLE; Start 03/20/17 at 17:45 Heparin Sodium (Porcine) (Heparin Central Flush) See Protocol DAILY IV FLUSH Last administered on 03/26/17 16:38; Start 03/21/17 at 09:00 Heparin Sodium (Porcine) (Heparin Central Flush) See Protocol UNSCH PRN IV FLUSH SEE PROTOCOL TABLE; Start 03/20/17 at 17:45 Sodium Chloride (NS Flush) UNSCH PRN IV FLUSH SEE PROTOCOL TABLE; Start at 17:45 Enoxaparin Sodium (Lovenox Inj) 40 mg Q12H SQ Last administered on 03/26/17 20: 07; Start 03/20/17 at 20:00 Labetalol HCl 10 mg 10 mg Q4H PRN IV PUSH SBP >170 Last administered on 05:52; Start 03/21/17 at 03:45 Potassium Chloride 100 ml @ 50 mls/hr Q2H IV Last administered on 03/21/17 09 :23; Start 03/21/17 at 09:00; Stop 03/21/17 at 12:59; Status DC Vancomycin HCl/ Sodium Chloride (Vancomycin Inj/ NS 500 ml Inj) 525 ml @ 257.5 mls/ hr Q24H IV Last administered on 03/24/17 01:34; Start 03/22/17 at 00:00; Stop 03/24/17 at 10:29; Status DC Miscellaneous Information SPECIFIC LAB TO BE DRAWN:VANCO TROUGH DATE TO... ONCE ONCE .XX Last administered on 03/24/17 00:55; Start 03/23/17 at 23:45; Stop 03/23/17 at 23:46; Status DC Methylprednisolone Sodium Succinate (SoluMEDROL INJ) 40 mg Q12HR IV Last administered on 03/26/17 20:07; Start 03/21/17 at 21:00 Hydromorphone HCl (Dilaudid Pf Inj) 2 mg NOW ONCE IV Last administered on 03/22 11:57; Start 03/22/17 at 11:45; Stop 03/22/17 at 11:46; Status DC Gadodiamide (Omniscan Pf Inj) 20 ml STK-MED ONCE IV Last administered on 16:58; Start 03/22/17 at 16:58; Stop 03/22/17 at 16:59; Status DC Etomidate 20 mg 20 mg STK-MED ONCE .ROUTE ; Start 03/23/17 at 07:49; Stop at 07:50; Status DC Vancomycin HCl/ Sodium Chloride (Vancomycin Inj/ NS 500 ml Inj) 515 ml @ 257.5 mls/ hr Q12H IV Last administered on 03/25/17t 12:49; Start 03/24/17 at 13:00; Stop 03/25/17 at 15:27; Status DC Miscellaneous Information SPECIFIC LAB TO BE DRAWN:VANCO TROUGH DATE... ONCE ONCE .XX ; Start 03/26/17 at 12:45; Stop 03/26/17 at 12:46; Status Cancel Oxycodone/ Acetaminophen (Percocet 7.5-325 Mg) 1 tab Q6H PRN PO any pain; Start 03/26/17 at 12:15 A/P Assessment and Plan A/P Probable visceral/gastric perforation with peritonitis Splenic infarct L upper chest s/q emphysema probably air tracking from abdomen -- Tolerating clear liquid diet today, advance per general surgery.continue TPN -- continue conservative medical management -- Broad-spectrum antibiotics, -- Continue broad spectrum Azactam and Flagyl. -- UGI series 03/19/17-no evidence of perforation -- CT abd pelvis 03/20, increasing free air. KUB shows free air n 03/21, 03/22, --general surgery following --evaluated by oncology Anxiety Chronic pain Acute parotitis -- IV morphine for pain control -- Acute parotitis. clinically improving Acute COPD Exacerbation HCAP/LLL pneumonia L upper chest and shoulder pain secondary to splenic infarct -- Recently admitted for COPD exacerbation, and pneumonia with MSSA and Haemophilus influenza (Admitted from 03/08 to 03/16) -- Wean FiO2 for goal spo2 > 88-90%. -- Solu-Medrol 40 mg IV q12. will continue to taper down slowly. -- DuoNebs q4h and q2h prn. -- MRI L shoulder show arthritic changes. L upper chest and shoulder pain most likely from splenic infarct Transient hypotension, now hypertensive Lactic acidosis Peritonitis secondary to perforated viscus -- Monitor HR and BP closely -- Continue IV TPN -- IV Labetalol, hydralazine PRN Acute kidney insufficiency- improving. -- Most likely secondary to peritonitis and sepsis -- IVF with TPN as above. [place] for strict I/O Severe sepsis Peritonitis secondary to perforated viscus Left lower lobe pneumonia/HCAP Probable acute parotitis -- F/U urine and blood cultures negative to date -- Empiric antibiotics Azactam Flagyl . --history of lymphoma -- Leukocytosis secondary to sepsis, now resolved evaluated by oncology. PROPH: --SCDs, PPI for prophylaxis. Lovenox for DVT prophylaxis Alonzo Castillo MD March 27, 2017 08:28
[2017-03-27] MEDS ORDERED: ENALAPRILAT 1.25 MG/ML VIAL IV PUSH PRN (08:45)
[2017-03-27] MEDS: TIOTROPIUM BROMIDE 18 MCG INH INH SCH (09:00)
[2017-03-27] MEDS: methylPREDNISolone SOD SUCC 40 MG/1 ML VIAL IV SCH ×2 (09:35→19:49)
[2017-03-27] MEDS: PANTOPRAZOLE SODIUM 40 MG VIAL IV SCH ×2 (09:36→19:49)
[2017-03-27] MEDS: SODIUM CHLORIDE 0.9% FLUSH 10 ML FLUSH IV FLUSH SCH (09:37)
[2017-03-27] MEDS: FLUCONAZOLE 400 MG PREMIX BAG 200 ML IV SCH (09:37)
--- NOTE | 2017-03-27 11:48 | RADRPT ---
EXAM DATE/TIME: 03/27/2017 11:13 [facility] COMPARISON: No previous studies available for comparison. INDICATIONS : Right leg swelling. MEDICAL HISTORY : Chronic obstructive pulmonary disease. Hypertension. SURGICAL HISTORY : Total knee replacement, left. Total knee replacement, right. Cervical fusion. ENCOUNTER: Initial ACUITY: 1 day PAIN SCORE: 6/10 LOCATION: Right leg. TECHNIQUE: Venous ultrasound of the leg was performed from the inguinal ligament to the proximal calf. Real-jacnito e, color Doppler and spectral tracing, compression and augmentation techniques were used. FINDINGS: There is normal compressibility of the deep venous system from the inguinal region to the proximal ca lf. No echogenic clot is seen in the lumen of the common femoral, femoral, popliteal, and posterior tibial veins. There is a normal response of the venous system to proximal and distal augmentation an d respiration. Calf subcutaneous edema noted. CONCLUSION: No DVT of the right lower extremity. Anthony Hernadez MD on March 27, 2017 at 11:46 Board Certified Radiologist. This report was verified electronically.
--- NOTE | 2017-03-27 13:22 | HHI.PR ---
Subjective Subjective Notes DAILY PROGRESS NOTE FOR SURGICAL ATTENDING, DR. EVER GARCIA Up to chair Emotional today because she is just realizing how weak she has become after being so sick Doing good with full liquids Objective Vitals/I&O Vital Signs Date Time Temp Pulse Resp B/P Pulse Ox O2 Delivery O2 Flow Rate FiO2 03/27/17 12:00 96.2 78 17 176/91 97 03/27/17 00:31 Nasal Cannula 3.00 Radiology Last Impressions Abdomen X-Ray 03/23/17 0321 Signed Impressions: Service Date/Time: Thursday, March 23, 2017 04:48 - CONCLUSION: Free intraperitoneal air. Anthony Hernadez MD Chest X-Ray 03/23/17 0000 Signed Impressions: Service Date/Time: Thursday, March 23, 2017 04:43 - CONCLUSION: 1. Mild bibasilar atelectasis slightly improved. 2. Nasogastric tube and right arm PICC line again noted. 3. Free intraperitoneal air. Anthony Hernadez MD Soft Tissue MRI 03/22/17 0000 Signed Impressions: Service Date/Time: Wednesday, March 22, 2017 16:31 - CONCLUSION: Nondiscript subcutaneous edema in the right shoulder and lower neck junction with benign-appearing cystic mass in submental location. Maninder Lozano MD Shoulder MRI 03/22/17 0000 Signed Impressions: Service Date/Time: Wednesday, March 22, 2017 16:10 - CONCLUSION: Chronic degenerative changes without definite tear. Maninder Lozano MD Neck CT 03/20/17 Signed Impressions: Service Date/Time: February 09:57 - CONCLUSION: 1. Possible 2 cm mass in the superficial lobe of the right parotid in detail. MRI with contrast is recommended for further evaluation if clinically indicated. Stepan Albarado MD CT Angiography 03/20/17 Signed Impressions: Service Date/Time: February 09:50 - CONCLUSION: 1. New low-density mass in the upper central spleen not present 12 days ago. Differential diagnosis includes an area of infarction or hematoma. 2. New patchy groundglass opacities in both lungs which may be infectious or inflammatory. 3. Minimal effusions. 4. No evidence of pulmonary emboli. Luiz Guzman MD Abdomen/Pelvis CT 03/20/17 Signed Impressions: Service Date/Time: February 09:53 - CONCLUSION: 1. Interval increase in free air greatest in the upper anterior abdomen. A nonspecific bowel gas pattern remains with oral contrast in the colon. There is no extravasated contrast. 2. Nonspecific bowel gas pattern most consistent with an ileus. 3. The splenic infarct is more conspicuous than on the prior study. 4. Minimal effusions are now noted. Luiz Guzman MD Upper GI Series 03/19/17 0000 Signed Impressions: Service Date/Time: Sunday, March 19, 2017 11:40 - CONCLUSION: Limited upper GI series demonstrating no definite perforation. Luiz Guzman MD Cardiovascular: Regular Lungs: Clear Abdomen: Other (minimally tender to palpation ) Extremities: Other (see below) Narrative Exam RIGHT arm---edematous; PICC in place Overall generalized edema A/P Problem List: (1) Generalized weakness (2) Perforated ulcer (3) Acute parotitis (4) Splenic infarction (5) Ibuprofen adverse reaction (6) Abdominal pain (7) COPD exacerbation (8) Pneumonia (9) H/O parotitis Assessment and Plan 66 year old female with COPD and free air visualized on CT scan -WBC remains normal -VSS -Repeat CT abd/pelvis shows increase in free air and splenic infarct---continue non operative treatment -Continue PICC and TPN ---- will be able to wean once nutrition improves -Pulmonary status continues to be stable -DC NGT -Continue fulls -Continue non op treatment at this time -Continue PT -Discussed with Dr. Garcia Attending Statement NOTE FOR SURGICAL ATTENDING, DR. EVER GARCIA Patient continues to improve Shoulder pain is on and off appears to be muscle spasm Parotiditis has not bothered her recently NG pulled today Abdomen soft mild soreness no rebound or guarding Tolerating diet will advance Ambulating with physical therapy Start to wean TPN may need short stay rehabilitation I agree with above assessment and plan. The exam, history, and the medical decision-making described in the above note were completed with the assistance of the mid-level provider. I reviewed and agree with the findings presented. I attest that I had a [id number] encounter with the patient on the same day, and personally performed and documented my assessment and findings in the medical record. The following services were provided during this hospital visit: Chart data review, vital sign assessments/reviewing monitor data Review of consultations notes if present. Medication orders/review and/or management Ordering and/or reviewing lab tests Ordering and/or interpreting/reviewing x-rays and/or diagnostic studies Care of the patient and discussion of the patient with the care team Documentation time To help prompt me to consider important information that might be impacting today's encounter and assessment, information from prior notes written by myself or my colleagues may have been "brought forward/copy and pasted" into today's note. Problem Qualifiers (1) Ibuprofen adverse reaction: Qualified Code: T39.315D - Ibuprofen adverse reaction, subsequent encounter (2) Abdominal pain: Qualified Code: R10.12 - Left upper quadrant pain (3) Pneumonia: Qualified Code: J18.1 - Pneumonia of left lower lobe due to infectious organism Rose Gray March 27, 2017 13:21 Ever Garcia MD March 27, 2017 14:50
[2017-03-27] MEDS: CLINIMIX E 4.25/25 2000 mL- >42 mls/hr IV-CENTRAL SCH ×3 (19:48)
[2017-03-27] MEDS: FAT EMULSION 20% INJ 250 ML (Daily over 8 hours) IV-CENTRAL SCH (19:49)
[2017-03-28] VITALS: BP 159/71; PULSE 75; RESP 22; TEMP 97.1; O2SAT 96
[2017-03-28] MEDS: LORazepam 2 MG/ML VIAL IV PUSH PRN ×3 (02:04→05:27)
[2017-03-28] MEDS: CHLORHEXIDINE GLUCONATE 2 % 1 PACK (2 CLOTHS) TOP SCH (03:22)
[2017-03-28] MEDS: LOW DOSE INSULIN NOVOLOG SUPPLEMENTAL SCALE SQ SCH ×3 (05:27→17:44)
[2017-03-28] MEDS: metroNIDAZOLE 500 MG INJ 100 ML IV SCH (05:28)
[2017-03-28 08:00] VITALS: BP 190/88; PULSE 92; RESP 22; TEMP 95.7; O2SAT 95
[2017-03-28] MEDS: PANTOPRAZOLE SODIUM 40 MG VIAL IV SCH (08:41)
[2017-03-28] MEDS: AZTREONAM INJ 2,000 MG in SODIUM CHLORIDE 0.9% INJ 100 ML IV SCH (08:41)
[2017-03-28] MEDS: ENOXAPARIN SODIUM 40 MG/0.4 ML SYRINGE SQ SCH ×2 (08:43→20:20)
[2017-03-28] MEDS: SODIUM CHLORIDE 0.9% FLUSH 10 ML FLUSH IV FLUSH SCH (08:43)
[2017-03-28] MEDS: FLUCONAZOLE 400 MG PREMIX BAG 200 ML IV SCH (08:44)
[2017-03-28] MEDS: methylPREDNISolone SOD SUCC 40 MG/1 ML VIAL IV SCH ×2 (08:44→20:21)
[2017-03-28] MEDS: TIOTROPIUM BROMIDE 18 MCG INH INH SCH (09:00)
--- NOTE | 2017-03-28 09:22 | HHI.PR ---
Subjective Remarks in no acute distress. pain is fairly controlled. no nausea or vomiting. afebrile. Objective Vitals Vital Signs Date Time Temp Pulse Resp B/P Pulse Ox O2 Delivery O2 Flow Rate FiO2 03/28/17 08:00 95.7 92 22 190/88 95 03/28/17 00:00 97.1 75 22 159/71 96 03/27/17 20:00 96.8 69 22 171/75 95 03/27/17 20:00 95 Nasal Cannula 3.00 03/27/17 16:00 97.6 73 18 168/72 95 03/27/17 12:00 96.2 78 17 176/91 97 03/27/17 10:30 Nasal Cannula 3.00 I/O 03/27/17 03/27/17 03/27/17 03/28/17 03/28/17 03/28/17 07:00 15:00 23:00 07:00 15:00 23:00 Intake Total 240 ml 360 ml 2099 ml 1562 ml Output Total 1000 ml 1300 ml 850 ml 1250 ml Balance -760 ml -940 ml 1249 ml 312 ml Intake Oral 240 ml 360 ml 240 ml 320 ml IV Total 0 ml 200 ml TPN/PPN 1859 ml 792 ml Lipid 0 ml 250 ml Output Urine Total 1000 ml 1300 ml 850 ml 1250 ml # Bowel Movements 1 2 0 1 Result Diagram: 03/26/17 0400 03/26/17 0400 Imaging Last Impressions Lower Extremity Ultrasound 03/27/17 0000 Signed Impressions: Service Date/Time: March 11:13 - CONCLUSION: No DVT of the right lower extremity. Anthony Hernadez MD Abdomen X-Ray 03/23/17 0321 Signed Impressions: Service Date/Time: Thursday, March 23, 2017 04:48 - CONCLUSION: Free intraperitoneal air. Anthony Hernadez MD Chest X-Ray 03/23/17 0000 Signed Impressions: Service Date/Time: Thursday, March 23, 2017 04:43 - CONCLUSION: 1. Mild bibasilar atelectasis slightly improved. 2. Nasogastric tube and right arm PICC line again noted. 3. Free intraperitoneal air. Anthony Hernadez MD Soft Tissue MRI 03/22/17 0000 Signed Impressions: Service Date/Time: Wednesday, March 22, 2017 16:31 - CONCLUSION: Nondiscript subcutaneous edema in the right shoulder and lower neck junction with benign-appearing cystic mass in submental location. Maninder Lozano MD Shoulder MRI 03/22/17 Signed Impressions: Service Date/Time: Wednesday, March 22, 2017 16:10 - CONCLUSION: Chronic degenerative changes without definite tear. Maninder Lozano MD Neck CT 03/20/17 Signed Impressions: Service Date/Time: February 09:57 - CONCLUSION: 1. Possible 2 cm mass in the superficial lobe of the right parotid in detail. MRI with contrast is recommended for further evaluation if clinically indicated. Stepan Albardao MD CT Angiography 03/20/17 Signed Impressions: Service Date/Time: February 09:50 - CONCLUSION: 1. New low-density mass in the upper central spleen not present 12 days ago. Differential diagnosis includes an area of infarction or hematoma. 2. New patchy groundglass opacities in both lungs which may be infectious or inflammatory. 3. Minimal effusions. 4. No evidence of pulmonary emboli. Luiz Guzman MD Abdomen/Pelvis CT 03/20/17 Signed Impressions: Service Date/Time: February 09:53 - CONCLUSION: 1. Interval increase in free air greatest in the upper anterior abdomen. A nonspecific bowel gas pattern remains with oral contrast in the colon. There is no extravasated contrast. 2. Nonspecific bowel gas pattern most consistent with an ileus. 3. The splenic infarct is more conspicuous than on the prior study. 4. Minimal effusions are now noted. Luiz Guzman MD Upper GI Series 03/19/17 Signed Impressions: Service Date/Time: Sunday, March 19, 2017 11:40 - CONCLUSION: Limited upper GI series demonstrating no definite perforation. Luiz Guzman MD Objective Remarks GENERAL: obese female, in no apparent distress with NG tube in place. CARDIOVASCULAR: Regular rate and regular rhythm without murmurs, gallops, or rubs. RESPIRATORY: Clear to auscultation. Breath sounds equal bilaterally. No wheezes , rales, or rhonchi. GASTROINTESTINAL: Abdomen soft, mild generalized tenderness, nondistended. Normal, active bowel sounds MUSCULOSKELETAL: Extremities without clubbing, cyanosis, or edema. NEURO: Alert & Oriented x4 to person, place, time, situation. Moves all ext x4 Procedures PICC line insertion Medications and IVs Current Medications Sodium Chloride (NS 1000 ml Inj) 1,000 ml @ 1,000 mls/hr Q1H ONCE IV Last administered on 03/17/17 05:33; Start 03/17/17 at 05:15; Stop 03/17/17 at 06:14 ; Status DC Fentanyl Citrate (fentaNYL INJ) 25 mcg ONCE ONCE IV PUSH Last administered on 03/17/17 06:03; Start 03/17/17 at 05:45; Stop 03/17/17 at 05:46; Status DC Ondansetron HCl (Zofran Inj) 4 mg ONCE ONCE IV PUSH Last administered on 06:02; Start 03/17/17 at 05:45; Stop 03/17/17 at 05:46; Status DC Pantoprazole Sodium (Protonix Inj) 40 mg ONCE ONCE IV PUSH Last administered on 03/17/17 06:03; Start 03/17/17 at 05:45; Stop 03/17/17 at 05:46; Status DC Sodium Chloride (NS Flush) 2 ml UNSCH PRN IVF FLUSH AFTER USING IV ACCESS; Start 03/17/17 at 05:45 Methylprednisolone Sodium Succinate (SoluMEDROL INJ) 125 mg ONCE ONCE IVP Last administered on 03/17/17 06:03; Start 03/17/17 at 05:45; Stop 03/17/17 at 05:46; Status DC Fentanyl Citrate 100 mcg 100 mcg STK-MED ONCE .ROUTE ; Start 03/17/17 at 05:50; Stop 03/17/17 at 05:51; Status DC Sodium Chloride 1,000 ml @ 1,000 mls/hr Q1H ONCE IV Last administered on 06:31; Start 03/17/17 at 06:15; Stop 03/17/17 at 07:14; Status DC Sodium Chloride 1,000 ml @ 1,000 mls/hr Q1H ONCE IV Last administered on 06:57; Start 03/17/17 at 06:30; Stop 03/17/17 at 07:29; Status DC Vancomycin HCl 1000 mg/Sodium Chloride 250 ml @ 250 mls/hr Q12H IV Last administered on 03/17/17 08:16; Start 03/17/17 at 06:30; Stop 03/17/17 at 10:52 ; Status DC Aztreonam 2000 mg/ Sodium Chloride 100 ml @ 200 mls/hr Q8H IV ; Start 03/17/17 at 06:30; Stop 03/17/17 at 08:15; Status DC Metronidazole (Flagyl 500 Mg Inj) 100 ml @ 100 mls/hr Q8H IV Last administered on 03/17/17 06:57; Start 03/17/17 at 06:30; Stop 03/17/17 at 08:19 ; Status DC Iohexol (Omnipaque 350 Inj) 65 ml STK-MED ONCE IV Last administered on 06:33; Start 03/17/17 at 06:33; Stop 03/17/17 at 06:34; Status DC Fentanyl Citrate (fentaNYL INJ) 50 mcg ONCE ONCE IV PUSH Last administered on 03/17/17 07:59; Start 03/17/17 at 07:30; Stop 03/17/17 at 07:31; Status DC Albuterol/ Ipratropium 1 ampule 1 ampule ONCE ONCE NEB Last administered on 09:25; Start 03/17/17 at 07:30; Stop 03/17/17 at 07:31; Status DC Sodium Chloride (NS 1000 ml Inj) 1,000 ml @ 50 mls/hr Q20H IV Last administered on 03/23/17 22:19; Start 03/17/17 at 08:00; Stop 03/24/17 at 11:39 ; Status DC Morphine Sulfate (Morphine Inj) 2 mg Q2H PRN IV PAIN SCALE 6 TO 10 Last administered on 03/19/17 12:30; Start 03/17/17 at 08:00; Stop 03/19/17 at 14:22 ; Status DC Pantoprazole Sodium (Protonix Inj) 40 mg Q12H IV Last administered on 03/28/17 08:41; Start 03/17/17 at 09:00 Miscellaneous Information 1 Q361D XX ; Start 03/17/17 at 08:00 Chlorhexidine Gluconate (Chlorhexidine 2% Cloth) Taper DAILY@04 TOP Last administered on 03/26/17 04:06; Start 03/18/17 at 04:00; Stop 03/14/18 at 03:59 Chlorhexidine Gluconate 3 pack 3 pack UNSCH PRN TOP HYGIENIC CARE; Start at 08:00 Aztreonam 2000 mg/ Sodium Chloride 100 ml @ 200 mls/hr Q8H IV Last administered on 03/28/17 08:41; Start 03/17/17 at 08:00 Metronidazole 100 ml @ 100 mls/hr Q8H IV Last administered on 03/28/17 05:28; Start 03/17/17 at 15:00 Vancomycin HCl 1000 mg/Sodium Chloride 250 ml @ 250 mls/hr ONCE ONCE IV ; Start 03/17/17 at 08:00; Stop 03/17/17 at 08:59; Status UNV Fluconazole/ Sodium Chloride 200 ml @ 100 mls/hr Q24H IV Last administered on 03/28/17 08:44; Start 03/17/17 at 09:00 Pharmacy Profile Note (Vancomycin Consult Pharmacy) ml @ 0 mls/hr UNSCH OTHER ; Start 03/17/17 at 08:15; Stop 03/25/17 at 15:27; Status DC Albuterol/ Ipratropium (Duoneb Neb) 1 ampule Q6HR NEB NEB Last administered on 03/21/17 09:17; Start 03/17/17 at 10:00; Stop 03/21/17 at 10:00; Status DC Albuterol/ Ipratropium (Duoneb Neb) 1 ampule Q2HR NEB PRN NEB SHORTNESS OF BREATH Last administered on 03/24/17 09:18; Start 03/17/17 at 09:15 Tiotropium [place] (Spiriva Inh) 18 mcg DAILY INH Last administered on 09:28; Start 03/18/17 at 09:00 Methylprednisolone Sodium Succinate (SoluMEDROL INJ) 125 mg ONCE ONCE IV PUSH Last administered on 03/17/17 10:31; Start 03/17/17 at 10:30; Stop 03/17/17 at 10:31; Status DC Methylprednisolone Sodium Succinate 60 mg 60 mg Q8HR IV PUSH Last administered on 03/19/17 05:53; Start 03/17/17 at 14:00; Stop 03/19/17 at 11:12; Status DC Vancomycin HCl/ Sodium Chloride (Vancomycin Inj/ NS 500 ml Inj) 515 ml @ 257.5 mls/ hr Q24H IV Last administered on 03/21/17 00:06; Start 03/18/17 at 00:00; Stop 03/21/17 at 11:26; Status DC Miscellaneous Information SPECIFIC LAB TO BE KOBI... ONCE ONCE .XX Last administered on 03/20/17 23:45; Start 03/20/17 at 23:45; Stop 03/20/17 at 23:46 ; Status DC Dextrose (D50w (Vial) Inj) 25 ml UNSCH PRN IV PUSH HYPOGLYCEMIA - SEE COMMENTS ; Start 03/17/17 at 15:15 Glucagon (Glucagon Inj) 1 mg UNSCH PRN OTHER HYPOGLYCEMIA-SEE COMMENTS; Start 03/17/17 at 15:15 Insulin Aspart (NovoLOG SUPPLEMENTAL SCALE) 1 ACHS SLIDING SCALE SQ ; Start at 16:00; Stop 03/17/17 at 16:07; Status DC Insulin Aspart (NovoLOG SUPPLEMENTAL SCALE) 1 Q6HR SQ Last administered on 05:27; Start 03/17/17 at 18:00 Heparin Sodium (Porcine) (Heparin Inj) 5,000 units Q8HR SQ Last administered on 03/20/17 14:26; Start 03/18/17 at 14:00; Stop 03/20/17 at 19:54; Status DC Miscellaneous Information Patient in critical care unit? Ass... Q361D .XX ; Start 03/19/17 at 07:45; Status Cancel Mupirocin (Bactroban Nasal 2% Oint) 1 applic BID NASAL ; Start 03/19/17 at 09:00 ; Status Cancel Chlorhexidine Gluconate (Chlorhexidine 2% Cloth) 3 pack DAILY@04 TOPICAL ; Start 03/20/17 at 04:00; Stop 03/24/17 at 04:01; Status Cancel Chlorhexidine Gluconate (Chlorhexidine 2% Cloth) 3 pack UNSCH PRN TOPICAL HYGIENIC CARE; Start 03/19/17 at 07:45; Stop 03/24/17 at 07:43; Status Cancel Methylprednisolone Sodium Succinate (SoluMEDROL INJ) 60 mg Q12HR IV PUSH Last administered on 03/21/17 09:22; Start 03/19/17 at 21:00; Stop 03/21/17 at 16:20 ; Status DC Morphine Sulfate (Morphine Inj) 4 mg Q2H PRN IV PAIN SCALE 6 TO 10 Last administered on 03/27/17 23:43; Start 03/19/17 at 16:00 Morphine Sulfate (Morphine Inj) 4 mg ONCE ONCE IV PUSH Last administered on 14:38; Start 03/19/17 at 14:30; Stop 03/19/17 at 14:31; Status DC Furosemide (Lasix Inj) 20 mg ONCE ONCE IV PUSH Last administered on 03/19/17 14:39; Start 03/19/17 at 14:30; Stop 03/19/17 at 14:31; Status DC Hydralazine HCl (Apresoline Inj) 20 mg Q4H PRN IV PUSH KEEP SBP < 170 Last administered on 03/25/17 21:07; Start 03/19/17 at 17:00 Iohexol (Omnipaque 350 Inj) 98 ml STK-MED ONCE IV Last administered on 10:16; Start 03/20/17 at 10:16; Stop 03/20/17 at 10:17; Status DC Lorazepam 0.5 mg 0.5 mg Q4H PRN IV PUSH anxiety Last administered on 03/28/17 05:27; Start 03/20/17 at 12:00 Multivitamins 10 ml/Folic Acid 1 mg/Amino Acids/ Electrolytes/ Dextrose 2,010.2 ml @ 83 mls/hr Q24H IV-CENTRAL Last administered on 03/27/17 19:48; Start at 20:00 Fat Emulsion Intravenous (Liposyn Iii 20% Inj) 250 ml @ 31.25 mls/ hr Q24H IV- CENTRAL Last administered on 03/27/17 19:49; Start 03/20/17 at 20:00 Sodium Chloride (NS Flush) See Protocol DAILY IV FLUSH Last administered on 03/28 08:43; Start 03/21/17 at 09:00 Sodium Chloride (NS Flush) See Protocol UNSCH PRN IV FLUSH SEE PROTOCOL TABLE; Start 03/20/17 at 17:45 Heparin Sodium (Porcine) (Heparin Central Flush) See Protocol DAILY IV FLUSH Last administered on 03/28/17 08:42; Start 03/21/17 at 09:00 Heparin Sodium (Porcine) (Heparin Central Flush) See Protocol UNSCH PRN IV FLUSH SEE PROTOCOL TABLE; Start 03/20/17 at 17:45 Sodium Chloride (NS Flush) UNSCH PRN IV FLUSH SEE PROTOCOL TABLE; Start at 17:45 Enoxaparin Sodium (Lovenox Inj) 40 mg Q12H SQ Last administered on 03/28/17 08: 43; Start 03/20/17 at 20:00 Labetalol HCl 10 mg 10 mg Q4H PRN IV PUSH SBP >170 Last administered on 05:52; Start 03/21/17 at 03:45 Potassium Chloride 100 ml @ 50 mls/hr Q2H IV Last administered on 03/21/17 09 :23; Start 03/21/17 at 09:00; Stop 03/21/17 at 12:59; Status DC Vancomycin HCl/ Sodium Chloride (Vancomycin Inj/ NS 500 ml Inj) 525 ml @ 257.5 mls/ hr Q24H IV Last administered on 03/24/17 01:34; Start 03/22/17 at 00:00; Stop 03/24/17 at 10:29; Status DC Miscellaneous Information SPECIFIC LAB TO BE DRAWN:VANCO TROUGH DATE TO... ONCE ONCE .XX Last administered on 03/24/17 00:55; Start 03/23/17 at 23:45; Stop 03/23/17 at 23:46; Status DC Methylprednisolone Sodium Succinate (SoluMEDROL INJ) 40 mg Q12HR IV Last administered on 03/28/17 08:44; Start 03/21/17 at 21:00 Hydromorphone HCl (Dilaudid Pf Inj) 2 mg NOW ONCE IV Last administered on 03/22 11:57; Start 03/22/17 at 11:45; Stop 03/22/17 at 11:46; Status DC Gadodiamide (Omniscan Pf Inj) 20 ml STK-MED ONCE IV Last administered on 16:58; Start 03/22/17 at 16:58; Stop 03/22/17 at 16:59; Status DC Etomidate 20 mg 20 mg STK-MED ONCE .ROUTE ; Start 03/23/17 at 07:49; Stop at 07:50; Status DC Vancomycin HCl/ Sodium Chloride (Vancomycin Inj/ NS 500 ml Inj) 515 ml @ 257.5 mls/ hr Q12H IV Last administered on 03/25/17 12:49; Start 03/24/17 at 13:00; Stop 03/25/17 at 15:27; Status DC Miscellaneous Information SPECIFIC LAB TO BE DRAWN:VANCO TROUGH DATE... ONCE ONCE .XX ; Start 03/26/17 at 12:45; Stop 03/26/17 at 12:46; Status Cancel Oxycodone/ Acetaminophen (Percocet 7.5-325 Mg) 1 tab Q6H PRN PO any pain Last administered on 03/28/17 08:42; Start 03/26/17 at 12:15 Enalaprilat (Vasotec Inj) 1.25 mg Q8HR PRN IV PUSH SBP> OR = 180, DBP> OR = 100 Last administered on 03/28/17 08:41; Start 03/27/17 at 08:45 A/P Assessment and Plan A/P Probable visceral/gastric perforation with peritonitis Splenic infarct L upper chest s/q emphysema probably air tracking from abdomen -- TPN is being tapered down- started on diet -- continue conservative medical management -- Broad-spectrum antibiotics, -- Continue broad spectrum Azactam and Flagyl. -- UGI series 03/19/17-no evidence of perforation -- CT abd pelvis 03/20, increasing free air. KUB shows free air n 03/21, 03/22, --general surgery following --evaluated by oncology Anxiety Chronic pain Acute parotitis --continue pain control -- Acute parotitis. clinically improving Acute COPD Exacerbation HCAP/LLL pneumonia L upper chest and shoulder pain secondary to splenic infarct -- Recently admitted for COPD exacerbation, and pneumonia with MSSA and Haemophilus influenza (Admitted from 03/08 to 03/16) -- Wean FiO2 for goal spo2 > 88-90%. -- Solu-Medrol 40 mg IV q12. will continue to taper down slowly. -- DuoNebs q4h and q2h prn. -- MRI L shoulder show arthritic changes. L upper chest and shoulder pain most likely from splenic infarct Transient hypotension, now hypertensive Lactic acidosis Peritonitis secondary to perforated viscus -will resume norvasc -- Monitor HR and BP closely -- IV Labetalol, hydralazine PRN Acute kidney insufficiency- improving. -- Most likely secondary to peritonitis and sepsis -- IVF with TPN as above. [place] for strict I/O Severe sepsis Peritonitis secondary to perforated viscus Left lower lobe pneumonia/HCAP Probable acute parotitis -- F/U urine and blood cultures negative to date -- Empiric antibiotics Azactam Flagyl . --history of lymphoma -- Leukocytosis secondary to sepsis, now resolved evaluated by oncology. PROPH: --SCDs, PPI for prophylaxis. Lovenox for DVT prophylaxis Alonzo Castillo MD March 28, 2017 09:22
--- NOTE | 2017-03-28 10:35 | RADRPT ---
EXAM DATE/TIME: 03/28/2017 09:08 [facility] COMPARISON: US LEG RIGHT VENOUS DOPPLER, March 27, 2017, 11:13. INDICATIONS : Right arm pain and swelling. MEDICAL HISTORY : Chronic obstructive pulmonary disease. Hypertension. SURGICAL HISTORY : Total knee replacement, left. Total knee replacement, right. Cervical fusion. ENCOUNTER: Initial ACUITY: 4 - 6 days PAIN SCORE: 6/10 LOCATION: Right arm. FINDINGS: The examination demonstrates a PICC in the right axillary vein. There is a small amount of partially occlusive thrombus around the PICC. The visualized portion of cephalic and remainder of the basilic vein is patent. The brachial veins ar e patent. The visualized portion of the subclavian vein is patent. CONCLUSION: 1. There is a PICC in place. This is visualized in the right axillary vein. The small amount of throm bus around the PICC at this level. The remainder of the venous system is patent. Israel Macario MD on March 28, 2017 at 10:11 Board Certified Radiologist. This report was verified electronically.
[2017-03-28] MEDS: MORPHINE SULFATE 4 MG/ML INJ IV PRN (11:27)
[2017-03-28] MEDS: amLODIPine BESYLATE 5 MG TAB PO SCH (11:27)
[2017-03-28 12:00] VITALS: BP 165/75; PULSE 80; RESP 18; TEMP 96.7; O2SAT 96
--- NOTE | 2017-03-28 12:41 | HHI.PR ---
Subjective Subjective Notes DAILY PROGRESS NOTE FOR SURGICAL ATTENDING, DR. EVER GARCIA Sitting up in bed Tolerating regular diet Looking forward to going to rehabilitation Objective Vitals/I&O Vital Signs Date Time Temp Pulse Resp B/P Pulse Ox O2 Delivery O2 Flow Rate FiO2 03/28/17 08:00 96 2.00 03/28/17 08:00 95.7 92 22 190/88 03/27/17 20:00 Nasal Cannula Labs Laboratory Tests Test 03/24/17 03/26/17 00:30 04:00 Vancomycin Level Trough 5.8 MCG/ML White Blood Count 8.3 TH/MM3 Red Blood Count 3.58 MIL/MM3 Hemoglobin 11.0 GM/DL Hematocrit 33.2 % Mean Corpuscular Volume 92.8 FL Mean Corpuscular Hemoglobin 30.6 PG Mean Corpuscular Hemoglobin 33.0 % Concent Red Cell Distribution Width 15.7 % Platelet Count 144 TH/MM3 Mean Platelet Volume 7.7 FL Neutrophils (%) (Auto) 97.1 % Lymphocytes (%) (Auto) 1.0 % Monocytes (%) (Auto) 1.4 % Eosinophils (%) (Auto) 0.2 % Basophils (%) (Auto) 0.3 % Neutrophils # (Auto) 8.1 TH/MM3 Lymphocytes # (Auto) 0.1 TH/MM3 Monocytes # (Auto) 0.1 TH/MM3 Eosinophils # (Auto) 0.0 TH/MM3 Basophils # (Auto) 0.0 TH/MM3 CBC Comment DIFF FINAL Differential Comment Sodium Level 144 MEQ/L Potassium Level 3.8 MEQ/L Chloride Level 107 MEQ/L Carbon Dioxide Level 30.4 MEQ/L Anion Gap 7 MEQ/L Blood Urea Nitrogen 20 MG/DL Creatinine 0.51 MG/DL Estimat Glomerular Filtration 121 ML/MIN Rate Random Glucose 196 MG/DL Calcium Level 7.6 MG/DL Magnesium Level 2.0 MG/DL Total Bilirubin 0.2 MG/DL Aspartate Amino Transf 16 U/L (AST/SGOT) Alanine Aminotransferase 32 U/L (ALT/SGPT) Alkaline Phosphatase 60 U/L Total Protein 5.1 GM/DL Albumin 1.9 GM/DL Radiology Last Impressions Upper Extremity Ultrasound 03/28/17 0000 Signed Impressions: Service Date/Time: Tuesday, March 28, 2017 09:08 - CONCLUSION: 1. There is a PICC in place. This is visualized in the right axillary vein. The small amount of thrombus around the PICC at this level. The remainder of the venous system is patent. Israel aMcario MD Lower Extremity Ultrasound 03/27/17 0000 Signed Impressions: Service Date/Time: March 11:13 - CONCLUSION: No DVT of the right lower extremity. Anthony Herndaez MD Abdomen X-Ray 03/23/17 0321 Signed Impressions: Service Date/Time: Thursday, March 23, 2017 04:48 - CONCLUSION: Free intraperitoneal air. Anthony Hernadez MD Chest X-Ray 03/23/17 0000 Signed Impressions: Service Date/Time: Thursday, March 23, 2017 04:43 - CONCLUSION: 1. Mild bibasilar atelectasis slightly improved. 2. Nasogastric tube and right arm PICC line again noted. 3. Free intraperitoneal air. Anthony Hernadez MD Soft Tissue MRI 03/22/17 0000 Signed Impressions: Service Date/Time: Wednesday, March 22, 2017 16:31 - CONCLUSION: Nondiscript subcutaneous edema in the right shoulder and lower neck junction with benign-appearing cystic mass in submental location. Maninder Lozano MD Shoulder MRI 03/22/17 Signed Impressions: Service Date/Time: Wednesday, March 22, 2017 16:10 - CONCLUSION: Chronic degenerative changes without definite tear. Maninder Lozano MD Neck CT 03/20/17 Signed Impressions: Service Date/Time: February 09:57 - CONCLUSION: 1. Possible 2 cm mass in the superficial lobe of the right parotid in detail. MRI with contrast is recommended for further evaluation if clinically indicated. Stepan Albarado MD CT Angiography 03/20/17 Signed Impressions: Service Date/Time: February 09:50 - CONCLUSION: 1. New low-density mass in the upper central spleen not present 12 days ago. Differential diagnosis includes an area of infarction or hematoma. 2. New patchy groundglass opacities in both lungs which may be infectious or inflammatory. 3. Minimal effusions. 4. No evidence of pulmonary emboli. Luiz Guzman MD Abdomen/Pelvis CT 03/20/17 Signed Impressions: Service Date/Time: February 09:53 - CONCLUSION: 1. Interval increase in free air greatest in the upper anterior abdomen. A nonspecific bowel gas pattern remains with oral contrast in the colon. There is no extravasated contrast. 2. Nonspecific bowel gas pattern most consistent with an ileus. 3. The splenic infarct is more conspicuous than on the prior study. 4. Minimal effusions are now noted. Luiz Guzman MD Upper GI Series 03/19/17 Signed Impressions: Service Date/Time: Sunday, March 19, 2017 11:40 - CONCLUSION: Limited upper GI series demonstrating no definite perforation. 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 (11) Inhaled steroid-dependent asthma Assessment and Plan 66 year old female with COPD and free air visualized on CT scan -WBC remains normal -VSS -Repeat CT abd/pelvis shows increase in free air and splenic infarct---continue non operative treatment UGI shows no leak PICC and TPN is in the process of being weaned off -Pulmonary status improved -Continue non op treatment at this time Change meds to by mouth from IV Anticipate rehabilitation placement early next week Avoid nonsteroidals Began weaning steroids as per medicine Advance diet and activities Attending Statement NOTE FOR SURGICAL ATTENDING, DR. EVER GARCIA I attest that I had a [id number] encounter with the patient on the same day, and personally performed and documented my assessment and findings in the medical record. The following services were provided during this hospital visit: Chart data review, vital sign assessments/reviewing monitor data Review of consultations notes if present. Medication orders/review and/or management Ordering and/or reviewing lab tests Ordering and/or interpreting/reviewing x-rays and/or diagnostic studies Care of the patient and discussion of the patient with the care team Documentation time To help prompt me to consider important information that might be impacting today's encounter and assessment, information from prior notes written by myself or my colleagues may have been "brought forward/copy and pasted" into today's note. Problem Qualifiers (1) Ibuprofen adverse reaction: Qualified Code: T39.315D - Ibuprofen adverse reaction, subsequent encounter (2) Abdominal pain: Qualified Code: R10.12 - Left upper quadrant pain (3) Pneumonia: Qualified Code: J18.1 - Pneumonia of left lower lobe due to infectious organism Ever Garcia MD March 28, 2017 12:40
[2017-03-28] MEDS: metroNIDAZOLE 500 MG TAB PO SCH ×2 (14:12→20:21)
[2017-03-28 16:00] VITALS: BP 157/71; PULSE 72; RESP 14; TEMP 96; O2SAT 96
[2017-03-28 20:00] VITALS: BP 158/75; PULSE 74; RESP 24; TEMP 98.8; O2SAT 95
[2017-03-28] MEDS: PANTOPRAZOLE SOD 20 MG DELAYED RELEASE TAB PO SCH (20:21)
[2017-03-29] VITALS: BP 144/72; PULSE 78; RESP 20; TEMP 97.6; O2SAT 96
[2017-03-29] MEDS: LOW DOSE INSULIN NOVOLOG SUPPLEMENTAL SCALE SQ SCH ×5 (00:37→23:48)
[2017-03-29] MEDS: LORazepam 0.5 MG TAB PO PRN ×2 (00:41→13:15)
[2017-03-29] MEDS: CHLORHEXIDINE GLUCONATE 2 % 1 PACK (2 CLOTHS) TOP SCH ×2 (03:21→20:27)
[2017-03-29] MEDS: metroNIDAZOLE 500 MG TAB PO SCH ×3 (05:26→20:26)
[2017-03-29] MEDS: traMADol HCL 50 MG TAB PO PRN (06:27)
[2017-03-29 06:49] LABS: AUTOMATED NEUTROPHIL # 4.4 TH/MM3 (1.8-7.7); EOSINOPHIL % 0.1 % (0.0-4.0); HEMO FLAGS DIFF FINAL; LYMPH % 3.5 % (9.0-44.0); LYMPHOCYTE # 0.2 TH/MM3 (1.0-4.8); MEAN CELL VOLUME 91.5 FL (80.0-100.0); MONO % 3.9 % (0.0-8.0); NEUT % 92.5 % (16.0-70.0); PLATELET COUNT 122 TH/MM3 (150-450); RED BLOOD COUNT 3.17 MIL/MM3 (4.00-5.30); RED CELL DISTRIBUTION WIDTH 15.3 % (11.6-17.2); WHITE BLOOD COUNT 4.8 TH/MM3 (4.0-11.0)
[2017-03-29 07:03] LABS: BICARBONATE 36.8 MEQ/L (21.0-32.0); POTASSIUM 4.3 MEQ/L (3.5-5.1)
[2017-03-29 08:00] VITALS: BP 172/75; PULSE 63; RESP 20; TEMP 96.1; O2SAT 96
--- NOTE | 2017-03-29 08:08 | HHI.PR ---
Subjective Remarks in no acute distress. abdominal pain is mild. no nausea or vomiting. afebrile. says that she feels weak. d/w the RN. Objective Vitals Vital Signs Date Time Temp Pulse Resp B/P Pulse Ox O2 Delivery O2 Flow Rate FiO2 03/29/17 00:00 97.6 78 20 144/72 96 03/28/17 21:15 Nasal Cannula 3.00 03/28/17 20:00 98.8 74 24 158/75 95 03/28/17 16:00 96.0 72 14 157/71 96 03/28/17 12:00 96.7 80 18 165/75 96 I/O 03/28/17 03/28/17 03/28/17 03/29/17 03/29/17 03/29/17 07:00 15:00 23:00 07:00 15:00 23:00 Intake Total 1562 ml 1047 ml 480 ml 1379 ml Output Total 1250 ml 2550 ml 450 ml 3400 ml Balance 312 ml -1503 ml 30 ml -2021 ml Intake Oral 320 ml 600 ml 480 ml 240 ml IV Total 200 ml 447 ml TPN/PPN 792 ml 1139 ml Lipid 250 ml Output Urine Total 1250 ml 2550 ml 450 ml 3400 ml Bladder Scan Volume Amount 908 ml # Bowel Movements 1 3 0 0 Result Diagram: 03/29/17 0616 03/29/17 0616 Imaging Last Impressions Upper Extremity Ultrasound 03/28/17 0000 Signed Impressions: Service Date/Time: Tuesday, March 28, 2017 09:08 - CONCLUSION: 1. There is a PICC in place. This is visualized in the right axillary vein. The small amount of thrombus around the PICC at this level. The remainder of the venous system is patent. Israel Macario MD Lower Extremity Ultrasound 03/27/17 0000 Signed Impressions: Service Date/Time: March 11:13 - CONCLUSION: No DVT of the right lower extremity. Anthony Hernadez MD Abdomen X-Ray 03/23/17 0321 Signed Impressions: Service Date/Time: Thursday, March 23, 2017 04:48 - CONCLUSION: Free intraperitoneal air. Anthony Hernadez MD Chest X-Ray 03/23/17 0000 Signed Impressions: Service Date/Time: Thursday, March 23, 2017 04:43 - CONCLUSION: 1. Mild bibasilar atelectasis slightly improved. 2. Nasogastric tube and right arm PICC line again noted. 3. Free intraperitoneal air. Anthony Hernadez MD Soft Tissue MRI 03/22/17 Signed Impressions: Service Date/Time: Wednesday, March 22, 2017 16:31 - CONCLUSION: Nondiscript subcutaneous edema in the right shoulder and lower neck junction with benign-appearing cystic mass in submental location. Maninder Lozano MD Shoulder MRI 03/22/17 Signed Impressions: Service Date/Time: Wednesday, March 22, 2017 16:10 - CONCLUSION: Chronic degenerative changes without definite tear. Maninder Lozano MD Neck CT 03/20/17 Signed Impressions: Service Date/Time: February 09:57 - CONCLUSION: 1. Possible 2 cm mass in the superficial lobe of the right parotid in detail. MRI with contrast is recommended for further evaluation if clinically indicated. Stepan Albarado MD CT Angiography 03/20/17 Signed Impressions: Service Date/Time: February 09:50 - CONCLUSION: 1. New low-density mass in the upper central spleen not present 12 days ago. Differential diagnosis includes an area of infarction or hematoma. 2. New patchy groundglass opacities in both lungs which may be infectious or inflammatory. 3. Minimal effusions. 4. No evidence of pulmonary emboli. Luiz Guzman MD Abdomen/Pelvis CT 03/20/17 Signed Impressions: Service Date/Time: February 09:53 - CONCLUSION: 1. Interval increase in free air greatest in the upper anterior abdomen. A nonspecific bowel gas pattern remains with oral contrast in the colon. There is no extravasated contrast. 2. Nonspecific bowel gas pattern most consistent with an ileus. 3. The splenic infarct is more conspicuous than on the prior study. 4. Minimal effusions are now noted. Luiz Guzman MD Upper GI Series 03/19/17 Signed Impressions: Service Date/Time: Sunday, March 19, 2017 11:40 - CONCLUSION: Limited upper GI series demonstrating no definite perforation. Luiz Guzman MD Objective Remarks GENERAL: obese female, in no apparent distress with NG tube in place. CARDIOVASCULAR: Regular rate and regular rhythm without murmurs, gallops, or rubs. RESPIRATORY: Clear to auscultation. Breath sounds equal bilaterally. No wheezes , rales, or rhonchi. GASTROINTESTINAL: Abdomen soft, mild generalized tenderness, nondistended. Normal, active bowel sounds MUSCULOSKELETAL: Extremities without clubbing, cyanosis, or edema. NEURO: Alert & Oriented x4 to person, place, time, situation. Moves all ext x4 Procedures PICC line insertion Medications and IVs Current Medications Sodium Chloride (NS 1000 ml Inj) 1,000 ml @ 1,000 mls/hr Q1H ONCE IV Last administered on 03/17/17 05:33; Start 03/17/17 at 05:15; Stop 03/17/17 at 06:14 ; Status DC Fentanyl Citrate (fentaNYL INJ) 25 mcg ONCE ONCE IV PUSH Last administered on 03/17/17 06:03; Start 03/17/17 at 05:45; Stop 03/17/17 at 05:46; Status DC Ondansetron HCl (Zofran Inj) 4 mg ONCE ONCE IV PUSH Last administered on 06:02; Start 03/17/17 at 05:45; Stop 03/17/17 at 05:46; Status DC Pantoprazole Sodium (Protonix Inj) 40 mg ONCE ONCE IV PUSH Last administered on 03/17/17 06:03; Start 03/17/17 at 05:45; Stop 03/17/17 at 05:46; Status DC Sodium Chloride (NS Flush) 2 ml UNSCH PRN IVF FLUSH AFTER USING IV ACCESS; Start 03/17/17 at 05:45 Methylprednisolone Sodium Succinate (SoluMEDROL INJ) 125 mg ONCE ONCE IVP Last administered on 03/17/17 06:03; Start 03/17/17 at 05:45; Stop 03/17/17 at 05:46; Status DC Fentanyl Citrate 100 mcg 100 mcg STK-MED ONCE .ROUTE ; Start 03/17/17 at 05:50; Stop 03/17/17 at 05:51; Status DC Sodium Chloride 1,000 ml @ 1,000 mls/hr Q1H ONCE IV Last administered on 06:31; Start 03/17/17 at 06:15; Stop 03/17/17 at 07:14; Status DC Sodium Chloride 1,000 ml @ 1,000 mls/hr Q1H ONCE IV Last administered on 06:57; Start 03/17/17 at 06:30; Stop 03/17/17 at 07:29; Status DC Vancomycin HCl 1000 mg/Sodium Chloride 250 ml @ 250 mls/hr Q12H IV Last administered on 03/17/17 08:16; Start 03/17/17 at 06:30; Stop 03/17/17 at 10:52 ; Status DC Aztreonam 2000 mg/ Sodium Chloride 100 ml @ 200 mls/hr Q8H IV ; Start 03/17/17 at 06:30; Stop 03/17/17 at 08:15; Status DC Metronidazole (Flagyl 500 Mg Inj) 100 ml @ 100 mls/hr Q8H IV Last administered on 03/17/17 06:57; Start 03/17/17 at 06:30; Stop 03/17/17 at 08:19 ; Status DC Iohexol (Omnipaque 350 Inj) 65 ml STK-MED ONCE IV Last administered on 06:33; Start 03/17/17 at 06:33; Stop 03/17/17 at 06:34; Status DC Fentanyl Citrate (fentaNYL INJ) 50 mcg ONCE ONCE IV PUSH Last administered on 03/17/17 07:59; Start 03/17/17 at 07:30; Stop 03/17/17 at 07:31; Status DC Albuterol/ Ipratropium 1 ampule 1 ampule ONCE ONCE NEB Last administered on 09:25; Start 03/17/17 at 07:30; Stop 03/17/17 at 07:31; Status DC Sodium Chloride (NS 1000 ml Inj) 1,000 ml @ 50 mls/hr Q20H IV Last administered on 03/23/17 22:19; Start 03/17/17 at 08:00; Stop 03/24/17 at 11:39 ; Status DC Morphine Sulfate (Morphine Inj) 2 mg Q2H PRN IV PAIN SCALE 6 TO 10 Last administered on 03/19/17 12:30; Start 03/17/17 at 08:00; Stop 03/19/17 at 14:22 ; Status DC Pantoprazole Sodium (Protonix Inj) 40 mg Q12H IV Last administered on 03/28/17 08:41; Start 03/17/17 at 09:00; Stop 03/28/17 at 12:26; Status DC Miscellaneous Information 1 Q361D XX ; Start 03/17/17 at 08:00 Chlorhexidine Gluconate (Chlorhexidine 2% Cloth) Taper DAILY@04 TOP Last administered on 03/26/17 04:06; Start 03/18/17 at 04:00; Stop 03/14/18 at 03:59 Chlorhexidine Gluconate 3 pack 3 pack UNSCH PRN TOP HYGIENIC CARE; Start at 08:00 Aztreonam 2000 mg/ Sodium Chloride 100 ml @ 200 mls/hr Q8H IV Last administered on 03/28/17 08:41; Start 03/17/17 at 08:00; Stop 03/28/17 at 12:27; Status DC Metronidazole 100 ml @ 100 mls/hr Q8H IV Last administered on 03/28/17 05:28; Start 03/17/17 at 15:00; Stop 03/28/17 at 12:33; Status DC Vancomycin HCl 1000 mg/Sodium Chloride 250 ml @ 250 mls/hr ONCE ONCE IV ; Start 03/17/17 at 08:00; Stop 03/17/17 at 08:59; Status UNV Fluconazole/ Sodium Chloride 200 ml @ 100 mls/hr Q24H IV Last administered on 03/28/17 08:44; Start 03/17/17 at 09:00; Stop 03/28/17 at 12:27; Status DC Pharmacy Profile Note (Vancomycin Consult Pharmacy) ml @ 0 mls/hr UNSCH OTHER ; Start 03/17/17 at 08:15; Stop 03/25/17 at 15:27; Status DC Albuterol/ Ipratropium (Duoneb Neb) 1 ampule Q6HR NEB NEB Last administered on 03/21/17 09:17; Start 03/17/17 at 10:00; Stop 03/21/17 at 10:00; Status DC Albuterol/ Ipratropium (Duoneb Neb) 1 ampule Q2HR NEB PRN NEB SHORTNESS OF BREATH Last administered on 03/24/17 09:18; Start 03/17/17 at 09:15 Tiotropium Lando (Spiriva Inh) 18 mcg DAILY INH Last administered on 09:00; Start 03/18/17 at 09:00 Methylprednisolone Sodium Succinate (SoluMEDROL INJ) 125 mg ONCE ONCE IV PUSH Last administered on 03/17/17 10:31; Start 03/17/17 at 10:30; Stop 03/17/17 at 10:31; Status DC Methylprednisolone Sodium Succinate 60 mg 60 mg Q8HR IV PUSH Last administered on 03/19/17 05:53; Start 03/17/17 at 14:00; Stop 03/19/17 at 11:12; Status DC Vancomycin HCl/ Sodium Chloride (Vancomycin Inj/ NS 500 ml Inj) 515 ml @ 257.5 mls/ hr Q24H IV Last administered on 03/21/17 00:06; Start 03/18/17 at 00:00; Stop 03/21/17 at 11:26; Status DC Miscellaneous Information SPECIFIC LAB TO BE KOBI... ONCE ONCE .XX Last administered on 03/20/17 23:45; Start 03/20/17 at 23:45; Stop 03/20/17 at 23:46 ; Status DC Dextrose (D50w (Vial) Inj) 25 ml UNSCH PRN IV PUSH HYPOGLYCEMIA - SEE COMMENTS ; Start 03/17/17 at 15:15 Glucagon (Glucagon Inj) 1 mg UNSCH PRN OTHER HYPOGLYCEMIA-SEE COMMENTS; Start 03/17/17 at 15:15 Insulin Aspart (NovoLOG SUPPLEMENTAL SCALE) 1 ACHS SLIDING SCALE SQ ; Start at 16:00; Stop 03/17/17 at 16:07; Status DC Insulin Aspart (NovoLOG SUPPLEMENTAL SCALE) 1 Q6HR SQ Last administered on 05:26; Start 03/17/17 at 18:00 Heparin Sodium (Porcine) (Heparin Inj) 5,000 units Q8HR SQ Last administered on 03/20/17 14:26; Start 03/18/17 at 14:00; Stop 03/20/17 at 19:54; Status DC Miscellaneous Information Patient in critical care unit? Ass... Q361D .XX ; Start 03/19/17 at 07:45; Status Cancel Mupirocin (Bactroban Nasal 2% Oint) 1 applic BID NASAL ; Start 03/19/17 at 09:00 ; Status Cancel Chlorhexidine Gluconate (Chlorhexidine 2% Cloth) 3 pack DAILY@04 TOPICAL ; Start 03/20/17 at 04:00; Stop 03/24/17 at 04:01; Status Cancel Chlorhexidine Gluconate (Chlorhexidine 2% Cloth) 3 pack UNSCH PRN TOPICAL HYGIENIC CARE; Start 03/19/17 at 07:45; Stop 03/24/17 at 07:43; Status Cancel Methylprednisolone Sodium Succinate (SoluMEDROL INJ) 60 mg Q12HR IV PUSH Last administered on 03/21/17 09:22; Start 03/19/17 at 21:00; Stop 03/21/17 at 16:20 ; Status DC Morphine Sulfate (Morphine Inj) 4 mg Q2H PRN IV PAIN SCALE 6 TO 10 Last administered on 03/28/17 11:27; Start 03/19/17 at 16:00; Stop 03/28/17 at 12:35; Status DC Morphine Sulfate (Morphine Inj) 4 mg ONCE ONCE IV PUSH Last administered on 14:38; Start 03/19/17 at 14:30; Stop 03/19/17 at 14:31; Status DC Furosemide (Lasix Inj) 20 mg ONCE ONCE IV PUSH Last administered on 03/19/17 14:39; Start 03/19/17 at 14:30; Stop 03/19/17 at 14:31; Status DC Hydralazine HCl (Apresoline Inj) 20 mg Q4H PRN IV PUSH KEEP SBP < 170 Last administered on 03/25/17 21:07; Start 03/19/17 at 17:00 Iohexol (Omnipaque 350 Inj) 98 ml STK-MED ONCE IV Last administered on 10:16; Start 03/20/17 at 10:16; Stop 03/20/17 at 10:17; Status DC Lorazepam 0.5 mg 0.5 mg Q4H PRN IV PUSH anxiety Last administered on 03/28/17 05:27; Start 03/20/17 at 12:00; Stop 03/28/17 at 12:33; Status DC Multivitamins 10 ml/Folic Acid 1 mg/Amino Acids/ Electrolytes/ Dextrose 2,010.2 ml @ 83 mls/hr Q24H IV-CENTRAL Last administered on 03/27/17 19:48; Start at 20:00; Stop 03/28/17 at 19:59; Status DC Fat Emulsion Intravenous (Liposyn Iii 20% Inj) 250 ml @ 31.25 mls/ hr Q24H IV- CENTRAL Last administered on 03/27/17 19:49; Start 03/20/17 at 20:00; Stop 03/28 at 19:59; Status DC Sodium Chloride (NS Flush) See Protocol DAILY IV FLUSH Last administered on 03/28 08:43; Start 03/21/17 at 09:00 Sodium Chloride (NS Flush) See Protocol UNSCH PRN IV FLUSH SEE PROTOCOL TABLE; Start 03/20/17 at 17:45 Heparin Sodium (Porcine) (Heparin Central Flush) See Protocol DAILY IV FLUSH Last administered on 03/28/17 08:42; Start 03/21/17 at 09:00 Heparin Sodium (Porcine) (Heparin Central Flush) See Protocol UNSCH PRN IV FLUSH SEE PROTOCOL TABLE; Start 03/20/17 at 17:45 Sodium Chloride (NS Flush) UNSCH PRN IV FLUSH SEE PROTOCOL TABLE; Start at 17:45 Enoxaparin Sodium (Lovenox Inj) 40 mg Q12H SQ Last administered on 03/28/17 20: 20; Start 03/20/17 at 20:00 Labetalol HCl 10 mg 10 mg Q4H PRN IV PUSH SBP >170 Last administered on 05:52; Start 03/21/17 at 03:45 Potassium Chloride 100 ml @ 50 mls/hr Q2H IV Last administered on 03/21/17 09 :23; Start 03/21/17 at 09:00; Stop 03/21/17 at 12:59; Status DC Vancomycin HCl/ Sodium Chloride (Vancomycin Inj/ NS 500 ml Inj) 525 ml @ 257.5 mls/ hr Q24H IV Last administered on 03/24/17 01:34; Start 03/22/17 at 00:00; Stop 03/24/17 at 10:29; Status DC Miscellaneous Information SPECIFIC LAB TO BE DRAWN:VANCO TROUGH DATE TO... ONCE ONCE .XX Last administered on 03/24/17 00:55; Start 03/23/17 at 23:45; Stop 03/23/17 at 23:46; Status DC Methylprednisolone Sodium Succinate (SoluMEDROL INJ) 40 mg Q12HR IV Last administered on 03/28/17 20:21; Start 03/21/17 at 21:00 Hydromorphone HCl (Dilaudid Pf Inj) 2 mg NOW ONCE IV Last administered on 03/22 11:57; Start 03/22/17 at 11:45; Stop 03/22/17 at 11:46; Status DC Gadodiamide (Omniscan Pf Inj) 20 ml STK-MED ONCE IV Last administered on 16:58; Start 03/22/17 at 16:58; Stop 03/22/17 at 16:59; Status DC Etomidate 20 mg 20 mg STK-MED ONCE .ROUTE ; Start 03/23/17 at 07:49; Stop at 07:50; Status DC Vancomycin HCl/ Sodium Chloride (Vancomycin Inj/ NS 500 ml Inj) 515 ml @ 257.5 mls/ hr Q12H IV Last administered on 03/25/17 12:49; Start 03/24/17 at 13:00; Stop 03/25/17 at 15:27; Status DC Miscellaneous Information SPECIFIC LAB TO BE DRAWN:VANCO TROUGH DATE... ONCE ONCE .XX ; Start 03/26/17 at 12:45; Stop 03/26/17 at 12:46; Status Cancel Oxycodone/ Acetaminophen (Percocet 7.5-325 Mg) 1 tab Q6H PRN PO any pain Last administered on 03/28/17 08:42; Start 03/26/17 at 12:15; Stop 03/28/17 at 14:29; Status DC Enalaprilat (Vasotec Inj) 1.25 mg Q8HR PRN IV PUSH SBP> OR = 180, DBP> OR = 100 Last administered on 03/28/17 08:41; Start 03/27/17 at 08:45 Amlodipine Besylate (Norvasc) 5 mg DAILY PO Last administered on 03/28/17 11:27 ; Start 03/28/17 at 09:30 Pantoprazole Sodium (Protonix) 40 mg BID PO Last administered on 03/28/17 20:21 ; Start 03/28/17 at 21:00 Fluconazole (Diflucan) 400 mg DAILY PO ; Start 03/29/17 at 09:00 Levofloxacin (Levaquin) 750 mg DAILY PO ; Start 03/29/17 at 09:00 Metronidazole (Flagyl) 500 mg Q8HR PO Last administered on 03/29/17 05:26; Start 03/28/17 at 14:00 Lorazepam (Ativan) 0.5 mg Q12H PRN PO ANXIETY AND/OR INSOMNIA Last administered on 03/29/17 00:41; Start 03/28/17 at 12:30 Tramadol HCl (Ultram) 50 mg Q6H PRN PO PAIN SCALE 1 TO 10 Last administered on 03/29/17 06:27; Start 03/28/17 at 14:45 A/P Assessment and Plan A/P Probable visceral/gastric perforation with peritonitis Splenic infarct L upper chest s/q emphysema probably air tracking from abdomen -- TPN tapered off- started on diet -- continue conservative medical management -- started on po antibiotics -- UGI series 03/19/17-no evidence of perforation --general surgery following --evaluated by oncology Anxiety Chronic pain Acute parotitis --continue pain control -- Acute parotitis. clinically improving Acute COPD Exacerbation HCAP/LLL pneumonia L upper chest and shoulder pain secondary to splenic infarct -- Recently admitted for COPD exacerbation, and pneumonia with MSSA and Haemophilus influenza (Admitted from 03/08 to 03/16) -- Wean FiO2 for goal spo2 > 88-90%. -- switch to po prednisone -- DuoNebs q4h and q2h prn. -- MRI L shoulder show arthritic changes. L upper chest and shoulder pain most likely from splenic infarct Transient hypotension, now hypertensive Lactic acidosis Peritonitis secondary to perforated viscus resumed norvasc -- Monitor HR and BP closely -- IV Labetalol, hydralazine PRN Acute kidney insufficiency- improving. -- Most likely secondary to peritonitis and sepsis -- IVF with TPN as above. Gambino for strict I/O Severe sepsis Peritonitis secondary to perforated viscus Left lower lobe pneumonia/HCAP Probable acute parotitis -- F/U urine and blood cultures negative to date -- antibiotics as noted above. DVT of the right upper extremity-catheter induced will dc PICC line and start anticoagulation if ok with surgery hematology following. urinary retention gambino had to be replaced yesterday- voiding trial tomorrow. --history of lymphoma -- Leukocytosis secondary to sepsis, now resolved evaluated by oncology. PROPH: --SCDs, PPI for prophylaxis. Lovenox for DVT prophylaxis Alonzo Castillo MD March 29, 2017 08:08
[2017-03-29] MEDS: predniSONE 20 MG TAB PO SCH (08:31)
[2017-03-29] MEDS: FLUCONAZOLE 200 MG TAB PO SCH (08:31)
[2017-03-29] MEDS: LEVOFLOXACIN 750 MG TAB PO SCH (08:32)
[2017-03-29] MEDS: ENOXAPARIN SODIUM 40 MG/0.4 ML SYRINGE SQ SCH (08:32)
[2017-03-29] MEDS: PANTOPRAZOLE SOD 20 MG DELAYED RELEASE TAB PO SCH ×2 (08:32→20:26)
[2017-03-29] MEDS: amLODIPine BESYLATE 5 MG TAB PO SCH (08:32)
[2017-03-29] MEDS: TIOTROPIUM BROMIDE 18 MCG INH INH SCH (08:33)
[2017-03-29] MEDS: SODIUM CHLORIDE 0.9% FLUSH 10 ML FLUSH IV FLUSH SCH (09:00)
[2017-03-29 12:00] VITALS: BP 160/72; PULSE 73; RESP 16; TEMP 97.3; O2SAT 97
[2017-03-29 16:00] VITALS: BP 162/72; PULSE 76; RESP 17; TEMP 96; O2SAT 94
--- NOTE | 2017-03-29 17:40 | HHI.PR ---
Subjective Subjective Notes Related problems with urinary retention yesterday. Better with gambino back in. Objective Vitals/I&O Vital Signs Date Time Temp Pulse Resp B/P Pulse Ox O2 Delivery O2 Flow Rate FiO2 03/29/17 12:00 97.3 73 16 160/72 97 03/29/17 11:36 Nasal Cannula 2.00 Labs Laboratory Tests Test 03/29/17 06:16 White Blood Count 4.8 Red Blood Count 3.17 Hemoglobin 10.1 Hematocrit 29.0 Mean Corpuscular Volume 91.5 Mean Corpuscular Hemoglobin 32.0 Mean Corpuscular Hemoglobin 35.0 Concent Red Cell Distribution Width 15.3 Platelet Count 122 Mean Platelet Volume 7.7 Neutrophils (%) (Auto) 92.5 Lymphocytes (%) (Auto) 3.5 Monocytes (%) (Auto) 3.9 Eosinophils (%) (Auto) 0.1 Basophils (%) (Auto) 0.0 Neutrophils # (Auto) 4.4 Lymphocytes # (Auto) 0.2 Monocytes # (Auto) 0.2 Eosinophils # (Auto) 0.0 Basophils # (Auto) 0.0 CBC Comment DIFF FINAL Differential Comment Sodium Level 143 Potassium Level 4.3 Chloride Level 101 Carbon Dioxide Level 36.8 Anion Gap 5 Blood Urea Nitrogen 25 Creatinine 0.53 Estimat Glomerular Filtration 115 Rate Random Glucose 132 Calcium Level 7.9 Radiology Last Impressions Upper Extremity Ultrasound 03/28/17 0000 Signed Impressions: Service Date/Time: Tuesday, March 28, 2017 09:08 - CONCLUSION: 1. There is a PICC in place. This is visualized in the right axillary vein. The small amount of thrombus around the PICC at this level. The remainder of the venous system is patent. Israel Macario MD Lower Extremity Ultrasound 03/27/17 0000 Signed Impressions: Service Date/Time: March 11:13 - CONCLUSION: No DVT of the right lower extremity. Anthony Hernadez MD Abdomen X-Ray 03/23/17 0321 Signed Impressions: Service Date/Time: Thursday, March 23, 2017 04:48 - CONCLUSION: Free intraperitoneal air. Anthony Hernadez MD Chest X-Ray 03/23/17 0000 Signed Impressions: Service Date/Time: Thursday, March 23, 2017 04:43 - CONCLUSION: 1. Mild bibasilar atelectasis slightly improved. 2. Nasogastric tube and right arm PICC line again noted. 3. Free intraperitoneal air. Anthony Hernadez MD Soft Tissue MRI 03/22/17 Signed Impressions: Service Date/Time: Wednesday, March 22, 2017 16:31 - CONCLUSION: Nondiscript subcutaneous edema in the right shoulder and lower neck junction with benign-appearing cystic mass in submental location. Maninder Lozano MD Shoulder MRI 03/22/17 Signed Impressions: Service Date/Time: Wednesday, March 22, 2017 16:10 - CONCLUSION: Chronic degenerative changes without definite tear. Maninder Lozano MD Neck CT 03/20/17 Signed Impressions: Service Date/Time: February 09:57 - CONCLUSION: 1. Possible 2 cm mass in the superficial lobe of the right parotid in detail. MRI with contrast is recommended for further evaluation if clinically indicated. Stepan Albarado MD CT Angiography 03/20/17 Signed Impressions: Service Date/Time: February 09:50 - CONCLUSION: 1. New low-density mass in the upper central spleen not present 12 days ago. Differential diagnosis includes an area of infarction or hematoma. 2. New patchy groundglass opacities in both lungs which may be infectious or inflammatory. 3. Minimal effusions. 4. No evidence of pulmonary emboli. Luiz Guzman MD Abdomen/Pelvis CT 03/20/17 Signed Impressions: Service Date/Time: February 09:53 - CONCLUSION: 1. Interval increase in free air greatest in the upper anterior abdomen. A nonspecific bowel gas pattern remains with oral contrast in the colon. There is no extravasated contrast. 2. Nonspecific bowel gas pattern most consistent with an ileus. 3. The splenic infarct is more conspicuous than on the prior study. 4. Minimal effusions are now noted. Luiz Guzman MD Upper GI Series 03/19/17 0000 Signed Impressions: Service Date/Time: Sunday, March 19, 2017 11:40 - CONCLUSION: Limited upper GI series demonstrating no definite perforation. 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 Assessment and Plan 66 year old female with COPD and free air visualized on CT scan -WBC remains normal -VSS TPN is weaned off -Pulmonary status improved -Continue non op treatment at this time Anticipate rehabilitation placement early next week Avoid nonsteroidals Began weaning steroids as per medicine Advance diet and activities Problem Qualifiers (1) Ibuprofen adverse reaction: Qualified Code: T39.315D - Ibuprofen adverse reaction, subsequent encounter (2) Abdominal pain: Qualified Code: R10.12 - Left upper quadrant pain (3) Pneumonia: Qualified Code: J18.1 - Pneumonia of left lower lobe due to infectious organism Luiz Saul MD March 29, 2017 17:40
[2017-03-29 20:00] VITALS: BP 155/69; PULSE 71; RESP 20; TEMP 97.2; O2SAT 93
[2017-03-29] MEDS ORDERED: ENOXAPARIN SODIUM 40 MG/0.4 ML SYRINGE SQ SCH (20:00)
[2017-03-30] VITALS: BP 159/75; PULSE 71; RESP 20; TEMP 97.6; O2SAT 95
[2017-03-30] MEDS: LORazepam 0.5 MG TAB PO PRN ×2 (04:22→19:07)
[2017-03-30] MEDS: metroNIDAZOLE 500 MG TAB PO SCH ×3 (05:45→20:58)
[2017-03-30] MEDS: LOW DOSE INSULIN NOVOLOG SUPPLEMENTAL SCALE SQ SCH ×4 (05:45→23:43)
[2017-03-30 07:00] VITALS: BP 142/67; PULSE 76; RESP 20; O2SAT 94
[2017-03-30] MEDS: traMADol HCL 50 MG TAB PO PRN ×2 (07:12→23:46)
--- NOTE | 2017-03-30 07:44 | HHI.PR ---
Subjective Remarks complaining of chest pressure which she related to her acid reflux. abdominal pain is mild. no fever. d/w the RN. Objective Vitals Vital Signs Date Time Temp Pulse Resp B/P Pulse Ox O2 Delivery O2 Flow Rate FiO2 03/30/17 07:00 76 20 142/67 94 03/30/17 00:00 97.6 71 20 159/75 95 03/29/17 20:30 93 Nasal Cannula 2.00 03/29/17 20:00 97.2 71 20 155/69 93 03/29/17 16:00 96.0 76 17 162/72 94 03/29/17 12:00 97.3 73 16 160/72 97 03/29/17 11:36 Nasal Cannula 2.00 03/29/17 08:00 96.1 63 20 172/75 96 I/O 03/29/17 03/29/17 03/29/17 03/30/17 03/30/17 03/30/17 07:00 15:00 23:00 07:00 15:00 23:00 Intake Total 1379 ml 720 ml 240 ml 120 ml Output Total 3400 ml 2200 ml 2400 ml 975 ml Balance -2021 ml -1480 ml -2160 ml -855 ml Intake Oral 240 ml 720 ml 240 ml 120 ml TPN/PPN 1139 ml Output Urine Total 3400 ml 2200 ml 2400 ml 975 ml # Bowel Movements 0 2 1 2 Result Diagram: 03/29/17 0616 03/29/17 0616 Imaging Last Impressions Upper Extremity Ultrasound 03/28/17 0000 Signed Impressions: Service Date/Time: Tuesday, March 28, 2017 09:08 - CONCLUSION: 1. There is a PICC in place. This is visualized in the right axillary vein. The small amount of thrombus around the PICC at this level. The remainder of the venous system is patent. Israel Macario MD Lower Extremity Ultrasound 03/27/17 0000 Signed Impressions: Service Date/Time: March 11:13 - CONCLUSION: No DVT of the right lower extremity. Anthony Hernadez MD Abdomen X-Ray 03/23/17 0321 Signed Impressions: Service Date/Time: Thursday, March 23, 2017 04:48 - CONCLUSION: Free intraperitoneal air. Anthony Hernadez MD Chest X-Ray 03/23/17 Signed Impressions: Service Date/Time: Thursday, March 23, 2017 04:43 - CONCLUSION: 1. Mild bibasilar atelectasis slightly improved. 2. Nasogastric tube and right arm PICC line again noted. 3. Free intraperitoneal air. Anthony Hernadez MD Soft Tissue MRI 03/22/17 0000 Signed Impressions: Service Date/Time: Wednesday, March 22, 2017 16:31 - CONCLUSION: Nondiscript subcutaneous edema in the right shoulder and lower neck junction with benign-appearing cystic mass in submental location. Maninder Lozano MD Shoulder MRI 03/22/17 0000 Signed Impressions: Service Date/Time: Wednesday, March 22, 2017 16:10 - CONCLUSION: Chronic degenerative changes without definite tear. Maninder Lozano MD Neck CT 03/20/17 Signed Impressions: Service Date/Time: February 09:57 - CONCLUSION: 1. Possible 2 cm mass in the superficial lobe of the right parotid in detail. MRI with contrast is recommended for further evaluation if clinically indicated. Stepan Albarado MD CT Angiography 03/20/17 Signed Impressions: Service Date/Time: February 09:50 - CONCLUSION: 1. New low-density mass in the upper central spleen not present 12 days ago. Differential diagnosis includes an area of infarction or hematoma. 2. New patchy groundglass opacities in both lungs which may be infectious or inflammatory. 3. Minimal effusions. 4. No evidence of pulmonary emboli. Luiz Guzman MD Abdomen/Pelvis CT 03/20/17 0000 Signed Impressions: Service Date/Time: February 09:53 - CONCLUSION: 1. Interval increase in free air greatest in the upper anterior abdomen. A nonspecific bowel gas pattern remains with oral contrast in the colon. There is no extravasated contrast. 2. Nonspecific bowel gas pattern most consistent with an ileus. 3. The splenic infarct is more conspicuous than on the prior study. 4. Minimal effusions are now noted. Luiz Guzman MD Upper GI Series 03/19/17 0000 Signed Impressions: Service Date/Time: Sunday, March 19, 2017 11:40 - CONCLUSION: Limited upper GI series demonstrating no definite perforation. Luiz Guzman MD Objective Remarks GENERAL: obese female, in no apparent distress with NG tube in place. CARDIOVASCULAR: Regular rate and regular rhythm without murmurs, gallops, or rubs. RESPIRATORY: Clear to auscultation. Breath sounds equal bilaterally. No wheezes , rales, or rhonchi. GASTROINTESTINAL: Abdomen soft, mild generalized tenderness, nondistended. Normal, active bowel sounds MUSCULOSKELETAL: Extremities without clubbing, cyanosis, or edema. NEURO: Alert & Oriented x4 to person, place, time, situation. Moves all ext x4 Procedures PICC line insertion Medications and IVs Current Medications Sodium Chloride (NS 1000 ml Inj) 1,000 ml @ 1,000 mls/hr Q1H ONCE IV Last administered on 03/17/17 05:33; Start 03/17/17 at 05:15; Stop 03/17/17 at 06:14 ; Status DC Fentanyl Citrate (fentaNYL INJ) 25 mcg ONCE ONCE IV PUSH Last administered on 03/17/17 06:03; Start 03/17/17 at 05:45; Stop 03/17/17 at 05:46; Status DC Ondansetron HCl (Zofran Inj) 4 mg ONCE ONCE IV PUSH Last administered on 06:02; Start 03/17/17 at 05:45; Stop 03/17/17 at 05:46; Status DC Pantoprazole Sodium (Protonix Inj) 40 mg ONCE ONCE IV PUSH Last administered on 03/17/17 06:03; Start 03/17/17 at 05:45; Stop 03/17/17 at 05:46; Status DC Sodium Chloride (NS Flush) 2 ml UNSCH PRN IVF FLUSH AFTER USING IV ACCESS; Start 03/17/17 at 05:45 Methylprednisolone Sodium Succinate (SoluMEDROL INJ) 125 mg ONCE ONCE IVP Last administered on 03/17/17 06:03; Start 03/17/17 at 05:45; Stop 03/17/17 at 05:46; Status DC Fentanyl Citrate 100 mcg 100 mcg STK-MED ONCE .ROUTE ; Start 03/17/17 at 05:50; Stop 03/17/17 at 05:51; Status DC Sodium Chloride 1,000 ml @ 1,000 mls/hr Q1H ONCE IV Last administered on 06:31; Start 03/17/17 at 06:15; Stop 03/17/17 at 07:14; Status DC Sodium Chloride 1,000 ml @ 1,000 mls/hr Q1H ONCE IV Last administered on 06:57; Start 03/17/17 at 06:30; Stop 03/17/17 at 07:29; Status DC Vancomycin HCl 1000 mg/Sodium Chloride 250 ml @ 250 mls/hr Q12H IV Last administered on 03/17/17 08:16; Start 03/17/17 at 06:30; Stop 03/17/17 at 10:52 ; Status DC Aztreonam 2000 mg/ Sodium Chloride 100 ml @ 200 mls/hr Q8H IV ; Start 03/17/17 at 06:30; Stop 03/17/17 at 08:15; Status DC Metronidazole (Flagyl 500 Mg Inj) 100 ml @ 100 mls/hr Q8H IV Last administered on 03/17/17 06:57; Start 03/17/17 at 06:30; Stop 03/17/17 at 08:19 ; Status DC Iohexol (Omnipaque 350 Inj) 65 ml STK-MED ONCE IV Last administered on 06:33; Start 03/17/17 at 06:33; Stop 03/17/17 at 06:34; Status DC Fentanyl Citrate (fentaNYL INJ) 50 mcg ONCE ONCE IV PUSH Last administered on 03/17/17 07:59; Start 03/17/17 at 07:30; Stop 03/17/17 at 07:31; Status DC Albuterol/ Ipratropium 1 ampule 1 ampule ONCE ONCE NEB Last administered on 09:25; Start 03/17/17 at 07:30; Stop 03/17/17 at 07:31; Status DC Sodium Chloride (NS 1000 ml Inj) 1,000 ml @ 50 mls/hr Q20H IV Last administered on 03/23/17 22:19; Start 03/17/17 at 08:00; Stop 03/24/17 at 11:39 ; Status DC Morphine Sulfate (Morphine Inj) 2 mg Q2H PRN IV PAIN SCALE 6 TO 10 Last administered on 03/19/17 12:30; Start 03/17/17 at 08:00; Stop 03/19/17 at 14:22 ; Status DC Pantoprazole Sodium (Protonix Inj) 40 mg Q12H IV Last administered on 03/28/17 08:41; Start 03/17/17 at 09:00; Stop 03/28/17 at 12:26; Status DC Miscellaneous Information 1 Q361D XX ; Start 03/17/17 at 08:00 Chlorhexidine Gluconate (Chlorhexidine 2% Cloth) Taper DAILY@04 TOP Last administered on 03/26/17 04:06; Start 03/18/17 at 04:00; Stop 03/14/18 at 03:59 Chlorhexidine Gluconate 3 pack 3 pack UNSCH PRN TOP HYGIENIC CARE; Start at 08:00 Aztreonam 2000 mg/ Sodium Chloride 100 ml @ 200 mls/hr Q8H IV Last administered on 03/28/17 08:41; Start 03/17/17 at 08:00; Stop 03/28/17 at 12:27; Status DC Metronidazole 100 ml @ 100 mls/hr Q8H IV Last administered on 03/28/17 05:28; Start 03/17/17 at 15:00; Stop 03/28/17 at 12:33; Status DC Vancomycin HCl 1000 mg/Sodium Chloride 250 ml @ 250 mls/hr ONCE ONCE IV ; Start 03/17/17 at 08:00; Stop 03/17/17 at 08:59; Status UNV Fluconazole/ Sodium Chloride 200 ml @ 100 mls/hr Q24H IV Last administered on 03/28/17 08:44; Start 03/17/17 at 09:00; Stop 03/28/17 at 12:27; Status DC Pharmacy Profile Note (Vancomycin Consult Pharmacy) ml @ 0 mls/hr UNSCH OTHER ; Start 03/17/17 at 08:15; Stop 03/25/17 at 15:27; Status DC Albuterol/ Ipratropium (Duoneb Neb) 1 ampule Q6HR NEB NEB Last administered on 03/21/17 09:17; Start 03/17/17 at 10:00; Stop 03/21/17 at 10:00; Status DC Albuterol/ Ipratropium (Duoneb Neb) 1 ampule Q2HR NEB PRN NEB SHORTNESS OF BREATH Last administered on 03/24/17 09:18; Start 03/17/17 at 09:15 Tiotropium [place] (Spiriva Inh) 18 mcg DAILY INH Last administered on 08:33; Start 03/18/17 at 09:00 Methylprednisolone Sodium Succinate (SoluMEDROL INJ) 125 mg ONCE ONCE IV PUSH Last administered on 03/17/17 10:31; Start 03/17/17 at 10:30; Stop 03/17/17 at 10:31; Status DC Methylprednisolone Sodium Succinate 60 mg 60 mg Q8HR IV PUSH Last administered on 03/19/17 05:53; Start 03/17/17 at 14:00; Stop 03/19/17 at 11:12; Status DC Vancomycin HCl/ Sodium Chloride (Vancomycin Inj/ NS 500 ml Inj) 515 ml @ 257.5 mls/ hr Q24H IV Last administered on 03/21/17 00:06; Start 03/18/17 at 00:00; Stop 03/21/17 at 11:26; Status DC Miscellaneous Information SPECIFIC LAB TO BE KOBI... ONCE ONCE .XX Last administered on 03/20/17 23:45; Start 03/20/17 at 23:45; Stop 03/20/17 at 23:46 ; Status DC Dextrose (D50w (Vial) Inj) 25 ml UNSCH PRN IV PUSH HYPOGLYCEMIA - SEE COMMENTS ; Start 03/17/17 at 15:15 Glucagon (Glucagon Inj) 1 mg UNSCH PRN OTHER HYPOGLYCEMIA-SEE COMMENTS; Start 03/17/17 at 15:15 Insulin Aspart (NovoLOG SUPPLEMENTAL SCALE) 1 ACHS SLIDING SCALE SQ ; Start at 16:00; Stop 03/17/17 at 16:07; Status DC Insulin Aspart (NovoLOG SUPPLEMENTAL SCALE) 1 Q6HR SQ Last administered on 05:26; Start 03/17/17 at 18:00 Heparin Sodium (Porcine) (Heparin Inj) 5,000 units Q8HR SQ Last administered on 03/20/17 14:26; Start 03/18/17 at 14:00; Stop 03/20/17 at 19:54; Status DC Miscellaneous Information Patient in critical care unit? Ass... Q361D .XX ; Start 03/19/17 at 07:45; Status Cancel Mupirocin (Bactroban Nasal 2% Oint) 1 applic BID NASAL ; Start 03/19/17 at 09:00 ; Status Cancel Chlorhexidine Gluconate (Chlorhexidine 2% Cloth) 3 pack DAILY@04 TOPICAL ; Start 03/20/17 at 04:00; Stop 03/24/17 at 04:01; Status Cancel Chlorhexidine Gluconate (Chlorhexidine 2% Cloth) 3 pack UNSCH PRN TOPICAL HYGIENIC CARE; Start 03/19/17 at 07:45; Stop 03/24/17 at 07:43; Status Cancel Methylprednisolone Sodium Succinate (SoluMEDROL INJ) 60 mg Q12HR IV PUSH Last administered on 03/21/17 09:22; Start 03/19/17 at 21:00; Stop 03/21/17 at 16:20 ; Status DC Morphine Sulfate (Morphine Inj) 4 mg Q2H PRN IV PAIN SCALE 6 TO 10 Last administered on 03/28/17 11:27; Start 03/19/17 at 16:00; Stop 03/28/17 at 12:35; Status DC Morphine Sulfate (Morphine Inj) 4 mg ONCE ONCE IV PUSH Last administered on 14:38; Start 03/19/17 at 14:30; Stop 03/19/17 at 14:31; Status DC Furosemide (Lasix Inj) 20 mg ONCE ONCE IV PUSH Last administered on 03/19/17 14:39; Start 03/19/17 at 14:30; Stop 03/19/17 at 14:31; Status DC Hydralazine HCl (Apresoline Inj) 20 mg Q4H PRN IV PUSH KEEP SBP < 170 Last administered on 03/25/17 21:07; Start 03/19/17 at 17:00 Iohexol (Omnipaque 350 Inj) 98 ml STK-MED ONCE IV Last administered on 10:16; Start 03/20/17 at 10:16; Stop 03/20/17 at 10:17; Status DC Lorazepam 0.5 mg 0.5 mg Q4H PRN IV PUSH anxiety Last administered on 03/28/17 05:27; Start 03/20/17 at 12:00; Stop 03/28/17 at 12:33; Status DC Multivitamins 10 ml/Folic Acid 1 mg/Amino Acids/ Electrolytes/ Dextrose 2,010.2 ml @ 83 mls/hr Q24H IV-CENTRAL Last administered on 03/27/17 19:48; Start at 20:00; Stop 03/28/17 at 19:59; Status DC Fat Emulsion Intravenous (Liposyn Iii 20% Inj) 250 ml @ 31.25 mls/ hr Q24H IV- CENTRAL Last administered on 03/27/17 19:49; Start 03/20/17 at 20:00; Stop 03/28 at 19:59; Status DC Sodium Chloride (NS Flush) See Protocol DAILY IV FLUSH Last administered on 03/29 09:00; Start 03/21/17 at 09:00 Sodium Chloride (NS Flush) See Protocol UNSCH PRN IV FLUSH SEE PROTOCOL TABLE; Start 03/20/17 at 17:45 Heparin Sodium (Porcine) (Heparin Central Flush) See Protocol DAILY IV FLUSH Last administered on 03/29/17 08:33; Start 03/21/17 at 09:00 Heparin Sodium (Porcine) (Heparin Central Flush) See Protocol UNSCH PRN IV FLUSH SEE PROTOCOL TABLE; Start 03/20/17 at 17:45 Sodium Chloride (NS Flush) UNSCH PRN IV FLUSH SEE PROTOCOL TABLE; Start at 17:45 Enoxaparin Sodium (Lovenox Inj) 40 mg Q12H SQ Last administered on 03/29/17 08: 32; Start 03/20/17 at 20:00; Stop 03/29/17 at 14:58; Status DC Labetalol HCl 10 mg 10 mg Q4H PRN IV PUSH SBP >170 Last administered on 05:52; Start 03/21/17 at 03:45 Potassium Chloride 100 ml @ 50 mls/hr Q2H IV Last administered on 03/21/17 09 :23; Start 03/21/17 at 09:00; Stop 03/21/17 at 12:59; Status DC Vancomycin HCl/ Sodium Chloride (Vancomycin Inj/ NS 500 ml Inj) 525 ml @ 257.5 mls/ hr Q24H IV Last administered on 03/24/17 01:34; Start 03/22/17 at 00:00; Stop 03/24/17 at 10:29; Status DC Miscellaneous Information SPECIFIC LAB TO BE DRAWN:VANCO TROUGH DATE TO... ONCE ONCE .XX Last administered on 03/24/17 00:55; Start 03/23/17 at 23:45; Stop 03/23/17 at 23:46; Status DC Methylprednisolone Sodium Succinate (SoluMEDROL INJ) 40 mg Q12HR IV Last administered on 03/28/17 20:21; Start 03/21/17 at 21:00; Stop 03/29/17 at 08:13; Status DC Hydromorphone HCl (Dilaudid Pf Inj) 2 mg NOW ONCE IV Last administered on 03/22 11:57; Start 03/22/17 at 11:45; Stop 03/22/17 at 11:46; Status DC Gadodiamide (Omniscan Pf Inj) 20 ml STK-MED ONCE IV Last administered on 16:58; Start 03/22/17 at 16:58; Stop 03/22/17 at 16:59; Status DC Etomidate 20 mg 20 mg STK-MED ONCE .ROUTE ; Start 03/23/17 at 07:49; Stop at 07:50; Status DC Vancomycin HCl/ Sodium Chloride (Vancomycin Inj/ NS 500 ml Inj) 515 ml @ 257.5 mls/ hr Q12H IV Last administered on 03/25/17 12:49; Start 03/24/17 at 13:00; Stop 03/25/17 at 15:27; Status DC Miscellaneous Information SPECIFIC LAB TO BE DRAWN:VANCO TROUGH DATE... ONCE ONCE .XX ; Start 03/26/17 at 12:45; Stop 03/26/17 at 12:46; Status Cancel Oxycodone/ Acetaminophen (Percocet 7.5-325 Mg) 1 tab Q6H PRN PO any pain Last administered on 03/28/17 08:42; Start 03/26/17 at 12:15; Stop 03/28/17 at 14:29; Status DC Enalaprilat (Vasotec Inj) 1.25 mg Q8HR PRN IV PUSH SBP> OR = 180, DBP> OR = 100 Last administered on 03/28/17 08:41; Start 03/27/17 at 08:45 Amlodipine Besylate (Norvasc) 5 mg DAILY PO Last administered on 03/29/17 08:32 ; Start 03/28/17 at 09:30 Pantoprazole Sodium (Protonix) 40 mg BID PO Last administered on 03/29/17 20:26 ; Start 03/28/17 at 21:00 Fluconazole (Diflucan) 400 mg DAILY PO Last administered on 03/29/17 08:31; Start 03/29/17 at 09:00 Levofloxacin (Levaquin) 750 mg DAILY PO Last administered on 03/29/17 08:32; Start 03/29/17 at 09:00 Metronidazole (Flagyl) 500 mg Q8HR PO Last administered on 03/30/17 05:45; Start 03/28/17 at 14:00 Lorazepam (Ativan) 0.5 mg Q12H PRN PO ANXIETY AND/OR INSOMNIA Last administered on 03/30/17 04:22; Start 03/28/17 at 12:30 Tramadol HCl (Ultram) 50 mg Q6H PRN PO PAIN SCALE 1 TO 10 Last administered on 03/30/17 07:12; Start 03/28/17 at 14:45 Prednisone (Deltasone) 40 mg DAILY PO Last administered on 03/29/17 08:31; Start 03/29/17 at 09:00 Enoxaparin Sodium (Lovenox Inj) 100 mg Q12H SQ Last administered on 03/29/17 20 :00; Start 03/29/17 at 20:00 A/P Assessment and Plan A/P Probable visceral/gastric perforation with peritonitis Splenic infarct L upper chest s/q emphysema probably air tracking from abdomen -- TPN tapered off- started on diet -- continue conservative medical management -- started on po antibiotics --general surgery following --evaluated by oncology chest pressure GERD check EKG and troponin continue PPI Anxiety Chronic pain Acute parotitis --continue pain control -- Acute parotitis. clinically improving Acute COPD Exacerbation HCAP/LLL pneumonia L upper chest and shoulder pain secondary to splenic infarct -- Recently admitted for COPD exacerbation, and pneumonia with MSSA and Haemophilus influenza (Admitted from 03/08 to 03/16) -- Wean FiO2 for goal spo2 > 88-90%. --start to taper down po prednisone -- continue neb treatment. -- MRI L shoulder show arthritic changes. L upper chest and shoulder pain most likely from splenic infarct Transient hypotension, now hypertensive Lactic acidosis Peritonitis secondary to perforated viscus resumed norvasc -- Monitor HR and BP closely -- IV Labetalol, hydralazine PRN Acute kidney insufficiency- improving. -- Most likely secondary to peritonitis and sepsis -- IVF with TPN as above. Gambino for strict I/O Severe sepsis Peritonitis secondary to perforated viscus Left lower lobe pneumonia/HCAP Probable acute parotitis -- F/U urine and blood cultures negative to date -- antibiotics as noted above. DVT of the right upper extremity-catheter induced increased lovenox to full anticoagulation hematology following. urinary retention will remove gambino cath today- voiding trial. --history of lymphoma -- Leukocytosis secondary to sepsis, now resolved evaluated by oncology. PROPH: --SCDs, PPI for prophylaxis. Lovenox for DVT prophylaxis Alonzo Castillo MD March 30, 2017 07:44
[2017-03-30 08:00] VITALS: BP 144/66; PULSE 75; RESP 17; TEMP 95.7; O2SAT 95
[2017-03-30] MEDS ORDERED: ULTR50TA5 PO (08:23)
[2017-03-30] MEDS ORDERED: IPRASOL NEB (08:23)
[2017-03-30] MEDS ORDERED: LORA-373 PO (08:23)
[2017-03-30] MEDS ORDERED: PRED5TAB PO (08:23)
[2017-03-30] MEDS: PANTOPRAZOLE SOD 20 MG DELAYED RELEASE TAB PO SCH ×2 (08:44→20:58)
[2017-03-30] MEDS: predniSONE 20 MG TAB PO SCH (08:44)
[2017-03-30] MEDS: amLODIPine BESYLATE 5 MG TAB PO SCH (08:45)
[2017-03-30] MEDS: FLUCONAZOLE 200 MG TAB PO SCH (08:45)
[2017-03-30] MEDS: LEVOFLOXACIN 750 MG TAB PO SCH (08:45)
[2017-03-30] MEDS: SODIUM CHLORIDE 0.9% FLUSH 10 ML FLUSH IV FLUSH SCH (08:46)
[2017-03-30] MEDS: ENOXAPARIN SODIUM 100 MG/ML SYRINGE SQ SCH ×2 (09:13→20:58)
[2017-03-30] MEDS: TIOTROPIUM BROMIDE 18 MCG INH INH SCH (09:13)
--- NOTE | 2017-03-30 10:34 | EKG ---
Date Performed: 03/30/2017 Time Performed: 08:11:25 PTAGE: 66 years EKG: Sinus rhythm MARKED RIGHT AXIS DEVIATION LOW QRS VOLTAGE IN PRECORDIAL LEADS ABNORMAL ECG PREVIOUS TRACING : 03/17/2017 04.45 DOCTOR: Jose Tirado Interpretating Date/Time 03/30/2017 10:33:01
--- NOTE | 2017-03-30 11:00 | HHI.PR ---
Subjective Subjective Notes c/o chest pressure last night, tnI negative, abd pain stable, tolerating diet Objective Vitals/I&O Vital Signs Date Time Temp Pulse Resp B/P Pulse Ox O2 Delivery O2 Flow Rate FiO2 03/30/17 08:00 95.7 75 17 144/66 95 03/29/17 20:30 Nasal Cannula 2.00 Labs Laboratory Tests Test 03/30/17 08:42 Troponin I LESS THAN 0.02 Radiology Last Impressions Upper Extremity Ultrasound 03/28/17 0000 Signed Impressions: Service Date/Time: Tuesday, March 28, 2017 09:08 - CONCLUSION: 1. There is a PICC in place. This is visualized in the right axillary vein. The small amount of thrombus around the PICC at this level. The remainder of the venous system is patent. Israel Macario MD Lower Extremity Ultrasound 03/27/17 0000 Signed Impressions: Service Date/Time: March 11:13 - CONCLUSION: No DVT of the right lower extremity. Anthony Hernadez MD Abdomen X-Ray 03/23/17 0321 Signed Impressions: Service Date/Time: Thursday, March 23, 2017 04:48 - CONCLUSION: Free intraperitoneal air. Anthony Hernadez MD Chest X-Ray 03/23/17 0000 Signed Impressions: Service Date/Time: Thursday, March 23, 2017 04:43 - CONCLUSION: 1. Mild bibasilar atelectasis slightly improved. 2. Nasogastric tube and right arm PICC line again noted. 3. Free intraperitoneal air. Anthony Hernadez MD Soft Tissue MRI 03/22/17 0000 Signed Impressions: Service Date/Time: Wednesday, March 22, 2017 16:31 - CONCLUSION: Nondiscript subcutaneous edema in the right shoulder and lower neck junction with benign-appearing cystic mass in submental location. Maninder Lozano MD Shoulder MRI 03/22/17 0000 Signed Impressions: Service Date/Time: Wednesday, March 22, 2017 16:10 - CONCLUSION: Chronic degenerative changes without definite tear. Maninder Lozano MD Neck CT 03/20/17 0000 Signed Impressions: Service Date/Time: February 09:57 - CONCLUSION: 1. Possible 2 cm mass in the superficial lobe of the right parotid in detail. MRI with contrast is recommended for further evaluation if clinically indicated. Stepan Albarado MD CT Angiography 03/20/17 0000 Signed Impressions: Service Date/Time: February 09:50 - CONCLUSION: 1. New low-density mass in the upper central spleen not present 12 days ago. Differential diagnosis includes an area of infarction or hematoma. 2. New patchy groundglass opacities in both lungs which may be infectious or inflammatory. 3. Minimal effusions. 4. No evidence of pulmonary emboli. Luiz Guzman MD Abdomen/Pelvis CT 03/20/17 0000 Signed Impressions: Service Date/Time: February 09:53 - CONCLUSION: 1. Interval increase in free air greatest in the upper anterior abdomen. A nonspecific bowel gas pattern remains with oral contrast in the colon. There is no extravasated contrast. 2. Nonspecific bowel gas pattern most consistent with an ileus. 3. The splenic infarct is more conspicuous than on the prior study. 4. Minimal effusions are now noted. Luiz Guzman MD Upper GI Series 03/19/17 0000 Signed Impressions: Service Date/Time: Sunday, March 19, 2017 11:40 - CONCLUSION: Limited upper GI series demonstrating no definite perforation. 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 (11) Inhaled steroid-dependent asthma Assessment and Plan 66 year old female with COPD and free air visualized on CT scan- stable, non operative mgnt, diffuse edema -WBC remains normal -VSS - cardio w/u negative -Pulmonary status improved -gambino for Is and Os and retention -Continue non op treatment at this time Avoid nonsteroidals Began weaning steroids as per medicine Advance diet and activities likely d/c tomorrow Problem Qualifiers (1) Ibuprofen adverse reaction: Qualified Code: T39.315D - Ibuprofen adverse reaction, subsequent encounter (2) Abdominal pain: Qualified Code: R10.12 - Left upper quadrant pain (3) Pneumonia: Qualified Code: J18.1 - Pneumonia of left lower lobe due to infectious organism Aleksandr Wray MD March 30, 2017 11:00
[2017-03-30 12:00] VITALS: BP 133/61; PULSE 77; RESP 16; TEMP 97.7; O2SAT 93
[2017-03-30 16:00] VITALS: BP 128/59; PULSE 89; RESP 16; TEMP 97.4; O2SAT 92
[2017-03-30 20:00] VITALS: BP 151/71; PULSE 74; RESP 20; TEMP 97.9; O2SAT 95
[2017-03-30] MEDS: CHLORHEXIDINE GLUCONATE 2 % 1 PACK (2 CLOTHS) TOP SCH (23:44)
[2017-03-31] VITALS: BP 139/65; PULSE 70; RESP 18; TEMP 97.6; O2SAT 94
[2017-03-31] MEDS: LOW DOSE INSULIN NOVOLOG SUPPLEMENTAL SCALE SQ SCH ×4 (04:57→23:29)
[2017-03-31] MEDS: metroNIDAZOLE 500 MG TAB PO SCH ×3 (04:57→21:10)
[2017-03-31] MEDS: LORazepam 0.5 MG TAB PO PRN ×2 (04:57→21:15)
[2017-03-31] MEDS: traMADol HCL 50 MG TAB PO PRN ×4 (05:01→23:26)
[2017-03-31 08:00] VITALS: BP 132/62; PULSE 85; RESP 20; TEMP 98.2; O2SAT 92
[2017-03-31] MEDS: SODIUM CHLORIDE 0.9% FLUSH 10 ML FLUSH IV FLUSH SCH (09:00)
--- NOTE | 2017-03-31 09:08 | HHI.PR ---
Subjective Remarks overall doing better. abdominal pain is mild. no nausea or vomiting. no fever. Objective Vitals Vital Signs Date Time Temp Pulse Resp B/P Pulse Ox O2 Delivery O2 Flow Rate FiO2 03/31/17 08:00 98.2 85 20 132/62 92 03/31/17 00:00 97.6 70 18 139/65 94 03/30/17 22:14 Nasal Cannula 2.00 03/30/17 20:00 97.9 74 20 151/71 95 03/30/17 16:00 97.4 89 16 128/59 92 03/30/17 12:00 97.7 77 16 133/61 93 I/O 03/30/17 03/30/17 03/30/17 03/31/17 03/31/17 03/31/17 07:00 15:00 23:00 07:00 15:00 23:00 Intake Total 460 ml 240 ml 120 ml Output Total 2775 ml 2475 ml 475 ml Balance -2315 ml -2235 ml -355 ml Intake Oral 460 ml 240 ml 120 ml Output Urine Total 2775 ml 2475 ml 475 ml # Bowel Movements 4 1 Result Diagram: 03/29/17 0616 03/29/17 0616 Imaging Last Impressions Upper Extremity Ultrasound 03/28/17 0000 Signed Impressions: Service Date/Time: Tuesday, March 28, 2017 09:08 - CONCLUSION: 1. There is a PICC in place. This is visualized in the right axillary vein. The small amount of thrombus around the PICC at this level. The remainder of the venous system is patent. Israel Macario MD Lower Extremity Ultrasound 03/27/17 0000 Signed Impressions: Service Date/Time: March 11:13 - CONCLUSION: No DVT of the right lower extremity. Anthony Hernadez MD Abdomen X-Ray 03/23/17 0321 Signed Impressions: Service Date/Time: Thursday, March 23, 2017 04:48 - CONCLUSION: Free intraperitoneal air. Anthony Hernadez MD Chest X-Ray 03/23/17 0000 Signed Impressions: Service Date/Time: Thursday, March 23, 2017 04:43 - CONCLUSION: 1. Mild bibasilar atelectasis slightly improved. 2. Nasogastric tube and right arm PICC line again noted. 3. Free intraperitoneal air. Anthony Hernadez MD Soft Tissue MRI 03/22/17 Signed Impressions: Service Date/Time: Wednesday, March 22, 2017 16:31 - CONCLUSION: Nondiscript subcutaneous edema in the right shoulder and lower neck junction with benign-appearing cystic mass in submental location. Maninder Lozano MD Shoulder MRI 03/22/17 Signed Impressions: Service Date/Time: Wednesday, March 22, 2017 16:10 - CONCLUSION: Chronic degenerative changes without definite tear. Maninder Lozano MD Neck CT 03/20/17 Signed Impressions: Service Date/Time: February 09:57 - CONCLUSION: 1. Possible 2 cm mass in the superficial lobe of the right parotid in detail. MRI with contrast is recommended for further evaluation if clinically indicated. Stepan Albarado MD CT Angiography 03/20/17 Signed Impressions: Service Date/Time: February 09:50 - CONCLUSION: 1. New low-density mass in the upper central spleen not present 12 days ago. Differential diagnosis includes an area of infarction or hematoma. 2. New patchy groundglass opacities in both lungs which may be infectious or inflammatory. 3. Minimal effusions. 4. No evidence of pulmonary emboli. Luiz Guzman MD Abdomen/Pelvis CT 03/20/17 Signed Impressions: Service Date/Time: February 09:53 - CONCLUSION: 1. Interval increase in free air greatest in the upper anterior abdomen. A nonspecific bowel gas pattern remains with oral contrast in the colon. There is no extravasated contrast. 2. Nonspecific bowel gas pattern most consistent with an ileus. 3. The splenic infarct is more conspicuous than on the prior study. 4. Minimal effusions are now noted. Luiz Guzman MD Upper GI Series 03/19/17 Signed Impressions: Service Date/Time: Sunday, March 19, 2017 11:40 - CONCLUSION: Limited upper GI series demonstrating no definite perforation. Luiz Guzman MD Objective Remarks GENERAL: obese female, in no apparent distress. CARDIOVASCULAR: Regular rate and regular rhythm without murmurs, gallops, or rubs. RESPIRATORY: Clear to auscultation. Breath sounds equal bilaterally. No wheezes , rales, or rhonchi. GASTROINTESTINAL: Abdomen soft, minimal generalized tenderness, nondistended. Normal, active bowel sounds MUSCULOSKELETAL: right upper extremity with some edema. NEURO: Alert & Oriented x4 to person, place, time, situation. Moves all ext x4 Procedures PICC line insertion Medications and IVs Current Medications Sodium Chloride (NS 1000 ml Inj) 1,000 ml @ 1,000 mls/hr Q1H ONCE IV Last administered on 03/17/17 05:33; Start 03/17/17 at 05:15; Stop 03/17/17 at 06:14 ; Status DC Fentanyl Citrate (fentaNYL INJ) 25 mcg ONCE ONCE IV PUSH Last administered on 03/17/17 06:03; Start 03/17/17 at 05:45; Stop 03/17/17 at 05:46; Status DC Ondansetron HCl (Zofran Inj) 4 mg ONCE ONCE IV PUSH Last administered on 06:02; Start 03/17/17 at 05:45; Stop 03/17/17 at 05:46; Status DC Pantoprazole Sodium (Protonix Inj) 40 mg ONCE ONCE IV PUSH Last administered on 03/17/17 06:03; Start 03/17/17 at 05:45; Stop 03/17/17 at 05:46; Status DC Sodium Chloride (NS Flush) 2 ml UNSCH PRN IVF FLUSH AFTER USING IV ACCESS; Start 03/17/17 at 05:45 Methylprednisolone Sodium Succinate (SoluMEDROL INJ) 125 mg ONCE ONCE IVP Last administered on 03/17/17 06:03; Start 03/17/17 at 05:45; Stop 03/17/17 at 05:46; Status DC Fentanyl Citrate 100 mcg 100 mcg STK-MED ONCE .ROUTE ; Start 03/17/17 at 05:50; Stop 03/17/17 at 05:51; Status DC Sodium Chloride 1,000 ml @ 1,000 mls/hr Q1H ONCE IV Last administered on 06:31; Start 03/17/17 at 06:15; Stop 03/17/17 at 07:14; Status DC Sodium Chloride 1,000 ml @ 1,000 mls/hr Q1H ONCE IV Last administered on 06:57; Start 03/17/17 at 06:30; Stop 03/17/17 at 07:29; Status DC Vancomycin HCl 1000 mg/Sodium Chloride 250 ml @ 250 mls/hr Q12H IV Last administered on 03/17/17 08:16; Start 03/17/17 at 06:30; Stop 03/17/17 at 10:52 ; Status DC Aztreonam 2000 mg/ Sodium Chloride 100 ml @ 200 mls/hr Q8H IV ; Start 03/17/17 at 06:30; Stop 03/17/17 at 08:15; Status DC Metronidazole (Flagyl 500 Mg Inj) 100 ml @ 100 mls/hr Q8H IV Last administered on 03/17/17 06:57; Start 03/17/17 at 06:30; Stop 03/17/17 at 08:19 ; Status DC Iohexol (Omnipaque 350 Inj) 65 ml STK-MED ONCE IV Last administered on 06:33; Start 03/17/17 at 06:33; Stop 03/17/17 at 06:34; Status DC Fentanyl Citrate (fentaNYL INJ) 50 mcg ONCE ONCE IV PUSH Last administered on 03/17/17 07:59; Start 03/17/17 at 07:30; Stop 03/17/17 at 07:31; Status DC Albuterol/ Ipratropium 1 ampule 1 ampule ONCE ONCE NEB Last administered on 09:25; Start 03/17/17 at 07:30; Stop 03/17/17 at 07:31; Status DC Sodium Chloride (NS 1000 ml Inj) 1,000 ml @ 50 mls/hr Q20H IV Last administered on 03/23/17 22:19; Start 03/17/17 at 08:00; Stop 03/24/17 at 11:39 ; Status DC Morphine Sulfate (Morphine Inj) 2 mg Q2H PRN IV PAIN SCALE 6 TO 10 Last administered on 03/19/17 12:30; Start 03/17/17 at 08:00; Stop 03/19/17 at 14:22 ; Status DC Pantoprazole Sodium (Protonix Inj) 40 mg Q12H IV Last administered on 03/28/17 08:41; Start 03/17/17 at 09:00; Stop 03/28/17 at 12:26; Status DC Miscellaneous Information 1 Q361D XX ; Start 03/17/17 at 08:00 Chlorhexidine Gluconate (Chlorhexidine 2% Cloth) Taper DAILY@04 TOP Last administered on 03/26/17 04:06; Start 03/18/17 at 04:00; Stop 03/14/18 at 03:59 Chlorhexidine Gluconate 3 pack 3 pack UNSCH PRN TOP HYGIENIC CARE; Start at 08:00 Aztreonam 2000 mg/ Sodium Chloride 100 ml @ 200 mls/hr Q8H IV Last administered on 03/28/17 08:41; Start 03/17/17 at 08:00; Stop 03/28/17 at 12:27; Status DC Metronidazole 100 ml @ 100 mls/hr Q8H IV Last administered on 03/28/17 05:28; Start 03/17/17 at 15:00; Stop 03/28/17 at 12:33; Status DC Vancomycin HCl 1000 mg/Sodium Chloride 250 ml @ 250 mls/hr ONCE ONCE IV ; Start 03/17/17 at 08:00; Stop 03/17/17 at 08:59; Status UNV Fluconazole/ Sodium Chloride 200 ml @ 100 mls/hr Q24H IV Last administered on 03/28/17 08:44; Start 03/17/17 at 09:00; Stop 03/28/17 at 12:27; Status DC Pharmacy Profile Note (Vancomycin Consult Pharmacy) ml @ 0 mls/hr UNSCH OTHER ; Start 03/17/17 at 08:15; Stop 03/25/17 at 15:27; Status DC Albuterol/ Ipratropium (Duoneb Neb) 1 ampule Q6HR NEB NEB Last administered on 03/21/17 09:17; Start 03/17/17 at 10:00; Stop 03/21/17 at 10:00; Status DC Albuterol/ Ipratropium (Duoneb Neb) 1 ampule Q2HR NEB PRN NEB SHORTNESS OF BREATH Last administered on 03/24/17 09:18; Start 03/17/17 at 09:15 Tiotropium [place] (Spiriva Inh) 18 mcg DAILY INH Last administered on 09:13; Start 03/18/17 at 09:00 Methylprednisolone Sodium Succinate (SoluMEDROL INJ) 125 mg ONCE ONCE IV PUSH Last administered on 03/17/17 10:31; Start 03/17/17 at 10:30; Stop 03/17/17 at 10:31; Status DC Methylprednisolone Sodium Succinate 60 mg 60 mg Q8HR IV PUSH Last administered on 03/19/17 05:53; Start 03/17/17 at 14:00; Stop 03/19/17 at 11:12; Status DC Vancomycin HCl/ Sodium Chloride (Vancomycin Inj/ NS 500 ml Inj) 515 ml @ 257.5 mls/ hr Q24H IV Last administered on 03/21/17 00:06; Start 03/18/17 at 00:00; Stop 03/21/17 at 11:26; Status DC Miscellaneous Information SPECIFIC LAB TO BE KOBI... ONCE ONCE .XX Last administered on 03/20/17 23:45; Start 03/20/17 at 23:45; Stop 03/20/17 at 23:46 ; Status DC Dextrose (D50w (Vial) Inj) 25 ml UNSCH PRN IV PUSH HYPOGLYCEMIA - SEE COMMENTS ; Start 03/17/17 at 15:15 Glucagon (Glucagon Inj) 1 mg UNSCH PRN OTHER HYPOGLYCEMIA-SEE COMMENTS; Start 03/17/17 at 15:15 Insulin Aspart (NovoLOG SUPPLEMENTAL SCALE) 1 ACHS SLIDING SCALE SQ ; Start at 16:00; Stop 03/17/17 at 16:07; Status DC Insulin Aspart (NovoLOG SUPPLEMENTAL SCALE) 1 Q6HR SQ Last administered on 05:26; Start 03/17/17 at 18:00 Heparin Sodium (Porcine) (Heparin Inj) 5,000 units Q8HR SQ Last administered on 03/20/17 14:26; Start 03/18/17 at 14:00; Stop 03/20/17 at 19:54; Status DC Miscellaneous Information Patient in critical care unit? Ass... Q361D .XX ; Start 03/19/17 at 07:45; Status Cancel Mupirocin (Bactroban Nasal 2% Oint) 1 applic BID NASAL ; Start 03/19/17 at 09:00 ; Status Cancel Chlorhexidine Gluconate (Chlorhexidine 2% Cloth) 3 pack DAILY@04 TOPICAL ; Start 03/20/17 at 04:00; Stop 03/24/17 at 04:01; Status Cancel Chlorhexidine Gluconate (Chlorhexidine 2% Cloth) 3 pack UNSCH PRN TOPICAL HYGIENIC CARE; Start 03/19/17 at 07:45; Stop 03/24/17 at 07:43; Status Cancel Methylprednisolone Sodium Succinate (SoluMEDROL INJ) 60 mg Q12HR IV PUSH Last administered on 03/21/17 09:22; Start 03/19/17 at 21:00; Stop 03/21/17 at 16:20 ; Status DC Morphine Sulfate (Morphine Inj) 4 mg Q2H PRN IV PAIN SCALE 6 TO 10 Last administered on 03/28/17 11:27; Start 03/19/17 at 16:00; Stop 03/28/17 at 12:35; Status DC Morphine Sulfate (Morphine Inj) 4 mg ONCE ONCE IV PUSH Last administered on 14:38; Start 03/19/17 at 14:30; Stop 03/19/17 at 14:31; Status DC Furosemide (Lasix Inj) 20 mg ONCE ONCE IV PUSH Last administered on 03/19/17 14:39; Start 03/19/17 at 14:30; Stop 03/19/17 at 14:31; Status DC Hydralazine HCl (Apresoline Inj) 20 mg Q4H PRN IV PUSH KEEP SBP < 170 Last administered on 03/25/17 21:07; Start 03/19/17 at 17:00 Iohexol (Omnipaque 350 Inj) 98 ml STK-MED ONCE IV Last administered on 10:16; Start 03/20/17 at 10:16; Stop 03/20/17 at 10:17; Status DC Lorazepam 0.5 mg 0.5 mg Q4H PRN IV PUSH anxiety Last administered on 03/28/17 05:27; Start 03/20/17 at 12:00; Stop 03/28/17 at 12:33; Status DC Multivitamins 10 ml/Folic Acid 1 mg/Amino Acids/ Electrolytes/ Dextrose 2,010.2 ml @ 83 mls/hr Q24H IV-CENTRAL Last administered on 03/27/17 19:48; Start at 20:00; Stop 03/28/17 at 19:59; Status DC Fat Emulsion Intravenous (Liposyn Iii 20% Inj) 250 ml @ 31.25 mls/ hr Q24H IV- CENTRAL Last administered on 03/27/17 19:49; Start 03/20/17 at 20:00; Stop 03/28 at 19:59; Status DC Sodium Chloride (NS Flush) See Protocol DAILY IV FLUSH Last administered on 03/30 08:46; Start 03/21/17 at 09:00 Sodium Chloride (NS Flush) See Protocol UNSCH PRN IV FLUSH SEE PROTOCOL TABLE; Start 03/20/17 at 17:45 Heparin Sodium (Porcine) (Heparin Central Flush) See Protocol DAILY IV FLUSH Last administered on 03/29/17 08:33; Start 03/21/17 at 09:00 Heparin Sodium (Porcine) (Heparin Central Flush) See Protocol UNSCH PRN IV FLUSH SEE PROTOCOL TABLE; Start 03/20/17 at 17:45 Sodium Chloride (NS Flush) UNSCH PRN IV FLUSH SEE PROTOCOL TABLE; Start at 17:45 Enoxaparin Sodium (Lovenox Inj) 40 mg Q12H SQ Last administered on 03/29/17 08: 32; Start 03/20/17 at 20:00; Stop 03/29/17 at 14:58; Status DC Labetalol HCl 10 mg 10 mg Q4H PRN IV PUSH SBP >170 Last administered on 05:52; Start 03/21/17 at 03:45 Potassium Chloride 100 ml @ 50 mls/hr Q2H IV Last administered on 03/21/17 09 :23; Start 03/21/17 at 09:00; Stop 03/21/17 at 12:59; Status DC Vancomycin HCl/ Sodium Chloride (Vancomycin Inj/ NS 500 ml Inj) 525 ml @ 257.5 mls/ hr Q24H IV Last administered on 03/24/17 01:34; Start 03/22/17 at 00:00; Stop 03/24/17 at 10:29; Status DC Miscellaneous Information SPECIFIC LAB TO BE DRAWN:VANCO TROUGH DATE TO... ONCE ONCE .XX Last administered on 03/24/17 00:55; Start 03/23/17 at 23:45; Stop 03/23/17 at 23:46; Status DC Methylprednisolone Sodium Succinate (SoluMEDROL INJ) 40 mg Q12HR IV Last administered on 03/28/17 20:21; Start 03/21/17 at 21:00; Stop 03/29/17 at 08:13; Status DC Hydromorphone HCl (Dilaudid Pf Inj) 2 mg NOW ONCE IV Last administered on 03/22 11:57; Start 03/22/17 at 11:45; Stop 03/22/17 at 11:46; Status DC Gadodiamide (Omniscan Pf Inj) 20 ml STK-MED ONCE IV Last administered on 16:58; Start 03/22/17 at 16:58; Stop 03/22/17 at 16:59; Status DC Etomidate 20 mg 20 mg STK-MED ONCE .ROUTE ; Start 03/23/17 at 07:49; Stop at 07:50; Status DC Vancomycin HCl/ Sodium Chloride (Vancomycin Inj/ NS 500 ml Inj) 515 ml @ 257.5 mls/ hr Q12H IV Last administered on 03/25/17 12:49; Start 03/24/17 at 13:00; Stop 03/25/17 at 15:27; Status DC Miscellaneous Information SPECIFIC LAB TO BE DRAWN:VANCO TROUGH DATE... ONCE ONCE .XX ; Start 03/26/17 at 12:45; Stop 03/26/17 at 12:46; Status Cancel Oxycodone/ Acetaminophen (Percocet 7.5-325 Mg) 1 tab Q6H PRN PO any pain Last administered on 03/28/17 08:42; Start 03/26/17 at 12:15; Stop 03/28/17 at 14:29; Status DC Enalaprilat (Vasotec Inj) 1.25 mg Q8HR PRN IV PUSH SBP> OR = 180, DBP> OR = 100 Last administered on 03/28/17 08:41; Start 03/27/17 at 08:45 Amlodipine Besylate (Norvasc) 5 mg DAILY PO Last administered on 03/30/17 08:45 ; Start 03/28/17 at 09:30 Pantoprazole Sodium (Protonix) 40 mg BID PO Last administered on 03/30/17 20:58 ; Start 03/28/17 at 21:00 Fluconazole (Diflucan) 400 mg DAILY PO Last administered on 03/30/17 08:45; Start 03/29/17 at 09:00 Levofloxacin (Levaquin) 750 mg DAILY PO Last administered on 03/30/17 08:45; Start 03/29/17 at 09:00 Metronidazole (Flagyl) 500 mg Q8HR PO Last administered on 03/31/17 04:57; Start 03/28/17 at 14:00 Lorazepam (Ativan) 0.5 mg Q12H PRN PO ANXIETY AND/OR INSOMNIA Last administered on 03/31/17 04:57; Start 03/28/17 at 12:30 Tramadol HCl (Ultram) 50 mg Q6H PRN PO PAIN SCALE 1 TO 10 Last administered on 03/31/17 05:01; Start 03/28/17 at 14:45 Prednisone (Deltasone) 40 mg DAILY PO Last administered on 03/30/17 08:44; Start 03/29/17 at 09:00 Enoxaparin Sodium (Lovenox Inj) 100 mg Q12H SQ Last administered on 03/29/17 20 :00; Start 03/29/17 at 20:00; Stop 03/30/17 at 09:08; Status DC Enoxaparin Sodium (Lovenox Inj) 100 mg Q12H SQ Last administered on 03/30/17 20 :58; Start 03/30/17 at 10:00 A/P Assessment and Plan A/P Probable visceral/gastric perforation with peritonitis Splenic infarct L upper chest s/q emphysema probably air tracking from abdomen -- TPN tapered off- started on diet -- continue conservative medical management -- started on po antibiotics --general surgery following; non-op treatment. --evaluated by oncology chest pressure-resolved GERD troponin negative and EKG with no acute ST-T changes continue PPI Anxiety Chronic pain Acute parotitis --continue pain control -- Acute parotitis. clinically improving Acute COPD Exacerbation HCAP/LLL pneumonia L upper chest and shoulder pain secondary to splenic infarct -- Recently admitted for COPD exacerbation, and pneumonia with MSSA and Haemophilus influenza (Admitted from 03/08 to 03/16) -- Wean FiO2 for goal spo2 > 88-90%. --continue prednisone and taper off -- continue neb treatment. -- MRI L shoulder show arthritic changes. L upper chest and shoulder pain most likely from splenic infarct Transient hypotension, now hypertensive Lactic acidosis Peritonitis secondary to perforated viscus resumed norvasc -- Monitor HR and BP closely Acute kidney insufficiency- improving. -- Most likely secondary to peritonitis and sepsis Severe sepsis Peritonitis secondary to perforated viscus Left lower lobe pneumonia/HCAP Probable acute parotitis -- F/U urine and blood cultures negative to date -- antibiotics as noted above. DVT of the right upper extremity-catheter induced d/w Dr. Sykes today; recommended Lovenox 60 mg subq bid for eight weeks. urinary retention gambino was discontinued. --history of lymphoma -- Leukocytosis secondary to sepsis, now resolved evaluated by oncology. PROPH: --SCDs, PPI for prophylaxis. Lovenox for DVT prophylaxis Discharge Planning dc to rehab when cleared by surgery and hematology. see med list. f/u with pcp, hematology. d/w the patient and case management. time spent 40 min. Alonzo Castillo MD March 31, 2017 09:08 Alonzo Castillo MD March 31, 2017 09:08
[2017-03-31] MEDS ORDERED: ENOX60P SQ (09:19)
--- NOTE | 2017-03-31 09:20 | HHI.DCPOC ---
Discharge Care Plan Diagnosis: (1) Splenic infarction (2) Generalized weakness (3) Perforated viscus Additional Problems abdominal pain. Goals to Promote Your Health * To prevent worsening of your condition and complications * To maintain your health at the optimal level Directions to Meet Your Goals Take your medications as prescribed Follow your dietary instruction Follow activity as directed Keep your appointments as scheduled Take your immunizations and boosters as scheduled If your symptoms worsen call your PCP, if no PCP go to Urgent Care Center or Emergency Room Smoking is Dangerous to Your Health. Avoid second hand smoke Call the 24-hour hour crisis hotline for domestic abuse at Alonzo Castillo MD March 31, 2017 09:20
--- NOTE | 2017-03-31 09:21 | HHI.DS ---
Discharge Summary Admission Date Mar 17, 2017 at 07:48 Discharge Date: March 31, 2017 Admitting Diagnosis Bowel Perforation, Sepsis (1) Severe sepsis ICD Code: A41.9 Diagnosis: Principal (2) Peritonitis ICD Code: K65.9 Diagnosis: Principal (3) Perforated viscus ICD Code: R19.8 Diagnosis: Principal (4) Abdominal pain ICD Code: R10.9 Diagnosis: Principal (5) COPD exacerbation ICD Code: J44.1 Diagnosis: Principal (6) Acute kidney injury ICD Code: N17.9 Diagnosis: Principal (7) Pneumonia ICD Code: J18.9 Diagnosis: Principal (8) Respiratory failure ICD Code: J96.90 Diagnosis: Principal Procedures PICC line insertion Brief History - From Admission The patient is a 66 year old female with past medical history significant for COPD, anxiety disorder, chronic pain, hypertension was just recently discharged from hospital after admitted for almost a days for COPD exacerbation with pneumonia from emesis and H. influenzae. Patient was admitted from 03/08/17- . She presented today with a history of abdominal pain that reportedly is been getting gradually worse since onset (started while in the hospital). The patient reports that the pain was 10 out of 10 in severity, in the ER. She was discharged home yesterday on steroid and Levaquin. The patient was given 30 mL per KG IV fluid bolus. WBC count came back elevated at 18,200 with a left shift , the patient was started on Azactam, Flagyl, and vancomycin. CMP is remarkable for CO2 33.3, BUN 35, creatinine 1.05, lactic acid 2.2, Chest x-ray that shows a left lower lobe infiltrate, CT scan of the abdomen and pelvis revealed several small droplets of free air in the upper abdomen characteristic of free intraperitoneal air, some free fluid in the pelvis and adjacent to the liver and spleen, intestinal perforation as a primary consideration, location is unknown. The patient is also noted to have a wedge area of decreased density in the spleen suggestive of a splenic infarct. Critical care medicine was consulted for admission for acute peritonitis and severe sepsis. Additional history shows that patient was taking 800 mg Motrin several times a day for several years. This makes a perforated gastric ulcer possibility according to surgeon Dr. Garcia. Patient will be conservative management with IV hydration and broad-spectrum antibiotics. If any clinical deterioration patient will have to go for OR for laparotomy CBC/BMP: 03/29/17 0616 03/29/17 0616 Significant Findings Laboratory Tests Test 03/29/17 03/30/17 06:16 08:42 Red Blood Count 3.17 MIL/MM3 (4.00-5.30) Hemoglobin 10.1 GM/DL (11.6-15.3) Hematocrit 29.0 % (35.0-46.0) Platelet Count 122 TH/MM3 (150-450) Neutrophils (%) (Auto) 92.5 % (16.0-70.0) Lymphocytes (%) (Auto) 3.5 % (9.0-44.0) Lymphocytes # (Auto) 0.2 TH/MM3 (1.0-4.8) Carbon Dioxide Level 36.8 MEQ/L (21.0-32.0) Blood Urea Nitrogen 25 MG/DL (7-18) Random Glucose 132 MG/DL (74-106) Calcium Level 7.9 MG/DL (8.5-10.1) Troponin I LESS THAN 0.02 NG/ML (0.02-0.05) Imaging Last Impressions Upper Extremity Ultrasound 03/28/17 0000 Signed Impressions: Service Date/Time: Tuesday, March 28, 2017 09:08 - CONCLUSION: 1. There is a PICC in place. This is visualized in the right axillary vein. The small amount of thrombus around the PICC at this level. The remainder of the venous system is patent. Israel Macario MD Lower Extremity Ultrasound 03/27/17 0000 Signed Impressions: Service Date/Time: March 11:13 - CONCLUSION: No DVT of the right lower extremity. Anthony Hernadez MD Abdomen X-Ray 03/23/17 0321 Signed Impressions: Service Date/Time: Thursday, March 23, 2017 04:48 - CONCLUSION: Free intraperitoneal air. Anthony Hernadez MD Chest X-Ray 03/23/17 0000 Signed Impressions: Service Date/Time: Thursday, March 23, 2017 04:43 - CONCLUSION: 1. Mild bibasilar atelectasis slightly improved. 2. Nasogastric tube and right arm PICC line again noted. 3. Free intraperitoneal air. Anthony Hernadez MD Soft Tissue MRI 03/22/17 Signed Impressions: Service Date/Time: Wednesday, March 22, 2017 16:31 - CONCLUSION: Nondiscript subcutaneous edema in the right shoulder and lower neck junction with benign-appearing cystic mass in submental location. Maninder Lozano MD Shoulder MRI 03/22/17 Signed Impressions: Service Date/Time: Wednesday, March 22, 2017 16:10 - CONCLUSION: Chronic degenerative changes without definite tear. Maninder Lozano MD Neck CT 03/20/17 Signed Impressions: Service Date/Time: February 09:57 - CONCLUSION: 1. Possible 2 cm mass in the superficial lobe of the right parotid in detail. MRI with contrast is recommended for further evaluation if clinically indicated. Stepan Albarado MD CT Angiography 03/20/17 Signed Impressions: Service Date/Time: February 09:50 - CONCLUSION: 1. New low-density mass in the upper central spleen not present 12 days ago. Differential diagnosis includes an area of infarction or hematoma. 2. New patchy groundglass opacities in both lungs which may be infectious or inflammatory. 3. Minimal effusions. 4. No evidence of pulmonary emboli. Luiz Guzman MD Abdomen/Pelvis CT 03/20/17 Signed Impressions: Service Date/Time: February 09:53 - CONCLUSION: 1. Interval increase in free air greatest in the upper anterior abdomen. A nonspecific bowel gas pattern remains with oral contrast in the colon. There is no extravasated contrast. 2. Nonspecific bowel gas pattern most consistent with an ileus. 3. The splenic infarct is more conspicuous than on the prior study. 4. Minimal effusions are now noted. Luiz Guzman MD Upper GI Series 03/19/17 Signed Impressions: Service Date/Time: Sunday, March 19, 2017 11:40 - CONCLUSION: Limited upper GI series demonstrating no definite perforation. Luiz Guzman MD PE at Discharge GENERAL: obese female, in no apparent distress. CARDIOVASCULAR: Regular rate and regular rhythm without murmurs, gallops, or rubs. RESPIRATORY: Clear to auscultation. Breath sounds equal bilaterally. No wheezes , rales, or rhonchi. GASTROINTESTINAL: Abdomen soft, minimal generalized tenderness, nondistended. Normal, active bowel sounds MUSCULOSKELETAL: right upper extremity with some edema. NEURO: Alert & Oriented x4 to person, place, time, situation. Moves all ext x4 Hospital Course Probable visceral/gastric perforation with peritonitis Splenic infarct L upper chest s/q emphysema probably air tracking from abdomen -- TPN tapered off- started on diet -- continue conservative medical management -- started on po antibiotics --general surgery following; non-op treatment. --evaluated by oncology chest pressure-resolved GERD troponin negative and EKG with no acute ST-T changes continue PPI Anxiety Chronic pain Acute parotitis --continue pain control -- Acute parotitis. clinically improving Acute COPD Exacerbation HCAP/LLL pneumonia L upper chest and shoulder pain secondary to splenic infarct -- Recently admitted for COPD exacerbation, and pneumonia with MSSA and Haemophilus influenza (Admitted from 03/08 to 03/16) -- Wean FiO2 for goal spo2 > 88-90%. --continue prednisone and taper off -- continue neb treatment. -- MRI L shoulder show arthritic changes. L upper chest and shoulder pain most likely from splenic infarct Transient hypotension, now hypertensive Lactic acidosis Peritonitis secondary to perforated viscus resumed norvasc -- Monitor HR and BP closely Acute kidney insufficiency- improving. -- Most likely secondary to peritonitis and sepsis Severe sepsis Peritonitis secondary to perforated viscus Left lower lobe pneumonia/HCAP Probable acute parotitis -- F/U urine and blood cultures negative to date -- antibiotics as noted above. DVT of the right upper extremity-catheter induced d/w Dr. Sykse today; recommended Lovenox 60 mg subq bid for eight weeks. urinary retention gambino was discontinued. --history of lymphoma -- Leukocytosis secondary to sepsis, now resolved evaluated by oncology. PROPH: --SCDs, PPI for prophylaxis. Lovenox for DVT prophylaxis Pt Condition on Discharge: Fair Discharge Disposition: Discharge to SNF Discharge Time: > 30 minutes Discharge Instructions DIET: Follow Instructions for: Heart Healthy Diet Activities you can perform: Regular-No Restrictions Follow up Referrals: PCP Follow-up SNF/[facility]/ with [facility] New Medications: Enoxaparin Inj (Lovenox Inj) 60 Mg/0.6 Ml Syr 60 MG SQ BID dvt Days 56 Ref 0 SYRINGE Ipratropium-Albuterol Neb (Duoneb) 0.5-2.5 Mg/3 Ml Neb 1 AMPULE NEB Q4HR PRN SHORTNESS OF BREATH Days 5 Ref 0 ML Tramadol (Ultram) 50 Mg Tab 50 MG PO Q6H PRN pain #15 Ref 0 TAB Changed Medications: Prednisone (Prednisone) 5 Mg Tab 5 MG PO DIRECTED 30 mg po daily for two days then 20 mg po daily for two days then 10 mg po daily for two days then 5 mg po daily for two days then stop. copd Days 8 Ref 0 TAB (Changed from: 10; 40 mg po daily for two days then 30 mg po daily for two days then 20 mg po daily for two days then 10 mg po daily for two days then 5 mg po daily for two days then stop.) Continued Medications: Albuterol 6.7 GM Inh (Proventil Hfa 6.7 GM Inh) 90 Mcg/Act Aer 2 PUFF INH Q6H PRN SHORTNESS OF BREATH #1 Ref 0 INHALER Amlodipine (Norvasc) 5 Mg Tab 5 MG PO DAILY hypertension Days 30 Ref 0 TAB Gabapentin (Gabapentin) 300 Mg Cap 300 MG PO TID #90 Ref 0 CAP Lorazepam (Lorazepam) 0.5 Mg Tab 0.5 MG PO Q8H PRN ANXIETY #10 Ref 0 TAB (This prescription has been renewed) Omeprazole (Omeprazole) 20 Mg Tab 20 MG PO DAILY #30 Ref 0 TAB Sertraline (Sertraline) 50 Mg Tab 50 MG PO DAILY #30 Ref 0 TAB Sertraline (Zoloft) 100 Mg Tab 100 MG PO DAILY #30 Ref 0 TAB Tiotropium Inh (Spiriva Handihaler) 18 Mcg Cap 18 MCG INH DAILY copd #1 Ref 0 CAP Discontinued Medications: Levofloxacin (Levaquin) 500 Mg Tab 500 MG PO DAILY Infection Days 3 Ref 0 TAB Alonzo Castillo MD March 31, 2017 09:20
[2017-03-31] MEDS: predniSONE 20 MG TAB PO SCH (10:47)
[2017-03-31] MEDS: ENOXAPARIN SODIUM 60 MG/0.6 ML SYRINGE SQ SCH ×2 (10:47→21:10)
[2017-03-31] MEDS: FLUCONAZOLE 200 MG TAB PO SCH (10:47)
[2017-03-31] MEDS: PANTOPRAZOLE SOD 20 MG DELAYED RELEASE TAB PO SCH ×2 (10:48→21:10)
[2017-03-31] MEDS: amLODIPine BESYLATE 5 MG TAB PO SCH (10:48)
[2017-03-31] MEDS: LEVOFLOXACIN 750 MG TAB PO SCH (10:48)
[2017-03-31] MEDS: TIOTROPIUM BROMIDE 18 MCG INH INH SCH (10:49)
[2017-03-31 12:00] VITALS: BP 116/58; PULSE 83; RESP 18; TEMP 98.2; O2SAT 93
[2017-03-31 16:00] VITALS: BP 113/57; PULSE 88; RESP 20; TEMP 96.7; O2SAT 97
--- NOTE | 2017-03-31 18:03 | HHI.PR ---
Subjective Subjective Notes DAILY PROGRESS NOTE FOR SURGICAL ATTENDING, DR. EVER GARCIA Doing well; happy that she was able to stand for a few moments with PT today Objective Vitals/I&O Vital Signs Date Time Temp Pulse Resp B/P Pulse Ox O2 Delivery O2 Flow Rate FiO2 03/31/17 16:00 96.7 88 20 113/57 97 03/30/17 22:14 Nasal Cannula 2.00 Radiology Last Impressions Upper Extremity Ultrasound 03/28/17 0000 Signed Impressions: Service Date/Time: Tuesday, March 28, 2017 09:08 - CONCLUSION: 1. There is a PICC in place. This is visualized in the right axillary vein. The small amount of thrombus around the PICC at this level. The remainder of the venous system is patent. Israel Macario MD Lower Extremity Ultrasound 03/27/17 0000 Signed Impressions: Service Date/Time: March 11:13 - CONCLUSION: No DVT of the right lower extremity. Anthony Hernadez MD Abdomen X-Ray 03/23/17 0321 Signed Impressions: Service Date/Time: Thursday, March 23, 2017 04:48 - CONCLUSION: Free intraperitoneal air. Anthony Hernadez MD Chest X-Ray 03/23/17 Signed Impressions: Service Date/Time: Thursday, March 23, 2017 04:43 - CONCLUSION: 1. Mild bibasilar atelectasis slightly improved. 2. Nasogastric tube and right arm PICC line again noted. 3. Free intraperitoneal air. Anthony Hernadez MD Soft Tissue MRI 03/22/17 Signed Impressions: Service Date/Time: Wednesday, March 22, 2017 16:31 - CONCLUSION: Nondiscript subcutaneous edema in the right shoulder and lower neck junction with benign-appearing cystic mass in submental location. Maninder Lozano MD Shoulder MRI 03/22/17 Signed Impressions: Service Date/Time: Wednesday, March 22, 2017 16:10 - CONCLUSION: Chronic degenerative changes without definite tear. Maninder Lozano MD Neck CT 03/20/17 Signed Impressions: Service Date/Time: February 09:57 - CONCLUSION: 1. Possible 2 cm mass in the superficial lobe of the right parotid in detail. MRI with contrast is recommended for further evaluation if clinically indicated. Stepan Albarado MD CT Angiography 03/20/17 Signed Impressions: Service Date/Time: February 09:50 - CONCLUSION: 1. New low-density mass in the upper central spleen not present 12 days ago. Differential diagnosis includes an area of infarction or hematoma. 2. New patchy groundglass opacities in both lungs which may be infectious or inflammatory. 3. Minimal effusions. 4. No evidence of pulmonary emboli. Luiz Guzman MD Abdomen/Pelvis CT 03/20/17 Signed Impressions: Service Date/Time: February 09:53 - CONCLUSION: 1. Interval increase in free air greatest in the upper anterior abdomen. A nonspecific bowel gas pattern remains with oral contrast in the colon. There is no extravasated contrast. 2. Nonspecific bowel gas pattern most consistent with an ileus. 3. The splenic infarct is more conspicuous than on the prior study. 4. Minimal effusions are now noted. Luiz Guzman MD Upper GI Series 03/19/17 Signed Impressions: Service Date/Time: Sunday, March 19, 2017 11:40 - CONCLUSION: Limited upper GI series demonstrating no definite perforation. 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 Garcia -Plan for rehab; possible tomorrow - clear for rehab Attending Statement NOTE FOR SURGICAL ATTENDING, DR. EVER GARCIA I agree with above assessment and plan. The exam, history, and the medical decision-making described in the above note were completed with the assistance of the mid-level provider. I reviewed and agree with the findings presented. I attest that I had a [id number] encounter with the patient on the same day, and personally performed and documented my assessment and findings in the medical record. The following services were provided during this hospital visit: Chart data review, vital sign assessments/reviewing monitor data Review of consultations notes if present. Medication orders/review and/or management Ordering and/or reviewing lab tests Ordering and/or interpreting/reviewing x-rays and/or diagnostic studies Care of the patient and discussion of the patient with the care team Documentation time To help prompt me to consider important information that might be impacting today's encounter and assessment, information from prior notes written by myself or my colleagues may have been "brought forward/copy and pasted" into today's note. Problem Qualifiers (1) Ibuprofen adverse reaction: Qualified Code: T39.315D - Ibuprofen adverse reaction, subsequent encounter (2) Abdominal pain: Qualified Code: R10.12 - Left upper quadrant pain (3) Pneumonia: Qualified Code: J18.1 - Pneumonia of left lower lobe due to infectious organism Rose Gray March 31, 2017 18:03 Ever Garcia MD April 04, 2017 09:09
[2017-03-31 20:00] VITALS: BP 134/62; PULSE 85; RESP 20; TEMP 97.6; O2SAT 92
[2017-04-01] VITALS: BP 151/67; PULSE 83; RESP 20; TEMP 97.7; O2SAT 92
[2017-04-01] MEDS: CHLORHEXIDINE GLUCONATE 2 % 1 PACK (2 CLOTHS) TOP SCH (04:00)
[2017-04-01] MEDS: metroNIDAZOLE 500 MG TAB PO SCH ×2 (04:46→12:39)
[2017-04-01] MEDS: traMADol HCL 50 MG TAB PO PRN ×2 (04:46→13:47)
[2017-04-01 05:52] LABS: AUTOMATED NEUTROPHIL # 2.5 TH/MM3 (1.8-7.7); BASOPHIL % 0.3 % (0.0-2.0); EOSINOPHIL # 0.1 TH/MM3 (0-0.4); EOSINOPHIL % 4.6 % (0.0-4.0); HEMATOCRIT 30.9 % (35.0-46.0); HEMO FLAGS DIFF FINAL; LYMPH % 13.8 % (9.0-44.0); LYMPHOCYTE # 0.4 TH/MM3 (1.0-4.8); MEAN CELL VOLUME 91.3 FL (80.0-100.0); MEAN CORPUSCULAR HGB CONC 33.9 % (32.0-36.0); MONO % 4.9 % (0.0-8.0); NEUT % 76.4 % (16.0-70.0); PLATELET COUNT 116 TH/MM3 (150-450); RED BLOOD COUNT 3.39 MIL/MM3 (4.00-5.30); RED CELL DISTRIBUTION WIDTH 15.4 % (11.6-17.2); WHITE BLOOD COUNT 3.2 TH/MM3 (4.0-11.0)
[2017-04-01] MEDS: LOW DOSE INSULIN NOVOLOG SUPPLEMENTAL SCALE SQ SCH ×2 (06:00→11:01)
[2017-04-01 06:04] LABS: POTASSIUM 3.9 MEQ/L (3.5-5.1)
[2017-04-01 08:00] VITALS: BP 126/60; PULSE 77; RESP 18; TEMP 98; O2SAT 92
[2017-04-01] MEDS: TIOTROPIUM BROMIDE 18 MCG INH INH SCH (09:00)
[2017-04-01] MEDS: amLODIPine BESYLATE 5 MG TAB PO SCH (09:03)
[2017-04-01] MEDS: PANTOPRAZOLE SOD 20 MG DELAYED RELEASE TAB PO SCH (09:03)
[2017-04-01] MEDS: LEVOFLOXACIN 750 MG TAB PO SCH (09:03)
[2017-04-01] MEDS: FLUCONAZOLE 200 MG TAB PO SCH (09:03)
[2017-04-01] MEDS: LORazepam 0.5 MG TAB PO PRN (09:04)
[2017-04-01] MEDS: predniSONE 20 MG TAB PO SCH (09:04)
[2017-04-01] MEDS: ENOXAPARIN SODIUM 60 MG/0.6 ML SYRINGE SQ SCH (09:07)
[2017-04-01] MEDS: SODIUM CHLORIDE 0.9% FLUSH 10 ML FLUSH IV FLUSH SCH (09:13)
--- NOTE | 2017-04-01 11:14 | HHI.PR ---
Subjective Remarks overall doing fine. mild abdominal pain with no nausea or vomiting. no fever. hoping that she would go to rehab today. Objective Vitals Vital Signs Date Time Temp Pulse Resp B/P Pulse Ox O2 Delivery O2 Flow Rate FiO2 04/01/17 09:51 Nasal Cannula 2.00 04/01/17 08:00 98.0 77 18 126/60 92 04/01/17 00:26 16 04/01/17 00:00 97.7 83 20 151/67 92 03/31/17 20:00 97.6 85 20 134/62 92 03/31/17 16:00 96.7 88 20 113/57 97 03/31/17 12:00 98.2 83 18 116/58 93 I/O 03/31/17 03/31/17 03/31/17 04/01/17 04/01/17 04/01/17 07:00 15:00 23:00 07:00 15:00 23:00 Intake Total 120 ml 600 ml 360 ml 240 ml Output Total 475 ml 300 ml 450 ml 850 ml Balance -355 ml 300 ml -90 ml -610 ml Intake Oral 120 ml 600 ml 360 ml 240 ml Output Urine Total 475 ml 300 ml 450 ml 850 ml # Bowel Movements 2 0 0 Result Diagram: 04/01/17 0458 04/01/17 0458 Imaging Last Impressions Upper Extremity Ultrasound 03/28/17 0000 Signed Impressions: Service Date/Time: Tuesday, March 28, 2017 09:08 - CONCLUSION: 1. There is a PICC in place. This is visualized in the right axillary vein. The small amount of thrombus around the PICC at this level. The remainder of the venous system is patent. Israel Macario MD Lower Extremity Ultrasound 03/27/17 0000 Signed Impressions: Service Date/Time: March 11:13 - CONCLUSION: No DVT of the right lower extremity. Anthony Hernadez MD Abdomen X-Ray 03/23/17 0321 Signed Impressions: Service Date/Time: Thursday, March 23, 2017 04:48 - CONCLUSION: Free intraperitoneal air. Anthony Hernadez MD Chest X-Ray 03/23/17 0000 Signed Impressions: Service Date/Time: Thursday, March 23, 2017 04:43 - CONCLUSION: 1. Mild bibasilar atelectasis slightly improved. 2. Nasogastric tube and right arm PICC line again noted. 3. Free intraperitoneal air. Anthony Henradez MD Soft Tissue MRI 03/22/17 Signed Impressions: Service Date/Time: Wednesday, March 22, 2017 16:31 - CONCLUSION: Nondiscript subcutaneous edema in the right shoulder and lower neck junction with benign-appearing cystic mass in submental location. Maninder Lozano MD Shoulder MRI 03/22/17 Signed Impressions: Service Date/Time: Wednesday, March 22, 2017 16:10 - CONCLUSION: Chronic degenerative changes without definite tear. Maninder Lozano MD Neck CT 03/20/17 Signed Impressions: Service Date/Time: February 09:57 - CONCLUSION: 1. Possible 2 cm mass in the superficial lobe of the right parotid in detail. MRI with contrast is recommended for further evaluation if clinically indicated. Stepan Albarado MD CT Angiography 03/20/17 Signed Impressions: Service Date/Time: February 09:50 - CONCLUSION: 1. New low-density mass in the upper central spleen not present 12 days ago. Differential diagnosis includes an area of infarction or hematoma. 2. New patchy groundglass opacities in both lungs which may be infectious or inflammatory. 3. Minimal effusions. 4. No evidence of pulmonary emboli. Luiz Guzman MD Abdomen/Pelvis CT 03/20/17 Signed Impressions: Service Date/Time: February 09:53 - CONCLUSION: 1. Interval increase in free air greatest in the upper anterior abdomen. A nonspecific bowel gas pattern remains with oral contrast in the colon. There is no extravasated contrast. 2. Nonspecific bowel gas pattern most consistent with an ileus. 3. The splenic infarct is more conspicuous than on the prior study. 4. Minimal effusions are now noted. Luiz Guzman MD Upper GI Series 03/19/17 Signed Impressions: Service Date/Time: Sunday, March 19, 2017 11:40 - CONCLUSION: Limited upper GI series demonstrating no definite perforation. Luiz uGzman MD Objective Remarks GENERAL: obese female, in no apparent distress. CARDIOVASCULAR: Regular rate and regular rhythm without murmurs, gallops, or rubs. RESPIRATORY: Clear to auscultation. Breath sounds equal bilaterally. No wheezes , rales, or rhonchi. GASTROINTESTINAL: Abdomen soft, minimal generalized tenderness, nondistended. Normal, active bowel sounds MUSCULOSKELETAL: right upper extremity with some edema. NEURO: Alert & Oriented x4 to person, place, time, situation. Moves all ext x4 Procedures PICC line insertion Medications and IVs Current Medications Sodium Chloride (NS 1000 ml Inj) 1,000 ml @ 1,000 mls/hr Q1H ONCE IV Last administered on 03/17/17 05:33; Start 03/17/17 at 05:15; Stop 03/17/17 at 06:14 ; Status DC Fentanyl Citrate (fentaNYL INJ) 25 mcg ONCE ONCE IV PUSH Last administered on 03/17/17 06:03; Start 03/17/17 at 05:45; Stop 03/17/17 at 05:46; Status DC Ondansetron HCl (Zofran Inj) 4 mg ONCE ONCE IV PUSH Last administered on 06:02; Start 03/17/17 at 05:45; Stop 03/17/17 at 05:46; Status DC Pantoprazole Sodium (Protonix Inj) 40 mg ONCE ONCE IV PUSH Last administered on 03/17/17 06:03; Start 03/17/17 at 05:45; Stop 03/17/17 at 05:46; Status DC Sodium Chloride (NS Flush) 2 ml UNSCH PRN IVF FLUSH AFTER USING IV ACCESS; Start 03/17/17 at 05:45 Methylprednisolone Sodium Succinate (SoluMEDROL INJ) 125 mg ONCE ONCE IVP Last administered on 03/17/17 06:03; Start 03/17/17 at 05:45; Stop 03/17/17 at 05:46; Status DC Fentanyl Citrate 100 mcg 100 mcg STK-MED ONCE .ROUTE ; Start 03/17/17 at 05:50; Stop 03/17/17 at 05:51; Status DC Sodium Chloride 1,000 ml @ 1,000 mls/hr Q1H ONCE IV Last administered on 06:31; Start 03/17/17 at 06:15; Stop 03/17/17 at 07:14; Status DC Sodium Chloride 1,000 ml @ 1,000 mls/hr Q1H ONCE IV Last administered on 06:57; Start 03/17/17 at 06:30; Stop 03/17/17 at 07:29; Status DC Vancomycin HCl 1000 mg/Sodium Chloride 250 ml @ 250 mls/hr Q12H IV Last administered on 03/17/17 08:16; Start 03/17/17 at 06:30; Stop 03/17/17 at 10:52 ; Status DC Aztreonam 2000 mg/ Sodium Chloride 100 ml @ 200 mls/hr Q8H IV ; Start 03/17/17 at 06:30; Stop 03/17/17 at 08:15; Status DC Metronidazole (Flagyl 500 Mg Inj) 100 ml @ 100 mls/hr Q8H IV Last administered on 03/17/17 06:57; Start 03/17/17 at 06:30; Stop 03/17/17 at 08:19 ; Status DC Iohexol (Omnipaque 350 Inj) 65 ml STK-MED ONCE IV Last administered on 06:33; Start 03/17/17 at 06:33; Stop 03/17/17 at 06:34; Status DC Fentanyl Citrate (fentaNYL INJ) 50 mcg ONCE ONCE IV PUSH Last administered on 03/17/17 07:59; Start 03/17/17 at 07:30; Stop 03/17/17 at 07:31; Status DC Albuterol/ Ipratropium 1 ampule 1 ampule ONCE ONCE NEB Last administered on 09:25; Start 03/17/17 at 07:30; Stop 03/17/17 at 07:31; Status DC Sodium Chloride (NS 1000 ml Inj) 1,000 ml @ 50 mls/hr Q20H IV Last administered on 03/23/17 22:19; Start 03/17/17 at 08:00; Stop 03/24/17 at 11:39 ; Status DC Morphine Sulfate (Morphine Inj) 2 mg Q2H PRN IV PAIN SCALE 6 TO 10 Last administered on 03/19/17 12:30; Start 03/17/17 at 08:00; Stop 03/19/17 at 14:22 ; Status DC Pantoprazole Sodium (Protonix Inj) 40 mg Q12H IV Last administered on 03/28/17 08:41; Start 03/17/17 at 09:00; Stop 03/28/17 at 12:26; Status DC Miscellaneous Information 1 Q361D XX ; Start 03/17/17 at 08:00 Chlorhexidine Gluconate (Chlorhexidine 2% Cloth) Taper DAILY@04 TOP Last administered on 03/26/17 04:06; Start 03/18/17 at 04:00; Stop 03/14/18 at 03:59 Chlorhexidine Gluconate 3 pack 3 pack UNSCH PRN TOP HYGIENIC CARE; Start at 08:00 Aztreonam 2000 mg/ Sodium Chloride 100 ml @ 200 mls/hr Q8H IV Last administered on 03/28/17 08:41; Start 03/17/17 at 08:00; Stop 03/28/17 at 12:27; Status DC Metronidazole 100 ml @ 100 mls/hr Q8H IV Last administered on 03/28/17 05:28; Start 03/17/17 at 15:00; Stop 03/28/17 at 12:33; Status DC Vancomycin HCl 1000 mg/Sodium Chloride 250 ml @ 250 mls/hr ONCE ONCE IV ; Start 03/17/17 at 08:00; Stop 03/17/17 at 08:59; Status UNV Fluconazole/ Sodium Chloride 200 ml @ 100 mls/hr Q24H IV Last administered on 03/28/17 08:44; Start 03/17/17 at 09:00; Stop 03/28/17 at 12:27; Status DC Pharmacy Profile Note (Vancomycin Consult Pharmacy) ml @ 0 mls/hr UNSCH OTHER ; Start 03/17/17 at 08:15; Stop 03/25/17 at 15:27; Status DC Albuterol/ Ipratropium (Duoneb Neb) 1 ampule Q6HR NEB NEB Last administered on 03/21/17 09:17; Start 03/17/17 at 10:00; Stop 03/21/17 at 10:00; Status DC Albuterol/ Ipratropium (Duoneb Neb) 1 ampule Q2HR NEB PRN NEB SHORTNESS OF BREATH Last administered on 03/24/17 09:18; Start 03/17/17 at 09:15 Tiotropium [place] (Spiriva Inh) 18 mcg DAILY INH Last administered on 09:00; Start 03/18/17 at 09:00 Methylprednisolone Sodium Succinate (SoluMEDROL INJ) 125 mg ONCE ONCE IV PUSH Last administered on 03/17/17 10:31; Start 03/17/17 at 10:30; Stop 03/17/17 at 10:31; Status DC Methylprednisolone Sodium Succinate 60 mg 60 mg Q8HR IV PUSH Last administered on 03/19/17 05:53; Start 03/17/17 at 14:00; Stop 03/19/17 at 11:12; Status DC Vancomycin HCl/ Sodium Chloride (Vancomycin Inj/ NS 500 ml Inj) 515 ml @ 257.5 mls/ hr Q24H IV Last administered on 03/21/17 00:06; Start 03/18/17 at 00:00; Stop 03/21/17 at 11:26; Status DC Miscellaneous Information SPECIFIC LAB TO BE KOBI... ONCE ONCE .XX Last administered on 03/20/17 23:45; Start 03/20/17 at 23:45; Stop 03/20/17 at 23:46 ; Status DC Dextrose (D50w (Vial) Inj) 25 ml UNSCH PRN IV PUSH HYPOGLYCEMIA - SEE COMMENTS ; Start 03/17/17 at 15:15 Glucagon (Glucagon Inj) 1 mg UNSCH PRN OTHER HYPOGLYCEMIA-SEE COMMENTS; Start 03/17/17 at 15:15 Insulin Aspart (NovoLOG SUPPLEMENTAL SCALE) 1 ACHS SLIDING SCALE SQ ; Start at 16:00; Stop 03/17/17 at 16:07; Status DC Insulin Aspart (NovoLOG SUPPLEMENTAL SCALE) 1 Q6HR SQ Last administered on 11:01; Start 03/17/17 at 18:00 Heparin Sodium (Porcine) (Heparin Inj) 5,000 units Q8HR SQ Last administered on 03/20/17 14:26; Start 03/18/17 at 14:00; Stop 03/20/17 at 19:54; Status DC Miscellaneous Information Patient in critical care unit? Ass... Q361D .XX ; Start 03/19/17 at 07:45; Status Cancel Mupirocin (Bactroban Nasal 2% Oint) 1 applic BID NASAL ; Start 03/19/17 at 09:00 ; Status Cancel Chlorhexidine Gluconate (Chlorhexidine 2% Cloth) 3 pack DAILY@04 TOPICAL ; Start 03/20/17 at 04:00; Stop 03/24/17 at 04:01; Status Cancel Chlorhexidine Gluconate (Chlorhexidine 2% Cloth) 3 pack UNSCH PRN TOPICAL HYGIENIC CARE; Start 03/19/17 at 07:45; Stop 03/24/17 at 07:43; Status Cancel Methylprednisolone Sodium Succinate (SoluMEDROL INJ) 60 mg Q12HR IV PUSH Last administered on 03/21/17 09:22; Start 03/19/17 at 21:00; Stop 03/21/17 at 16:20 ; Status DC Morphine Sulfate (Morphine Inj) 4 mg Q2H PRN IV PAIN SCALE 6 TO 10 Last administered on 03/28/17 11:27; Start 03/19/17 at 16:00; Stop 03/28/17 at 12:35; Status DC Morphine Sulfate (Morphine Inj) 4 mg ONCE ONCE IV PUSH Last administered on 14:38; Start 03/19/17 at 14:30; Stop 03/19/17 at 14:31; Status DC Furosemide (Lasix Inj) 20 mg ONCE ONCE IV PUSH Last administered on 03/19/17 14:39; Start 03/19/17 at 14:30; Stop 03/19/17 at 14:31; Status DC Hydralazine HCl (Apresoline Inj) 20 mg Q4H PRN IV PUSH KEEP SBP < 170 Last administered on 03/25/17 21:07; Start 03/19/17 at 17:00 Iohexol (Omnipaque 350 Inj) 98 ml STK-MED ONCE IV Last administered on 10:16; Start 03/20/17 at 10:16; Stop 03/20/17 at 10:17; Status DC Lorazepam 0.5 mg 0.5 mg Q4H PRN IV PUSH anxiety Last administered on 03/28/17 05:27; Start 03/20/17 at 12:00; Stop 03/28/17 at 12:33; Status DC Multivitamins 10 ml/Folic Acid 1 mg/Amino Acids/ Electrolytes/ Dextrose 2,010.2 ml @ 83 mls/hr Q24H IV-CENTRAL Last administered on 03/27/17 19:48; Start at 20:00; Stop 03/28/17 at 19:59; Status DC Fat Emulsion Intravenous (Liposyn Iii 20% Inj) 250 ml @ 31.25 mls/ hr Q24H IV- CENTRAL Last administered on 03/27/17 19:49; Start 03/20/17 at 20:00; Stop 03/28 at 19:59; Status DC Sodium Chloride (NS Flush) See Protocol DAILY IV FLUSH Last administered on 04/01 09:13; Start 03/21/17 at 09:00 Sodium Chloride (NS Flush) See Protocol UNSCH PRN IV FLUSH SEE PROTOCOL TABLE; Start 03/20/17 at 17:45 Heparin Sodium (Porcine) (Heparin Central Flush) See Protocol DAILY IV FLUSH Last administered on 03/29/17 08:33; Start 03/21/17 at 09:00 Heparin Sodium (Porcine) (Heparin Central Flush) See Protocol UNSCH PRN IV FLUSH SEE PROTOCOL TABLE; Start 03/20/17 at 17:45 Sodium Chloride (NS Flush) UNSCH PRN IV FLUSH SEE PROTOCOL TABLE; Start at 17:45 Enoxaparin Sodium (Lovenox Inj) 40 mg Q12H SQ Last administered on 03/29/17 08: 32; Start 03/20/17 at 20:00; Stop 03/29/17 at 14:58; Status DC Labetalol HCl 10 mg 10 mg Q4H PRN IV PUSH SBP >170 Last administered on 05:52; Start 03/21/17 at 03:45 Potassium Chloride 100 ml @ 50 mls/hr Q2H IV Last administered on 03/21/17 09 :23; Start 03/21/17 at 09:00; Stop 03/21/17 at 12:59; Status DC Vancomycin HCl/ Sodium Chloride (Vancomycin Inj/ NS 500 ml Inj) 525 ml @ 257.5 mls/ hr Q24H IV Last administered on 03/24/17 01:34; Start 03/22/17 at 00:00; Stop 03/24/17 at 10:29; Status DC Miscellaneous Information SPECIFIC LAB TO BE DRAWN:VANCO TROUGH DATE TO... ONCE ONCE .XX Last administered on 03/24/17 00:55; Start 03/23/17 at 23:45; Stop 03/23/17 at 23:46; Status DC Methylprednisolone Sodium Succinate (SoluMEDROL INJ) 40 mg Q12HR IV Last administered on 03/28/17 20:21; Start 03/21/17 at 21:00; Stop 03/29/17 at 08:13; Status DC Hydromorphone HCl (Dilaudid Pf Inj) 2 mg NOW ONCE IV Last administered on 03/22 11:57; Start 03/22/17 at 11:45; Stop 03/22/17 at 11:46; Status DC Gadodiamide (Omniscan Pf Inj) 20 ml STK-MED ONCE IV Last administered on 16:58; Start 03/22/17 at 16:58; Stop 03/22/17 at 16:59; Status DC Etomidate 20 mg 20 mg STK-MED ONCE .ROUTE ; Start 03/23/17 at 07:49; Stop at 07:50; Status DC Vancomycin HCl/ Sodium Chloride (Vancomycin Inj/ NS 500 ml Inj) 515 ml @ 257.5 mls/ hr Q12H IV Last administered on 03/25/17 12:49; Start 03/24/17 at 13:00; Stop 03/25/17 at 15:27; Status DC Miscellaneous Information SPECIFIC LAB TO BE DRAWN:VANCO TROUGH DATE... ONCE ONCE .XX ; Start 03/26/17 at 12:45; Stop 03/26/17 at 12:46; Status Cancel Oxycodone/ Acetaminophen (Percocet 7.5-325 Mg) 1 tab Q6H PRN PO any pain Last administered on 03/28/17 08:42; Start 03/26/17 at 12:15; Stop 03/28/17 at 14:29; Status DC Enalaprilat (Vasotec Inj) 1.25 mg Q8HR PRN IV PUSH SBP> OR = 180, DBP> OR = 100 Last administered on 03/28/17 08:41; Start 03/27/17 at 08:45 Amlodipine Besylate (Norvasc) 5 mg DAILY PO Last administered on 04/01/17 09:03 ; Start 03/28/17 at 09:30 Pantoprazole Sodium (Protonix) 40 mg BID PO Last administered on 04/01/17 09:03 ; Start 03/28/17 at 21:00 Fluconazole (Diflucan) 400 mg DAILY PO Last administered on 04/01/17 09:03; Start 03/29/17 at 09:00 Levofloxacin (Levaquin) 750 mg DAILY PO Last administered on 04/01/17 09:03; Start 03/29/17 at 09:00 Metronidazole (Flagyl) 500 mg Q8HR PO Last administered on 04/01/17 04:46; Start 03/28/17 at 14:00 Lorazepam (Ativan) 0.5 mg Q12H PRN PO ANXIETY AND/OR INSOMNIA Last administered on 04/01/17 09:04; Start 03/28/17 at 12:30 Tramadol HCl (Ultram) 50 mg Q6H PRN PO PAIN SCALE 1 TO 10 Last administered on 04/01/17 04:46; Start 03/28/17 at 14:45 Prednisone (Deltasone) 40 mg DAILY PO Last administered on 04/01/17 09:04; Start 03/29/17 at 09:00 Enoxaparin Sodium (Lovenox Inj) 100 mg Q12H SQ Last administered on 03/29/17 20 :00; Start 03/29/17 at 20:00; Stop 03/30/17 at 09:08; Status DC Enoxaparin Sodium (Lovenox Inj) 100 mg Q12H SQ Last administered on 03/30/17 20 :58; Start 03/30/17 at 10:00; Stop 03/31/17 at 09:22; Status DC Enoxaparin Sodium (Lovenox Inj) 60 mg Q12H SQ Last administered on 04/01/17 09: 07; Start 03/31/17 at 10:00 A/P Assessment and Plan A/P Probable visceral/gastric perforation with peritonitis Splenic infarct L upper chest s/q emphysema probably air tracking from abdomen -- started on diet -- continue conservative medical management -- received antibiotics --general surgery following; non-op treatment; cleared for discharge. --evaluated by oncology chest pressure-resolved GERD troponin negative and EKG with no acute ST-T changes continue PPI Anxiety Chronic pain Acute parotitis --continue pain control -- Acute parotitis. clinically improving Acute COPD Exacerbation HCAP/LLL pneumonia L upper chest and shoulder pain secondary to splenic infarct -- Recently admitted for COPD exacerbation, and pneumonia with MSSA and Haemophilus influenza (Admitted from 03/08 to 03/16) -- Wean FiO2 for goal spo2 > 88-90%. --continue prednisone and taper off -- continue neb treatment. -- MRI L shoulder show arthritic changes. L upper chest and shoulder pain most likely from splenic infarct Transient hypotension, now hypertensive Lactic acidosis Peritonitis secondary to perforated viscus resumed norvasc -- Monitor HR and BP closely Acute kidney insufficiency- improving. -- Most likely secondary to peritonitis and sepsis Severe sepsis Peritonitis secondary to perforated viscus Left lower lobe pneumonia/HCAP Probable acute parotitis -- F/U urine and blood cultures negative to date -- antibiotics as noted above. DVT of the right upper extremity-catheter induced d/w Dr. Sykes ; recommended Lovenox 60 mg subq bid for eight weeks. urinary retention gambino had to be replaced- needs voiding trial in a few days. --history of lymphoma -- Leukocytosis secondary to sepsis, now resolved evaluated by oncology. PROPH: --SCDs, PPI for prophylaxis. Lovenox for DVT prophylaxis Discharge Planning dc to SNF when arrangements made. see med list. f/u with pcp, hematology. d/w the patient and case management. time spent 40 min. Alonzo Castillo MD April 01, 2017 11:14
[2017-04-01 12:00] VITALS: BP 129/65; PULSE 75; RESP 17; TEMP 97.7; O2SAT 93
--- NOTE | 2017-04-01 13:07 | HHI.PR ---
Subjective Subjective Notes DAILY PROGRESS NOTE FOR SURGICAL ATTENDING, DR. EVER GARCIA Resting in bed Eager to get to rehab! Objective Vitals/I&O Vital Signs Date Time Temp Pulse Resp B/P Pulse Ox O2 Delivery O2 Flow Rate FiO2 04/01/17 12:00 97.7 75 17 129/65 93 04/01/17 09:51 Nasal Cannula 2.00 Labs Laboratory Tests Test 04/01/17 04:58 White Blood Count 3.2 Red Blood Count 3.39 Hemoglobin 10.5 Hematocrit 30.9 Mean Corpuscular Volume 91.3 Mean Corpuscular Hemoglobin 31.0 Mean Corpuscular Hemoglobin 33.9 Concent Red Cell Distribution Width 15.4 Platelet Count 116 Mean Platelet Volume 7.3 Neutrophils (%) (Auto) 76.4 Lymphocytes (%) (Auto) 13.8 Monocytes (%) (Auto) 4.9 Eosinophils (%) (Auto) 4.6 Basophils (%) (Auto) 0.3 Neutrophils # (Auto) 2.5 Lymphocytes # (Auto) 0.4 Monocytes # (Auto) 0.2 Eosinophils # (Auto) 0.1 Basophils # (Auto) 0.0 CBC Comment DIFF FINAL Differential Comment Sodium Level 141 Potassium Level 3.9 Chloride Level 99 Carbon Dioxide Level 36.0 Anion Gap 6 Blood Urea Nitrogen 20 Creatinine 0.58 Estimat Glomerular Filtration 104 Rate Random Glucose 91 Calcium Level 8.2 Radiology Last Impressions Upper Extremity Ultrasound 03/28/17 0000 Signed Impressions: Service Date/Time: Tuesday, March 28, 2017 09:08 - CONCLUSION: 1. There is a PICC in place. This is visualized in the right axillary vein. The small amount of thrombus around the PICC at this level. The remainder of the venous system is patent. Israel Macario MD Lower Extremity Ultrasound 03/27/17 Signed Impressions: Service Date/Time: March 11:13 - CONCLUSION: No DVT of the right lower extremity. Anthony Hernadez MD Abdomen X-Ray 03/23/17 0321 Signed Impressions: Service Date/Time: Thursday, March 23, 2017 04:48 - CONCLUSION: Free intraperitoneal air. Anthony Hernadez MD Chest X-Ray 03/23/17 Signed Impressions: Service Date/Time: Thursday, March 23, 2017 04:43 - CONCLUSION: 1. Mild bibasilar atelectasis slightly improved. 2. Nasogastric tube and right arm PICC line again noted. 3. Free intraperitoneal air. Anthony Hernadez MD Soft Tissue MRI 03/22/17 Signed Impressions: Service Date/Time: Wednesday, March 22, 2017 16:31 - CONCLUSION: Nondiscript subcutaneous edema in the right shoulder and lower neck junction with benign-appearing cystic mass in submental location. Maninder Lozano MD Shoulder MRI 03/22/17 0000 Signed Impressions: Service Date/Time: Wednesday, March 22, 2017 16:10 - CONCLUSION: Chronic degenerative changes without definite tear. Maninder Lozano MD Neck CT 03/20/17 Signed Impressions: Service Date/Time: February 09:57 - CONCLUSION: 1. Possible 2 cm mass in the superficial lobe of the right parotid in detail. MRI with contrast is recommended for further evaluation if clinically indicated. Stepan Albarado MD CT Angiography 4/27/17 0000 Signed Impressions: Service Date/Time: February 09:50 - CONCLUSION: 1. New low-density mass in the upper central spleen not present 12 days ago. Differential diagnosis includes an area of infarction or hematoma. 2. New patchy groundglass opacities in both lungs which may be infectious or inflammatory. 3. Minimal effusions. 4. No evidence of pulmonary emboli. Luiz Guzman MD Abdomen/Pelvis CT 03/20/17 0000 Signed Impressions: Service Date/Time: February 09:53 - CONCLUSION: 1. Interval increase in free air greatest in the upper anterior abdomen. A nonspecific bowel gas pattern remains with oral contrast in the colon. There is no extravasated contrast. 2. Nonspecific bowel gas pattern most consistent with an ileus. 3. The splenic infarct is more conspicuous than on the prior study. 4. Minimal effusions are now noted. Luiz Guzman MD Upper GI Series 03/19/17 0000 Signed Impressions: Service Date/Time: Sunday, March 19, 2017 11:40 - CONCLUSION: Limited upper GI series demonstrating no definite perforation. 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 Garcia -Going to rehab today - clear for rehab -Follow up with Dr. Garcia in a few weeks -Will need GI eval when she returns to [place] Problem Qualifiers (1) Ibuprofen adverse reaction: Qualified Code: T39.315D - Ibuprofen adverse reaction, subsequent encounter (2) Abdominal pain: Qualified Code: R10.12 - Left upper quadrant pain (3) Pneumonia: Qualified Code: J18.1 - Pneumonia of left lower lobe due to infectious organism Rose Gray April 01, 2017 13:07 Ever Garcia MD April 04, 2017 09:10
== END 2017-04-01 15:07 | DRG 871 ==
LOC: NEPC 04:36 → NEDA 07:48 → N03A 13:06 → N07B 03-26 15:24
PROVIDERS: ADMIT Internal Medicine; ATTEND Internal Medicine
PROC: 02HV33Z Insertion of Infusion Device into Superior Vena Cava, Percutaneous Approach (ICD-10-PCS; principal; 2017-03-20)
PROC: B548ZZA Ultrasonography of Superior Vena Cava, Guidance (ICD-10-PCS; 2017-03-20)
PROC: 3E0436Z Introduction of Nutritional Substance into Central Vein, Percutaneous Approach (ICD-10-PCS; 2017-03-20)
DX: A41.9 Sepsis, unspecified organism (principal); K65.9 Peritonitis, unspecified; N17.9 Acute kidney failure, unspecified; K25.5 Chronic or unspecified gastric ulcer with perforation; E87.2 Acidosis; J18.9 Pneumonia, unspecified organism; Y95 Nosocomial condition; R65.20 Severe sepsis without septic shock; C85.90 Non-Hodgkin lymphoma, unspecified, unspecified site; I95.9 Hypotension, unspecified; I82.621 Acute embolism and thrombosis of deep veins of right upper extremity; T82.818A Embolism due to vascular prosthetic devices, implants and grafts, initial encounter; Z68.43 Body mass index [BMI] 50.0-59.9, adult; E66.9 Obesity, unspecified; J44.1 Chronic obstructive pulmonary disease with (acute) exacerbation; D73.5 Infarction of spleen; R33.9 Retention of urine, unspecified; K21.9 Gastro-esophageal reflux disease without esophagitis; I10 Essential (primary) hypertension; M19.90 Unspecified osteoarthritis, unspecified site; F41.9 Anxiety disorder, unspecified; K11.21 Acute sialoadenitis; G89.29 Other chronic pain; E86.0 Dehydration; T39.315A Adverse effect of propionic acid derivatives, initial encounter; Z79.52 Long term (current) use of systemic steroids; Z87.891 Personal history of nicotine dependence; Z96.653 Presence of artificial knee joint, bilateral
CPT/HCPCS: 36569; 36600; 70490; 70543; 71010; 71275; 73221; 74000; 74020; 74177; 74240; 76937; 80048; 80053; 80202; 81001; 82565; 82805; 82948; 83605; 83690; 83735; 84484; 85025; 85610; 85730; 86140; 87040; 87086; 87205; 87493; 87506; 93005; 93971; 94640; 94664; 94667; 94668; 96360; 96361; 96365; 96375; A9579; C9113; J0360; J1170; J1450; J1642; J1644; J1650; J1815; J1940; J2060; J2270; J2405; J2920; J2930; J3010; J3370; J3480; J7030; J7040; J7050; J7512; Q9967

== ENCOUNTER 2017-04-05 13:14 | Inpatient (IN) | payer MEDICARE ==
[~2017-04-05] VITALS: Ht 160 cm; Wt 112.7 kg
[~2017-04-05 13:14] MED LIST changes: +ENOX60P SQ; +IPRASOL NEB; -LEVA500T PO; +ULTR50TA5 PO
[2017-04-05] MEDS ORDERED: ONDANSETRON HCL 4 MG/2 ML VIAL IVP ONE (13:30)
[2017-04-05] MEDS ORDERED: SODIUM CHLORIDE 0.9% FLUSH 10 ML FLUSH IV FLUSH PRN ×2 (13:30→17:45)
--- NOTE | 2017-04-05 13:30 | PD ---
HPI Chief Complaint: abdominal pain Time Seen by Provider: 13:30 Travel History International Travel<30 days: No Contact w/Intl Traveler<30days: No History of Present Illness HPI 66-year-old female presents to the emergency department for evaluation of abdominal pain that started 3 days ago. Patient was discharged in the hospital on April 01, 2017 after being admitted for severe sepsis, peritonitis, perforated viscus. The patient states this pain feels different. She states that she vomited today which made the pain severe. She states that she vomited up a brown vomit that tasted and smelled like feces. She reports watery diarrhea. She does not believe that there has been any blood in her stool. She is from [facility]. The patient has history of COPD, anxiety disorder, chronic pain, hypertension. She also was here earlier this year for pneumonia and was intubated at that time. She is on 2 L O2 nasal cannula chronically. Patient denies any fevers. No chest pain or shortness of breath. She does state abdominal pain will worsen with deep breathing. Patient reports history of and ovarian cyst removal. The patient was managed medically for perforated viscus and did not undergo surgery. Patient denies any other symptoms at this time. PFSH Past Medical History Arthritis: Yes Anxiety: Yes Depression: Yes Cancer: Yes (lymphoma) COPD: Yes Endocrine: No GERD: Yes Headaches: Yes Hypertension: Yes Psychiatric: Yes Respiratory: Yes Sickle Cell Disease: No : 2 Para: 2 Past Surgical History AICD: No Appendectomy: Yes Arteriovenous Shunt: No Gynecologic Surgery: Yes (c section x2) Insulin Pump: No Joint Replacement: Yes (knee) Pacemaker: No Other Surgery: Yes Social History Alcohol Use: Yes (socially) Tobacco Use: No (quit when she was admitted on March 08, 2017) Substance Use: No Allergies-Medications (Allergen,Severity, Reaction): Coded Allergies: Bactrim (Verified Allergy, Unknown, Hives, 04/05/17) Hives and Rash Oxycodone (Verified Allergy, Unknown, Rash, 04/05/17) Penicillin (Verified Allergy, Unknown, Rash, 04/05/17) Rocephin (Verified Allergy, Unknown, Rash, 04/05/17) Sulfa (Verified Allergy, Unknown, 04/05/17) *MDRO Multi-Drug Resistant Organism (Verified Adverse Reaction, Unknown, ) MRSA PCR Screen POSITIVE - 03/08/2017 Uncoded Allergies: Ramirez (Allergy, Unknown, 03/10/17) Rash Reported Meds & Prescriptions Reported Meds & Active Scripts Active Lovenox Inj (Enoxaparin Sodium) 60 Mg/0.6 Ml Syr 60 Mg SQ BID 56 Days Ultram (Tramadol HCl) 50 Mg Tab 50 Mg PO Q6H PRN Duoneb (Ipratropium-Albuterol Neb) 0.5-2.5 Mg/3 Ml Neb 1 Ampule NEB Q4HR PRN 5 Days Prednisone 5 Mg Tab 5 Mg PO DIRECTED 8 Days 30 mg po daily for two days then 20 mg po daily for two days then 10 mg po daily for two days then 5 mg po daily for two days then stop. Lorazepam 0.5 Mg Tab 0.5 Mg PO Q8H PRN Proventil Hfa 6.7 GM Inh (Albuterol Sulfate) 90 Mcg/Act Aer 2 Puff INH Q6H PRN Spiriva Handihaler (Tiotropium Inh) 18 Mcg Cap 18 Mcg INH DAILY Norvasc (Amlodipine Besylate) 5 Mg Tab 5 Mg PO DAILY 30 Days Oxygen tank (Oxygen) 1 Ea Tank 2 Liter [employer]) CONTINUOUS Oxygen Concentrator Portable Gaseous 2 L/min via Nasal Cannula Continuous For 99 months Reported Zoloft (Sertraline HCl) 100 Mg Tab 100 Mg PO DAILY Omeprazole 20 Mg Tab 20 Mg PO DAILY Sertraline (Sertraline HCl) 50 Mg Tab 50 Mg PO DAILY Gabapentin 300 Mg Cap 300 Mg PO TID Review of Systems Except as stated in HPI: all other systems reviewed are Neg Physical Exam Narrative GENERAL: Well-nourished, well-developed female patient, afebrile. SKIN: Focused skin assessment warm/dry. Patient has ecchymosis noted to anterior abdomen. HEAD: Normocephalic. Atraumatic. EYES: No scleral icterus. No injection or drainage. NECK: Supple, trachea midline. No JVD or lymphadenopathy. CARDIOVASCULAR: Regular rate and rhythm without murmurs, gallops, or rubs. RESPIRATORY: Breath sounds equal bilaterally. No accessory muscle use. Lungs sounds are clear to auscultation. GASTROINTESTINAL: Abdomen soft and nondistended. Patient has diffuse tenderness to palpation. MUSCULOSKELETAL: No cyanosis, or edema. BACK: Nontender without obvious deformity. No CVA tenderness. Data Data Last Documented VS Vital Signs Date Time Temp Pulse Resp B/P Pulse Ox O2 Delivery O2 Flow Rate FiO2 04/05/17 14:06 88 16 112/60 93 Nasal Cannula 3 04/05/17 13:31 98.3 Orders Complete Blood Count With Diff (04/05/17 13:29) Comprehensive Metabolic Panel (04/05/17 13:29) Lipase (04/05/17 13:29) Prothrombin Time / Inr (Pt) (04/05/17 13:29) Act Partial Throm Time (Ptt) (04/05/17 13:29) Urinalysis - C+S If Indicated (04/05/17 13:29) Ct Abd/Pel W/O Iv Contrast (04/05/17 13:29) Iv Access Insert/Monitor (04/05/17 13:29) Ecg Monitoring (04/05/17 13:29) Oximetry (04/05/17 13:29) Ondansetron Inj (Zofran Inj) (04/05/17 13:30) Sodium Chloride 0.9% Flush (Ns Flush) (04/05/17 13:30) Electrocardiogram (04/05/17 13:29) Chest, Single Ap (04/05/17 ) Lactic Acid Sepsis Protocol (04/05/17 13:44) Hydromorphone Pf Inj (Dilaudid Pf Inj) (04/05/17 13:45) Urine Culture (04/05/17 13:30) Blood Culture (04/05/17 14:57) Metronidazole 500 Mg Inj (Flagyl 500 Mg (04/05/17 15:00) Aztreonam Inj (Azactam Inj) (04/05/17 15:00) Vancomycin Inj (Vancomycin Inj) (04/05/17 15:00) Fluconazole 200 Mg Premix Bag (Diflucan (04/05/17 15:45) Pantoprazole Inj (Protonix Inj) (04/05/17 15:45) Consult General Surgery (04/05/17 15:43) (Hub Use Only)Inp Phy Cons/Ref (04/05/17 ) Consult Atul Nfs (04/05/17 ) Admit Order (Ed Use Only) (04/05/17 16:14) Labs Laboratory Tests Test 04/05/17 04/05/17 13:30 14:10 White Blood Count 3.0 TH/MM3 Red Blood Count 3.82 MIL/MM3 Hemoglobin 11.8 GM/DL Hematocrit 34.4 % Mean Corpuscular Volume 90.1 FL Mean Corpuscular Hemoglobin 30.9 PG Mean Corpuscular Hemoglobin 34.3 % Concent Red Cell Distribution Width 15.6 % Platelet Count 225 TH/MM3 Mean Platelet Volume 7.6 FL Neutrophils (%) (Auto) 75.8 % Lymphocytes (%) (Auto) 14.2 % Monocytes (%) (Auto) 7.5 % Eosinophils (%) (Auto) 1.9 % Basophils (%) (Auto) 0.6 % Neutrophils # (Auto) 2.2 TH/MM3 Lymphocytes # (Auto) 0.4 TH/MM3 Monocytes # (Auto) 0.2 TH/MM3 Eosinophils # (Auto) 0.1 TH/MM3 Basophils # (Auto) 0.0 TH/MM3 CBC Comment DIFF FINAL Differential Comment Prothrombin Time 10.9 SEC Prothromb Time International 1.0 RATIO Ratio Activated Partial 21.5 SEC Thromboplast Time Urine Color YELLOW Urine Turbidity HAZY Urine pH 8.0 Urine Specific [place] 1.019 Urine Protein 30 mg/dL Urine Glucose (UA) NEG mg/dL Urine Ketones TRACE mg/dL Urine Occult Blood NEG Urine Nitrite NEG Urine Bilirubin NEG Urine Urobilinogen LESS THAN 2.0 MG/DL Urine Leukocyte Esterase MOD Urine RBC 8 /hpf Urine WBC 28 /hpf Urine Calcium Oxalate Crystals FEW /hpf Urine Amorphous Sediment RARE Urine Bacteria FEW /hpf Urine Hyaline Casts 1 /lpf Urine Mucus FEW /lpf Microscopic Urinalysis Comment CULTURE INDICATED Sodium Level 140 MEQ/L Potassium Level 4.2 MEQ/L Chloride Level 99 MEQ/L Carbon Dioxide Level 34.4 MEQ/L Anion Gap 7 MEQ/L Blood Urea Nitrogen 12 MG/DL Creatinine 0.59 MG/DL Estimat Glomerular Filtration 102 ML/MIN Rate Random Glucose 108 MG/DL Calcium Level 8.4 MG/DL Total Bilirubin 0.4 MG/DL Aspartate Amino Transf 27 U/L (AST/SGOT) Alanine Aminotransferase 35 U/L (ALT/SGPT) Alkaline Phosphatase 68 U/L Total Protein 6.2 GM/DL Albumin 2.4 GM/DL Lipase 99 U/L Lactic Acid Level 0.9 mmol/L [facility] Medical Decision Making Medical Screen Exam Complete: Yes Emergency Medical Condition: Yes Medical Record Reviewed: Yes Interpretation(s) Last Impressions Abdomen/Pelvis CT 04/05/17 1329 Signed Impressions: Service Date/Time: Wednesday, April 05, 2017 14:33 - CONCLUSION: 1. Scattered pneumoperitoneum less prominent. 2. Multiple mildly dilated small bowel loops, possible ileus versus partial obstruction. 3. Minimal ascites adjacent to the liver. 4. Splenic infarcts. 5. Scattered diverticulosis. Paul Barr MD Chest X-Ray 04/05/17 0000 Signed Impressions: Service Date/Time: Wednesday, April 05, 2017 13:46 - CONCLUSION: Diminished lung volumes and probable bibasilar atelectasis. Paul Barr MD Differential Diagnosis Bowel obstruction versus diverticulitis versus pancreatitis Narrative Course 66-year-old female presents to the emergency department for evaluation of worsening abdominal pain over 3 days. Patient was just discharged recently after being admitted for peritonitis, viscus perforation, severe sepsis. She does state this pain is different. EKG shows sinus rhythm, heart rate 86, no acute ST changes. CBC, CMP, lipase, UA are ordered and pending. Chest x-ray and CT abdomen/pelvis are ordered and pending. CBC shows leukopenia of 3.0. CMP shows no acute abnormality. Lipase is 99. UA shows moderate leukocyte esterase, 28 WBC, few bacteria. Coags no acute abnormality. Chest x-ray shows diminished lung volumes and probable bibasilar atelectasis. CT abdomen/pelvis shows Scattered pneumoperitoneum less prominent. 2. Multiple mildly dilated small bowel loops, possible ileus versus partial obstruction. 3. Minimal ascites adjacent to the liver. 4. Splenic infarcts. 5. Scattered diverticulosis. I spoke with Dr. Garcia who would like the patient to get Protonix 40mg BID and Diflucan 200 mg every 24 hours in addition to antibiotics. First dose of these are ordered. Patient is to be admitted to medicine. Dr. De Leon accepted admission. Diagnosis Primary Impression: Pneumoperitoneum Additional Impression: Small bowel obstruction Admitting Information Admitting Physician Requests: Admit Abril Lamb April 05, 2017 13:30
[2017-04-05 13:31] VITALS: BP 113/69; PULSE 84; RESP 20; TEMP 98.3; O2SAT 93
[2017-04-05 13:35] VITALS: O2SAT 93
[2017-04-05] MEDS ORDERED: HYDROmorphone HCL PF 1 MG/ML VIAL IV PUSH ONE (13:45)
--- NOTE | 2017-04-05 13:58 | RADRPT ---
EXAM DATE/TIME: 04/05/2017 13:46 [facility] COMPARISON: CHEST SINGLE AP, March 23, 2017, 4:43. INDICATIONS : Cough and congestion. MEDICAL HISTORY : None. SURGICAL HISTORY : None. ENCOUNTER: Initial ACUITY: 3 days PAIN SCORE: 6/10 LOCATION: Bilateral chest FINDINGS: A single view of the chest demonstrates diminished lung volumes and bibasilar densities. Heart border line enlarged.. Osseous structures are intact. Cervical fusion plate. CONCLUSION: Diminished lung volumes and probable bibasilar atelectasis. Paul Barr MD on April 05, 2017 at 13:55 Board Certified Radiologist. This report was verified electronically.
[2017-04-05 14:04] LABS: AUTOMATED NEUTROPHIL # 2.2 TH/MM3 (1.8-7.7); BASOPHIL % 0.6 % (0.0-2.0); EOSINOPHIL # 0.1 TH/MM3 (0-0.4); EOSINOPHIL % 1.9 % (0.0-4.0); HEMATOCRIT 34.4 % (35.0-46.0); HEMO FLAGS DIFF FINAL; LYMPH % 14.2 % (9.0-44.0); LYMPHOCYTE # 0.4 TH/MM3 (1.0-4.8); MEAN CELL VOLUME 90.1 FL (80.0-100.0); MEAN CORPUSCULAR HEMOGLOBIN 30.9 PG (27.0-34.0); MEAN CORPUSCULAR HGB CONC 34.3 % (32.0-36.0); MONO % 7.5 % (0.0-8.0); NEUT % 75.8 % (16.0-70.0); PLATELET COUNT 225 TH/MM3 (150-450); RED BLOOD COUNT 3.82 MIL/MM3 (4.00-5.30); RED CELL DISTRIBUTION WIDTH 15.6 % (11.6-17.2)
[2017-04-05 14:06] VITALS: BP 112/60; PULSE 88; RESP 16; O2SAT 93
[2017-04-05 14:14] LABS: APTT (PATIENT) 21.5 SEC (24.3-30.1); PROTHROMBIN TIME - PATIENT 10.9 SEC (9.8-11.6)
[2017-04-05 14:23] LABS: BACTERIA, URINE FEW /hpf; BLOOD, URINE NEG (NEG); CALCIUM OXALATE CRYSTALS,URINE FEW /hpf; COMMENT (UR) CULTURE INDICATED; CULTURE IF INDICATED CULTURE INDICATED; GLUCOSE,URINE NEG (NEG); HYALINE CAST, URINE 1 /lpf (RARE); KETONE, URINE TRACE mg/dL (NEG); MUCUS URINE FEW /lpf (OCC); NITRITE,URINE NEG (NEG); URINE COLOR YELLOW (YELLW/STRAW)
[2017-04-05 14:29] LABS: ALKALINE PHOSPHATASE 68 U/L (45-117); TOTAL BILIRUBIN ADULT 0.4 MG/DL (0.2-1.0)
[2017-04-05 14:33] LABS: ALT (GPT) 35 U/L (10-53); ANION GAP 7 MEQ/L (5-15); AST (GOT) 27 U/L (15-37); BICARBONATE 34.4 MEQ/L (21.0-32.0); BLOOD UREA NITROGEN 12 MG/DL (7-18); CHLORIDE 99 MEQ/L (98-107); GLOMERULAR FILTRATION RATE 102 ML/MIN (>89); POTASSIUM 4.2 MEQ/L (3.5-5.1); SODIUM (NA) 140 MEQ/L (136-145)
--- NOTE | 2017-04-05 14:59 | RADRPT ---
EXAM DATE/TIME: 04/05/2017 14:33 [facility] COMPARISON: CT ABDOMEN & PELVIS W CONTRAST, March 20, 2017, 9:53. INDICATIONS : Upper abdominal pain. ORAL CONTRAST: No oral contrast ingested. RADIATION DOSE: 22.90 CTDIvol (mGy) MEDICAL HISTORY : Hypertension. Chronic obstructive pulmonary disease. Gastroesophageal reflux disease.Lymphoma. Histor y of recent perforation. SURGICAL HISTORY : Appendectomy. ENCOUNTER: Initial ACUITY: 3 days PAIN SCALE: 6/10 LOCATION: upper quadrant TECHNIQUE: Volumetric scanning of the abdomen and pelvis was performed. Using automated exposure control and ad justment of the mA and/or kV according to patient size, radiation dose was kept as low as reasonably achievable to obtain optimal diagnostic quality images. FINDINGS: LOWER LUNGS: Bibasilar densities. LIVER: Homogeneous density without lesion. There is no dilation of the biliary tree. No calcified gallston es. Minimal fluid is adjacent to the liver. SPLEEN: Splenic infarct. PANCREAS: Within normal limits. KIDNEYS: Normal in size and shape. Punctate nonobstructing right renal calculus. There is no mass or hydronep hrosis. ADRENAL GLANDS: Within normal limits. VASCULAR: There is no aortic aneurysm. BOWEL/MESENTERY: Scattered pneumoperitoneum. Mildly dilated fluid filled small bowel loops are seen.. Diverticulosis . ABDOMINAL WALL: Within normal limits. RETROPERITONEUM: There is no lymphadenopathy. BLADDER: No wall thickening or mass. REPRODUCTIVE: Within normal limits. INGUINAL: There is no lymphadenopathy or hernia. MUSCULOSKELETAL: Within normal limits for patient age. CONCLUSION: 1. Scattered pneumoperitoneum less prominent. 2. Multiple mildly dilated small bowel loops, possible ileus versus partial obstruction. 3. Minimal ascites adjacent to the liver. 4. Splenic infarcts. 5. Scattered diverticulosis. Paul Barr MD on April 05, 2017 at 14:51 Board Certified Radiologist. This report was verified electronically.
[2017-04-05] MEDS ORDERED: metroNIDAZOLE 500 MG INJ 100 ML IV ONE (15:00)
[2017-04-05] MEDS ORDERED: AZTREONAM INJ 2,000 MG in SODIUM CHLORIDE 0.9% INJ 100 ML IV ONE (15:00)
[2017-04-05] MEDS ORDERED: VANCOMYCIN INJ 1,000 MG in SODIUM CHLOR 0.9% 250 ML INJ 250 ML IV ONE (15:00)
[2017-04-05] MEDS ORDERED: PANTOPRAZOLE SODIUM 40 MG VIAL IV PUSH ONE (15:45)
[2017-04-05] MEDS ORDERED: FLUCONAZOLE 200 MG PREMIX BAG 100 ML IV ONE (15:45)
[2017-04-05] MEDS: SODIUM CHLOR 0.9% 1000 ML INJ 1,000 ML IV SCH (17:36)
[2017-04-05 17:40] VITALS: BP 118/58; PULSE 75; RESP 18; O2SAT 93
[2017-04-05] MEDS ORDERED: ONDANSETRON HCL 4 MG/2 ML VIAL IVP PRN (17:45)
[2017-04-05] MEDS ORDERED: NALOXONE HCL 0.4 MG/ML AMP IV PRN (17:45)
--- NOTE | 2017-04-05 18:57 | HHI.HP ---
[facility] Venu Mark MD Admission Diagnosis SBO, UTI Diagnoses: (1) Small bowel obstruction (2) UTI (urinary tract infection) Chief Complaint: abdominal pain for 3 days Travel History International Travel<30 Days: No Contact w/Intl Traveler <30 Da: No Traveled to Known Affected Are: No History of Present Illness 66 y/o female with a history of COPD, lymphoma, HTN, anxiety and chronic pain presented to the ED with complaints of abdominal pain for 3 days. She states the pain has progressively gotten worse over the last 3 days, complains its throbbing intermittent upper abdomen that radiates across her bra line with associated nausea and vomiting. She states she vomited lots of brown fluid today prior to coming in. She states she has not had a formed BM, only liquid diarrhea since leaving hospital. Denies any chest pain, sob, fever or chills. Patient was just discharged 01/30/17 after being admitted since March 17 for a sepsis, bowel perforation and respiratory failure. She was medically managed without any procedures and discharged to a SNF. Review of Systems Constitutional: DENIES: Fever, Chills Respiratory: DENIES: Cough, Shortness of breath Cardiovascular: DENIES: Chest pain, Lower Extremity Edema Gastrointestinal: COMPLAINS OF: Nausea, Vomiting, DENIES: Abdominal pain Genitourinary: DENIES: Urinary frequency, Dysuria Integumentary: DENIES: Rash Hematologic/lymphatic: DENIES: Lymphadenopathy Immunologic/allergic: DENIES: Urticaria Neurologic: DENIES: Headache Past Family Social History Past Medical History Hypertension COPD Severe arthritis Lymphoma Anxiety Past Surgical History Possible laparoscopic appendectomy Tonsillectomy Ovarian mass resection Devan knee replacement Cervical spine surgery x 2 Reported Medications Reported Meds & Active Scripts Active Lovenox Inj (Enoxaparin Sodium) 60 Mg/0.6 Ml Syr 60 Mg SQ BID 56 Days Ultram (Tramadol HCl) 50 Mg Tab 50 Mg PO Q6H PRN Duoneb (Ipratropium-Albuterol Neb) 0.5-2.5 Mg/3 Ml Neb 1 Ampule NEB Q4HR PRN 5 Days Prednisone 5 Mg Tab 5 Mg PO DIRECTED 8 Days 30 mg po daily for two days then 20 mg po daily for two days then 10 mg po daily for two days then 5 mg po daily for two days then stop. Lorazepam 0.5 Mg Tab 0.5 Mg PO Q8H PRN Proventil Hfa 6.7 GM Inh (Albuterol Sulfate) 90 Mcg/Act Aer 2 Puff INH Q6H PRN Spiriva Handihaler (Tiotropium Inh) 18 Mcg Cap 18 Mcg INH DAILY Norvasc (Amlodipine Besylate) 5 Mg Tab 5 Mg PO DAILY 30 Days Oxygen tank (Oxygen) 1 Ea Tank 2 Liter [employer] CONTINUOUS Oxygen Concentrator Portable Gaseous 2 L/min via Nasal Cannula Continuous For 99 months Reported Zoloft (Sertraline HCl) 100 Mg Tab 100 Mg PO DAILY Omeprazole 20 Mg Tab 20 Mg PO DAILY Sertraline (Sertraline HCl) 50 Mg Tab 50 Mg PO DAILY Gabapentin 300 Mg Cap 300 Mg PO TID Allergies: Coded Allergies: Bactrim (Verified Allergy, Unknown, Hives, 04/05/17) Hives and Rash Oxycodone (Verified Allergy, Unknown, Rash, 04/05/17) Penicillin (Verified Allergy, Unknown, Rash, 04/05/17) Rocephin (Verified Allergy, Unknown, Rash, 04/05/17) Sulfa (Verified Allergy, Unknown, 04/05/17) *MDRO Multi-Drug Resistant Organism (Verified Adverse Reaction, Unknown, ) MRSA PCR Screen POSITIVE - 03/08/2017 Uncoded Allergies: Codiene (Allergy, Unknown, 03/10/17) Rash Active Ordered Medications Current Medications Medications (Trade) Dose Ordered Sig/Laura Route Start Time Stop Time Status Last Admin Sodium Chloride 2 ml 2 ml UNSCH PRN IV FLUSH 04/05/17 13:30 (NS 1000 ml Inj) 1,000 ml @ 100 mls/hr Q10H IV 04/05/17 17:36 04/05/17 17:36 (NS Flush) 2 ml UNSCH PRN IV FLUSH 04/05/17 17:45 (NS Flush) 2 ml BID IV FLUSH 04/05/17 21:00 (Zofran Inj) 4 mg Q6H PRN IVP 04/05/17 17:45 (Narcan Inj) 0.4 mg UNSCH PRN IV 04/05/17 17:45 (Dilaudid Pf Inj) 0.5 mg Q4H PRN IV PUSH 04/05/17 17:45 Family History Family history positive for heart disease Social History Tobacco use: last cigarette on March 08, prior 1 ppd Denies EtOH use Denies illicit drug use Physical Exam Vital Signs Vital Signs Date Time Temp Pulse Resp B/P Pulse Ox O2 Delivery O2 Flow Rate FiO2 04/05/17 17:40 75 18 118/58 93 3 04/05/17 14:06 88 16 112/60 93 Nasal Cannula 3 04/05/17 13:35 93 Nasal Cannula 3 04/05/17 13:31 98.3 84 20 113/69 93 Physical Exam GENERAL: This is a well-nourished, obese patient, in no apparent distress. SKIN: No rashes, ecchymoses or lesions. Cool and dry. HEAD: Atraumatic. Normocephalic. No temporal or scalp tenderness. EYES: Pupils equal round and reactive. Extraocular motions intact. ENT: Nose without bleeding, purulent drainage or septal hematoma. Airway patent. NECK: Trachea midline. No JVD or lymphadenopathy. Supple, nontender, no meningeal signs. CARDIOVASCULAR: Regular rate and rhythm without murmurs, gallops, or rubs. RESPIRATORY: Clear to auscultation. Breath sounds equal bilaterally. No wheezes , rales, or rhonchi. GASTROINTESTINAL: Abdomen soft, epigastric tenderness, nondistended. No hepato- splenomegaly, or palpable masses. No guarding. Hypoactive BS MUSCULOSKELETAL: Extremities without clubbing, cyanosis, or edema. No joint tenderness, effusion, or edema noted. No calf tenderness. NEUROLOGICAL: Awake and alert. Motor and sensory grossly within normal limits. Normal speech. Laboratory Laboratory Tests Test 04/05/17 04/05/17 13:30 14:10 White Blood Count 3.0 Red Blood Count 3.82 Hemoglobin 11.8 Hematocrit 34.4 Mean Corpuscular Volume 90.1 Mean Corpuscular Hemoglobin 30.9 Mean Corpuscular Hemoglobin 34.3 Concent Red Cell Distribution Width 15.6 Platelet Count 225 Mean Platelet Volume 7.6 Neutrophils (%) (Auto) 75.8 Lymphocytes (%) (Auto) 14.2 Monocytes (%) (Auto) 7.5 Eosinophils (%) (Auto) 1.9 Basophils (%) (Auto) 0.6 Neutrophils # (Auto) 2.2 Lymphocytes # (Auto) 0.4 Monocytes # (Auto) 0.2 Eosinophils # (Auto) 0.1 Basophils # (Auto) 0.0 CBC Comment DIFF FINAL Differential Comment Prothrombin Time 10.9 Prothromb Time International 1.0 Ratio Activated Partial 21.5 Thromboplast Time Urine Color YELLOW Urine Turbidity HAZY Urine pH 8.0 Urine Specific [place] 1.019 Urine Protein 30 Urine Glucose (UA) NEG Urine Ketones TRACE Urine Occult Blood NEG Urine Nitrite NEG Urine Bilirubin NEG Urine Urobilinogen LESS THAN 2.0 Urine Leukocyte Esterase MOD Urine RBC 8 Urine WBC 28 Urine Calcium Oxalate Crystals FEW Urine Amorphous Sediment RARE Urine Bacteria FEW Urine Hyaline Casts 1 Urine Mucus FEW Microscopic Urinalysis Comment CULTURE INDICATED Sodium Level 140 Potassium Level 4.2 Chloride Level 99 Carbon Dioxide Level 34.4 Anion Gap 7 Blood Urea Nitrogen 12 Creatinine 0.59 Estimat Glomerular Filtration 102 Rate Random Glucose 108 Calcium Level 8.4 Total Bilirubin 0.4 Aspartate Amino Transf 27 (AST/SGOT) Alanine Aminotransferase 35 (ALT/SGPT) Alkaline Phosphatase 68 Total Protein 6.2 Albumin 2.4 Lipase 99 Lactic Acid Level 0.9 Date/Time Procedure Status Source Growth 04/05/17 16:30 Aerobic Blood Culture Received Blood Peripheral Pending 04/05/17 16:30 Anaerobic Blood Culture Received Blood Peripheral Pending 04/05/17 13:30 Urine Culture Received Urine Random Urine Pending Result Diagram: 04/05/17 1330 04/05/17 1330 Imaging Last Impressions Abdomen/Pelvis CT 04/05/17 1329 Signed Impressions: Service Date/Time: Wednesday, April 05, 2017 14:33 - CONCLUSION: 1. Scattered pneumoperitoneum less prominent. 2. Multiple mildly dilated small bowel loops, possible ileus versus partial obstruction. 3. Minimal ascites adjacent to the liver. 4. Splenic infarcts. 5. Scattered diverticulosis. Paul Barr MD Chest X-Ray 04/05/17 0000 Signed Impressions: Service Date/Time: Wednesday, April 05, 2017 13:46 - CONCLUSION: Diminished lung volumes and probable bibasilar atelectasis. Paul Barr MD Assessment and Plan Problem List: (1) Small bowel obstruction ICD Code: K56.69 Status: Acute (2) UTI (urinary tract infection) ICD Code: N39.0 Status: Acute Assessment and Plan 66 y/o female with a history of COPD, lymphoma, HTN, anxiety and chronic pain presented to the ED with complaints of abdominal pain for 3 days. She states the pain has progressively gotten worse over the last 3 days, complains its throbbing intermittent upper abdomen that radiates across her bra line with associated nausea and vomiting. She states she vomited lots of brown fluid today prior to coming in. Denies any chest pain, sob, fever or chills. Small bowel obstruction with diarrhea Abdominal CT shows Scattered pneumoperitoneum less prominent. Multiple mildly dilated small bowel loops, possible ileus versus partial obstruction. Minimal ascites adjacent to the liver. Splenic infarcts. Scattered diverticulosis. -Cont IV antibiotics -Consult General surgery -NPO -NGT if patient begins to vomit -Abdominal xray in AM -IV hydration -Dilaudid IV for pain management -check c diff UTI Continue current antibiotics pending urine culture HTN, chronic -Monitor vitals -will order prns if needed DVT prophylaxis: SCDs, Teds Written by AFSHAN Bowman acting as scribe for [Jaswant] on 04/05/17 at 18 :22. This note was transcribed by scribadán Pantoja. I, Dr. Paul Michaud personally performed the history, physical exam, and medical decision making; and confirmed the accuracy of the information in the transcribed note. Authenticated by Dr. Paul Michaud on 04/05/17 at 18:22. Code Status Full code Discussed Condition With Patient and ED physician Physician Certification 2 Midnight Certification Type: Admission for Inpatient Services Order for Inpatient Services The services are ordered in accordance with Medicare regulations or non- Medicare payer requirements, as applicable. In the case of services not specified as inpatient-only, they are appropriately provided as inpatient services in accordance with the 2-midnight benchmark. Estimated LOS (days): 2 days is the estimated time the patient will need to remain in the hospital, assuming treatment plan goals are met and no additional complications. Post-Hospital Plan: Not yet determined Jennifer Pantoja April 05, 2017 18:57 Paul Michaud MD April 05, 2017 18:59
[2017-04-05] MEDS ORDERED: RESP: ALBUTEROL 2.5 MG/IPRATROPIUM 0.5 MG NEB (PRN) NEB (19:15)
[2017-04-05] MEDS ORDERED: ENALAPRILAT 1.25 MG/ML VIAL IV PUSH PRN (19:15)
[2017-04-05] MEDS ORDERED: REGL10TA5 PO (19:19)
[2017-04-05] MEDS ORDERED: BACTOIN EACH NARE (19:19)
[2017-04-05 20:00] VITALS: BP 119/61; PULSE 72; RESP 18; TEMP 98; O2SAT 91
--- NOTE | 2017-04-05 20:39 | MB ---
cc: ADRI GARCIA DATE OF CONSULTATION 04/05/17 HISTORY OF PRESENT ILLNESS This is a pleasant 66-year-old female well-known to me from previous admission. she was discharged about a week ago. She had been in the hospital about a week prior to that for about nine days with severe COPD, respiratory failure, is on the ventilator. She subsequently went home and then came back and was found to have some free air what was thought to be secondary to perforated GI are ulcer from the amount of ibuprofen that she was utilizing. Because of her respiratory status, we treated nonoperatively successfully after a prolonged hospitalization where she recovered and was tolerating regular diet, was on Protonix and doing fairly well. She went to a rehabilitation center and was there for about a week and she felt her abdominal pain was coming back and came into the emergency room where a CT scan was done showing some air bubbles less prominent than prior CT scan. Of note, we did an upper GI at that time. It did not show any extravasation. PAST MEDICAL HISTORY 1. Severe oxygen-dependent COPD, 2. Severe arthritis, 3. Hypertension. 4. . 5. She thinks she might have appendectomy. 6. Tonsillectomy. MEDICATIONS All on the computer and there is some confusion if she was on Protonix as instructed if somehow that got dropped off during her rehabilitation stay. ALLERGIES she is allergic to many medicines including SULFA ROCEPHIN PENICILLIN OXYCODONE CODEINE BACTRIM PHYSICAL EXAMINATION GENERAL: She recognizes me. She is sitting up on the stretcher. She does not look too uncomfortable. She points to her abdomen where there is a little firmness and tightness. She did have one episode of vomiting here in the emergency room she says. NECK: Supple. CHEST: Clear. HEART: Regular rate. ABDOMEN: Obese, soft with mild soreness in both upper right and left quadrants. She has bruising from the Lovenox shots. LABORATORY DATA White count 3, H&H 11 and 34. Chemistry essentially normal. IMAGING STUDIES CT scan done shows small amount a air. She has had the known splenic infarcts. ASSESSMENT A 66-year-old female with previous history of perforated duodenal or gastric ulcer secondary to her COPD steroids and ibuprofen intake successfully treated with nonoperative therapy because of her severe pulmonary status. We will have to make sure that she is on her Protonix, reinstitute IV antibiotics. She is again very scared of undergoing surgical intervention because she is scared of being stuck on the ventilator which she would not want. She does not appear too ill at this setting. I told her if she does not progress, we may be forced to do something and she appeared to understand that. At this time, I will put her on the Levaquin, Flagyl, Diflucan which she was on before and the 40 mg of Protonix b.i.d. Adri Garcia MD JCARA/ /7:53 PM /8:19 PM
[2017-04-05] MEDS: LEVOFLOXACIN 750 MG PREMIX INJ 150 ML IV SCH (20:40)
[2017-04-05] MEDS: HYDROmorphone HCL PF 1 MG/ML VIAL IV PUSH PRN (20:40)
[2017-04-05] MEDS: ENOXAPARIN SODIUM 60 MG/0.6 ML SYRINGE SQ SCH (20:45)
[2017-04-05] MEDS: SODIUM CHLORIDE 0.9% FLUSH 10 ML FLUSH IV FLUSH SCH (20:45)
[2017-04-05] MEDS: metroNIDAZOLE 500 MG INJ 100 ML IV SCH (22:34)
[2017-04-05] MEDS: FLUCONAZOLE 400 MG PREMIX BAG 200 ML IV SCH (22:34)
[2017-04-05] MEDS ORDERED: CIPROFLOXACIN 400 MG PREMIX 200 ML IV SCH (23:00)
[2017-04-06] VITALS (7 sets, daily range): BP systolic 116–126; BP diastolic 53–64; PULSE 68–77; RESP 18–24; TEMP 96–97.8; O2SAT 87–92
[2017-04-06] MEDS: LORazepam 0.5 MG TAB PO PRN ×2 (03:15→11:40)
[2017-04-06] MEDS: SODIUM CHLOR 0.9% 1000 ML INJ 1,000 ML IV SCH ×3 (03:38→22:56)
[2017-04-06] MEDS: PANTOPRAZOLE SODIUM 40 MG VIAL IV PUSH SCH ×2 (04:53→15:26)
[2017-04-06] MEDS: HYDROmorphone HCL PF 1 MG/ML VIAL IV PUSH PRN ×4 (04:53→21:35)
[2017-04-06] MEDS: metroNIDAZOLE 500 MG INJ 100 ML IV SCH ×3 (06:04→22:53)
[2017-04-06] MEDS: predniSONE 5 MG TAB PO SCH (07:43)
[2017-04-06] MEDS: SERTRALINE HCL 100 MG TAB PO SCH (07:43)
[2017-04-06] MEDS: SERTRALINE HCL 50 MG TAB PO SCH (07:43)
[2017-04-06] MEDS: GABAPENTIN 300 MG CAP PO SCH ×3 (07:44→17:36)
[2017-04-06] MEDS: amLODIPine BESYLATE 5 MG TAB PO SCH (07:44)
[2017-04-06] MEDS: ENOXAPARIN SODIUM 60 MG/0.6 ML SYRINGE SQ SCH ×2 (07:44→19:53)
--- NOTE | 2017-04-06 09:55 | RADRPT ---
EXAM DATE/TIME: 04/06/2017 09:37 [facility] COMPARISON: CT ABDOMEN & PELVIS W/O CONTRAST, April 05, 2017, 14:33. INDICATIONS : Obstruction. Abdominal pain. MEDICAL HISTORY : Hypertension. Chronic obstructive pulmonary disease. Gastroesophageal reflux disease. SURGICAL HISTORY : Appendectomy. ENCOUNTER: Subsequent ACUITY: 4 - 6 days PAIN SCORE: 6/10 LOCATION: upper quadrant abdomen. FINDINGS: Supine and upright views of the abdomen were performed. Large amount of pneumoperitoneum. Multiple di lated small bowel loops predominantly in the left midabdomen. The visualized lower lungs are clear. No evidence of free intraperitoneal gas. The osseous structures are unremarkable. CONCLUSION: 1. Pneumoperitoneum. 2. Multiple dilated small bowel loops in the left midabdomen. Paul Barr MD on April 06, 2017 at 9:51 Board Certified Radiologist. This report was verified electronically.
--- NOTE | 2017-04-06 10:32 | HHI.PR ---
Subjective Remarks Follow-up Small bowel obstruction\ 04/06/17-patient seen and examined, denies any significant rib cage pain. No nausea or vomiting. Currently nothing by mouth Objective Vitals Vital Signs Date Time Temp Pulse Resp B/P Pulse Ox O2 Delivery O2 Flow Rate FiO2 04/06/17 05:41 18 04/06/17 04:00 96.0 68 18 117/64 91 04/06/17 00:00 96.4 70 18 117/63 91 04/06/17 00:00 96.4 70 18 117/63 91 04/05/17 20:00 98.0 72 18 119/61 91 04/05/17 20:00 98.0 72 18 119/61 91 04/05/17 17:40 75 18 118/58 93 3 04/05/17 14:06 88 16 112/60 93 Nasal Cannula 3 04/05/17 13:35 93 Nasal Cannula 3 04/05/17 13:31 98.3 84 20 113/69 93 I/O 04/05/17 04/05/17 04/05/17 04/06/17 04/06/17 04/06/17 07:00 15:00 23:00 07:00 15:00 23:00 Intake Total 473 ml 832 ml Output Total 675 ml 1050 ml Balance -202 ml -218 ml Intake Oral 0 ml 0 ml IV Total 473 ml 832 ml Output Urine Total 675 ml 1050 ml Result Diagram: 04/05/17 1330 04/05/17 1330 Imaging Last Impressions Abdomen X-Ray 04/06/17 0600 Signed Impressions: Service Date/Time: Thursday, April 06, 2017 09:37 - CONCLUSION: 1. Pneumoperitoneum. 2. Multiple dilated small bowel loops in the left midabdomen. Paul Barr MD Abdomen/Pelvis CT 04/05/17 1329 Signed Impressions: Service Date/Time: Wednesday, April 05, 2017 14:33 - CONCLUSION: 1. Scattered pneumoperitoneum less prominent. 2. Multiple mildly dilated small bowel loops, possible ileus versus partial obstruction. 3. Minimal ascites adjacent to the liver. 4. Splenic infarcts. 5. Scattered diverticulosis. Paul Barr MD Chest X-Ray 04/05/17 0000 Signed Impressions: Service Date/Time: Wednesday, April 05, 2017 13:46 - CONCLUSION: Diminished lung volumes and probable bibasilar atelectasis. Paul Barr MD Objective Remarks GENERAL: NAD SKIN: Warm and dry. HEAD: Normocephalic. EYES: No scleral icterus. No injection or drainage. NECK: Supple, trachea midline. No JVD or lymphadenopathy. CARDIOVASCULAR: Regular rate and rhythm without murmurs, gallops, or rubs. RESPIRATORY: Breath sounds equal bilaterally. No accessory muscle use. GASTROINTESTINAL: Abdomen soft, non-tender, nondistended. MUSCULOSKELETAL: No cyanosis, or edema. BACK: Nontender without obvious deformity. No CVA tenderness. A/P Problem List: (1) Small bowel obstruction ICD Code: K56.69 Status: Acute Assessment and Plan 66-year-old female with Small bowel obstruction with diarrhea Abdominal CT shows Scattered pneumoperitoneum less prominent. Multiple mildly dilated small bowel loops, possible ileus versus partial obstruction. Minimal ascites adjacent to the liver. Splenic infarcts. Scattered diverticulosis. -Cont IV antibiotics -Consult General surgery input appreciated -Continue NPO, IV fluid hydration -NGT if patient begins to vomit -Abdominal xray 04/06/17 with Pneumoperitoneum. 2. Multiple dilated small bowel loops in the left midabdomen -Dilaudid IV for pain management - c diff PCR pending HTN, chronic -Monitor vitals UTI Continue current antibiotics pending urine culture DVT prophylaxis: Bilateral Paul Marti MD April 06, 2017 10:32
[2017-04-06] MEDS: SODIUM CHLORIDE 0.9% FLUSH 10 ML FLUSH IV FLUSH SCH ×2 (11:53→19:53)
[2017-04-06] MEDS: TIOTROPIUM BROMIDE 18 MCG INH INH SCH (11:53)
--- NOTE | 2017-04-06 13:01 | HHI.PR ---
Subjective Subjective Notes feels better today, pain still 04/02 Objective Vitals/I&O Vital Signs Date Time Temp Pulse Resp B/P Pulse Ox O2 Delivery O2 Flow Rate FiO2 04/06/17 05:41 18 04/06/17 04:00 96.0 68 117/64 91 04/05/17 17:40 3 04/05/17 14:06 Nasal Cannula Labs Laboratory Tests Test 04/05/17 04/05/17 13:30 14:10 White Blood Count 3.0 Red Blood Count 3.82 Hemoglobin 11.8 Hematocrit 34.4 Mean Corpuscular Volume 90.1 Mean Corpuscular Hemoglobin 30.9 Mean Corpuscular Hemoglobin 34.3 Concent Red Cell Distribution Width 15.6 Platelet Count 225 Mean Platelet Volume 7.6 Neutrophils (%) (Auto) 75.8 Lymphocytes (%) (Auto) 14.2 Monocytes (%) (Auto) 7.5 Eosinophils (%) (Auto) 1.9 Basophils (%) (Auto) 0.6 Neutrophils # (Auto) 2.2 Lymphocytes # (Auto) 0.4 Monocytes # (Auto) 0.2 Eosinophils # (Auto) 0.1 Basophils # (Auto) 0.0 CBC Comment DIFF FINAL Differential Comment Prothrombin Time 10.9 Prothromb Time International 1.0 Ratio Activated Partial 21.5 Thromboplast Time Urine Color YELLOW Urine Turbidity HAZY Urine pH 8.0 Urine Specific [place] 1.019 Urine Protein 30 Urine Glucose (UA) NEG Urine Ketones TRACE Urine Occult Blood NEG Urine Nitrite NEG Urine Bilirubin NEG Urine Urobilinogen LESS THAN 2.0 Urine Leukocyte Esterase MOD Urine RBC 8 Urine WBC 28 Urine Calcium Oxalate Crystals FEW Urine Amorphous Sediment RARE Urine Bacteria FEW Urine Hyaline Casts 1 Urine Mucus FEW Microscopic Urinalysis Comment CULTURE INDICATED Sodium Level 140 Potassium Level 4.2 Chloride Level 99 Carbon Dioxide Level 34.4 Anion Gap 7 Blood Urea Nitrogen 12 Creatinine 0.59 Estimat Glomerular Filtration 102 Rate Random Glucose 108 Calcium Level 8.4 Total Bilirubin 0.4 Aspartate Amino Transf 27 (AST/SGOT) Alanine Aminotransferase 35 (ALT/SGPT) Alkaline Phosphatase 68 Total Protein 6.2 Albumin 2.4 Lipase 99 Lactic Acid Level 0.9 Date/Time Procedure Status Source Growth 04/05/17 16:30 Aerobic Blood Culture - Preliminary Resulted Blood Peripheral NO GROWTH IN 1 DAY 04/05/17 16:30 Anaerobic Blood Culture - Preliminary Resulted Blood Peripheral NO GROWTH IN 1 DAY 04/05/17 13:30 Urine Culture - Preliminary Resulted Urine Random Urine NO GROWTH IN 24 HOURS. Abdomen: Non-distended, Other Narrative Exam mild tenderness epigastric area, no peritonitis A/P Assessment and Plan 66yo female with perforated ulcer, stable. continue ABX, PPI, ok for ice chips Joseph Foster MD April 06, 2017 13:01
--- NOTE | 2017-04-06 15:34 | EKG ---
Date Performed: 04/05/2017 Time Performed: 13:28:15 PTAGE: 66 years EKG: Sinus rhythm POSSIBLE LEFT ATRIAL ENLARGEMENT BORDERLINE RIGHT AXIS DEVIATION LOW QRS VOLTAGE IN PRECORDIAL LEADS When compared to previous tracing, there has been no significant Serial change. BORDERLINE ECG PREVIOUS TRACING : 03/30/2017 08.11.25 DOCTOR: Jasmine Lawson Interpretating Date/Time 04/06/2017 15:34:27
[2017-04-06] MEDS: LEVOFLOXACIN 750 MG PREMIX INJ 150 ML IV SCH (19:53)
[2017-04-06] MEDS: FLUCONAZOLE 400 MG PREMIX BAG 200 ML IV SCH (21:00)
[2017-04-07] VITALS (7 sets, daily range): BP systolic 112–143; BP diastolic 54–65; PULSE 67–83; RESP 17–24; TEMP 95.9–98; O2SAT 90–100
[2017-04-07] MEDS: HYDROmorphone HCL PF 1 MG/ML VIAL IV PUSH PRN ×2 (04:55→20:04)
[2017-04-07] MEDS: PANTOPRAZOLE SODIUM 40 MG VIAL IV PUSH SCH ×2 (04:55→15:43)
[2017-04-07] MEDS: metroNIDAZOLE 500 MG INJ 100 ML IV SCH ×3 (06:16→23:56)
[2017-04-07] MEDS: TIOTROPIUM BROMIDE 18 MCG INH INH SCH (08:18)
[2017-04-07] MEDS: SERTRALINE HCL 100 MG TAB PO SCH (08:18)
[2017-04-07] MEDS: predniSONE 5 MG TAB PO SCH (08:18)
[2017-04-07] MEDS: SERTRALINE HCL 50 MG TAB PO SCH (08:18)
[2017-04-07] MEDS: GABAPENTIN 300 MG CAP PO SCH ×3 (08:18→17:35)
[2017-04-07] MEDS: ENOXAPARIN SODIUM 60 MG/0.6 ML SYRINGE SQ SCH ×2 (08:18→19:59)
[2017-04-07] MEDS: amLODIPine BESYLATE 5 MG TAB PO SCH (08:18)
[2017-04-07] MEDS: SODIUM CHLORIDE 0.9% FLUSH 10 ML FLUSH IV FLUSH SCH ×2 (08:20→19:58)
[2017-04-07] MEDS: SODIUM CHLOR 0.9% 1000 ML INJ 1,000 ML IV SCH ×2 (08:21→15:43)
--- NOTE | 2017-04-07 11:10 | HHI.PR ---
Subjective Remarks Follow-up Small bowel obstruction\ 04/06/17-patient seen and examined, denies any significant rib cage pain. No nausea or vomiting. Currently nothing by mouth 04/07/17-patient seen and examined, he complains of left upper quadrant pain otherwise afebrile and no other issues Objective Vitals Vital Signs Date Time Temp Pulse Resp B/P Pulse Ox O2 Delivery O2 Flow Rate FiO2 04/07/17 08:00 97.8 83 17 127/60 90 04/07/17 00:00 98.0 76 20 119/54 91 04/06/17 20:00 97.8 72 20 117/53 92 04/06/17 16:00 97.6 72 21 126/59 92 04/06/17 15:29 71 89 04/06/17 12:00 97.2 77 22 116/59 87 I/O 04/06/17 04/06/17 04/06/17 04/07/17 04/07/17 04/07/17 07:00 15:00 23:00 07:00 15:00 23:00 Intake Total 832 ml 643 ml 0 ml 0 ml Output Total 1050 ml 925 ml 450 ml 1000 ml Balance -218 ml -282 ml -450 ml -1000 ml Intake Oral 0 ml 0 ml 0 ml IV Total 832 ml 643 ml Output Urine Total 1050 ml 925 ml 450 ml 1000 ml # Bowel Movements 0 0 0 Result Diagram: 04/05/17 1330 04/05/17 1330 Imaging Last Impressions Abdomen X-Ray 04/06/17 0600 Signed Impressions: Service Date/Time: Thursday, April 06, 2017 09:37 - CONCLUSION: 1. Pneumoperitoneum. 2. Multiple dilated small bowel loops in the left midabdomen. Paul Barr MD Abdomen/Pelvis CT 04/05/17 1329 Signed Impressions: Service Date/Time: Wednesday, April 05, 2017 14:33 - CONCLUSION: 1. Scattered pneumoperitoneum less prominent. 2. Multiple mildly dilated small bowel loops, possible ileus versus partial obstruction. 3. Minimal ascites adjacent to the liver. 4. Splenic infarcts. 5. Scattered diverticulosis. Paul Barr MD Chest X-Ray 04/05/17 0000 Signed Impressions: Service Date/Time: Wednesday, April 05, 2017 13:46 - CONCLUSION: Diminished lung volumes and probable bibasilar atelectasis. Paul Barr MD Objective Remarks GENERAL: NAD SKIN: Warm and dry. HEAD: Normocephalic. EYES: No scleral icterus. No injection or drainage. NECK: Supple, trachea midline. No JVD or lymphadenopathy. CARDIOVASCULAR: Regular rate and rhythm without murmurs, gallops, or rubs. RESPIRATORY: Breath sounds equal bilaterally. No accessory muscle use. GASTROINTESTINAL: Abdomen soft, tender RUQ, nondistended. MUSCULOSKELETAL: No cyanosis, or edema. BACK: Nontender without obvious deformity. No CVA tenderness. A/P Problem List: (1) Small bowel obstruction ICD Code: K56.69 Status: Acute (2) UTI (urinary tract infection) ICD Code: N39.0 Status: Acute Assessment and Plan 66-year-old female with Small bowel obstruction History recent perforated ulcer Abdominal CT shows Scattered pneumoperitoneum less prominent. Multiple mildly dilated small bowel loops, possible ileus versus partial obstruction. Minimal ascites adjacent to the liver. Splenic infarcts. Scattered diverticulosis. -Cont IV antibiotics including Levaquin, Flagyl and Diflucan IV -Consult General surgery input appreciated -Continue NPO, IV fluid hydration -NGT if patient begins to vomit -Abdominal xray 04/06/17 with Pneumoperitoneum. 2. Multiple dilated small bowel loops in the left midabdomen -Flat and upright in a.m. 04/08/17 -Dilaudid IV for pain management - c diff PCR pending HTN, chronic -Monitor vitals UTI Continue current antibiotics pending urine culture DVT prophylaxis: Bilateral KENIAs Paul Michaud MD April 07, 2017 11:10
[2017-04-07] MEDS: LORazepam 0.5 MG TAB PO PRN (12:43)
--- NOTE | 2017-04-07 15:02 | HHI.PR ---
Subjective Subjective Notes DAILY PROGRESS NOTE FOR SURGICAL ATTENDING, DR. EVER GARCIA Resting in bed Emotional about being back in hospital Requests resistance bands to do bed exercises CATE Banda at bedside Objective Vitals/I&O Vital Signs Date Time Temp Pulse Resp B/P Pulse Ox O2 Delivery O2 Flow Rate FiO2 04/07/17 12:00 95.9 80 20 143/64 92 04/07/17 09:34 Nasal Cannula 5.00 Labs Date/Time Procedure Status Source Growth 04/05/17 16:30 Aerobic Blood Culture - Preliminary Resulted Blood Peripheral NO GROWTH IN 2 DAYS 04/05/17 16:30 Anaerobic Blood Culture - Preliminary Resulted Blood Peripheral NO GROWTH IN 2 DAYS 04/05/17 13:30 Urine Culture - Final Complete Urine Random Urine NO GROWTH IN 48 HOURS. Radiology Last Impressions Abdomen X-Ray 04/06/17 0600 Signed Impressions: Service Date/Time: Thursday, April 06, 2017 09:37 - CONCLUSION: 1. Pneumoperitoneum. 2. Multiple dilated small bowel loops in the left midabdomen. Paul Barr MD Abdomen/Pelvis CT 04/05/17 1329 Signed Impressions: Service Date/Time: Wednesday, April 05, 2017 14:33 - CONCLUSION: 1. Scattered pneumoperitoneum less prominent. 2. Multiple mildly dilated small bowel loops, possible ileus versus partial obstruction. 3. Minimal ascites adjacent to the liver. 4. Splenic infarcts. 5. Scattered diverticulosis. Paul Barr MD Chest X-Ray 04/05/17 0000 Signed Impressions: Service Date/Time: Wednesday, April 05, 2017 13:46 - CONCLUSION: Diminished lung volumes and probable bibasilar atelectasis. Paul Barr MD Cardiovascular: Regular Lungs: Clear Abdomen: Other (LUQ tenderness with palpation ) Extremities: No edema A/P Assessment and Plan 66 year old female with free air on CT suspicious for perforated ulcer; back with UTI and abdominal pain -NPO; ice chips okay -Protonix IV BID -Plan for upper GI tomorrow am -OOB and mobilize---PT + OT -Repeat KUB in AM -Pulmonary status continues to remain stable Attending Statement NOTE FOR SURGICAL ATTENDING, DR. EVER GARCIA I agree with above assessment and plan. The exam, history, and the medical decision-making described in the above note were completed with the assistance of the mid-level provider. I reviewed and agree with the findings presented. I attest that I had a [id number] encounter with the patient on the same day, and personally performed and documented my assessment and findings in the medical record. Patient feels better than the Friday Is really hungry Would like something to eat Passing flatus The following services were provided during this hospital visit: Chart data review, vital sign assessments/reviewing monitor data Review of consultations notes if present. Medication orders/review and/or management Ordering and/or reviewing lab tests Ordering and/or interpreting/reviewing x-rays and/or diagnostic studies Care of the patient and discussion of the patient with the care team Documentation time To help prompt me to consider important information that might be impacting today's encounter and assessment, information from prior notes written by myself or my colleagues may have been "brought forward/copy and pasted" into today's note. Rose Gray April 07, 2017 15:02 Ever Garcia MD April 07, 2017 18:03
[2017-04-07] MEDS: LEVOFLOXACIN 750 MG PREMIX INJ 150 ML IV SCH (19:59)
[2017-04-07] MEDS: FLUCONAZOLE 400 MG PREMIX BAG 200 ML IV SCH (21:40)
[2017-04-08] VITALS (7 sets, daily range): BP systolic 89–126; BP diastolic 43–72; PULSE 71–98; RESP 16–18; TEMP 96.2–97.6; O2SAT 92–98
[2017-04-08] MEDS: HYDROmorphone HCL PF 1 MG/ML VIAL IV PUSH PRN ×2 (00:10→05:19)
[2017-04-08] MEDS: LORazepam 0.5 MG TAB PO PRN ×3 (00:10→22:10)
[2017-04-08 04:36] LABS: AUTOMATED NEUTROPHIL # 1.9 TH/MM3 (1.8-7.7); BASOPHIL % 0.3 % (0.0-2.0); EOSINOPHIL % 1.5 % (0.0-4.0); HEMATOCRIT 27.9 % (35.0-46.0); HEMO FLAGS DIFF FINAL; LYMPH % 25.2 % (9.0-44.0); LYMPHOCYTE # 0.7 TH/MM3 (1.0-4.8); MEAN CELL VOLUME 90.2 FL (80.0-100.0); MEAN CORPUSCULAR HEMOGLOBIN 30.4 PG (27.0-34.0); MEAN CORPUSCULAR HGB CONC 33.7 % (32.0-36.0); MONO % 5.7 % (0.0-8.0); NEUT % 67.3 % (16.0-70.0); PLATELET COUNT 169 TH/MM3 (150-450); RED BLOOD COUNT 3.09 MIL/MM3 (4.00-5.30); RED CELL DISTRIBUTION WIDTH 15.4 % (11.6-17.2); WHITE BLOOD COUNT 2.8 TH/MM3 (4.0-11.0)
[2017-04-08 05:04] LABS: BICARBONATE 29.4 MEQ/L (21.0-32.0); POTASSIUM 3.2 MEQ/L (3.5-5.1)
[2017-04-08] MEDS: PANTOPRAZOLE SODIUM 40 MG VIAL IV PUSH SCH ×2 (05:19→15:20)
[2017-04-08] MEDS: metroNIDAZOLE 500 MG INJ 100 ML IV SCH ×3 (05:21→22:05)
[2017-04-08] MEDS: SODIUM CHLOR 0.9% 1000 ML INJ 1,000 ML IV SCH ×2 (05:22→09:16)
[2017-04-08] MEDS: SERTRALINE HCL 50 MG TAB PO SCH ×2 (07:26→09:11)
[2017-04-08] MEDS: SODIUM CHLORIDE 0.9% FLUSH 10 ML FLUSH IV FLUSH SCH ×2 (09:00→19:54)
[2017-04-08] MEDS: ENOXAPARIN SODIUM 60 MG/0.6 ML SYRINGE SQ SCH ×2 (09:11→19:54)
[2017-04-08] MEDS: amLODIPine BESYLATE 5 MG TAB PO SCH (09:11)
[2017-04-08] MEDS: SERTRALINE HCL 100 MG TAB PO SCH (09:11)
[2017-04-08] MEDS: GABAPENTIN 300 MG CAP PO SCH ×3 (09:11→15:20)
[2017-04-08] MEDS: predniSONE 5 MG TAB PO SCH (09:11)
[2017-04-08] MEDS: TIOTROPIUM BROMIDE 18 MCG INH INH SCH (09:12)
--- NOTE | 2017-04-08 10:16 | HHI.PR ---
Subjective Remarks Follow-up Small bowel obstruction\ 04/06/17-patient seen and examined, denies any significant rib cage pain. No nausea or vomiting. Currently nothing by mouth 04/07/17-patient seen and examined, he complains of left upper quadrant pain otherwise afebrile and no other issues 04/08/17-patient seen and examined, some improvement of abdominal pain, no nausea and vomiting. Afebrile Objective Vitals Vital Signs Date Time Temp Pulse Resp B/P Pulse Ox O2 Delivery O2 Flow Rate FiO2 04/08/17 08:00 96.7 71 17 118/72 92 04/08/17 00:00 97.6 72 18 110/62 98 04/07/17 21:41 94 Nasal Cannula 4.00 04/07/17 20:00 98.0 74 20 112/58 100 04/07/17 16:00 97.7 67 24 137/65 94 04/07/17 12:00 95.9 80 20 143/64 92 I/O 04/07/17 04/07/17 04/07/17 04/08/17 04/08/17 04/08/17 07:00 15:00 23:00 07:00 15:00 23:00 Intake Total 0 ml 800 ml 456 ml 749 ml Output Total 1000 ml 1300 ml 700 ml 900 ml Balance -1000 ml -500 ml -244 ml -151 ml Intake Oral 0 ml 0 ml 0 ml IV Total 800 ml 456 ml 749 ml Output Urine Total 1000 ml 1300 ml 700 ml 900 ml # Bowel Movements 0 1 0 Result Diagram: 04/08/17 0356 04/08/17 0356 Objective Remarks GENERAL: NAD SKIN: Warm and dry. HEAD: Normocephalic. EYES: No scleral icterus. No injection or drainage. NECK: Supple, trachea midline. No JVD or lymphadenopathy. CARDIOVASCULAR: Regular rate and rhythm without murmurs, gallops, or rubs. RESPIRATORY: Breath sounds equal bilaterally. No accessory muscle use. GASTROINTESTINAL: Abdomen soft, tender RUQ, nondistended. MUSCULOSKELETAL: No cyanosis, or edema. BACK: Nontender without obvious deformity. No CVA tenderness. A/P Problem List: (1) Small bowel obstruction ICD Code: K56.69 Status: Acute (2) UTI (urinary tract infection) ICD Code: N39.0 Status: Acute Assessment and Plan 66-year-old female with Small bowel obstruction History recent perforated ulcer Abdominal CT shows Scattered pneumoperitoneum less prominent. Multiple mildly dilated small bowel loops, possible ileus versus partial obstruction. Minimal ascites adjacent to the liver. Splenic infarcts. Scattered diverticulosis. -Cont IV antibiotics including Levaquin, Flagyl and Diflucan IV -Consult General surgery input appreciated -Continue NPO, IV fluid hydration -NGT if patient begins to vomit -Abdominal xray 04/06/17 with Pneumoperitoneum. 2. Multiple dilated small bowel loops in the left midabdomen -Flat and upright as well as upper GI study today 04/08/17 -DC Dilaudid IV and start morphine for pain management - c diff PCR pending HTN, chronic -Monitor vitals UTI Urine culture negative DVT prophylaxis: Bilateral SCDs Paul Michaud MD April 08, 2017 10:16
[2017-04-08] MEDS ORDERED: DIATRIZOATE MEGLUM/DIATRIZOATE SOD 120 ML BTL (for RAD DIAG) PO ONE (10:30)
[2017-04-08] MEDS: MORPHINE SULFATE 4 MG/ML INJ IV PUSH PRN ×2 (11:34→21:02)
--- NOTE | 2017-04-08 11:38 | HHI.PR ---
Subjective Subjective Notes DAILY PROGRESS NOTE FOR SURGICAL ATTENDING, DR. ADRI WHITNEY Feels better getting ready to go down to get an upper GI Wants to eat Passing flatus Objective Vitals/I&O Vital Signs Date Time Temp Pulse Resp B/P Pulse Ox O2 Delivery O2 Flow Rate FiO2 04/08/17 09:40 93 Nasal Cannula 4.00 04/08/17 08:00 96.7 71 17 118/72 Labs Laboratory Tests Test 04/08/17 03:56 White Blood Count 2.8 Red Blood Count 3.09 Hemoglobin 9.4 Hematocrit 27.9 Mean Corpuscular Volume 90.2 Mean Corpuscular Hemoglobin 30.4 Mean Corpuscular Hemoglobin 33.7 Concent Red Cell Distribution Width 15.4 Platelet Count 169 Mean Platelet Volume 7.1 Neutrophils (%) (Auto) 67.3 Lymphocytes (%) (Auto) 25.2 Monocytes (%) (Auto) 5.7 Eosinophils (%) (Auto) 1.5 Basophils (%) (Auto) 0.3 Neutrophils # (Auto) 1.9 Lymphocytes # (Auto) 0.7 Monocytes # (Auto) 0.2 Eosinophils # (Auto) 0.0 Basophils # (Auto) 0.0 CBC Comment DIFF FINAL Differential Comment Sodium Level 140 Potassium Level 3.2 Chloride Level 102 Carbon Dioxide Level 29.4 Anion Gap 9 Blood Urea Nitrogen 9 Creatinine 0.37 Estimat Glomerular Filtration 175 Rate Random Glucose 61 Calcium Level 7.5 Date/Time Procedure Status Source Growth 04/05/17 16:30 Aerobic Blood Culture - Preliminary Resulted Blood Peripheral NO GROWTH IN 3 DAYS 04/05/17 16:30 Anaerobic Blood Culture - Preliminary Resulted Blood Peripheral NO GROWTH IN 3 DAYS 04/05/17 13:30 Urine Culture - Final Complete Urine Random Urine NO GROWTH IN 48 HOURS. Radiology Last Impressions Upper GI Series 04/08/17 0600 Signed Impressions: Service Date/Time: Saturday, April 08, 2017 10:04 - CONCLUSION: 1. No evidence of perforation 2. Small bowel ileus 3. Reflux as above 4. Gastroparesis Stepan Albarado MD Abdomen X-Ray 04/08/17 0600 Signed Impressions: Service Date/Time: Saturday, April 08, 2017 10:04 - CONCLUSION: 1. Pneumoperitoneum. 2. Small bowel ileus 3. There has been no significant change when compared to the prior exam. Stepan Albarado MD Abdomen/Pelvis CT 04/05/17 1329 Signed Impressions: Service Date/Time: Wednesday, April 05, 2017 14:33 - CONCLUSION: 1. Scattered pneumoperitoneum less prominent. 2. Multiple mildly dilated small bowel loops, possible ileus versus partial obstruction. 3. Minimal ascites adjacent to the liver. 4. Splenic infarcts. 5. Scattered diverticulosis. Paul Barr MD Chest X-Ray 04/05/17 0000 Signed Impressions: Service Date/Time: Wednesday, April 05, 2017 13:46 - CONCLUSION: Diminished lung volumes and probable bibasilar atelectasis. Paul Barr MD Cardiovascular: Regular Lungs: Clear, Upper airway course sound Abdomen: Other (mild soreness left upper quadrant no rebound no guarding) Extremities: Perfused, SCD's on A/P Problem List: (1) Infarction of spleen (2) Abdominal pain (3) COPD exacerbation (4) Ibuprofen adverse reaction (5) Splenic infarction (6) Generalized weakness (7) Inhaled steroid-dependent asthma (8) Pneumoperitoneum (9) Pneumonia Assessment and Plan 66-year-old female who is steroid dependent COPD on oxygen appears to have pneumoperitoneum but clinically improving Upper GI today to evaluate upper GI tract shows no leak, mild ileus okay advance diet Will need to be on long-term Protonix Once she recovers requires GI evaluation Attending Statement NOTE FOR SURGICAL ATTENDING, DR. ADRI WHITNEY I attest that I had a [id number] encounter with the patient on the same day, and personally performed and documented my assessment and findings in the medical record. The following services were provided during this hospital visit: Chart data review, vital sign assessments/reviewing monitor data Review of consultations notes if present. Medication orders/review and/or management Ordering and/or reviewing lab tests Ordering and/or interpreting/reviewing x-rays and/or diagnostic studies Care of the patient and discussion of the patient with the care team Documentation time To help prompt me to consider important information that might be impacting today's encounter and assessment, information from prior notes written by myself or my colleagues may have been "brought forward/copy and pasted" into today's note. Problem Qualifiers (1) Abdominal pain: Qualified Code: R10.12 - Left upper quadrant pain (2) Ibuprofen adverse reaction: Qualified Code: T39.315S - Ibuprofen adverse reaction, Adri Billingsley MD April 08, 2017 11:38
--- NOTE | 2017-04-08 11:56 | RADRPT ---
EXAM DATE/TIME: 04/08/2017 10:04 [facility] COMPARISON: CT ABDOMEN & PELVIS W/O CONTRAST, April 05, 2017, 14:33. INDICATIONS : Abdominal pain, evaluate for free air , evaluate for leak, evaluate for obstruction FLUORO TIME: 1.7 minutes IMAGE COUNT: 20 CONTRAST: 1. MD Chua MEDICAL HISTORY : Hypertension. Chronic obstructive pulmonary disease. Gastroesophageal reflux disease. spleen infa ct, pneumoperitoneum,diverticulosis SURGICAL HISTORY : Appendectomy. ENCOUNTER: Initial ACUITY: 3 weeks PAIN SCORE: 10/10 LOCATION: Bilateral abdomen FINDINGS: Limited film demonstrates small bowel dilatation characteristic of ileus unchanged from the prior izabela dy. Examination of the swallowing function demonstrates no aspiration or penetration. There is normal aniya us formation. Examination the body esophagus demonstrates no evidence of mass or stricture. No mucosa l abnormalities are identified. There is reflux into the middle third of the esophagus but no eviden ce of hiatal hernia. The stomach is grossly unremarkable there is significant delay in emptying sujey cteristic of gastroparesis No extravasation of contrast is seen. The duodenal bulb and duodenal sweep appear normal. CONCLUSION: 1. No evidence of perforation 2. Small bowel ileus 3. Reflux as above 4. Gastroparesis Stepan Albarado MD on April 08, 2017 at 11:50 Board Certified Radiologist. This report was verified electronically.
--- NOTE | 2017-04-08 12:23 | RADRPT ---
EXAM DATE/TIME: 04/08/2017 10:04 [facility] COMPARISON: ABDOMEN FLAT & UPRIGHT, April 06, 2017, 9:37. INDICATIONS : Abdominal pain, evaluate free air MEDICAL HISTORY : Chronic obstructive pulmonary disease. Hypertension. splenic infact, pneumoperitoneum SURGICAL HISTORY : Appendectomy. , cerv fusion ENCOUNTER: Subsequent ACUITY: 3 weeks PAIN SCORE: 10/10 LOCATION: Bilateral abdomen FINDINGS: Pneumoperitoneum is present beneath both hemidiaphragms.. Examination of the abdomen demonstrates gas eous distention of the small bowel with air fluid levels most consistent with ileus .There are no fin dings of small bowel obstruction. No organomegaly is evident. CONCLUSION: 1. Pneumoperitoneum. 2. Small bowel ileus 3. There has been no significant change when compared to the prior exam. Stepan Albarado MD on April 08, 2017 at 12:20 Board Certified Radiologist. This report was verified electronically.
[2017-04-08] MEDS: LEVOFLOXACIN 750 MG PREMIX INJ 150 ML IV SCH (19:53)
[2017-04-08] MEDS: FLUCONAZOLE 400 MG PREMIX BAG 200 ML IV SCH (21:00)
[2017-04-09] MEDS: SODIUM CHLOR 0.9% 1000 ML INJ 1,000 ML IV SCH ×2 (02:27→12:15)
[2017-04-09] MEDS: PANTOPRAZOLE SODIUM 40 MG VIAL IV PUSH SCH ×2 (02:57→14:51)
[2017-04-09] MEDS: MORPHINE SULFATE 4 MG/ML INJ IV PUSH PRN ×3 (02:57→20:36)
[2017-04-09] MEDS: metroNIDAZOLE 500 MG INJ 100 ML IV SCH ×2 (05:48→14:51)
[2017-04-09 08:00] VITALS: BP 141/67; PULSE 71; RESP 16; TEMP 97.8; O2SAT 92
[2017-04-09] MEDS: SODIUM CHLORIDE 0.9% FLUSH 10 ML FLUSH IV FLUSH SCH ×2 (09:00→19:49)
[2017-04-09] MEDS: amLODIPine BESYLATE 5 MG TAB PO SCH (09:43)
[2017-04-09] MEDS: SERTRALINE HCL 100 MG TAB PO SCH (09:43)
[2017-04-09] MEDS: GABAPENTIN 300 MG CAP PO SCH ×3 (09:43→18:16)
[2017-04-09] MEDS: predniSONE 5 MG TAB PO SCH (09:43)
[2017-04-09] MEDS: ENOXAPARIN SODIUM 60 MG/0.6 ML SYRINGE SQ SCH ×2 (09:44→19:49)
[2017-04-09] MEDS: TIOTROPIUM BROMIDE 18 MCG INH INH SCH (09:44)
--- NOTE | 2017-04-09 10:41 | HHI.PR ---
Subjective Remarks Follow-up Small bowel obstruction\ 04/06/17-patient seen and examined, denies any significant rib cage pain. No nausea or vomiting. Currently nothing by mouth 04/07/17-patient seen and examined, he complains of left upper quadrant pain otherwise afebrile and no other issues 04/08/17-patient seen and examined, some improvement of abdominal pain, no nausea and vomiting. Afebrile 04/09/17-patient seen and examined, only complains of left lower quadrant pain. Reports some improvement of epigastric pain Objective Vitals Vital Signs Date Time Temp Pulse Resp B/P Pulse Ox O2 Delivery O2 Flow Rate FiO2 04/09/17 08:00 97.8 71 16 141/67 92 04/08/17 23:59 97.4 78 18 126/63 92 04/08/17 20:00 96.6 80 18 124/59 92 04/08/17 16:00 96.5 98 16 89/43 92 04/08/17 12:00 96.2 75 16 102/50 92 I/O 04/08/17 04/08/17 04/08/17 04/09/17 04/09/17 04/09/17 07:00 15:00 23:00 07:00 15:00 23:00 Intake Total 749 ml 880 ml 910 ml 769 ml Output Total 900 ml 600 ml 200 ml Balance -151 ml 280 ml 710 ml 769 ml Intake Oral 0 ml 140 ml 240 ml IV Total 749 ml 740 ml 670 ml 769 ml Output Urine Total 900 ml 600 ml 200 ml # Bowel Movements 0 1 3 2 Result Diagram: 04/08/17 0356 04/08/17 0356 Objective Remarks GENERAL: NAD SKIN: Warm and dry. HEAD: Normocephalic. EYES: No scleral icterus. No injection or drainage. NECK: Supple, trachea midline. No JVD or lymphadenopathy. CARDIOVASCULAR: Regular rate and rhythm without murmurs, gallops, or rubs. RESPIRATORY: Breath sounds equal bilaterally. No accessory muscle use. GASTROINTESTINAL: Abdomen soft, tender RUQ, nondistended. MUSCULOSKELETAL: No cyanosis, or edema. BACK: Nontender without obvious deformity. No CVA tenderness. Procedures None A/P Problem List: (1) Small bowel obstruction ICD Code: K56.69 Status: Acute (2) UTI (urinary tract infection) ICD Code: N39.0 Status: Acute Assessment and Plan 66-year-old female with Small bowel obstruction History recent perforated ulcer Abdominal CT shows Scattered pneumoperitoneum less prominent. Multiple mildly dilated small bowel loops, possible ileus versus partial obstruction. Minimal ascites adjacent to the liver. Splenic infarcts. Scattered diverticulosis. -Cont IV antibiotics including Levaquin, Flagyl and Diflucan IV -Consult General surgery input appreciated -Continue clear liquid, IV fluid hydration -NGT if patient begins to vomit -Abdominal xray 04/06/17 with Pneumoperitoneum. 2. Multiple dilated small bowel loops in the left midabdomen -Flat and upright as well as upper GI study 04/08/17 with only evidence of small bowel ileus -DC Dilaudid IV and start morphine for pain management - c diff PCR pending HTN, chronic -Monitor vitals UTI Urine culture negative DVT prophylaxis: Bilateral SCDs Paul Michaud MD April 09, 2017 10:41
[2017-04-09 12:00] VITALS: BP 144/66; PULSE 77; RESP 18; TEMP 96.6; O2SAT 91
--- NOTE | 2017-04-09 14:50 | HHI.PR ---
Subjective Subjective Notes DAILY PROGRESS NOTE FOR SURGICAL ATTENDING, DR. EVER GARCIA Slept well Tolerating clears Asking for crackers Objective Vitals/I&O Vital Signs Date Time Temp Pulse Resp B/P Pulse Ox O2 Delivery O2 Flow Rate FiO2 04/09/17 12:00 96.6 77 18 144/66 91 04/08/17 09:40 Nasal Cannula 4.00 Labs Date/Time Procedure Status Source Growth 04/05/17 16:30 Aerobic Blood Culture - Preliminary Resulted Blood Peripheral NO GROWTH IN 4 DAYS 04/05/17 16:30 Anaerobic Blood Culture - Preliminary Resulted Blood Peripheral NO GROWTH IN 4 DAYS 04/05/17 13:30 Urine Culture - Final Complete Urine Random Urine NO GROWTH IN 48 HOURS. Radiology Last Impressions Upper GI Series 04/08/17 0600 Signed Impressions: Service Date/Time: Saturday, April 08, 2017 10:04 - CONCLUSION: 1. No evidence of perforation 2. Small bowel ileus 3. Reflux as above 4. Gastroparesis Stepan Albarado MD Abdomen X-Ray 04/08/17 0600 Signed Impressions: Service Date/Time: Saturday, April 08, 2017 10:04 - CONCLUSION: 1. Pneumoperitoneum. 2. Small bowel ileus 3. There has been no significant change when compared to the prior exam. Stepan Albarado MD Abdomen/Pelvis CT 04/05/17 1329 Signed Impressions: Service Date/Time: Wednesday, April 05, 2017 14:33 - CONCLUSION: 1. Scattered pneumoperitoneum less prominent. 2. Multiple mildly dilated small bowel loops, possible ileus versus partial obstruction. 3. Minimal ascites adjacent to the liver. 4. Splenic infarcts. 5. Scattered diverticulosis. Paul Barr MD Chest X-Ray 04/05/17 0000 Signed Impressions: Service Date/Time: Wednesday, April 05, 2017 13:46 - CONCLUSION: Diminished lung volumes and probable bibasilar atelectasis. Paul Barr MD Cardiovascular: Regular Lungs: Clear Abdomen: Other (LUQ pain with palpation otherwise no tenderness ) Extremities: No edema, SCD's on (the mass appears to be mostly left upper quadrant I suspect from her infarcted spleen) A/P Problem List: (1) Infarction of spleen (2) Pneumoperitoneum (3) Perforated ulcer (4) Abdominal pain (5) COPD exacerbation (6) Ibuprofen adverse reaction (7) Splenic infarction (8) Generalized weakness (9) Inhaled steroid-dependent asthma (10) Pneumonia Assessment and Plan 66 year old female with free air on CT suspicious for perforated ulcer; back with UTI and abdominal pain -Tolerating clears; okay for crackers -Protonix IV BID -Upper GI shows no leak -OOB and mobilize---PT + OT -Repeat labs in the AM -Pulmonary status continues to remain stable Attending Statement NOTE FOR SURGICAL ATTENDING, DR. EVER GARCIA I agree with above assessment and plan. The exam, history, and the medical decision-making described in the above note were completed with the assistance of the mid-level provider. I reviewed and agree with the findings presented. I attest that I had a [id number] encounter with the patient on the same day, and personally performed and documented my assessment and findings in the medical record. Patient feels a lot better Still having left upper quadrant pain suspect from her infarcted spleen Has had numerous bowel movements after upper GI which showed no extravasation Advance diet and activities anticipate returning to rehabilitation soon Change meds to by mouth The following services were provided during this hospital visit: Chart data review, vital sign assessments/reviewing monitor data Review of consultations notes if present. Medication orders/review and/or management Ordering and/or reviewing lab tests Ordering and/or interpreting/reviewing x-rays and/or diagnostic studies Care of the patient and discussion of the patient with the care team Documentation time To help prompt me to consider important information that might be impacting today's encounter and assessment, information from prior notes written by myself or my colleagues may have been "brought forward/copy and pasted" into today's note. Problem Qualifiers (1) Abdominal pain: Qualified Code: R10.12 - Left upper quadrant pain (2) Ibuprofen adverse reaction: Qualified Code: T39.315S - Ibuprofen adverse reaction, Rose Sarah April 09, 2017 14:50 Ever Garcia MD April 09, 2017 15:11
[2017-04-09 16:00] VITALS: BP 125/58; PULSE 78; RESP 16; TEMP 96.9; O2SAT 93
[2017-04-09] MEDS: PANTOPRAZOLE SOD 40 MG DELAYED RELEASE TAB PO SCH (19:49)
[2017-04-09 20:00] VITALS: BP 111/64; PULSE 72; RESP 18; TEMP 98; O2SAT 98
[2017-04-09 23:49] VITALS: BP 112/69; PULSE 73; RESP 18; TEMP 99; O2SAT 93
[2017-04-10] MEDS: SODIUM CHLOR 0.9% 1000 ML INJ 1,000 ML IV SCH ×2 (00:02→08:57)
[2017-04-10] MEDS: MORPHINE SULFATE 4 MG/ML INJ IV PUSH PRN ×2 (03:51→16:13)
[2017-04-10] MEDS: LORazepam 0.5 MG TAB PO PRN ×2 (03:53→16:13)
[2017-04-10 06:55] LABS: HEMATOCRIT 27.2 % (35.0-46.0); MEAN CELL VOLUME 93.4 FL (80.0-100.0); MEAN CORPUSCULAR HEMOGLOBIN 31.7 PG (27.0-34.0); MEAN CORPUSCULAR HGB CONC 33.9 % (32.0-36.0); RED BLOOD COUNT 2.91 MIL/MM3 (4.00-5.30); RED CELL DISTRIBUTION WIDTH 15.6 % (11.6-17.2); WHITE BLOOD COUNT 2.9 TH/MM3 (4.0-11.0)
[2017-04-10 07:06] LABS: HEMO FLAGS AUTO DIFF
[2017-04-10 07:14] LABS: BICARBONATE 26.7 MEQ/L (21.0-32.0)
[2017-04-10 07:19] LABS: POTASSIUM 2.8 MEQ/L (3.5-5.1)
[2017-04-10 08:00] VITALS: BP 131/61; PULSE 80; RESP 16; TEMP 97.5; O2SAT 92
[2017-04-10] MEDS ORDERED: POTASSIUM CHLORIDE 10 MEQ CONTROLLED RELEASE TAB PO ONE (08:15)
[2017-04-10] MEDS: FLUCONAZOLE 200 MG TAB PO SCH (08:56)
[2017-04-10] MEDS: SERTRALINE HCL 100 MG TAB PO SCH (08:56)
[2017-04-10] MEDS: amLODIPine BESYLATE 5 MG TAB PO SCH (08:56)
[2017-04-10] MEDS: PANTOPRAZOLE SOD 40 MG DELAYED RELEASE TAB PO SCH ×2 (08:56→19:40)
[2017-04-10] MEDS: TIOTROPIUM BROMIDE 18 MCG INH INH SCH (08:56)
[2017-04-10] MEDS: SERTRALINE HCL 50 MG TAB PO SCH (08:56)
[2017-04-10] MEDS: GABAPENTIN 300 MG CAP PO SCH ×3 (08:56→18:19)
[2017-04-10] MEDS: SODIUM CHLORIDE 0.9% FLUSH 10 ML FLUSH IV FLUSH SCH ×2 (08:57→19:40)
[2017-04-10] MEDS: ENOXAPARIN SODIUM 60 MG/0.6 ML SYRINGE SQ SCH ×2 (08:57→19:40)
[2017-04-10] MEDS: predniSONE 5 MG TAB PO SCH (08:57)
[2017-04-10] MEDS: LEVOFLOXACIN 750 MG TAB PO SCH (08:57)
[2017-04-10 12:00] VITALS: BP 128/64; PULSE 76; RESP 18; TEMP 97.9; O2SAT 93
[2017-04-10 12:02] LABS: PLATELET COUNT 171 TH/MM3 (150-450)
--- NOTE | 2017-04-10 12:51 | HHI.PR ---
Subjective Remarks Follow-up Small bowel obstruction\ 04/06/17-patient seen and examined, denies any significant rib cage pain. No nausea or vomiting. Currently nothing by mouth 04/07/17-patient seen and examined, he complains of left upper quadrant pain otherwise afebrile and no other issues 04/08/17-patient seen and examined, some improvement of abdominal pain, no nausea and vomiting. Afebrile 04/09/17-patient seen and examined, only complains of left lower quadrant pain. Reports some improvement of epigastric pain 04/10/17-patient seen and examined, denies any abdominal pain. Tolerating PO well. Afebrile Objective Vitals Vital Signs Date Time Temp Pulse Resp B/P Pulse Ox O2 Delivery O2 Flow Rate FiO2 04/10/17 12:00 97.9 76 18 128/64 93 04/10/17 08:00 97.5 80 16 131/61 92 04/09/17 23:49 99.0 73 18 112/69 93 04/09/17 20:00 98.0 72 18 111/64 98 04/09/17 16:00 96.9 78 16 125/58 93 I/O 04/09/17 04/09/17 04/09/17 04/10/17 04/10/17 04/10/17 07:00 15:00 23:00 07:00 15:00 23:00 Intake Total 769 ml 2306 ml 480 ml 1110 ml Output Total 1500 ml 700 ml 500 ml Balance 769 ml 806 ml -220 ml 610 ml Intake Oral 1400 ml 480 ml 360 ml IV Total 769 ml 906 ml 750 ml Output Urine Total 1500 ml 700 ml 500 ml # Bowel Movements 2 1 1 Result Diagram: 04/10/17 1123 04/10/17 0542 Objective Remarks GENERAL: NAD SKIN: Warm and dry. HEAD: Normocephalic. EYES: No scleral icterus. No injection or drainage. NECK: Supple, trachea midline. No JVD or lymphadenopathy. CARDIOVASCULAR: Regular rate and rhythm without murmurs, gallops, or rubs. RESPIRATORY: Breath sounds equal bilaterally. No accessory muscle use. GASTROINTESTINAL: Abdomen soft, tender , nondistended. MUSCULOSKELETAL: No cyanosis, or edema. BACK: Nontender without obvious deformity. No CVA tenderness. Procedures None A/P Problem List: (1) Small bowel obstruction ICD Code: K56.69 Status: Acute (2) UTI (urinary tract infection) ICD Code: N39.0 Status: Acute Assessment and Plan 66-year-old female with Small bowel obstruction History recent perforated ulcer Abdominal CT shows Scattered pneumoperitoneum less prominent. Multiple mildly dilated small bowel loops, possible ileus versus partial obstruction. Minimal ascites adjacent to the liver. Splenic infarcts. Scattered diverticulosis. -Cont PO antibiotics including Levaquin, and Diflucan IV -Consult General surgery input appreciated -Continue Healthy diet and d/c fluid hydration -Abdominal xray 04/06/17 with Pneumoperitoneum. 2. Multiple dilated small bowel loops in the left midabdomen -Flat and upright as well as upper GI study 04/08/17 with only evidence of small bowel ileus -On morphine for pain management HTN, chronic -Monitor vitals UTI Urine culture negative Hypokalemia -Replace electrolytes and monitor DVT prophylaxis: Bilateral SCDs Discharge Planning d/c 04/11/17 Paul Michaud MD April 10, 2017 12:51
[2017-04-10 13:15] LABS: BANDS 7 % (0-6); CORRECTED NUCLEATED RBC 1 /100 WBC (0-0); EOSINOPHILS 3 % (0-4); MYELOCYTES 1 % (0-0); NEUTROPHIL # MANUAL DIFF 1.5 TH/MM3 (1.8-7.7); POLYS (SEG NEUTROPHILS) 42 % (16-70); WBC DIFF SAMPLE 100
[2017-04-10 13:17] LABS: PLATELET ESTIMATE SMEAR NORMAL (NORMAL)
[2017-04-10 13:20] LABS: SCAN/DIFF FINAL DIFF MANUAL
[2017-04-10 16:00] VITALS: BP 117/59; PULSE 86; RESP 20; TEMP 97.3; O2SAT 95
--- NOTE | 2017-04-10 16:04 | HHI.PR ---
Subjective Subjective Notes DAILY PROGRESS NOTE FOR SURGICAL ATTENDING, DR. EVER GARCIA Resting in bed Tolerated regular diet Worried about urinary retention Objective Vitals/I&O Vital Signs Date Time Temp Pulse Resp B/P Pulse Ox O2 Delivery O2 Flow Rate FiO2 04/10/17 12:00 97.9 76 18 128/64 93 04/08/17 09:40 Nasal Cannula 4.00 Labs Laboratory Tests Test 04/10/17 04/10/17 05:42 11:23 Sodium Level 142 Potassium Level 2.8 Chloride Level 107 Carbon Dioxide Level 26.7 Anion Gap 8 Blood Urea Nitrogen 4 Creatinine 0.57 Estimat Glomerular Filtration 106 Rate Random Glucose 126 Calcium Level 7.6 White Blood Count 2.9 Red Blood Count 2.91 Hemoglobin 9.2 Hematocrit 27.2 Mean Corpuscular Volume 93.4 Mean Corpuscular Hemoglobin 31.7 Mean Corpuscular Hemoglobin 33.9 Concent Red Cell Distribution Width 15.6 Platelet Count 171 Mean Platelet Volume 7.9 Neutrophils (%) (Auto) Lymphocytes (%) (Auto) Monocytes (%) (Auto) Eosinophils (%) (Auto) Basophils (%) (Auto) Neutrophils # (Auto) Lymphocytes # (Auto) Monocytes # (Auto) Eosinophils # (Auto) Basophils # (Auto) CBC Comment AUTO DIFF Differential Total Cells 100 Counted Neutrophils % (Manual) 42 Band Neutrophils % 7 Lymphocytes % 32 Monocytes % 15 Eosinophils % 3 Neutrophils # (Manual) 1.5 Myelocytes 1 Nucleated Red Blood Cells 1 Differential Comment FINAL DIFF MANUAL Platelet Estimate NORMAL Polychromasia 2.0 Date/Time Procedure Status Source Growth 04/05/17 16:30 Aerobic Blood Culture - Final Complete Blood Peripheral NO GROWTH IN 5 DAYS 04/05/17 16:30 Anaerobic Blood Culture - Final Complete Blood Peripheral NO GROWTH IN 5 DAYS Radiology Last Impressions Upper GI Series 04/08/17 0600 Signed Impressions: Service Date/Time: Saturday, April 08, 2017 10:04 - CONCLUSION: 1. No evidence of perforation 2. Small bowel ileus 3. Reflux as above 4. Gastroparesis Stepan Albarado MD Abdomen X-Ray 04/08/17 0600 Signed Impressions: Service Date/Time: Saturday, April 08, 2017 10:04 - CONCLUSION: 1. Pneumoperitoneum. 2. Small bowel ileus 3. There has been no significant change when compared to the prior exam. Stepan Albarado MD Abdomen/Pelvis CT 04/05/17 1329 Signed Impressions: Service Date/Time: Wednesday, April 05, 2017 14:33 - CONCLUSION: 1. Scattered pneumoperitoneum less prominent. 2. Multiple mildly dilated small bowel loops, possible ileus versus partial obstruction. 3. Minimal ascites adjacent to the liver. 4. Splenic infarcts. 5. Scattered diverticulosis. Paul Barr MD Chest X-Ray 04/05/17 0000 Signed Impressions: Service Date/Time: Wednesday, April 05, 2017 13:46 - CONCLUSION: Diminished lung volumes and probable bibasilar atelectasis. Paul Barr MD Cardiovascular: Regular Lungs: Clear Abdomen: Other (abdomen soft; mildly tender with palpation in LUQ ) Extremities: No edema Narrative Exam Dimas removed A/P Problem List: (1) Infarction of spleen (2) Pneumoperitoneum (3) Perforated ulcer (4) Abdominal pain (5) COPD exacerbation (6) Ibuprofen adverse reaction (7) Splenic infarction (8) Generalized weakness (9) Inhaled steroid-dependent asthma (10) Pneumonia Assessment and Plan 66 year old female with free air on CT suspicious for perforated ulcer; back with UTI and abdominal pain -Tolerating soft diet -Transitioned to PO antibiotics and Protonix -Upper GI shows no leak -OOB and mobilize---PT + OT -Pulmonary status continues to remain stable -Plan for return to rehab soon Attending Statement NOTE FOR SURGICAL ATTENDING, DR. EVER GARCIA I agree with above assessment and plan. The exam, history, and the medical decision-making described in the above note were completed with the assistance of the mid-level provider. I reviewed and agree with the findings presented. Minimal discomfort Tolerating regular diet Having bowel movements Worried about urinary retention Change meds to by mouth Change pain medication to by mouth Anticipate discharge to rehabilitation the next 24-48 hours I attest that I had a [id number] encounter with the patient on the same day, and personally performed and documented my assessment and findings in the medical record. The following services were provided during this hospital visit: Chart data review, vital sign assessments/reviewing monitor data Review of consultations notes if present. Medication orders/review and/or management Ordering and/or reviewing lab tests Ordering and/or interpreting/reviewing x-rays and/or diagnostic studies Care of the patient and discussion of the patient with the care team Documentation time To help prompt me to consider important information that might be impacting today's encounter and assessment, information from prior notes written by myself or my colleagues may have been "brought forward/copy and pasted" into today's note. Problem Qualifiers (1) Abdominal pain: Qualified Code: R10.12 - Left upper quadrant pain (2) Ibuprofen adverse reaction: Qualified Code: T39.315S - Ibuprofen adverse reaction, sequela Rose Gray April 10, 2017 16:04 Ever Garcia MD April 11, 2017 09:25
[2017-04-10] MEDS ORDERED: ACETAMINOPHEN/HYDROcodone 325 MG/5 MG TAB PO PRN (17:00)
[2017-04-10] MEDS ORDERED: oxyCODONE/ACETAMINOPHEN 5 MG/325 MG TAB PO PRN (17:15)
[2017-04-10] MEDS ORDERED: diphenhydrAMINE HCL 25 MG CAP PO PRN (18:45)
[2017-04-10] MEDS ORDERED: ACETAMINOPHEN 325 MG TAB PO PRN (19:00)
[2017-04-10] MEDS ORDERED: PILL SPLITTER OTHER PRN (19:30)
[2017-04-10 20:00] VITALS: BP 137/72; PULSE 74; RESP 18; TEMP 98.1; O2SAT 94
[2017-04-10 23:48] VITALS: BP 105/58; PULSE 78; RESP 18; TEMP 98.5; O2SAT 93
[2017-04-11] MEDS: traMADol HCL 50 MG TAB PO PRN ×2 (03:05→14:05)
[2017-04-11] MEDS: LORazepam 0.5 MG TAB PO PRN (03:12)
[2017-04-11 06:28] LABS: BICARBONATE 27.9 MEQ/L (21.0-32.0)
[2017-04-11 08:00] VITALS: BP 126/60; PULSE 74; RESP 16; TEMP 97; O2SAT 92
[2017-04-11] MEDS: GABAPENTIN 300 MG CAP PO SCH ×2 (08:26→12:08)
[2017-04-11] MEDS: LEVOFLOXACIN 750 MG TAB PO SCH (08:26)
[2017-04-11] MEDS: SERTRALINE HCL 50 MG TAB PO SCH (08:26)
[2017-04-11] MEDS: predniSONE 5 MG TAB PO SCH (08:26)
[2017-04-11] MEDS: SERTRALINE HCL 100 MG TAB PO SCH (08:26)
[2017-04-11] MEDS: amLODIPine BESYLATE 5 MG TAB PO SCH (08:27)
[2017-04-11] MEDS: FLUCONAZOLE 200 MG TAB PO SCH (08:27)
[2017-04-11] MEDS: PANTOPRAZOLE SOD 40 MG DELAYED RELEASE TAB PO SCH (08:27)
[2017-04-11] MEDS: SODIUM CHLORIDE 0.9% FLUSH 10 ML FLUSH IV FLUSH SCH (08:27)
[2017-04-11] MEDS: TIOTROPIUM BROMIDE 18 MCG INH INH SCH (08:27)
[2017-04-11] MEDS: ENOXAPARIN SODIUM 60 MG/0.6 ML SYRINGE SQ SCH (08:27)
--- NOTE | 2017-04-11 11:42 | HHI.PR ---
Subjective Subjective Notes PROGRESS NOTE FOR SURGICAL ATTENDING, DR. EVER GARCIA Resting in bed Dimas re-inserted for urinary retention Reports she feels the best she has felt in weeks Objective Vitals/I&O Vital Signs Date Time Temp Pulse Resp B/P Pulse Ox O2 Delivery O2 Flow Rate FiO2 04/11/17 08:00 97.0 74 16 126/60 92 04/08/17 09:40 Nasal Cannula 4.00 Labs Laboratory Tests Test 04/11/17 05:11 Sodium Level 144 Potassium Level 3.0 Chloride Level 107 Carbon Dioxide Level 27.9 Anion Gap 9 Blood Urea Nitrogen 6 Creatinine 0.56 Estimat Glomerular Filtration 108 Rate Random Glucose 128 Calcium Level 7.9 Radiology Last Impressions Upper GI Series 04/08/17 06 Signed Impressions: Service Date/Time: Saturday, April 08, 2017 10:04 - CONCLUSION: 1. No evidence of perforation 2. Small bowel ileus 3. Reflux as above 4. Gastroparesis Stepan Albarado MD Abdomen X-Ray 04/08/17 0600 Signed Impressions: Service Date/Time: Saturday, April 08, 2017 10:04 - CONCLUSION: 1. Pneumoperitoneum. 2. Small bowel ileus 3. There has been no significant change when compared to the prior exam. Stepan Albarado MD Abdomen/Pelvis CT 04/05/17 1329 Signed Impressions: Service Date/Time: Wednesday, April 05, 2017 14:33 - CONCLUSION: 1. Scattered pneumoperitoneum less prominent. 2. Multiple mildly dilated small bowel loops, possible ileus versus partial obstruction. 3. Minimal ascites adjacent to the liver. 4. Splenic infarcts. 5. Scattered diverticulosis. Paul Barr MD Chest X-Ray 04/05/17 0000 Signed Impressions: Service Date/Time: Wednesday, April 05, 2017 13:46 - CONCLUSION: Diminished lung volumes and probable bibasilar atelectasis. Paul Barr MD Cardiovascular: Regular Lungs: Clear Abdomen: Other (obese abdomen; minimal tenderness with palpation ) Extremities: No edema Narrative Exam Dimas inserted draining clear yellow urine A/P Problem List: (1) Infarction of spleen (2) Pneumoperitoneum (3) Perforated ulcer (4) Abdominal pain (5) COPD exacerbation (6) Ibuprofen adverse reaction (7) Splenic infarction (8) Generalized weakness (9) Inhaled steroid-dependent asthma (10) Pneumonia Assessment and Plan 66 year old female with free air on CT suspicious for perforated ulcer; back with UTI and abdominal pain -Tolerating soft diet -PO antibiotics and Protonix -Upper GI shows no leak -OOB and mobilize---PT + OT -Pulmonary status continues to remain stable -Plan for return to rehab today -Discussed with Dr. Chowdhury Attending Statement PROGRESS NOTE FOR SURGICAL ATTENDING, DR. EVER GARCIA I agree with above assessment and plan. The exam, history, and the medical decision-making described in the above note were completed with the assistance of the mid-level provider. I reviewed and agree with the findings presented. pt feeling much better marysol regular diet had some urinary retention rehab when ready Minimal discomfort Tolerating regular diet Having bowel movements Worried about urinary retention Change meds to by mouth Change pain medication to by mouth Anticipate discharge to rehabilitation the next 24-48 hours I attest that I had a [id number] encounter with the patient on the same day, and personally performed and documented my assessment and findings in the medical record. Problem Qualifiers (1) Abdominal pain: Qualified Code: R10.12 - Left upper quadrant pain (2) Ibuprofen adverse reaction: Qualified Code: T39.315S - Ibuprofen adverse reaction, Rose Sarah April 11, 2017 11:42 Ever Garcia MD April 14, 2017 09:55
[2017-04-11 12:00] VITALS: BP 130/63; PULSE 92; RESP 19; TEMP 96.6; O2SAT 92
[2017-04-11] MEDS ORDERED: FLUC200T2 PO (12:06)
[2017-04-11] MEDS ORDERED: LEVA750T PO (12:06)
[2017-04-11] MEDS ORDERED: PANT40TA3 PO (12:06)
[2017-04-11] MEDS ORDERED: ULTR50TA5 PO (12:06)
[2017-04-11] MEDS ORDERED: LORA-392 PO (12:06)
[2017-04-11] MEDS ORDERED: PRED5TAB PO (12:06)
--- NOTE | 2017-04-11 12:10 | HHI.PR ---
Subjective Remarks Follow-up Small bowel obstruction\ 04/06/17-patient seen and examined, denies any significant rib cage pain. No nausea or vomiting. Currently nothing by mouth 04/07/17-patient seen and examined, he complains of left upper quadrant pain otherwise afebrile and no other issues 04/08/17-patient seen and examined, some improvement of abdominal pain, no nausea and vomiting. Afebrile 04/09/17-patient seen and examined, only complains of left lower quadrant pain. Reports some improvement of epigastric pain 04/10/17-patient seen and examined, denies any abdominal pain. Tolerating PO well. Afebrile 04/11/17-patient seen and examined, tolerated by mouth well. Only complaint of left lower quadrant abdominal pain due to history of splenic infarct otherwise abdomen exam is benign. Objective Vitals Vital Signs Date Time Temp Pulse Resp B/P Pulse Ox O2 Delivery O2 Flow Rate FiO2 04/11/17 08:00 97.0 74 16 126/60 92 04/10/17 23:48 98.5 78 18 105/58 93 04/10/17 20:00 98.1 74 18 137/72 94 04/10/17 16:00 97.3 86 20 117/59 95 I/O 04/10/17 04/10/17 04/10/17 04/11/17 04/11/17 04/11/17 07:00 15:00 23:00 07:00 15:00 23:00 Intake Total 1110 ml 1200 ml 480 ml 280 ml Output Total 500 ml 450 ml 880 ml 400 ml Balance 610 ml 750 ml -400 ml -120 ml Intake Oral 360 ml 1200 ml 480 ml 280 ml IV Total 750 ml 0 ml Output Urine Total 500 ml 450 ml 880 ml 400 ml Bladder Scan Volume Amount 580 ml 226 ml 628 ml 226 ml 628 ml # Voids 1 # Bowel Movements 1 2 Result Diagram: 04/10/17 1123 04/11/17 0511 Imaging Last Impressions Upper GI Series 04/08/17599 Signed Impressions: Service Date/Time: Saturday, April 08, 2017 10:04 - CONCLUSION: 1. No evidence of perforation 2. Small bowel ileus 3. Reflux as above 4. Gastroparesis Stepan Albarado MD Abdomen X-Ray 5/16/17 0600 Signed Impressions: Service Date/Time: Saturday, April 08, 2017 10:04 - CONCLUSION: 1. Pneumoperitoneum. 2. Small bowel ileus 3. There has been no significant change when compared to the prior exam. Stepan Albarado MD Abdomen/Pelvis CT 04/05/17 1329 Signed Impressions: Service Date/Time: Wednesday, April 05, 2017 14:33 - CONCLUSION: 1. Scattered pneumoperitoneum less prominent. 2. Multiple mildly dilated small bowel loops, possible ileus versus partial obstruction. 3. Minimal ascites adjacent to the liver. 4. Splenic infarcts. 5. Scattered diverticulosis. Paul Barr MD Chest X-Ray 04/05/17 0000 Signed Impressions: Service Date/Time: Wednesday, April 05, 2017 13:46 - CONCLUSION: Diminished lung volumes and probable bibasilar atelectasis. Paul Barr MD Objective Remarks GENERAL: NAD SKIN: Warm and dry. HEAD: Normocephalic. EYES: No scleral icterus. No injection or drainage. NECK: Supple, trachea midline. No JVD or lymphadenopathy. CARDIOVASCULAR: Regular rate and rhythm without murmurs, gallops, or rubs. RESPIRATORY: Breath sounds equal bilaterally. No accessory muscle use. GASTROINTESTINAL: Abdomen soft, tender , nondistended. MUSCULOSKELETAL: No cyanosis, or edema. BACK: Nontender without obvious deformity. No CVA tenderness. Procedures None A/P Problem List: (1) Small bowel obstruction ICD Code: K56.69 Status: Acute (2) UTI (urinary tract infection) ICD Code: N39.0 Status: Acute Assessment and Plan 66-year-old female with Small bowel obstruction History recent perforated ulcer Abdominal CT shows Scattered pneumoperitoneum less prominent. Multiple mildly dilated small bowel loops, possible ileus versus partial obstruction. Minimal ascites adjacent to the liver. Splenic infarcts. Scattered diverticulosis. -Cont PO antibiotics including Levaquin, and Diflucan -Consult General surgery input appreciated -Continue Healthy diet and d/c fluid hydration -Abdominal xray 04/06/17 with Pneumoperitoneum. 2. Multiple dilated small bowel loops in the left midabdomen -Flat and upright as well as upper GI study 04/08/17 with only evidence of small bowel ileus but no perforation. -On morphine for pain management HTN, chronic -Monitor vitals UTI Urine culture negative Hypokalemia -Replace electrolytes and monitor DVT prophylaxis: Bilateral SCDs Paul Michaud MD April 11, 2017 12:10
--- NOTE | 2017-04-11 12:12 | HHI.DS ---
Discharge Summary Admission Date April 05, 2017 at 16:15 Discharge Date: April 11, 2017 Admitting Diagnosis SBO, UTI (1) Small bowel obstruction ICD Code: K56.69 (2) UTI (urinary tract infection) ICD Code: N39.0 Procedures None Brief History - From Admission 66 y/o female with a history of COPD, lymphoma, HTN, anxiety and chronic pain presented to the ED with complaints of abdominal pain for 3 days. She states the pain has progressively gotten worse over the last 3 days, complains its throbbing intermittent upper abdomen that radiates across her bra line with associated nausea and vomiting. She states she vomited lots of brown fluid today prior to coming in. She states she has not had a formed BM, only liquid diarrhea since leaving hospital. Denies any chest pain, sob, fever or chills. Patient was just discharged 01/30/17 after being admitted since March 17 for a sepsis, bowel perforation and respiratory failure. She was medically managed without any procedures and discharged to a SNF. CBC/BMP: 04/10/17 1123 04/11/17 0511 Significant Findings Laboratory Tests Test 04/10/17 04/10/17 04/11/17 05:42 11:23 05:11 Potassium Level 2.8 MEQ/L 3.0 MEQ/L (3.5-5.1) (3.5-5.1) Blood Urea Nitrogen 4 MG/DL (7-18) 6 MG/DL (7-18) Random Glucose 126 MG/DL 128 MG/DL (74-106) (74-106) Calcium Level 7.6 MG/DL 7.9 MG/DL (8.5-10.1) (8.5-10.1) White Blood Count 2.9 TH/MM3 (4.0-11.0) Red Blood Count 2.91 MIL/MM3 (4.00-5.30) Hemoglobin 9.2 GM/DL (11.6-15.3) Hematocrit 27.2 % (35.0-46.0) Band Neutrophils % 7 % (0-6) Monocytes % 15 % (0-8) Neutrophils # (Manual) 1.5 TH/MM3 (1.8-7.7) Myelocytes 1 % (0-0) Nucleated Red Blood Cells 1 /100 WBC (0-0) Polychromasia 2.0 % (0.0-1.9) PE at Discharge GENERAL: NAD SKIN: Warm and dry. HEAD: Normocephalic. EYES: No scleral icterus. No injection or drainage. NECK: Supple, trachea midline. No JVD or lymphadenopathy. CARDIOVASCULAR: Regular rate and rhythm without murmurs, gallops, or rubs. RESPIRATORY: Breath sounds equal bilaterally. No accessory muscle use. GASTROINTESTINAL: Abdomen soft, tender , nondistended. MUSCULOSKELETAL: No cyanosis, or edema. BACK: Nontender without obvious deformity. No CVA tenderness. Hospital Course Patient admitted secondary to small bowel obstruction for which neurosurgery was consulted. She was started on IV antibiotics with monitoring of KUBs. Upper GI was performed and ruled out perforated viscus. Her diet was subsequently advanced. Pain management was provided accordingly. All electrolyte abnormalities were corrected including hypokalemia. DVT and GI prophylaxis were provided. Prior to discharge, patient's condition improved and vital remained stable. She will be discharged on Levaquin and Diflucan by mouth 7 more days. She will continue on Protonix 40 mg twice a day. Pt Condition on Discharge: Stable Discharge Disposition: Discharge to SNF Discharge Time: > 30 minutes Discharge Instructions DIET: Follow Instructions for: Heart Healthy Diet Activities you can perform: Regular-No Restrictions Follow up Referrals: PCP Follow-up - 2-3 Days SNF/[facility]/ with [facility] New Medications: Fluconazole (Fluconazole) 200 Mg Tab 200 MG PO DAILY Infection #7 TAB Levofloxacin (Levaquin) 750 Mg Tab 750 MG PO DAILY Infection #7 TAB Lorazepam (Ativan) 0.5 Mg Tab 0.5 MG PO Q8H PRN ANXIETY #10 TAB Pantoprazole (Pantoprazole) 40 Mg Tab 40 MG PO Q12HR Manage Heartburn #60 TAB Prednisone (Prednisone) 5 Mg Tab 5 MG PO DAILY Infection #5 TAB Tramadol (Ultram) 50 Mg Tab 25 MG PO Q6H PRN PAIN > 5 #10 TAB Continued Medications: Albuterol 6.7 GM Inh (Proventil Hfa 6.7 GM Inh) 90 Mcg/Act Aer 2 PUFF INH Q6H PRN SHORTNESS OF BREATH #1 Ref 0 INHALER Amlodipine (Norvasc) 5 Mg Tab 5 MG PO DAILY hypertension Days 30 Ref 0 TAB Enoxaparin Inj (Lovenox Inj) 60 Mg/0.6 Ml Syr 60 MG SQ BID dvt Days 56 Ref 0 SYRINGE Gabapentin (Gabapentin) 300 Mg Cap 300 MG PO TID #90 Ref 0 CAP Ipratropium-Albuterol Neb (Duoneb) 0.5-2.5 Mg/3 Ml Neb 1 AMPULE NEB Q4HR PRN SHORTNESS OF BREATH Days 5 Ref 0 ML Metoclopramide (Reglan) 10 Mg Tab 10 MG PO TIDAC Ref 0 TAB Mupirocin Nasal Oint (Bactroban Nasal Oint) 2% Oint 1 APPLIC EACH NARE BID For 5 days. Mgmt Bacterial Infection #1 Ref 0 TUBE Sertraline (Sertraline) 50 Mg Tab 50 MG PO DAILY #30 Ref 0 TAB Sertraline (Zoloft) 100 Mg Tab 100 MG PO DAILY #30 Ref 0 TAB Tiotropium Inh (Spiriva Handihaler) 18 Mcg Cap 18 MCG INH DAILY copd #1 Ref 0 CAP Tramadol (Ultram) 50 Mg Tab 50 MG PO Q6H PRN pain #15 Ref 0 TAB Discontinued Medications: Omeprazole (Omeprazole) 20 Mg Tab 20 MG PO DAILY #30 Ref 0 TAB Paul Michaud MD April 11, 2017 12:12
== END 2017-04-11 14:26 | DRG 388 ==
LOC: NEPC 13:14 → NEDA 16:15 → N07A 19:39
PROVIDERS: ADMIT Hospitalist; ATTEND Hospitalist
DX: K56.60 Unspecified intestinal obstruction (principal); J18.9 Pneumonia, unspecified organism; K66.8 Other specified disorders of peritoneum; J44.0 Chronic obstructive pulmonary disease with (acute) lower respiratory infection; N39.0 Urinary tract infection, site not specified; J44.1 Chronic obstructive pulmonary disease with (acute) exacerbation; J98.11 Atelectasis; D72.819 Decreased white blood cell count, unspecified; E87.6 Hypokalemia; D73.5 Infarction of spleen; I10 Essential (primary) hypertension; Z79.51 Long term (current) use of inhaled steroids; J45.909 Unspecified asthma, uncomplicated; K21.9 Gastro-esophageal reflux disease without esophagitis; K57.90 Diverticulosis of intestine, part unspecified, without perforation or abscess without bleeding; Z85.72 Personal history of non-Hodgkin lymphomas; Z87.11 Personal history of peptic ulcer disease; Z96.653 Presence of artificial knee joint, bilateral; Z99.81 Dependence on supplemental oxygen
CPT/HCPCS: 71010; 74020; 74176; 74240; 80048; 80053; 81001; 83605; 83690; 85007; 85025; 85027; 85610; 85730; 87040; 87086; 93005; 96365; 96368; 96375; C9113; J0744; J1170; J1450; J1650; J1956; J2270; J2405; J3370; J7030; J7050; J7512; Q9963